=== PATIENT | female | born 1955 | race Caucasian/White ===

== ENCOUNTER 2020-01-14 15:59 | Outpatient (REF) | payer OTHER, SELFPAY ==
--- NOTE | 2020-01-14 16:07 | MM_ITS ---
EXAMINATION: MM SCREENING DIGITAL BREAST TOMOSYNTHESIS, BILATERAL CLINICAL INFORMATION: Screening. Asymptomatic. The lifetime risk of breast cancer based on the Tyrer-Cuzick Model is 8%. COMPARISON: Mammography: 10/05/2018, 10/04/2017, 08/31/2016, 08/14/2015 TECHNIQUE: Digital breast tomosynthesis is performed in both the craniocaudal and mediolateral oblique views along with computer-aided detection (CAD). Synthesized 2D images are generated from the tomosynthesis. Additional left cleavage view is provided. FINDINGS: There are scattered areas of fibroglandular density (ACR BI-RADS breast composition Category b). There is a nodular fibrocystic parenchymal pattern again seen with scattered bilateral smooth nodularity, largest again seen anterior central outer right breast. Nodules are predominantly stable, some are waxing and waning. There are no interval architectural changes or significant mass or developing density. No abnormal calcifications. The axilla and skin contours are unremarkable. MM/MM tomosynthesis screening BI IMPRESSION: No significant changes from prior exams. ASSESSMENT: BI-RADS 2: Benign RECOMMENDATION: Routine annual mammography screening. This patient's information was entered into a reminder system with a target due date for their next mammogram.
== END 2020-01-14 16:00 | disposition home or self-care (01) ==
LOC: HO.MAMMO 15:59
PROVIDERS: PCP Family Medicine; Visit Provider Obstetrics & Gynecology
DX: Z12.31 Encounter for screening mammogram for malignant neoplasm of breast (principal)
CPT/HCPCS: 77063; 77067

== ENCOUNTER → 2020-04-01 07:59 | Outpatient (BNVA) | payer OTHER, SELFPAY | PROVIDERS: PCP Family Medicine; Visit Provider Internal Medicine Endocrinology, Diabetes & Metabolism | DX: E11.9 Type 2 diabetes mellitus without complications (principal); Z79.4 Long term (current) use of insulin; E21.3 Hyperparathyroidism, unspecified; I10 Essential (primary) hypertension; E78.5 Hyperlipidemia, unspecified; E66.9 Obesity, unspecified | CPT/HCPCS: 82947; 99212 ==

== ENCOUNTER 2020-04-01 09:01 | Outpatient (REF) | payer OTHER, SELFPAY ==
[2020-04-01 10:03] LABS: Hemoglobin 11.3 g/dl (12.0-16.0); Mean Corpuscular HGB Conc 31.4 g/dl (31.0-35.0); Mean Corpuscular Hemoglobin 29.7 pg (27.0-33.0); Mean Corpuscular Volume 94.7 fL (80-98); Mean Platelet Volume 10.4 fL (9.4-12.3); Platelet Count 375 X10*3/uL (160-400); Red Cell Distribution Width 12.8 % (11.0-16.0); White Blood Count 10.1 X10*3/uL (4.8-10.8)
[2020-04-01 10:42] LABS: Alanine Aminotransferase 15 U/L (0-31); Albumin Level 4.4 g/dL (3.5-5.0); Alkaline Phosphatase 103 U/L (39-117); Aspartate Amino Transferase 16 U/L (5-31); Bilirubin Total 0.5 mg/dL (0.0-1.0); Blood Urea Nitrogen 60 mg/dL (9-16); Calcium 9.6 mg/dL (8.4-10.2); Cholesterol 129 mg/dL; Estimated Glomerular Filt Rate 26; Glucose Fasting 113 mg/dL (60-99); HDL Cholesterol 30 mg/dL; LDL Cholesterol Calculated 74 mg/dl; Total Protein 7.4 g/dL (6.5-8.0); Triglycerides 128 mg/dL
[2020-04-01 10:47] LABS: Vitamin D 25-OH Total 34.7 ng/mL (>30)
[2020-04-01 10:50] LABS: Creatinine Urine 111.73 mg/dL; Microalbumin Urine < 5.0 mg/L
[2020-04-01 10:52] LABS: Anion Gap 17 (12-20); Carbon Dioxide 15 mmol/L (22-29); Chloride 115 mmol/L (96-108); Potassium 5.9 mmol/l (3.3-5.1); Sodium 141 mmol/L (135-145)
[2020-04-01 11:05] LABS: Vitamin B12 242 pg/mL (200-900)
[2020-04-02 07:57] LABS: LDL Cholesterol Direct 81 mg/dL (<100)
[2020-04-02 15:52] LABS: Calcium (PTHI) 9.9 mg/dL (8.6-10.4); PTHI 56 pg/mL (14-64)
[2020-04-05 00:47] LABS: VITAMIN D (1,25 OH) D3 <8 pg/mL; Vit D (1,25-Dihydroxy) Total <8 pg/mL (18-72); Vitamin D (1,25 OH) D2 <8 pg/mL
== END 2020-04-01 09:02 | disposition home or self-care (01) ==
LOC: HO.10HDL 09:01
PROVIDERS: Visit Provider Internal Medicine Endocrinology, Diabetes & Metabolism
DX: E21.3 Hyperparathyroidism, unspecified (principal); E11.9 Type 2 diabetes mellitus without complications; E78.5 Hyperlipidemia, unspecified; Z79.4 Long term (current) use of insulin
CPT/HCPCS: 36415; 80053; 80061; 82043; 82306; 82607; 82652; 83721; 83970; 85027

== ENCOUNTER → 2020-04-08 07:50 | Outpatient (REF) | payer OTHER, SELFPAY ==
--- NOTE | 2020-04-08 07:53 | CA_ITS ---
Acquisition Time: 2020-04-08 08:05:14 Total Exercise Time: 00:01:16 Test Indications: Dyspnea Medications: SEE CHART Protocol: DAVE Max HR: 136 BPM 86% of Pred: 157 BPM Max BP: 148/076 mmHG Max Work Load: 3.2 METS Exercise stress test with exercise 1 min 16 sec of Dave protocol, with report of knee pain and request to stop, with moderate shortness of breath, no chest discomfort, without arrythmia, with normotensive response to exercise, with nondiagnostic EKG for ischemia due to suboptimal exercise time. Test reviewed with Dr Domínguez. Message sent to Dr Suarez with recommendation for pharm nuclear stress test if warranted. Referred By: Reinaldo Suarez Overread By: SAIRA SHI
== END ==
LOC: HO.CARD 07:50
PROVIDERS: PCP Family Medicine; Visit Provider Family Medicine
DX: R07.89 Other chest pain (principal); R06.02 Shortness of breath
CPT/HCPCS: 93017

== ENCOUNTER → 2020-05-16 09:19 | Outpatient (REF) | payer OTHER, SELFPAY ==
--- NOTE | ~2020-05-16 | NM_ITS ---
Myocardial perfusion study Indication: Shortness of breath evaluate for myocardial ischemia Technique: The patient was brought in for a Lexiscan perfusion study on 05/16/2020. Patient performed low-level exercise and was injected 0.4 mg of Lexiscan intravenously. Within a minute of injection, 30 mCi of sestamibi was given intravenously. Images were obtained using the SPECT gamma camera interlaced with the gating device. Images were obtained in supine position. Resting perfusion study was performed on 05/20/2019. Patient was administered 30 mCi of sestamibi intravenously at rest. Images were then obtained in supine position. Images obtained with and without CT attenuation. Total DLP 103 mGy-cm. Images were processed with the software and compared side to side in short axis, horizontal long axis and vertical long axis views. Findings: The stress perfusion study showed non attenuated images show normal uptake of radiotracer in all segments of LV myocardium. Attenuation corrected images show mildly reduced uptake in the apex of the LV myocardium.. The gated study shows normal LV systolic function with calculated LVEF of greater than 70 %. LV cavity is normal size. The gated study shows normal systolic wall thickening and contraction of segments. Resting study shows non attenuated images show mildly reduced uptake in the basal and mid inferior wall of the LV myocardium. Attenuation corrected images show mildly reduced uptake in the septum, distal anterior and moderately reduced uptake in the apex of the LV myocardium. Gating at rest reveals normal systolic wall motion with ejection fraction at greater than 70 %. The findings are consistent with normal myocardial perfusion. NM/NM cardiolite stress test Impression: 1. Myocardial perfusion imaging study shows normal myocardial perfusion 2. Gated LVEF is greater than 70% 3. Transient ischemic dilatation not present EKG is nondiagnostic for ischemia
--- NOTE | 2020-05-16 09:30 | CA_ITS ---
Acquisition Time: 2020-05-16 10:50:53 Total Exercise Time: 00:02:00 Test Indications: CP, SOB Medications: SEE CHART Protocol: LEXISCAN Max HR: 130 BPM 82% of Pred: 157 BPM Max BP: 144/078 mmHG Max Work Load: 1.0 METS Pharmacological stress test using Lexiscan while sitting and kicking her feet. Pt tolerated well, denies any anginal sx. EKG with no arrhythmia, non-diagnostic for ischemia. Pt c/o H/A in recovery, sx reversed with Aminophyline 75 mg IV. Nuclear images to follow. Normotensive response to jackie. Test reviewed with Dr. Domínguez. Referred By: Reinaldo Suarez Overread By: Eliel Reid
== END ==
LOC: HO.CARD 09:19
PROVIDERS: PCP Family Medicine; Visit Provider Family Medicine
DX: R07.89 Other chest pain (principal); R06.02 Shortness of breath
CPT/HCPCS: 78452; 93017; A9500; J0280; J2785

== ENCOUNTER 2020-06-03 07:58 | Day surgery (SDC) | payer OTHER, SELFPAY ==
[2020-05-28 10:43] VITALS: BMI 32.0
--- NOTE | 2020-06-02 08:31 | P.CONAN_ITS ---
Documented by User: Mary Ramosney 06/02/20 08:34 HPI - Anesthesia Eval Consult details Narrative: 64yo F for Upper Endoscopy and Colonoscopy PCP w/u for CP, all negative, likely r/t dyspepsia per 05/2020 OV note PMFSH Active Problems Active Problems: All Active Problems (Updated 05/21/20 @ 10:09 by Reinaldo Suarez MD) Breast cancer screening by mammogram (Acute) Screening for colon cancer (Acute) Screening for cervical cancer (Acute) Screening for osteoporosis (Acute) Abdominal pain (Acute) Chest discomfort (Acute) Shortness of breath (Acute) Dyspepsia (Acute) Obesity (BMI 30-39.9) (Acute) CKD (chronic kidney disease) stage 3, GFR 30-59 ml/min (Acute) Dyslipidemia (Acute) Hypertension (Acute) 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 Sister No problems noted. Sister No problems noted. Daughter No problems noted. Daughter No problems noted. Daughter No problems noted. Surgical History Surgical History H/O colonoscopy History of endometrial ablation History of esophagogastroduodenoscopy (EGD) History of eye surgery History of femoral hernia repair History of incisional hernia repair History of pubovaginal sling Hx of section Hx of cholecystectomy Hx of left knee surgery S/P right knee arthroscopy Social History Social History Alcohol intake: never Smoking Status: Former smoker Smoking Quit Date: unknown Use of substances other than those prescribed or required for medical reasons: No Advance Directives Information Provided: No Meds Allergies Allergy/AdvReac Type Severity Reaction Status Date / Time tuberculin,PPD,multi-puncture Allergy Intermediate hives/SOB Verified 05/28/20 09:40 oxycodone [Percocet] Allergy Unknown unknown Verified 05/21/20 09:29 Doxycycline Hyclate Allergy Intermediate dizziness, Uncoded 05/28/20 09:40 n/v Home Medications Medication Instructions Recorded Confirmed Last Taken Type blood sugar diagnostic #10 ea 04/01/20 04/01/20 Unknown History citalopram 40 mg tablet 40 mg PO DAILY 04/01/20 05/28/20 Unknown History famotidine 40 mg tablet 40 mg PO BEDTIME 04/01/20 05/28/20 Unknown History latanoprost 0.005 % eye drops 1 drp OPHTHALMIC (EYE) BEDTIME 04/01/20 04/01/20 Unknown History pen needle, diabetic 31 gauge x #1200 ea 04/01/20 04/01/20 Unknown History 07/20 trazodone 150 mg tablet 150 mg PO BEDTIME 04/01/20 05/28/20 Unknown History Exam Exam Date and Time: June 02, 2020 0831 Height,Weight and Vital Signs: Height 5 ft 2 in Weight 79.379 kg Pertinent Lab Results Pertinent Lab Results: Laboratory Tests 04/01/20 09:10 WBC 10.1 Hgb 11.3 L Hct 36.0 L Plt Count 375 Narrative Narrative: NM cardiolite stress test 05/2020 Impression: 1. Myocardial perfusion imaging study shows normal myocardial perfusion 2. Gated LVEF is greater than 70% 3. Transient ischemic dilatation not present EKG is nondiagnostic for ischemia EKG 03/2020 NSR per PCP note Assessment and Plan Assessment Anesthesia Assessment: Chart Reviewed Documented by User: Stephenie Ribeiro 06/03/20 10:16 [facility] Past Medical History Medical History CKD (chronic kidney disease) stage 3, GFR 30-59 ml/min Diabetes type 2, controlled Dyslipidemia Hyperparathyroidism Hypertension [facility] (current) use of insulin Obesity (BMI 30-39.9) Family History Family History Father Cancer Diabetes mellitus Hx of CABG CVD (cardiovascular disease) Mother Diabetes mellitus Brother No problems noted. Sister No problems noted. Sister No problems noted. Daughter No problems noted. Daughter No problems noted. Daughter No problems noted. Surgical History Surgical History H/O colonoscopy History of endometrial ablation History of esophagogastroduodenoscopy (EGD) History of eye surgery History of femoral hernia repair History of incisional hernia repair History of pubovaginal sling Hx of section Hx of cholecystectomy Hx of left knee surgery S/P right knee arthroscopy Social History Social History Alcohol intake: never Smoking Status: Former smoker Smoking Quit Date: unknown Use of substances other than those prescribed or required for medical reasons: No Advance Directives Information Provided: No Meds Allergies Allergy/AdvReac Type Severity Reaction Status Date / Time tuberculin,PPD,multi-puncture Allergy Intermediate hives/SOB Verified 05/28/20 09:40 oxycodone [Percocet] Allergy Unknown unknown Verified 05/21/20 09:29 Doxycycline Hyclate Allergy Intermediate dizziness, Uncoded 05/28/20 09:40 n/v Home Medications Medication Instructions Recorded Confirmed Last Taken Type blood sugar diagnostic #10 ea 04/01/20 04/01/20 Unknown History citalopram 40 mg tablet 40 mg PO DAILY 04/01/20 05/28/20 Unknown History famotidine 40 mg tablet 40 mg PO BEDTIME 04/01/20 05/28/20 Unknown History latanoprost 0.005 % eye drops 1 drp OPHTHALMIC (EYE) BEDTIME 04/01/20 04/01/20 Unknown History pen needle, diabetic 31 gauge x #1200 ea 04/01/20 04/01/20 Unknown History 5/16 trazodone 150 mg tablet 150 mg PO BEDTIME 04/01/20 05/28/20 Unknown History Exam Airway Mallampati Class: II TM Dist: >3cm Denture: Upper Loose/Missing/Broken Teeth: Yes, Upper and Lower Heart: RRR Lungs: CTA Assessment and Plan Assessment Anesthesia Assessment: Anesthesia Plan Discussed and Chart Reviewed Final Anesthetic Review NPO: Yes ASA Class: III Final Preanesthetic Review: Meds/Allgs Chart Reviewed, Consent Obtained/Reviewed and Anes Risks/Benef Reviewed Patient Risk: Intermediate Procedure Risk: Intermediate Anesthetic Plan Anesthetic Plan: MAC: Disposition: Standard PACU
[2020-06-03 09:02] VITALS: BP 161/84; PULSE 90; RESP 18; TEMP 36.1; O2SAT 99
[2020-06-03] MEDS: Lactated Ringers 1,000 ML 100 ML IVCONT (09:24)
[2020-06-03 09:27] LABS: Glucose, Whole Blood 90 mg/dL (60-115)
[2020-06-03 09:55] LABS: Anion Gap 15 (12-20); Blood Urea Nitrogen 33 mg/dL (9-16); Calcium 9.7 mg/dL (8.4-10.2); Carbon Dioxide 17 mmol/L (22-29); Chloride 114 mmol/L (96-108); Creatinine Clr Calc Pharmacy 40.4; Estimated Glomerular Filt Rate 38; Glucose Fasting 103 mg/dL (60-99); Potassium 5.8 mmol/L (3.3-5.1); Sodium 140 mmol/L (135-145)
--- NOTE | 2020-06-03 10:14 | MHC.SHP ---
Pre-Procedural Eval Section A The patient is an INPATIENT: No Changes since office visit: No Cold of Flu in the past 2 weeks, No New Medical Problems, No Changes in Medication and No Patient answered all questions The History & Physical has been completed within 30 days and I have reviewed it.: Yes Section B Chief Complaint: polyps Allergies: Allergies Allergy/AdvReac Type Severity Reaction Status Date / Time tuberculin,PPD,multi-puncture Allergy Intermediate hives/SOB Verified 05/28/20 09:40 oxycodone [Percocet] Allergy Unknown unknown Verified 05/21/20 09:29 Doxycycline Hyclate Allergy Intermediate dizziness, Uncoded 05/28/20 09:40 n/v Plan I have reviewed the history and physical and performed a pertinent physical examination on my patient. No changes have occurred unless specified.
[2020-06-03 10:58] VITALS: BP 96/52; PULSE 97; RESP 18; TEMP 36.6; O2SAT 99
--- NOTE | 2020-06-03 10:58 | PM.OP ---
Brief Operative Note Date of Service: 06/03/20 Pre-op diagnosis: abd pain screening Post-op diagnosis: same Procedure: egd colon Surgeon: Kee Godfrey Anesthesia: MAC Estimated blood loss (mL): 5 Pathology: other (biopsies egj antrum rectal polyp) Condition: stable Disposition: PACU
[2020-06-03 11:13] VITALS: BP 103/66; PULSE 89; RESP 18; TEMP 36.6; O2SAT 98
--- NOTE | 2020-06-03 12:29 | OP_ITS ---
SURGEON: Kee Godfrey MD INDICATIONS: Abdominal pain and personal history of colon polyps. PREOPERATIVE DIAGNOSIS: POSTOPERATIVE DIAGNOSIS: PROCEDURE PERFORMED: 1. Upper endoscopy with biopsy. 2. Colonoscopy to the cecum with biopsy. ESTIMATED BLOOD LOSS: COMPLICATIONS: ANESTHESIA: ASSISTANTS: SPECIMENS: MEDICATIONS: Monitored anesthesia care. DESCRIPTION OF PROCEDURE: History and physical performed. The risks and benefits of the procedure were explained to the patient. Informed consent was obtained. The patient was placed in the left lateral decubitus position. The Olympus video gastroscope was introduced into the esophagus, stomach, and duodenum. Examination was performed and the scope was removed. She was repositioned for colonoscopy. A digital rectal exam was performed and was found to be normal. The Olympus pediatric video colonoscope was introduced into the rectum and advanced to the cecum without difficulty. The cecum was identified by transillumination, palpation, and identification of the ileocecal valve. Examination was performed and the scope was removed. She tolerated both procedures well and was taken to recovery area in stable condition. FINDINGS: UPPER ENDOSCOPY: ESOPHAGUS: The esophagus was normal. Biopsies were obtained from the EG junction. STOMACH: Stomach showed no evidence of masses, ulcers, or polyps. Antral biopsies were obtained. DUODENUM: The bulb and second portion were normal. COLONOSCOPY: The terminal ileum was not examined. The visualized colonic mucosa was normal. The quality of the prep was fair with some undigested food material and the descending and sigmoid colon, which limited the sensitivity examination for detection of small polyps. A single rectal polyp was identified and removed with biopsy forceps. No other polyps were seen. Retroflexed examination was normal. IMPRESSION: 1. Normal upper endoscopy. 2. Colon polyp. RECOMMENDATION: Follow up the biopsy results. MD YESSICA Adorno/ELAINE / [id number]
== END 2020-06-03 11:37 | disposition home or self-care (01) ==
PROVIDERS: Nurse Practitioner; PCP Family Medicine; Visit Provider Internal Medicine Gastroenterology
PROC: (CPT 45380; principal; 2020-06-03 09:20)
DX: R10.33 Periumbilical pain (principal); Z86.010 Personal history of colon polyps; K62.1 Rectal polyp; E11.22 Type 2 diabetes mellitus with diabetic chronic kidney disease; I12.9 Hypertensive chronic kidney disease with stage 1 through stage 4 chronic kidney disease, or unspecified chronic kidney disease; N18.30 Chronic kidney disease, stage 3 unspecified; Z79.4 Long term (current) use of insulin; Z79.82 Long term (current) use of aspirin; Z79.899 Other long term (current) drug therapy; Z88.8 Allergy status to other drugs, medicaments and biological substances; Z87.891 Personal history of nicotine dependence
CPT/HCPCS: 45380; 43239; 36415; 80048; 82947; 88305; 88342

== ENCOUNTER 2020-06-19 16:33 | Emergency (ER) | payer OTHER, SELFPAY ==
--- NOTE | 2020-06-19 | ECG_ITS ---
Test Reason : HIGH HEARTHRATE Blood Pressure : / mmHG Vent. Rate : 123 BPM Atrial Rate : 123 BPM P-R Int : 134 ms QRS Dur : 074 ms QT Int : 280 ms P-R-T Axes : 045 010 077 degrees QTc Int : 400 ms Sinus tachycardia Left ventricular hypertrophy with repolarization abnormality Nonspecific ST abnormality Abnormal ECG When compared with ECG of 06-JUL-2019 13:40, ST no longer elevated in Lateral leads Nonspecific T wave abnormality now evident in Lateral leads Referred By: Generic ED Physician Electronically Signed By:Rodrigo Moralez
--- NOTE | ~2020-06-19 | XR_ITS ---
EXAMINATION: XR CHEST CLINICAL INFORMATION: Covid COMPARISON: Chest x-ray 07/06/2019 TECHNIQUE: Frontal portable view of the chest was obtained. 7:45 PM FINDINGS: No significant abnormality is noted involving the heart, lungs, mediastinum, bony thorax or soft tissues. XR/XR chest 1V IMPRESSION: Unremarkable examination.
[2020-06-19 17:14] VITALS: BP 128/81; PULSE 129; RESP 18; TEMP 37.2; O2SAT 98; BMI 32.6
[2020-06-19 17:39] LABS: COVID-19 Test Positive (Negative); IDNOW Serial# 08D9AD1C
--- NOTE | 2020-06-19 19:32 | ED.GENADULT ---
HPI - General Adult General Chief complaint: General Medical Stated complaint: covid + Time Seen by Provider: 06/19/20 19:28 Source: patient Mode of arrival: ambulatory Limitations: no limitations History of Present Illness HPI narrative: Patient complaining of low-grade fever vomiting nausea headache body ache dizziness tested for COVID few days ago which was negative she state she has close contact with her cousin is positive for COVID patient is saturating 98% at room air Related Data Home Medications Medication Instructions Recorded Confirmed blood sugar diagnostic #10 ea 04/01/20 07/28/20 citalopram 40 mg tablet 40 mg PO DAILY 04/01/20 07/28/20 famotidine 40 mg tablet 40 mg PO BEDTIME 04/01/20 07/28/20 latanoprost 0.005 % eye drops 1 drp OPHTHALMIC (EYE) BEDTIME 04/01/20 07/28/20 dicyclomine 20 mg tablet 20 mg PO 07/02/20 07/28/20 Previous Rx's Medication Instructions Recorded amitriptyline 25 mg tablet 25 mg PO BEDTIME 90 Days #90 tab 04/02/20 lisinopril 20 mg tablet 20 mg PO DAILY #90 tab 04/02/20 oxybutynin chloride 15 mg 15 mg PO DAILY 90 Days #90 tab 04/02/20 tablet,extended release 24 hr aspirin 81 mg tablet,delayed 81 mg PO DAILY 90 Days #90 tab 04/23/20 release diclofenac sodium 50 mg 50 mg PO TID 90 Days #270 tab 04/23/20 tablet,delayed release metoprolol succinate 25 mg 25 mg PO DAILY 90 Days #90 tab 04/23/20 tablet,extended release 24 hr omeprazole 40 mg capsule,delayed 40 mg PO DAILY #30 cap 06/16/20 release ondansetron 4 mg PO Q6-8H PRN #7 tab 06/19/20 tramadol 50 mg PO Q6H PRN #20 tab 06/19/20 nystatin 5 ml PO QID #473 ml 06/28/20 atorvastatin 40 mg tablet 40 mg PO DAILY #90 tab 07/10/20 cholecalciferol (vitamin D3) 125 125 mcg PO DAILY 30 Days #30 cap 07/28/20 mcg (5,000 unit) capsule pen needle, diabetic 31 gauge x #100 ea 07/28/2007/20 trazodone 150 mg tablet 150 mg PO BEDTIME #30 tab 08/07/20 Trulicity 0.75 mg/0.5 mL 0.75 mg SUBCUT QWEEK 30 Days #2 ml 08/13/20 subcutaneous pen injector NS insulin glargine U-300 conc 300 40 unit SUBCUT DAILY 30 Days 08/13/20 unit/mL (3 mL) subcutaneous pen #3.999 ml Allergies Allergy/AdvReac Type Severity Reaction Status Date / Time tuberculin,PPD,multi-puncture Allergy Intermediate hives/SOB Verified 07/02/20 09:35 oxycodone [Percocet] Allergy Unknown unknown Verified 07/02/20 09:35 Doxycycline Hyclate Allergy Intermediate dizziness, Uncoded 05/28/20 09:40 n/v Review of Systems Review of Systems: Constitutional : No Weight loss, + Fever, No Chills ENT/Mouth : No sore throat, No Rhinorrhea Eyes: No Eye Pain, No Swelling Cardiovascular : No Chest Pain, no palpitations Respiratory : No Cough, No Sputum, no shortness of breath Gastrointestinal : + Nausea, +Vomiting, No Diarrhea, No abdominal Pain, no black stools Genitourinary : No Dysuria, No Urinary Frequency Musculoskeletal : No joint pain, + Myalgias, No Joint Swelling Skin : No Skin Lesions, No rash Neuro : ++Weakness, No Numbness, No Dizziness, No Headache Psych : No Anxiety/Panic, No Depression Heme/Lymph: No Bruising, No Lymphadenopathy Endocrine : No Polyuria, No Polydipsia All other systems reviewed and are negative PMFSH Past Medical History Medical History CKD (chronic kidney disease) stage 3, GFR 30-59 ml/min Diabetes type 2, controlled Dyslipidemia Hyperparathyroidism 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 Sister No problems noted. Sister No problems noted. Daughter No problems noted. Daughter No problems noted. Daughter No problems noted. Social History Social History Alcohol intake: never Physical Exam Vital Signs: Vital Signs: Last Vital Signs Temp 99.0 F 06/19/20 17:14 Pulse 118 H 06/19/20 19:59 Resp 20 06/19/20 19:59 BP 127/93 H 06/19/20 19:59 Pulse Ox 98 06/19/20 17:14 Body Mass Index 32.6 Appearance: Alert. Oriented X3. No acute distress. Eyes: PERRLA, No Nystagmus ENT: Pharynx normal. Oral Mucosa moist Neck: Normal inspection. Neck supple. CVS: Normal heart rate and rhythm. Pulses normal. Respiratory: No respiratory distress. Equal air entry bilateral, no wheezing/rales/rhonchi Abdomen: Soft and nontender. Bowel sounds are present, no mass palpable, no CVA tenderness Skin: Skin warm and dry. Normal skin color. Normal skin turgor. Extremities: No lower extremity edema. No calf tenderness Neuro: Oriented X 3. No motor deficit. No sensory deficit.No cerebellar signs , cranial nerves II-XII intact Medical Decision Making MDM Narrative Medical decision making narrative: Patient COVID positive saturating 98% chest x-ray negative Lab Data Lab results reviewed: Yes I reviewed the patient's lab results. Labs: Lab Results 06/19/20 Range/Units 17:04 COVID-19 ([facility]REE) Positive A (Negative) COVID-19 Clin Com See Note Discharge Plan Discharge Clinical Impression: COVID-19 Patient Disposition: Home, Self-Care Instructions: COVID-19 (Coronavirus Disease 2019) (ED) Additional Instructions: Social distancing as advised. Medicine as advised Report to the ER if increased shortness of breath Prescriptions: New tramadol 50 mg tablet 50 mg PO Q6H PRN (Reason: pain) Qty: 20 RF: 0 ondansetron 4 mg tablet,disintegrating 4 mg PO Q6-8H PRN (Reason: nausea and vomiting) Qty: 7 RF: 0 No Action omeprazole 40 mg capsule,delayed release(DR/EC) 40 mg PO DAILY Qty: 30 RF: 3 atorvastatin 40 mg tablet 40 mg PO DAILY Qty: 90 RF: 0 trazodone 150 mg tablet 150 mg PO BEDTIME Qty: 30 RF: 0 insulin glargine U-300 conc 300 unit/mL (3 mL) insulin pen 40 unit subcut DAILY 30 Days Qty: 3.999 RF: 6 Trulicity 0.75 mg/0.5 mL pen injector 0.75 mg subcut QWEEK 30 Days Qty: 2 RF: 6 nystatin 100,000 unit/mL suspension 5 ml PO QID Qty: 473 RF: 0 metoprolol succinate 25 mg tablet extended release 24 hr 25 mg PO DAILY 90 Days Qty: 90 RF: 2 diclofenac sodium 50 mg tablet,delayed release (DR/EC) 50 mg PO TID 90 Days Qty: 270 RF: 2 aspirin 81 mg tablet,delayed release (DR/EC) 81 mg PO DAILY 90 Days Qty: 90 RF: 4 amitriptyline 25 mg tablet 25 mg PO BEDTIME 90 Days Qty: 90 RF: 3 lisinopril 20 mg tablet 20 mg PO DAILY Qty: 90 RF: 2 oxybutynin chloride 15 mg tablet extended release 24hr 15 mg PO DAILY 90 Days Qty: 90 RF: 2 dicyclomine 20 mg tablet 20 mg PO RF: 0 (DME) blood sugar diagnostic Strip See Rx Instructions ea Not Applicable BID Qty: 10 RF: 0 famotidine 40 mg tablet 40 mg PO BEDTIME RF: 0 citalopram 40 mg tablet 40 mg PO DAILY RF: 0 latanoprost 0.005 % drops 1 drp ophthalmic (eye) BEDTIME RF: 0 cholecalciferol (vitamin D3) 125 mcg (5,000 unit) capsule 125 mcg PO DAILY 30 Days Qty: 30 RF: 4 (DME) pen needle, diabetic 31 gauge x 5/16 needle See Rx Instructions ea subcut .MEDSUPPLY Qty: 100 RF: 6 Interventions: ED Discharge Assessment Last Done: 06/19/20 21:27 Discharge Date/Time: 06/19/20 21:27
[2020-06-19 19:59] VITALS: BP 127/93; PULSE 118; RESP 20
[2020-06-19] MEDS: traMADoL HCL 50 MG TABLET PO (20:02)
[2020-06-19] MEDS: dexAMETHasone 6 MG TABLET PO (20:02)
[2020-06-19] MEDS: Magnesium Hydrox/Alum Hydrox 30 ML ORAL.SUSP PO (20:30)
== END 2020-06-19 21:27 | disposition home or self-care (01) ==
PROVIDERS: Emergency Provider Internal Medicine; PCP Family Medicine
DX: U07.1 COVID-19 (principal); R50.9 Fever, unspecified; R51.9 Headache, unspecified; Z79.899 Other long term (current) drug therapy
CPT/HCPCS: 36415; 71045; 87635; 93005; 99284; J8540

== ENCOUNTER 2020-06-28 15:47 | Emergency (ER) | payer OTHER, SELFPAY ==
--- NOTE | ~2020-06-28 | XR_ITS ---
EXAMINATION: XR CHEST CLINICAL INFORMATION: Shortness of breath. COVID positive COMPARISON: 06/19/2020 TECHNIQUE: Frontal view of the chest was obtained. FINDINGS: Lung volumes are borderline low. No consolidation, pneumothorax, or pleural effusion. Cardiac and mediastinal contours are normal. Pulmonary vasculature is unremarkable. No acute osseous findings. XR/XR chest 1V IMPRESSION: Borderline low lung volumes. No acute pulmonary findings.
[2020-06-28 16:28] VITALS: BP 113/76; PULSE 102; RESP 16; TEMP 37.1; O2SAT 98
[2020-06-28 16:52] VITALS: BP 132/79; PULSE 104; RESP 20; TEMP 37.2; O2SAT 97; BMI 32.6
--- NOTE | 2020-06-28 17:25 | ED_ITS ---
HPI - General Adult General Chief complaint: General Medical Stated complaint: covid+ , sob Time Seen by Provider: 06/28/20 17:05 Source: patient, RN notes reviewed and old records reviewed Mode of arrival: ambulatory Limitations: no limitations History of Present Illness HPI narrative: 64-year-old female here today for complaints of cough, shortness of breath fatigue. Patient has a history dyslipidemia, hypertension, hyperparathyroidism, diabetes. Was seen on the 15 and diagnosed with COVID. Sent home with Decadron. At that time her symptoms were headache, dyspepsia, him cough and mild shortness of breath. Patient reports that she felt better after couple days however her symptoms return and today she is coughing, shortness of breath with exertion, headache and dyspepsia. Patient reports to be feeling fatigued. Her mouth is dry. Reports to have white patchy spots on her tongue. Patient reports that her cough is increased and she feels more fatigued. Denies fever or chills. Took 7 day course of Decadron. Related Data Home Medications Medication Instructions Recorded Confirmed blood sugar diagnostic #10 ea 04/01/20 04/01/20 citalopram 40 mg tablet 40 mg PO DAILY 04/01/20 05/28/20 famotidine 40 mg tablet 40 mg PO BEDTIME 04/01/20 05/28/20 latanoprost 0.005 % eye drops 1 drp OPHTHALMIC (EYE) BEDTIME 04/01/20 04/01/20 pen needle, diabetic 31 gauge x #1200 ea 04/01/20 04/01/20 5/16 trazodone 150 mg tablet 150 mg PO BEDTIME 04/01/20 05/28/20 Previous Rx's Medication Instructions Recorded amitriptyline 25 mg tablet 25 mg PO BEDTIME 90 Days #90 tab 04/02/20 cholecalciferol (vitamin D3) 125 125 mcg PO DAILY 30 Days #30 cap 04/02/20 mcg (5,000 unit) capsule lisinopril 20 mg tablet 20 mg PO DAILY #90 tab 04/02/20 oxybutynin chloride 15 mg 15 mg PO DAILY 90 Days #90 tab 04/02/20 tablet,extended release 24 hr sitagliptin 50 mg tablet 50 mg PO DAILY 90 Days #90 tab 04/02/20 insulin glargine U-300 conc 300 46 unit SUBCUT DAILY 30 Days #6 ml 04/09/20 unit/mL (3 mL) subcutaneous pen aspirin 81 mg tablet,delayed 81 mg PO DAILY 90 Days #90 tab 04/23/20 release atorvastatin 40 mg tablet 40 mg PO DAILY #90 tab 04/23/20 diclofenac sodium 50 mg 50 mg PO TID 90 Days #270 tab 04/23/20 tablet,delayed release metoprolol succinate 25 mg 25 mg PO DAILY 90 Days #90 tab 04/23/20 tablet,extended release 24 hr omeprazole 40 mg capsule,delayed 40 mg PO DAILY #30 cap 06/16/20 release dexamethasone [Decadron] 6 mg PO DAILY #7 tab 06/19/20 ondansetron 4 mg PO Q6-8H PRN #7 tab 06/19/20 tramadol 50 mg PO Q6H PRN #20 tab 06/19/20 azithromycin 250 mg PO DAILY 4 Days #4 tab 06/28/20 nystatin 5 ml PO QID #473 ml 06/28/20 Allergies Allergy/AdvReac Type Severity Reaction Status Date / Time tuberculin,PPD,multi-puncture Allergy Intermediate hives/SOB Verified 06/19/20 17:14 oxycodone [Percocet] Allergy Unknown unknown Verified 06/19/20 17:14 Doxycycline Hyclate Allergy Intermediate dizziness, Uncoded 05/28/20 09:40 n/v Review of Systems Review of Systems: Constitutional : No Weight loss, No Fever, No Chills, No Night Sweats, No Fatigue, No Malaise ENT/Mouth : No Hearing loss, No Ear Pain, No Nasal Congestion, No Sinus Pain, No Hoarseness, No sore throat, No Rhinorrhea, No Swallowing Difficulty Eyes: No Eye Pain, No Swelling, No Redness, No Foreign Body, No Discharge, No Vision Changes Cardiovascular : No Chest Pain, SOB with exertion, No Orthopnea, No Edema, No Palpitations Respiratory: Cough, Sputum, No Wheezing, No Smoke Exposure, Dyspnea with exertion Gastrointestinal : No Nausea, No Vomiting, No Diarrhea, No Constipation, No abdominal Pain, No Hematochezia, No Melena Genitourinary : no irregular bleeding, No Dysuria, No Urinary Frequency, No Hematuria, No Urinary Incontinence, No Urgency, No Flank Pain, No Urinary Flow Changes, No Hesitancy Musculoskeletal : No joint pain, No Myalgias, No Joint Swelling Skin : No Skin Lesions, No rash Neuro : No Weakness, No Numbness, No Paresthesias, No Loss of Consciousness, No Dizziness, No Headache Psych : No Anxiety/Panic, No Depression, No SI/HI/AH/VH, No Social Issues, Heme/Lymph: No Bruising, No Bleeding,No Lymphadenopathy Endocrine : No Polyuria, No Polydipsia, No Temperature Intolerance Yes all other systems are reviewed and are negative [facility] Past Medical History Medical History CKD (chronic kidney disease) stage 3, GFR 30-59 ml/min Diabetes type 2, controlled Dyslipidemia Hyperparathyroidism 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 Sister No problems noted. Sister No problems noted. Daughter No problems noted. Daughter No problems noted. Daughter No problems noted. Social History Social History Alcohol intake: never Smoking Status: Former smoker Smoked in Last 30 Days: No Use of substances other than those prescribed or required for medical reasons: No Advance Directives: No Advance Directives Information Provided: No Physical Exam Vital Signs: Vital Signs: Last Vital Signs Temp 98.8 F 06/28/20 22:00 Pulse 86 06/28/20 22:00 Resp 18 06/28/20 22:00 BP 111/73 06/28/20 22:00 Pulse Ox 98 06/28/20 22:00 Body Mass Index 32.6 Const: General: cooperative, healthy appearing and comfortable Nutritional Appearance: average body habitus Orientation/consciousness: patient oriented x3 Limitations: no limitations HENMT: Head: Yes normal to inspection Ears: hearing grossly normal bilaterally General nose exam: Normal external nose present Face and sinus: Yes normal facial exam Mouth: Abnormal oral and palatal mucosa present (Dry, white patchy spots) Eyes: General: appearance normal, both eyes and all related structures Ey elids: Yes eyelids normal Conjunctivae: conjunctivae normal Sclerae: sclerae normal Pupils: Equal, round and reactive pupils present Neck: Neck: Yes normal visual inspection, Yes full ROM, Yes no lymphadenopathy, Yes trachea midline and Yes supple Thyroid: Thyroid normal Lymphatic: no lymphadenopathy noted Chest: Chest palpation & inspection: normal inspection of the chest Resp: Effort & Inspection: normal respiratory effort and able to speak in complete sentences Auscultation: clear to auscultation bilaterally Cardio: Jugular venous distension: no JVD Rate: regular rate Rhythm: regular rhythm Heart sounds: S1 normal heart sound present, S2 normal heart sound present, no gallops, no murmurs and no rubs Peripheral pulses: Peripheral pulses 2+ throughout GI: Inspection: Yes normal to inspection and No distended Palpation (GI): No hepatosplenomegaly present and No Rebound tenderness present Percussion: Yes normal to percussion Auscultation: normal bowel sounds Back/Spine/Pelvis: Cervical Spine: cervical ROM normal and No cervical muscul ar tenderness Thoracic/Lumbar Spine: thoracic and lumbar spine normal to inspection Skin: General skin exam: no rashes or lesions noted, elasticity normal and turgor normal Neuro: General: patient oriented x3 Cranial nerves: Yes Equal, round and reactive pupils present Extrem: General: Yes normal to inspection, Yes full ROM and Yes capillary refill normal Psych: Appearance: grossly normal Mental Status: mental status grossly normal Speech and movement: Normal speech and movement present Affect: normal affect Attitude: cooperative Thought process: Normal thought process present Insight: Good insight present (Psych) Course Course Course Narrative: 64-year-old female here today with COVID positive diagnosed over 1 week ago. Patient was treated 7 days Decadron. Symptoms improved for 2 days however they have returned. SOB with exertion, headache, cough, dyspepsia, white patches on her tongue. Patient's heart rate is elevated. HR 110 at rest and 125 when she is moving around. I will order CRP, LDH, ferritin, CBC, CMP, D-dimer. Symptoms are most likely viral will order lactic acid, and blood cultures. Reevaluation(s) Reevaluation #1: Patient's kidney function came back abnormal. BUN 55, c reatinine 1.86. Ferritin 330, LDH 240, C-reactive protein 1.64. Patient has no change in her respiratory status. Continue to have a headache and occasional cough. Lung sounds coarse however her chest x-ray is without active disease. Patient O2 sat is 95-98% on room air. Patient has thrush in her mouth. Reevaluation #2: Patient reports she is feeling much better 1st dose of is a trauma eyes and given to her. Nystatin swish and swallow for oral thrush. L of fluid of fluid in. Patient reports that she is feeling better. She will be discharged home on nystatin and Zithromax. Patient is agreeable to plan of care. 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 She was given the opportunity to ask questions and all questions answered. Medical Decision Making Lab Data Result diagrams: 06/28/20 18:18 06/28/20 19:15 Labs: Lab Results 06/28/20 06/28/20 06/28/20 Range/Units 18:17 18:18 18:18 WBC 16.9 H (4.8-10.8) X10*3/uL RBC 3.79 L (4.20-5.50) X10*6/uL Hgb 11.2 L (12.0-16.0) g/dl Hct 34.0 L (37-47) % MCV 89.7 (80-98) fL MCH 29.6 (27.0-33.0) pg MCHC 32.9 (31.0-35.0) g/dl RDW 13.3 (11.0-16.0) % Plt Count 470 H D (160-400) X10*3/uL MPV 9.7 (9.4-12.3) fL Immature Gran % (Auto) 4.0 H (0.0-0.4) % Neut % (Auto) 63.1 (45-73) % Lymph % (Auto) 21.7 (20-40) % [place] % (Auto) 7.7 (2-11) % Eos % (Auto) 3.3 (0-4) % Baso % (Auto) 0.2 (0-2) % Lymph # (Auto) 3.7 (1.2-4.9) X10*3/uL [place] # (Auto) 1.3 H (0.1-1.2) X10*3/uL Eos # (Auto) 0.6 H (0.0-0.4) X10*3/uL Baso # (Auto) 0.0 (0.0-0.2) X10*3/uL Abs Immat Gran (auto) 0.67 H (0.00-0.03) X10*3/uL Absolute Neuts (auto) 10.7 H (2.0-8.3) X10*3/uL Absolute Nucleated RBC 0.000 (0.0-0.012) X10*3/uL Nucleated RBC % (auto) 0.0 (0.0-0.2) /100WBC D-Dimer 239 NG/ML Sodium Potassium Chloride Carbon Dioxide Anion Gap BUN Creatinine Estim Creat Clear Calc Estimated GFR Random Glucose Lactic Acid 1.2 (0.5-2.0) mmol/L Calcium Ferritin Total Bilirubin AST ALT Alkaline Phosphatase Lactate Dehydrogenase C-Reactive Protein (< or = 0.50) mg/dL B-Natriuretic Peptide (<100) pg/mL Total Protein Albumin 06/28/20 06/28/20 06/28/20 Range/Units 18:18 18:18 19:15 WBC (4.8-10.8) X10*3/uL RBC (4.20-5.50) X10*6/uL Hgb (12.0-16.0) g/dl Hct (37-47) % MCV (80-98) fL MCH (27.0-33.0) pg MCHC (31.0-35.0) g/dl RDW (11.0-16.0) % Plt Count (160-400) X10*3/uL MPV (9.4-12.3) fL Immature Gran % (Auto) (0.0-0.4) % Neut % (Auto) (45-73) % Lymph % (Auto) (20-40) % [place] % (Auto) (2-11) % Eos % (Auto) (0-4) % Baso % (Auto) (0-2) % Lymph # (Auto) (1.2-4.9) X10*3/uL [place] # (Auto) (0.1-1.2) X10*3/uL Eos # (Auto) (0.0-0.4) X10*3/uL Baso # (Auto) (0.0-0.2) X10*3/uL Abs Immat Gran (auto) (0.00-0.03) X10*3/uL Absolute Neuts (auto) (2.0-8.3) X10*3/uL Absolute Nucleated RBC (0.0-0.012) X10*3/uL Nucleated RBC % (auto) (0.0-0.2) /100WBC D-Dimer NG/ML Sodium Cancelled 142 Potassium Cancelled 5.0 Chloride Cancelled 113 H Carbon Dioxide Cancelled 13 L Anion Gap Cancelled 21 H BUN Cancelled 55 H D Creatinine Cancelled 1.86 H Estim Creat Clear Calc Cancelled 29.3 Estimated GFR Cancelled 27 Random Glucose Cancelled 199 H Lactic Acid (0.5-2.0) mmol/L Calcium Cancelled 9.6 Ferritin Cancelled 313 H Total Bilirubin Cancelled 0.3 AST Cancelled 17 ALT Cancelled 30 Alkaline Phosphatase Cancelled 114 Lactate Dehydrogenase Cancelled 240 H C-Reactive Protein 1.64 H (< or = 0.50) mg/dL B-Natriuretic Peptide < 10 (<100) pg/mL Total Protein Cancelled 7.0 Albumin Cancelled 3.8 Discharge Plan Discharge Clinical Impression: COVID-19 Patient Disposition: Home, Self-Care Instructions: COVID-19 (Coronavirus Disease 2019) (ED) Additional Instructions: You came today for exacerbation of your symptoms from COVID viral infection. Your kidney functions worsen elevated. Follow up with you marine structural designer. Monitor your symptoms for increased shortness of breath and fatigue. You had signs of thrush any amount, please take nystatin as ordered. You were given azithromycin, please take it for the next 4 days. Please follow-up with your primary care doctor in 2-3 days. If your symptoms get worse or if you will develop any concerning symptoms you may return to emergency department. Prescriptions: New nystatin 100,000 unit/mL suspension 5 ml PO QID Qty: 473 RF: 0 azithromycin 250 mg tablet 250 mg PO DAILY 4 Days Qty: 4 RF: 0 No Action insulin glargine U-300 conc 300 unit/mL (3 mL) insulin pen 46 unit subcut DAILY 30 Days Qty: 6 RF: 6 omeprazole 40 mg capsule,delayed release(DR/EC) 40 mg PO DAILY Qty: 30 RF: 3 dexamethasone [Decadron] 6 mg tablet 6 mg PO DAILY Qty: 7 RF: 0 tramadol 50 mg tablet 50 mg PO Q6H PRN (Reason: pain) Qty: 20 RF: 0 ondansetron 4 mg tablet,disintegrating 4 mg PO Q6-8H PRN (Reason: nausea and vomiting) Qty: 7 RF: 0 atorvastatin 40 mg tablet 40 mg PO DAILY Qty: 90 RF: 0 metoprolol succinate 25 mg tablet extended release 24 hr 25 mg PO DAILY 90 Days Qty: 90 RF: 2 diclofenac sodium 50 mg tablet,delayed release (DR/EC) 50 mg PO TID 90 Days Qty: 270 RF: 2 aspirin 81 mg tablet,delayed release (DR/EC) 81 mg PO DAILY 90 Days Qty: 90 RF: 4 (DME) blood sugar diagnostic Strip See Rx Instructions ea Not Applicable BID Qty: 10 RF: 0 (DME) pen needle, diabetic 31 gauge x 5/16 needle See Rx Instructions ea subcut .MEDSUPPLY Qty: 1200 RF: 0 famotidine 40 mg tablet 40 mg PO BEDTIME RF: 0 citalopram 40 mg tablet 40 mg PO DAILY RF: 0 trazodone 150 mg tablet 150 mg PO BEDTIME RF: 0 latanoprost 0.005 % drops 1 drp ophthalmic (eye) BEDTIME RF: 0
[2020-06-28 18:26] LABS: MANUAL DIFF FLAG NO
[2020-06-28 18:27] LABS: Basophils Percent Auto 0.2 % (0-2); Eosinophils Absolute Auto 0.6 X10*3/uL (0.0-0.4); Eosinophils Percent Auto 3.3 % (0-4); Hemoglobin 11.2 g/dl (12.0-16.0); Imm Gran Abs Auto 0.67 X10*3/uL (0.00-0.03); Lymphocytes Absolute Auto 3.7 X10*3/uL (1.2-4.9); Lymphocytes Percent Auto 21.7 % (20-40); Mean Corpuscular HGB Conc 32.9 g/dl (31.0-35.0); Mean Corpuscular Hemoglobin 29.6 pg (27.0-33.0); Mean Corpuscular Volume 89.7 fL (80-98); Mean Platelet Volume 9.7 fL (9.4-12.3); Monocytes Absolute Auto 1.3 X10*3/uL (0.1-1.2); Monocytes Percent Auto 7.7 % (2-11); Neutrophils Absolute Auto 10.7 X10*3/uL (2.0-8.3); Neutrophils Percent Auto 63.1 % (45-73); Platelet Count 470 X10*3/uL (160-400); Red Blood Count 3.79 X10*6/uL (4.20-5.50); Red Cell Distribution Width 13.3 % (11.0-16.0); White Blood Count 16.9 X10*3/uL (4.8-10.8)
[2020-06-28 18:35] LABS: D Dimer 239 NG/ML
[2020-06-28 18:55] LABS: Lactic Acid 1.2 mmol/L (0.5-2.0)
[2020-06-28 19:01] LABS: B Type Natriuretic Peptide < 10 pg/mL (<100)
[2020-06-28 19:02] VITALS: BP 113/72; PULSE 107; RESP 16; TEMP 37; O2SAT 97
[2020-06-28 20:00] VITALS: BP 124/64; PULSE 82; RESP 16; TEMP 36.6; O2SAT 97
[2020-06-28 20:12] LABS: Alanine Aminotransferase 30 U/L (0-31); Albumin Level 3.8 g/dL (3.5-5.0); Alkaline Phosphatase 114 U/L (39-117); Anion Gap 21 (12-20); Aspartate Amino Transferase 17 U/L (5-31); Bilirubin Total 0.3 mg/dL (0.0-1.0); Blood Urea Nitrogen 55 mg/dL (9-16); C Reactive Protein 1.64 mg/dL (< or = 0.50); Calcium 9.6 mg/dL (8.4-10.2); Carbon Dioxide 13 mmol/L (22-29); Chloride 113 mmol/L (96-108); Creatinine Clr Calc Pharmacy 29.3; Estimated Glomerular Filt Rate 27; Glucose Random 199 mg/dL (60-115); Lactate Dehydrogenase 240 U/L (122-220); Sodium 142 mmol/L (135-145)
[2020-06-28 20:24] LABS: Ferritin 313 ng/mL (10-250)
[2020-06-28] MEDS: Nystatin Oral Susp 500,000 UNIT/5 ML ORAL.SUSP 400000 UNIT PO (21:24)
[2020-06-28] MEDS: Azithromycin 500 MG TABLET PO (21:25)
[2020-06-28] MEDS: 0.9 % Sodium Chloride 1,000 ML 999 ML IV (21:28)
[2020-06-28 22:00] VITALS: BP 111/73; PULSE 86; RESP 18; TEMP 37.1; O2SAT 98
== END 2020-06-28 22:50 | disposition home or self-care (01) ==
PROVIDERS: Nurse Practitioner Family; Emergency Provider Emergency Medicine Emergency Medical Services; PCP Family Medicine
DX: U07.1 COVID-19 (principal); B37.0 Candidal stomatitis; E11.22 Type 2 diabetes mellitus with diabetic chronic kidney disease; I12.9 Hypertensive chronic kidney disease with stage 1 through stage 4 chronic kidney disease, or unspecified chronic kidney disease; N18.30 Chronic kidney disease, stage 3 unspecified; E78.5 Hyperlipidemia, unspecified; Z79.4 Long term (current) use of insulin; Z79.02 Long term (current) use of antithrombotics/antiplatelets; Z79.82 Long term (current) use of aspirin
CPT/HCPCS: 36415; 71045; 80053; 82728; 83605; 83615; 83880; 85025; 85379; 86140; 87040; 87147; 87205; 96360; 99284

== ENCOUNTER → 2020-07-28 07:23 | Outpatient (BNVA) | payer OTHER, SELFPAY | PROVIDERS: PCP Family Medicine; Visit Provider Internal Medicine Endocrinology, Diabetes & Metabolism | DX: E11.9 Type 2 diabetes mellitus without complications (principal); E21.3 Hyperparathyroidism, unspecified; I10 Essential (primary) hypertension; E78.5 Hyperlipidemia, unspecified; E66.9 Obesity, unspecified; Z79.4 Long term (current) use of insulin | CPT/HCPCS: 82947; 99212 ==

== ENCOUNTER → 2020-11-17 08:23 | Outpatient (BNVA) | payer OTHER, SELFPAY | PROVIDERS: PCP Family Medicine | DX: N39.46 Mixed incontinence (principal) | CPT/HCPCS: 51798; 99212 ==

== ENCOUNTER 2021-04-03 10:29 | Outpatient (REF) | payer OTHER, SELFPAY ==
[2021-04-03 10:56] LABS: MANUAL DIFF FLAG NO
[2021-04-03 10:58] LABS: Basophils Absolute Auto 0.1 X10*3/uL (0.0-0.2); Basophils Percent Auto 0.5 % (0-2); Eosinophils Absolute Auto 0.2 X10*3/uL (0.0-0.4); Eosinophils Percent Auto 1.7 % (0-4); Hematocrit 37.1 % (37.0-47.0); Imm Gran Abs Auto 0.08 X10*3/uL (0.00-0.03); Imm Gran Pct Auto 0.6 % (0.0-0.4); Lymphocytes Absolute Auto 2.7 X10*3/uL (1.2-4.9); Lymphocytes Percent Auto 19.1 % (20-40); Mean Corpuscular HGB Conc 32.3 g/dl (31.0-35.0); Mean Corpuscular Hemoglobin 29.1 pg (27.0-33.0); Mean Corpuscular Volume 89.8 fL (80.0-98.0); Mean Platelet Volume 9.9 fL (9.4-12.3); Monocytes Absolute Auto 0.7 X10*3/uL (0.1-1.2); Monocytes Percent Auto 4.8 % (2-11); Neutrophils Absolute Auto 10.5 x10*3/uL (2.0-8.3); Neutrophils Percent Auto 73.3 % (45-73); Platelet Count 441 X10*3/uL (160-400); Red Blood Count 4.13 X10*6/uL (4.20-5.50); Red Cell Distribution Width 14.3 % (11.0-16.0); White Blood Count 14.2 X10*3/uL (4.8-10.8)
[2021-04-03 11:20] LABS: Estimated Average Glucose 154 mg/dL
[2021-04-03 11:30] LABS: Appearance Urine CLEAR; Color Urine YELLOW; Glucose Urine UA NEG (NEG); Leukocyte Esterase Urine 2+ (NEG); Nitrite Urine NEG (NEG); PH 5.5 (5.0-8.0); Specific Gravity - Urine 1.025 (1.005-1.025); Urine Blood NEG (NEG); Urine Ketones NEG (NEG); Urine Protein NEG (NEG-TRACE)
[2021-04-03 11:33] LABS: Alanine Aminotransferase 12 U/L (0-31); Albumin Level 4.3 g/dL (3.5-5.0); Alkaline Phosphatase 102 U/L (39-117); Anion Gap 13 (12-20); Aspartate Amino Transferase 14 U/L (5-31); Bilirubin Total 0.5 mg/dL (0.0-1.0); Blood Urea Nitrogen 36 mg/dL (9-16); Calcium 10.1 mg/dL (8.4-10.2); Carbon Dioxide 22 mmol/L (22-29); Chloride 111 mmol/L (96-108); Cholesterol 158 mg/dL; Estimated Glomerular Filt Rate 28; Glucose Fasting 135 mg/dL (60-99); HDL Cholesterol 35 mg/dL; LDL Cholesterol Calculated 107 mg/dl; Potassium 4.8 mmol/L (3.3-5.1); Sodium 141 mmol/L (135-145); Total Protein 7.6 g/dL (6.5-8.0); Triglycerides 82 mg/dL
[2021-04-03 11:55] LABS: Bacteria Urine 1+ /LPF; Creatinine Urine 128.19 mg/dL; Microalbum/Creatinine Ratio Ur 8.5 ug/mg cr; Mucus Urine 1+ /LPF; RBC Urine 0 /HPF (0); Squamous Epithelial Cell Urine 1+ /LPF
[2021-04-03 11:55] LABS: TSH reflex Free T4 1.14 uIU/mL (0.32-4.0)
== END 2021-04-03 10:30 | disposition home or self-care (01) ==
LOC: HO.LAB 10:29
PROVIDERS: PCP Family Medicine; Visit Provider Family Medicine
DX: Z00.00 Encounter for general adult medical examination without abnormal findings (principal); R73.01 Impaired fasting glucose; I10 Essential (primary) hypertension
CPT/HCPCS: 36415; 80053; 80061; 81001; 82043; 83036; 84443; 85025

== ENCOUNTER → 2021-04-15 10:55 | Outpatient (BNVA) | payer OTHER, SELFPAY | PROVIDERS: PCP Family Medicine; Visit Provider Internal Medicine Endocrinology, Diabetes & Metabolism | DX: E11.9 Type 2 diabetes mellitus without complications (principal); E21.3 Hyperparathyroidism, unspecified; Z79.4 Long term (current) use of insulin | CPT/HCPCS: 82947; 99212 ==

== ENCOUNTER → 2021-05-06 10:42 | Outpatient (BNVA) | payer OTHER, SELFPAY | PROVIDERS: PCP Family Medicine; Visit Provider Registered Nurse Diabetes Educator | DX: E11.9 Type 2 diabetes mellitus without complications (principal); Z79.4 Long term (current) use of insulin | CPT/HCPCS: 99211 ==

== ENCOUNTER 2021-05-11 09:23 | Outpatient (REF) | payer OTHER, SELFPAY ==
--- NOTE | ~2021-05-11 | MM_ITS ---
EXAMINATION: MM SCREENING DIGITAL BREAST TOMOSYNTHESIS, BILATERAL CLINICAL INFORMATION: Screening. Asymptomatic. The lifetime risk of breast cancer based on the Tyrer-Cuzick Model is 10%. COMPARISON: Mammography: 01/14/2020, 10/05/2018, 10/04/2017 TECHNIQUE: Digital breast tomosynthesis is performed in both the craniocaudal and mediolateral oblique views along with computer-aided detection (CAD). Synthesized 2D images are generated from the tomosynthesis. Additional left CC view is provided. FINDINGS: There are scattered areas of fibroglandular density (ACR BI-RADS breast composition Category b). There is numerous fine nodular parenchymal pattern similar to prior studies. Dominant nodule anterior outer right breast is decreased from prior exams. There is no interval new dominant nodule lower architectural abnormality or abnormal calcifications. There are no significant changes. The axilla and skin contours are unremarkable. MM/MM tomosynthesis screening BI IMPRESSION: No significant changes from prior studies. ASSESSMENT: BI-RADS 2: Benign RECOMMENDATION: Routine annual mammography screening. This patient's information was entered into a reminder system with a target due date for their next mammogram.
== END 2021-05-11 09:24 | disposition home or self-care (01) ==
LOC: HO.MAMMO 09:23
PROVIDERS: PCP Family Medicine; Visit Provider Family Medicine
DX: Z12.31 Encounter for screening mammogram for malignant neoplasm of breast (principal)
CPT/HCPCS: 77063; 77067

== ENCOUNTER → 2021-05-18 08:26 | Outpatient (BNVA) | payer OTHER, SELFPAY | PROVIDERS: PCP Family Medicine | DX: R35.0 Frequency of micturition (principal); N39.46 Mixed incontinence | CPT/HCPCS: Q3014 ==

== ENCOUNTER → 2021-05-25 10:06 | Outpatient (BNVA) | payer OTHER, SELFPAY | PROVIDERS: PCP Family Medicine; Visit Provider Dietitian, Registered | DX: E11.9 Type 2 diabetes mellitus without complications (principal); Z79.4 Long term (current) use of insulin | CPT/HCPCS: 97802 ==

== ENCOUNTER → 2021-06-01 14:19 | Outpatient (BNVA) | payer OTHER, SELFPAY | PROVIDERS: PCP Family Medicine; Visit Provider Registered Nurse Diabetes Educator | DX: E11.9 Type 2 diabetes mellitus without complications (principal); Z79.4 Long term (current) use of insulin | CPT/HCPCS: 99211 ==

== ENCOUNTER 2021-06-04 10:56 | Emergency (ER) | payer OTHER, SELFPAY ==
--- NOTE | ~2021-06-04 | XR_ITS ---
EXAMINATION: XR SHOULDER, RIGHT CLINICAL INFORMATION: Pain after fall COMPARISON: August 12, 2014 TECHNIQUE: Three views of the right shoulder. FINDINGS: There is no evidence of acute fracture or dislocation of the right shoulder. There appears be calcific tendinitis. No widening of the coracoclavicular space is seen. There is degenerative change of the acromioclavicular joint with loss of joint space and marginal spurring. XR/XR shoulder RT min 2V IMPRESSION: Calcific tendinitis of the right shoulder. No acute fracture or dislocation.
[2021-06-04 11:21] VITALS: BP 157/97; PULSE 113; RESP 18; TEMP 37; O2SAT 97; BMI 31.4
--- NOTE | 2021-06-04 12:10 | ED_ITS ---
HPI - Extremity Problem General Chief complaint: Extremity Injury, Upper Stated complaint: Shoulder pain Time Seen by Provider: 06/04/21 12:10 Source: patient Limitations: no limitations History of Present Illness HPI Narrative: Patient presents to the ER complaining of right shoulder arm pain. Patient recently fell at a concert [place] was seen by [facility] at that time had this multiple CTs and x-rays that showed no acute findings. Patient states right shoulder was not visualized at that time and pain has increased since the accident. Pain is 6/10 no other complaints and no other recent falls. Patient has a history of diabetes and hypertension which she takes prescribed medications for. No other complaints at this time Related Data Home Medications Medication Instructions Recorded Confirmed blood sugar diagnostic #10 ea 04/01/20 07/28/20 latanoprost 0.005 % eye drops 1 drp OPHTHALMIC (EYE) BEDTIME 04/01/20 04/15/21 dicyclomine 20 mg tablet 20 mg PO 07/02/20 04/15/21 ketorolac 0.5 % eye drops 1 drp OPHTHALMIC (EYE) ml 11/17/20 04/15/21 insulin glargine U-300 conc 300 48 unit SUBCUT QAM ml 04/15/21 04/15/21 unit/mL (3 mL) subcutaneous pen Previous Rx's Medication Instructions Recorded ondansetron 4 mg disintegrating 4 mg PO Q6-8H PRN #7 tab 06/19/20 tablet tramadol 50 mg tablet 50 mg PO Q6H PRN #20 tab 06/19/20 nystatin 100,000 unit/mL oral 5 ml PO QID #473 ml 06/28/20 suspension pen needle, diabetic 31 gauge x #100 ea 07/28/20/ Trulicity 0.75 mg/0.5 mL 0.75 mg (0.5 mL) SUBCUT QWEEK 30 03/12/21 subcutaneous pen injector Days #2 ml NS (dulaglutide) diclofenac sodium 50 mg 50 mg PO TID 90 Days #270 tab 03/12/21 tablet,delayed release amitriptyline 25 mg tablet 25 mg PO BEDTIME #90 tab 04/07/21 atorvastatin 40 mg tablet 40 mg PO DAILY #90 tab 04/07/21 lisinopril 20 mg tablet 20 mg PO DAILY #90 tab 04/07/21 aspirin 81 mg tablet,delayed 81 mg PO DAILY 90 Days #90 tab 04/08/21 release cholecalciferol (vitamin D3) 125 125 mcg PO DAILY 30 Days #90 cap 04/08/21 mcg (5,000 unit) capsule citalopram 40 mg tablet 40 mg PO DAILY #90 tab 04/08/21 famotidine 40 mg tablet 40 mg PO BEDTIME #90 tab 04/08/21 metoprolol succinate 25 mg 25 mg PO DAILY #90 tab 04/08/21 tablet,extended release 24 hr omeprazole 40 mg capsule,delayed 40 mg PO DAILY #90 cap 04/08/21 release solifenacin 10 mg tablet (Vesicare) 10 mg PO DAILY 30 Days #90 tab 04/08/21 meclizine 25 mg tablet 25 mg PO TID 10 Days #30 tab 04/10/21 trazodone 150 mg tablet 150 mg PO BEDTIME #30 tab 04/10/21 tramadol 50 mg tablet 50 mg PO BID PRN #14 tab 06/04/21 Allergies Allergy/AdvReac Type Severity Reaction Status Date / Time tuberculin,PPD,multi-puncture Allergy Intermediate hives/SOB Verified 06/04/21 11:20 oxycodone [Percocet] Allergy Unknown unknown Verified 06/04/21 11:20 Doxycycline Hyclate Allergy Intermediate dizziness, Uncoded 05/18/21 08:29 n/v Review of Systems Constitutional: Constitutional: Denies chills and Denies fever(s) Eyes: Eyes: Denies loss of vision Cardiovascular: Cardiovascular: Denies chest pain and Denies dyspnea Respiratory: Respiratory: Denies dyspnea Gastrointestinal: Gastrointestinal: Denies nausea and Denies vomiting Musculoskeletal: Comments: Right shoulder pain Neurologic: Denies loss of vision [facility] Past Medical History Medical History CKD (chronic kidney disease) stage 3, GFR 30-59 ml/min Diabetes type 2, controlled Dyslipidemia Hyperparathyroidism Hypertension MCC (current) use of insulin Obesity (BMI 30-39.9) Urge and stress incontinence Urgency incontinence UTI (urinary tract infection) Surgical History H/O colonoscopy History of endometrial ablation History of esophagogastroduodenoscopy (EGD) History of eye surgery History of femoral hernia repair History of incisional hernia repair History of pubovaginal sling History of right knee surgery (~10/31/20) Hx of section Hx of cholecystectomy Hx of left knee surgery S/P right knee arthroscopy Family History Family History Father Cancer Diabetes mellitus Hx of CABG CVD (cardiovascular disease) Mother Diabetes mellitus Brother No problems noted. Sister No problems noted. Sister No problems noted. Daughter No problems noted. Daughter No problems noted. Daughter No problems noted. Social History Social History Housing: House Alcohol intake: current Alcohol intake frequency: does not drink Patient Tobacco Use Status: Former Tobacco user Quit Date: Over 2 years Advance Directives: Yes Advance Directives Information Provided: No Advance Directives on File: No Patient : No Current occupational status: retired and disabled Physical Exam Vital Signs: Vital Signs: Last Vital Signs Temp 98.6 F 06/04/21 11:21 Pulse 113 H 06/04/21 11:21 Resp 18 06/04/21 11:21 BP 157/97 H 06/04/21 11:21 Pulse Ox 97 06/04/21 11:21 BMI result Body Mass Index 31.4 Const: Other: Patient is well-appearing no acute distress Orientation/consciousness: patient oriented x3 HEENT: Other: Oropharynx is clear uvula is midline oral mucosa moist patient's head is atraumatic normocephalic. Eyes: Other: Pupils equal round reactive to light and accommodation extraocular movements are intact. Neck: Other: Neck soft supple full range of motion no midline tenderness Chest: Chest palpation & inspection: normal inspection of the chest Resp: Other: Lung sounds clear to auscultation Effort & Inspection: normal respiratory effort Cardio: Rate: regular rate Rhythm: regular rhythm Heart sounds: no murmurs and no rubs GI: Other: Abdomen soft no rebound or guarding. Positive bowel sounds Back/Spine/Pelvis: Other: Back full range of motion. Neuro: General: patient oriented x3, gait normal and no focal motor deficits Extrem: Other: Right proximal humerus positive tenderness positive tenderness in the right clavicle range of motion increases with pain. Distal pulses sensation are intact. Course Course Course Narrative: Right humerus fracture Right-sided clavicular fracture Right shoulder contusion AC separation. 50 mg tramadol p.o. Right shoulder x-rays pending. 13:14 X-ray shows right shoulder calcified tendinitis sling rest follow-up with orthopedics will be given unlikely this is secondary to her recent fall and trauma. MDM - Extremity (Nontraumatic) Imaging Data shoulder: Radiologist's impression: [address] [place] [address] XRay Report Signed Patient: Zulay Styles MR#: [id number] : 1955 Acct:[id number] Age/Sex: 65 / F ADM Date: 06/04/21 Loc: HO.ED Attending Dr: Ordering Physician: Evan Domínguez Date of Service: 06/04/21 Procedure(s): XR shoulder RT min 2V Accession Number(s): [id number] cc: Evan Domínguez ~ EXAMINATION: XR SHOULDER, RIGHT CLINICAL INFORMATION: Pain after fall? COMPARISON: August 12, 2014? TECHNIQUE: Three views of the right shoulder. FINDINGS: There is no evidence of acute fracture or dislocation of the right shoulder. There appears be calcific tendinitis. No widening of the coracoclavicular space is seen. There is degenerative change of the acromioclavicular joint with loss of joint space and marginal spurring. ? XR/XR shoulder RT min 2V IMPRESSION: Calcific tendinitis of the right shoulder. No acute fracture or dislocation. Dictated By: lAban Wellington MD Signed By: <Electronically signed by Alban Wellington MD in OV> 06/04/21 1302 DD/ 1233 TD/TT:? Ethylene Oxide Panelboard Operator: SK Discharge Plan Discharge Clinical Impression: Calcifying tendinitis of shoulder Patient Disposition: Home, Self-Care Instructions: Calcific Tendinitis (ED) Prescriptions: New tramadol 50 mg tablet 50 mg PO BID PRN (Reason: severe pain (scale score 7-10)) Qty: 14 0RF No Action diclofenac sodium 50 mg tablet,delayed release (DR/EC) 50 mg PO TID 90 Days Qty: 270 0RF Trulicity 0.75 mg/0.5 mL pen injector 0.75 mg subcut QWEEK 30 Days Qty: 2 6RF Rx Instructions: Please discontinue Januvia atorvastatin 40 mg tablet 40 mg PO DAILY Qty: 90 0RF amitriptyline 25 mg tablet 25 mg PO BEDTIME Qty: 90 0RF lisinopril 20 mg tablet 20 mg PO DAILY Qty: 90 0RF famotidine 40 mg tablet 40 mg PO BEDTIME Qty: 90 3RF citalopram 40 mg tablet 40 mg PO DAILY Qty: 90 3RF omeprazole 40 mg capsule,delayed release(DR/EC) 40 mg PO DAILY Qty: 90 3RF solifenacin [Vesicare] 10 mg tablet 10 mg PO DAILY 30 Days Qty: 90 3RF metoprolol succinate 25 mg tablet extended release 24 hr 25 mg PO DAILY Qty: 90 3RF aspirin 81 mg tablet,delayed release (DR/EC) 81 mg PO DAILY 90 Days Qty: 90 3RF cholecalciferol (vitamin D3) 125 mcg (5,000 unit) capsule 125 mcg PO DAILY 30 Days Qty: 90 3RF meclizine 25 mg tablet 25 mg PO TID 10 Days Qty: 30 1RF trazodone 150 mg tablet 150 mg PO BEDTIME Qty: 30 0RF tramadol 50 mg tablet 50 mg PO Q6H PRN (Reason: pain) Qty: 20 0RF ondansetron 4 mg tablet,disintegrating 4 mg PO Q6-8H PRN (Reason: nausea and vomiting) Qty: 7 0RF nystatin 100,000 unit/mL suspension 5 ml PO QID Qty: 473 0RF Rx Instructions: swish and swallow dicyclomine 20 mg tablet 20 mg PO 0RF (DME) blood sugar diagnostic Strip See Rx Instructions ea Not Applicable BID Qty: 10 0RF Rx Instructions: As directed latanoprost 0.005 % drops 1 drp ophthalmic (eye) BEDTIME 0RF ketorolac 0.5 % drops 1 drp ophthalmic (eye) 0RF (DME) pen needle, diabetic 31 gauge x 5/16 needle See Rx Instructions ea subcut .MEDSUPPLY Qty: 100 6RF Rx Instructions: once a day insulin glargine U-300 conc 300 unit/mL (3 mL) insulin pen 48 unit subcut QAM 0RF Rx Instructions: dose decreased Referrals: Corey German MD [Physician] - 2 days (Right shoulder calcified tendinitis)
[2021-06-04] MEDS: traMADoL HCL 50 MG TABLET PO (12:51)
== END 2021-06-04 13:33 | disposition home or self-care (01) ==
PROVIDERS: Emergency Provider Emergency Medicine; PCP Family Medicine
DX: M75.31 Calcific tendinitis of right shoulder (principal); M25.511 Pain in right shoulder
CPT/HCPCS: 73030; 99283; 99284

== ENCOUNTER → 2021-06-15 12:15 | Outpatient (BNVA) | payer OTHER, SELFPAY | PROVIDERS: PCP Family Medicine; Visit Provider Registered Nurse Diabetes Educator | DX: E11.9 Type 2 diabetes mellitus without complications (principal); Z79.4 Long term (current) use of insulin | CPT/HCPCS: 99211 ==

== ENCOUNTER → 2021-07-01 10:26 | Outpatient (BNVA) | payer OTHER, SELFPAY | PROVIDERS: PCP Family Medicine; Visit Provider Dietitian, Registered | DX: E11.22 Type 2 diabetes mellitus with diabetic chronic kidney disease (principal); N18.30 Chronic kidney disease, stage 3 unspecified; Z79.4 Long term (current) use of insulin; Z71.3 Dietary counseling and surveillance | CPT/HCPCS: 97803 ==

== ENCOUNTER → 2021-08-17 11:01 | Outpatient (BNVA) | payer OTHER, SELFPAY | PROVIDERS: PCP Family Medicine; Visit Provider Registered Nurse Diabetes Educator | DX: E11.22 Type 2 diabetes mellitus with diabetic chronic kidney disease (principal); N18.30 Chronic kidney disease, stage 3 unspecified; Z79.4 Long term (current) use of insulin | CPT/HCPCS: 99211 ==

== ENCOUNTER → 2021-08-26 11:52 | Outpatient (BNVA) | payer OTHER, SELFPAY | PROVIDERS: PCP Family Medicine; Visit Provider Dietitian, Registered | DX: E11.9 Type 2 diabetes mellitus without complications (principal); Z79.4 Long term (current) use of insulin | CPT/HCPCS: 97803 ==

== ENCOUNTER 2021-09-24 11:00 | Outpatient (RCR) | payer OTHER, SELFPAY ==
--- NOTE | 2021-07-03 15:30 | MHC.PT.EP ---
[facility] [place] Office [place] Office [place] Office [address] Hans Serna [address] [phone] F: [phone] F: [phone] F: [phone] F: [phone] Physical Therapy Plan of Care Date of Evaluation: Date of Surgery: Diagnosis: Assessment: DENISE IS A PLEASANT 65 YO FEMALE WHO PRESENTS WITH DIAGNOSIS OF HIP, KNEE AND SHOULDER PAIN. SHE REPORTS THAT SHE HAS HAD SEVERAL FALLS DUE TO POOR BALANCE AND VERTIGO WHICH HAS CAUSED SOME OF THOSE PAINS TO INCREASE. SHE ALSO HAS A RECENT HISTORY OF TKA. IMPAIRMENTS INCLUDE DECREASED STRENGTH OF LE, ALTERED GAIT PATTERN, DECREASED BALANCE, SYMPTOMS OF VERTIGO AND INCREASED PAIN. SHE DEMONSTRATES MUSCULAR LENGTH AND STRENGTH IMBALANCES LEADING TO PATTERNED MOVEMENTS AND HABITUAL POSTURES. FUNCTIONAL LIMITATIONS INCLUDE DECREASED ABILITY TO PERFORM LONG PERIODS OF WALKING, STANDING, PUSHING AND PULLING. SHE REPORTS DECREASED ABILITY TO PERFORM HOMEMAKING TASKS, DECREASED PARTICIPATION IN FITNESS AND RECREATION, DISRUPTED SLEEP. Frequency and Duration: The patient will be seen 2 X WEEK FOR 6 WEEKS Short Term Goals: INITIATE HEP AND PROMOTE SELF MANAGEMENT OF SYMPTOMS SCREEN FOR BPPV PRN Retirement Goals: TO DEMONSTRATE FULL KNEE ROM, EQUAL XENA TO DEMONSTRATE FULL LE STRENGTH, EQUAL XENA TO ASCEND AND DESCEND STAIRS WITH RECIPROCAL GAIT WITHOUT PAIN GREATER THAN 2/10 TO AMBULATE AD DILMA ON LEVEL AND UNEVEN SURFACES FOR FITNESS WITHOUT PAIN GREATER THAN 2/10 TO TOLERATE MOD TO MAX PRETURBATIONS IN STANDING Treatment Plan: Modalities to reduce pain, spasms and effusion. Manual therapy to restore motion and function. Therapeutic exercise to improve strength and flexibility. Neuromuscular re-education for posture and balance. Therapeutic activities to return to functional activities of daily living. Electronically signed by: JUAN F OCAMPO PT, DPT Please sign and return to therapist. Thank you for your referral.
== END 2021-10-07 15:13 | disposition home or self-care (01) ==
LOC: HO.PT 11:00
PROVIDERS: PCP Family Medicine; Visit Provider Family Medicine
DX: M25.511 Pain in right shoulder (principal)
CPT/HCPCS: 95992; 97110; 97162; 97530

== ENCOUNTER → 2021-10-13 09:58 | Outpatient (BNVA) | payer OTHER, SELFPAY | PROVIDERS: PCP Family Medicine; Visit Provider Internal Medicine Endocrinology, Diabetes & Metabolism | DX: E11.9 Type 2 diabetes mellitus without complications (principal); E21.3 Hyperparathyroidism, unspecified; Z79.4 Long term (current) use of insulin | CPT/HCPCS: 82947; 99212 ==

== ENCOUNTER → 2021-11-04 12:51 | Outpatient (BNVA) | payer OTHER, SELFPAY | PROVIDERS: PCP Family Medicine; Visit Provider Psychiatry & Neurology Neurology | DX: R42 Dizziness and giddiness (principal); G24.3 Spasmodic torticollis; R51.9 Headache, unspecified; M54.2 Cervicalgia; G89.29 Other chronic pain | CPT/HCPCS: 99202 ==

== ENCOUNTER → 2021-11-18 10:27 | Outpatient (BNVA) | payer OTHER, SELFPAY | PROVIDERS: PCP Family Medicine; Visit Provider Registered Nurse Diabetes Educator | DX: E11.22 Type 2 diabetes mellitus with diabetic chronic kidney disease (principal); N18.30 Chronic kidney disease, stage 3 unspecified; Z79.4 Long term (current) use of insulin | CPT/HCPCS: 99211 ==

== ENCOUNTER → 2021-12-23 10:25 | Outpatient (BNVA) | payer OTHER, SELFPAY | PROVIDERS: PCP Family Medicine; Visit Provider Psychiatry & Neurology Neurology | DX: R42 Dizziness and giddiness (principal); M54.2 Cervicalgia; G24.3 Spasmodic torticollis; R51.9 Headache, unspecified; G89.29 Other chronic pain | CPT/HCPCS: 99212 ==

== ENCOUNTER → 2022-01-06 10:51 | Outpatient (REF) | payer OTHER, SELFPAY | LOC: HO.SL 10:51 | PROVIDERS: PCP Family Medicine; Visit Provider Psychiatry & Neurology Neurology | DX: G47.10 Hypersomnia, unspecified (principal); R06.83 Snoring; G89.29 Other chronic pain; R51.9 Headache, unspecified | CPT/HCPCS: 95806 ==

== ENCOUNTER 2022-02-22 11:52 | Outpatient (REF) | payer OTHER, SELFPAY ==
[2022-02-22 15:47] LABS: Influenza A PCR NEGATIVE (Negative); Influenza B PCR NEGATIVE (Negative); Resp Syncy Virus RNA Qual PCR NEGATIVE (Negative); SARS COV2 PCR INHOUSE NEGATIVE (Negative)
== END 2022-02-22 11:53 | disposition home or self-care (01) ==
LOC: HO.LAB 11:52
PROVIDERS: Visit Provider Family Medicine
DX: Z20.822 Contact with and (suspected) exposure to COVID-19 (principal); B34.9 Viral infection, unspecified
CPT/HCPCS: 0241U

== ENCOUNTER → 2022-03-05 09:58 | Outpatient (BNVA) | payer OTHER, SELFPAY | PROVIDERS: PCP Family Medicine; Visit Provider Registered Nurse Diabetes Educator | DX: E11.9 Type 2 diabetes mellitus without complications (principal); Z79.4 Long term (current) use of insulin | CPT/HCPCS: 99211 ==

== ENCOUNTER 2022-03-12 09:29 | Outpatient (REF) | payer OTHER, SELFPAY ==
[2022-03-12 16:45] LABS: Urine Cytology See Pathology rpt
== END 2022-03-12 09:30 | disposition home or self-care (01) ==
LOC: HO.LAB 09:29
PROVIDERS: PCP Family Medicine; Visit Provider Urology
DX: N32.81 Overactive bladder (principal); N39.0 Urinary tract infection, site not specified
CPT/HCPCS: 51798; 87086; 88112; 99212

== ENCOUNTER 2022-05-13 11:06 | Outpatient (REF) | payer OTHER, SELFPAY ==
--- NOTE | ~2022-05-13 | MM_ITS ---
EXAMINATION: MM SCREENING DIGITAL BREAST TOMOSYNTHESIS, BILATERAL CLINICAL INFORMATION: Screening. Asymptomatic. The lifetime risk of breast cancer based on the Tyrer-Cuzick Model is 8%. COMPARISON: Mammography: May 11, 2021 and studies dating back to August 14, 2015. Ultrasound of September 17, 2005 report TECHNIQUE: Digital breast tomosynthesis is performed in both the craniocaudal and mediolateral oblique views along with computer-aided detection (CAD). Synthesized 2D images are generated from the tomosynthesis. FINDINGS: There are scattered areas of fibroglandular density (ACR BI-RADS breast composition Category b). There are no new significant masses, abnormal calcifications, or other abnormalities. Multiple bilateral circumscribed densities which appear to be waxing and waning consistent with cysts again seen. MM/MM tomosynthesis screening BI IMPRESSION: No significant changes from prior exam. ASSESSMENT: BI-RADS 2: Benign RECOMMENDATION: Routine annual mammography screening. This patient's information was entered into a reminder system with a target due date for their next mammogram.
== END 2022-05-13 11:07 | disposition home or self-care (01) ==
LOC: HO.MAMMO 11:06
PROVIDERS: PCP Family Medicine; Visit Provider Family Medicine
DX: Z12.31 Encounter for screening mammogram for malignant neoplasm of breast (principal)
CPT/HCPCS: 77063; 77067

== ENCOUNTER 2022-05-14 08:47 | Outpatient (REF) | payer OTHER, SELFPAY ==
[2022-05-14 12:32] LABS: Anion Gap 11 (12-20); Blood Urea Nitrogen 17 mg/dL (9-16); Calcium 9.5 mg/dL (8.4-10.2); Carbon Dioxide 29 mmol/L (22-29); Chloride 109 mmol/L (96-108); Cholesterol 141 mg/dL; Estimated Glomerular Filt Rate 40; Glucose Random 91 mg/dL (60-115); HDL Cholesterol 38 mg/dL; LDL Cholesterol Calculated 84 mg/dl; Potassium 4.9 mmol/L (3.3-5.1); Sodium 144 mmol/L (135-145); Triglycerides 98 mg/dL
[2022-05-14 12:53] LABS: Creatinine Urine 154.58 mg/dL; Microalbum/Creatinine Ratio Ur 6.4 ug/mg cr
== END 2022-05-14 08:48 | disposition home or self-care (01) ==
LOC: HO.LAB 08:47
PROVIDERS: PCP Family Medicine; Visit Provider Internal Medicine Endocrinology, Diabetes & Metabolism
DX: E11.9 Type 2 diabetes mellitus without complications (principal); Z79.4 Long term (current) use of insulin
CPT/HCPCS: 36415; 80048; 80061; 82043

== ENCOUNTER → 2022-05-20 10:25 | Outpatient (BNVA) | payer OTHER, SELFPAY | PROVIDERS: PCP Family Medicine; Visit Provider Internal Medicine Endocrinology, Diabetes & Metabolism | DX: E11.9 Type 2 diabetes mellitus without complications (principal); E21.3 Hyperparathyroidism, unspecified; Z79.4 Long term (current) use of insulin | CPT/HCPCS: 82947; 83036; 99212 ==

== ENCOUNTER 2022-06-18 09:55 | Outpatient (REF) | payer OTHER, SELFPAY ==
--- NOTE | ~2022-06-18 | US_ITS ---
EXAMINATION: US RETROPERITONEAL LIMITED (RENAL ONLY) CLINICAL INFORMATION: Urinary tract infection, site not specified. COMPARISON: CT abdomen and pelvis 03/28/2019. TECHNIQUE: Real-time imaging of the kidneys. FINDINGS: RIGHT KIDNEY: 9.1 x 4.5 x 4.6 cm (SAG x AP x TRV). The kidney is normal in size, contour, and echogenicity. Renal cortical thickness is normal. No renal calculi or hydronephrosis. At the upper pole, an 8 mm benign, simple cyst is seen. LEFT KIDNEY: 9.4 x 4.5 x 4.4 cm (SAG x AP x TRV). The kidney is normal in size, contour, and echogenicity. Renal cortical thickness is normal. No renal calculi or hydronephrosis. At the interpolar aspect, 1.0 cm and 1.7 cm in maximal diameter benign, simple cysts are seen. US/US renal BI IMPRESSION: Benign, simple bilateral renal cysts are noted, for which no imaging follow-up is recommended. No solid mass, calculus or hydronephrosis is noted bilaterally.
== END 2022-06-18 09:56 | disposition home or self-care (01) ==
LOC: HO.US 09:55
PROVIDERS: PCP Family Medicine; Visit Provider Urology
DX: N39.0 Urinary tract infection, site not specified (principal)
CPT/HCPCS: 76775

== ENCOUNTER → 2022-06-25 11:44 | Outpatient (BNVA) | payer OTHER, SELFPAY | PROVIDERS: PCP Family Medicine; Visit Provider Urology | DX: N32.81 Overactive bladder (principal) | CPT/HCPCS: 51798; 99212 ==

== ENCOUNTER → 2022-07-06 09:30 | Outpatient (BNVA) | payer OTHER, SELFPAY | PROVIDERS: PCP Family Medicine; Visit Provider Registered Nurse Diabetes Educator | DX: E11.22 Type 2 diabetes mellitus with diabetic chronic kidney disease (principal); I12.9 Hypertensive chronic kidney disease with stage 1 through stage 4 chronic kidney disease, or unspecified chronic kidney disease; N18.30 Chronic kidney disease, stage 3 unspecified; Z87.891 Personal history of nicotine dependence; Z79.4 Long term (current) use of insulin | CPT/HCPCS: 99211 ==

== ENCOUNTER → 2022-08-13 14:22 | Outpatient (BNVA) | payer OTHER, SELFPAY | PROVIDERS: PCP Family Medicine; Visit Provider Nurse Practitioner Family | DX: G24.3 Spasmodic torticollis (principal); M54.2 Cervicalgia; R42 Dizziness and giddiness; G89.29 Other chronic pain; R51.9 Headache, unspecified; Z79.899 Other long term (current) drug therapy | CPT/HCPCS: 99212 ==

== ENCOUNTER 2022-12-06 09:17 | Outpatient (AMB) | payer OTHER, SELFPAY ==
--- NOTE | 2022-12-06 09:21 | A.OFFPC_ITS ---
Vital Signs 12/06/22 09:23 Height 5 ft 1 in Weight 159 lb 2 oz BMI 30.1 BP 124/72 Blood Pressure Location Lt brachial Position Sitting Pulse 87 Pulse Source Pulse Oximeter Pulse Oximetry (%) 98 Oxygen Delivery Method Room Air Intake Visit Reasons: f/u diabetes Intake Note: Patient is here for follow up on diabetes, and she is complaining of pain in back by shoulder, that goes into neck, and down her left arm. Patient needs refill of her Trulicity Allergies tuberculin,PPD,multi-puncture Allergy (Intermediate, Verified 12/06/22 09:26) hives/SOB oxycodone [Percocet] Allergy (Unknown, Verified 12/06/22 09:26) unknown Doxycycline Hyclate Allergy (Intermediate, Uncoded 12/06/22 09:26) dizziness, n/v Tobacco use date assessed: 12/06/22 Fall risk assessment: 1 Fall in past year Last assessed Fall Risk: 12/06/22 Dental Screening Dental Screen Date: 12/06/22 Did you have a dental visit in the last 12 months?: No Did you have a dental problem in the last 6 months where you did not have access to dental care?: No Was dental information given to patient?: Patient declined HPI f/u diabetes HPI Details 67 y/o female presents to f/u diabetes a nd hypertension. Pt had ongoing difficulties with swallowing but had not been contacted by Radiology for her modified barium swallow. Last A1c 09/03/22 5.7%. She is on dulaglutide 3mg and insulin glargine. BP today is 124/72. She is on lisinopril 20mg, metoprolol 25mg daily. Pt does note difficulty swallowing has improved. She is taking famotidine 40mg and states she has an appt. with GI next month. Pt reports L shoulder pain. She woke up with the pain about 4 days ago. HPI Comments History of Present Illness Details Documentation assistance for Reinaldo Suarez MD, was provided by Manohar Timmons,?Credit Representative on 12/06/2022 10:05 AM EST. [place], Dr. Suarez, have read, observed, and verified documentation.? [facility] Medical History UTI (urinary tract infection) Urge and stress incontinence Urgency incontinence Obesity (BMI 30-39.9) CKD (chronic kidney disease) stage 3, GFR 30-59 ml/min Dyslipidemia Hypertension Hyperparathyroidism correction (current) use of insulin Diabetes type 2, controlled Surgical History History of right knee surgery (~10/31/20) History of endometrial ablation History of pubovaginal sling History of femoral hernia repair History of esophagogastroduodenoscopy (EGD) H/O colonoscopy Hx of cholecystectomy History of eye surgery S/P right knee arthroscopy History of incisional hernia repair Hx of left knee surgery Hx of section Family History Father Cancer Diabetes mellitus Hx of CABG CVD (cardiovascular disease) Mother Diabetes mellitus Brother No problems noted. Sister No problems noted. Sister No problems noted. Daughter No problems noted. Daughter No problems noted. Daughter No problems noted. Social History Housing: House Alcohol intake: current Alcohol intake frequency: does not drink Patient Tobacco Use Status: Former Tobacco user Quit Date: Over 2 years e-Cigarette/Vaping Use: Never Used Second Hand Smoke Exposure: No service: No Current occupational status: retired and disabled Current occupational exposures/hazards: No Cognitive needs: No Hearing needs: No Vision needs: No Questionnaire Thrive Questionnaire Date Thrive assessed: 04/01/22 RAKAN-7 AMB Questionnaire RAKAN-7 Date RAKAN - 7 assessed: 04/01/22 Source: Developed by Drs. Barrie Browning, Claudia Nichols, Jason Khan and colleagues, with an educational jalyn from [employer]. Review of Systems Const Denies chills, Denies fatigue, Denies fever(s), Denies headache(s) and Denies weakness ENT Denies dizziness and Denies headache(s) Card Denies chest pain, Denies lightheadedness, Denies dyspnea and Denies other (Palpitations) Resp Denies cough, Denies dyspnea, Denies wheezing and Denies other ( shortness of breath) Musc Details: L shoulder pain Denies numbness and Denies tingling Neuro Denies dizziness, Denies headache(s), Denies numbness, Denies tingling, Denies paresthesias and Denies weakness Psych Denies anxiety and Denies depression Endo Denies fatigue Aller/Immun Denies wheezing Physical exam (Primary Care) Vital Signs: Last Vital Signs Pulse 87 12/06/22 09:23 BP 124/72 12/06/22 09:23 Pulse Ox 98 12/06/22 09:23 Oxygen Delivery Method Room Air 12/06/22 09:23 BMI result Body Mass Index 30.1 Tobacco/Smoking Status: Tobacco use Status Tobacco use date assessed 12/06/22 12/06/22 09:38 Patient Tobacco Use Status Former Tobacco user 12/06/22 09:22 e-Cigarette/Vaping Use Never Used 12/06/22 09:22 Thrive Assessment: Date of Thrive Assessment Date Thrive assessed 04/01/22 12/06/22 09:22 Const General: no acute distress and well developed Nutritional Appearance: well nourished Orientation/consciousness: patient oriented x3 HENMT Head: Yes normocephalic and Yes atraumatic Eyes General: appearance normal, both eyes and all related structures Pupils: Equal, round and reactive pupils present EOM: EOMs intact bilaterally Resp Effort & Inspection: normal respiratory effort Auscultation: clear to auscultation bilaterally Cardio Rate: regular rate Rhythm: regular rhythm Heart sounds: S1 normal heart sound present, S2 normal heart sound present, no gallops, no murmurs and no rubs Neuro General: patient oriented x3 and gait normal Cranial nerves: Yes Equal, round and reactive pupils present Psych Affect: normal affect Results AMB Hemoglobin A1c AMB Hemoglobin A1c 5.6 % Last Edit by Kathie Corea CMA on 12/06/22 09:45 Results Reviewed Results Reviewed: Laboratory Last Values Hgb A1c (Clinic) 5.6 % (4.0-6.0) 12/06/22 09:43 Assessment and Plan Assessment & Plan (1) Hypertension: Code(s): I10 - Essential (primary) hypertension Qualifiers: Hypertension type: essential hypertension Qualified Code(s): I10 - Essential (primary) hypertension Plan: Blood?pressure?is?controlled.??Goal?is?less?than?140/90 No?medication?changes?needed (2) Diabetes type 2, controlled: Comment: Pt also has CKD, stage 3 Code(s): E11.9 - Type 2 diabetes mellitus without complications Qualifiers: Diabetes mellitus complication status: without complication Diabetes mellitus senior care insulin use: with senior care use Qualified Code(s): E11.9 - Type 2 diabetes mellitus without complications; Z79.4 - joint terminal attack controller (current) use of insulin Plan: A1c?5.4%?is?good?control.??Goal?is?less?than?7.0% Continue?current?medication?regimen?and?diabetic?diet (3) Difficulty swallowing: Code(s): R13.10 - Dysphagia, unspecified Plan: Ongoing?difficulty?swallowing?which?patient?notes?has?improved ?but?has?not?resolved. She?has?not?called?to?get?her?modified?barium?swallow?study?ordered.??I?have?ask ed?her?to?do?so?and?the?office?will?give?her?the?number?to?call?and?schedule?thi s?appointment. Will?call?her?of?action?is?required?and?we?can?review?at?her?next?visit. (4) Left shoulder pain: Code(s): M25.512 - Pain in left shoulder Plan: Tenderness?at?subscapularis?muscle?x4?days.??Reproducible?tenderness?with?palpat ion. Advised?heat?and?rest. If?not?improving,?will?get?physical?therapy?and?consider?imaging. Orders: Orders AMB Hemoglobin A1c Today Z13.9 - Encounter for screening, unspecified Coding Level of Care Code Est Pt Level 4 (75852) Diagnoses Essential hypertension I10 Hypertension type: essential hypertension Controlled type 2 diabetes mellitus without complication, with long-term current use of insulin E11.9; Z79.4 Diabetes mellitus complication status: without complication Diabetes mellitus terminal block assembler insulin use: with terminal block assembler use Difficulty swallowing R13.10 Left shoulder pain M25.512
[2022-12-06 09:23] VITALS: BP 124/72; PULSE 87; O2SAT 98; BMI 30.1
== END 2022-12-06 10:12 | disposition home or self-care (01) ==
PROVIDERS: PCP Family Medicine; Visit Provider Family Medicine
DX: I10 Essential (primary) hypertension (principal); E11.9 Type 2 diabetes mellitus without complications; Z79.4 Long term (current) use of insulin; R13.10 Dysphagia, unspecified; M25.512 Pain in left shoulder
CPT/HCPCS: 83036; 99214

== ENCOUNTER 2023-01-31 14:19 | Outpatient (REF) | payer OTHER, SELFPAY ==
--- NOTE | ~2023-01-31 | FL_ITS ---
EXAMINATION: Modified Barium Swallows CLINICAL INFORMATION: Dysphagia COMPARISON: None TECHNIQUE: Modified barium swallow was performed under lateral fluoroscopy with patient in standing position. Different consistency of barium was administered by the speech therapist. FINDINGS: A single episode of laryngeal penetration was seen within liquids. No aspiration was seen. FLUOROSCOPY TIME: 1 minute 11 seconds Number of Spot Images: 1 DOSE AREA PRODUCT: 530 uGy-m2 (microgray-meter squared) FL/FL barium swallow modified IMPRESSION: Laryngeal penetration with thin liquids Refer to the speech therapy report for further clarification This procedure was performed by Madhu Chacko PA-C, and supervised by Dr. Salinas
--- NOTE | 2023-02-01 16:29 | MHC.SL.IMP ---
Date of Plan of Treatment: 01/31/23 Onset of Symptoms/Illness: 01/31/22 Date Treatment Started: 01/31/23 Admitting Diagnosis: Dysphagia Primary Speech & Language Diagnosis: R13.12 Oropharyngeal Phase Dysphagia Reason for Today's Visit: 85129 Modified Barium Swallow Study Pre-evaluation Dietary Consistencies: Regular Pre-evaluation Liquid Consistency: Thin Pre-evaluation Medication Administration: Whole with Liquid Medical History: Modified Barium Swallow Study Fluoroscopic Evaluation of Swallowing Function CPT Code 58551 Evaluation Year: 2022 Reason for Study: Pt reporting difficulty swallowing. 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 Diabetes type 2, controlled Surgical History History of right knee surgery (~10/31/20) History of endometrial ablation History of pubovaginal sling History of femoral hernia repair History of esophagogastroduodenoscopy (EGD) H/O colonoscopy Hx of cholecystectomy History of eye surgery S/P right knee arthroscopy History of incisional hernia repair Hx of left knee surgery Hx of section Current (pre-evaluation) Intake/Diet: Route: PO Diet Grade: Regular Liquid Consistencies: Thin Pre-Study Functional Oral Intake Scale (FOIS): 7- Total oral intake with no restrictions Pain: None reported at time of study Subjective: Pt is a 67 year old female referred for a modified barium swallow study by Reinaldo Suarez MD due to pt?s reports of ongoing difficulties with swallowing. Pt reports she initially noticed having trouble swallowing meats, but now is experiencing difficulties with other foods as well. Pt reports onset to have occurred approximately one year ago, and that around this time, her voice had also changed. Pt?s voice was noted by this clinician to be perceptually weak and strained. Pt denies odynophagia. She reports food feels stuck in her throat and that this seems to happen intermittently at random. Pt says she self-induces vomiting when she cannot get food down and regurgitates food. Pt says she only eats once a day because of these difficulties. She denies having any trouble swallowing liquid. She does not currently modify her food textures. Pt?s history includes UTI, urge and stress incontinence, dyslipidemia, CKD, hypertension, hyperparathyroidism, and diabetes. Oral Motor Exam Mouth Occlusion: Normal Oral-Facial Teeth Characteristics: Dentures Oral-Facial Smile (Lips) Description: Normal Oral-Facial Puff Cheeks Description: Normal Tongue Size: Normal Tongue Excursion Description: Normal Tongue Range of Movement Description: Normal Tongue Speed of Movement Description: Normal Tongue Strength of Movement (against opposing pressure): Normal Food and Liquid Trials: Oral Impairment: Lip Closure: Did not test Oral Impairment: Tongue Control During Bolus Hold: 1=Escape to lateral buccal cavity/floor of mouth (FOM) Oral Impairment: Bolus Preparation/Mastication: 2=Disorganized chewing/mashing with solid pieces of bolus Oral Impairment: Bolus Transport/Lingual Motion: 1= Delayed initiation of tongue motion Oral Impairment: Oral Residue: 2=Residue collection on oral structures Oral Impairment:Initiation of Pharyngeal Swallow: 1=Bolus head in valleculae Pharyngeal Impairment: Soft Palate Elevation: 0=No bolus between soft palate (SP)/pharyngeal wall (PW) Pharyngeal Impairment: Laryngeal Elevation: 1=Partial thyroid cartilage/arytenoids to epiglottic petiole movement Pharyngeal Impairment: Anterior Hyoid Excursion: 1=Partial anterior movement Pharyngeal Impairment: Epiglottic Movement: 1=Partial inversion Pharyngeal Impairment: Laryngeal Vestibular Closure:: 1=Incomplete: narrow column air/contrast in laryngeal vestibule Pharyngeal Impairment: Pharyngeal Stripping Wave: 0=Present: complete Pharyngeal Impairment: Pharyngeal Contraction: Did not test Pharyngeal Impairment: Pharyngoesophageal Segment Openin=Minimal distension/minimal duration: marked obstruction of flow Pharyngeal Impairment: Tongue Base (TB) Retraction: 1=Trace column of contrast/air between TB and posterior PW Pharyngeal Impairment: Pharyngeal Residue: 2=Collection of residue within or on pharyngeal structures Pharyngeal Impairment: Esophageal Clearance Upright Position: Did not test Impressions and Recommendations OBJECTIVE: Time-out: performed at 14:45 Evaluation Start: 14:30; Stop: 14:35 Patient Positioning: Standing Viewing Planes: LATERAL ONLY Contrast: MBSImP? Standardized Protocol using commercially prepared, standardized Barium viscosities, including: Varibar? THIN LIQUID (40% w/v, <15 cps) , 1/2 Shortbread Cookie (1 x1 x.25 ) MBSImP ID: [id number] MBSImP Results: Lip closure for intraoral bolus containment could not be assessed due to logistical reasons not related to physiologic impairment. Tongue control during bolus hold allowed bolus escape to the lateral buccal cavity/floor of mouth. Bolus preparation and mastication demonstrated disorganized chewing/mashing with solid pieces of the bolus unchewed. Bolus transport/lingual motion demonstrated delayed initiation of tongue motion. Oral residue was a collection on oral structures. Initiation of the pharyngeal swallow occurred when the bolus head was in the valleculae. Soft palate elevation resulted in no bolus between the soft palate and the pharyngeal wall. Laryngeal elevation was decreased, with partial superior movement of the thyroid cartilage/partial approximation of the arytenoids to the epiglottic petiole. Anterior hyoid excursion demonstrated partial anterior movement. Epiglottic movement resulted in partial inversion. Laryngeal vestibular closure was incomplete, with a narrow column of air/contrast noted within the laryngeal vestibule at the height of the swallow. Pharyngeal stripping wave was present and complete. Pharyngeal contraction could not be determined due to logistical reasons not related to physiologic impairment. Pharyngoesophageal segment opening demonstrated minimal distension/minimal duration, with marked obstruction of bolus flow. Tongue base retraction allowed a trace column of contrast or air between the retracted tongue base and the posterior pharyngeal wall. Pharyngeal residue was a collection of residue within or on pharyngeal structures. Esophageal clearance in the upright position could not be assessed due to logistical reasons not related to physiologic impairment. Oral Impairment Score: 7 (absence of score, component 1) Pharyngeal Impairment Score: 8 (absence of score, component 13) Esophageal Impairment Score: --- (absence of score, component 17) Laryngeal Penetration and Aspiration: Penetration was observed in today's study. Thin Contrast entered the airway, remained above the vocal folds, and was ejected from the airway. ASSESSMENT: This exam was performed by the speech pathologist and radiologist. Pt was standing for lateral view only. Pt trialed the following liquid and solid consistencies: thin liquid barium (5 mL, individual cup sip with bolus hold, sequential cup sips), pureed solid (applesauce mixed with barium paste), regular solid (Earline Doone cookie coated with barium paste), whole barium pill tablet with sips of water. Unable to visualize labial seal with imaging. Clinically, pt did not appear to have any spillage beyond the daniel border. Posterior lingual motion was mildly delayed, but with brisk movement. Mastication was slowed and disorganized, characterized by piece meal deglutition pattern. There was mild residue coating on the tongue and the palate, which cleared with sips of water. Pharyngeal swallow trigger initiated as the bolus head reached the valleculae. There was no nasopharyngeal reflux. Incomplete laryngeal elevation. Incomplete epiglottic inversion and incomplete laryngeal vestibular closure. There was singular episode of flash penetration of a very trace amount of thin liquid. Trace thin liquid entered the airway above the vocal folds and subsequently ejected from the airway. Pt did elicit a spontaneous cough in response to penetration event. No further evidence of penetration with repeated trials. No evidence of aspiration during this exam. There was mild to moderate pharyngeal retention, with collection on the tongue base, in the valleculae, and in the pyriforms. Also contrast collecting at the PES. Pt was able to clear contrast from pharyngeal structures and through the PES with sips of water. Barium pill tablet passed through the oral and pharyngeal cavities without hang up. The following compensatory strategies have not been used until today's study, but when employed, improved swallowing function: Rate of Ingestion Change decreased Oral Residue, Pharyngeal Residue Liquid Wash eliminated Oral Residue, Pharyngeal Residue Liquid Intake Recommendation: Thin Liquid Intake Strategies: Small Sips, Double Swallow Dietary Recommendations: Regular Medication Administration: Whole with Liquid Please contact the pharmacy regarding appropriate crushable or liquid drug formulations that are available whenever modified delivery is recommended. Compensatory Strategies Recommended: Sitting Upright (90 deg), Double Swallow, Small Bites and Sips, Alternate Liquids/Solids, Rate of Ingestion Change, Avoid Specific Foods Supervision during eating and or drinking: None Needed Recommended Treatments: Compens. Strategy Educat. Recommendation for Speech Therapy: Outpatient Speech Therapy Text Comment: Intake Recommendations: Route: PO Diet Grade: Regular Liquid Consistencies: Thin Post-Study Functional Oral Intake Scale (FOIS): 6- Total oral intake with no special preparation, but must avoid specific foods or liquid items This exam revealed single episode of penetration on thin with an immediate cough response. A very trace amount of contrast entered the airway above the vocal folds and spontaneously ejected. There was no evidence of aspiration during this exam. Mild to moderate pharyngeal retention in the valleculae and pyriform sinuses, to which pt also demonstrated a sensitive cough response. Minimal distention/minimal duration, marked obstruction of flow through the PES. Pt was able to clear residuals from the valleculae, the pyriforms, and through the PES with sips of water. At the conclusion of the exam, pt requested water, stating, ?I feel like it?s coming back up.? Pt did not regurgitate or expectorate any material. Pt is recommended the following strategies to minimize the risk of aspiration and to promote oral and pharyngeal clearance: -Avoid foods which are hard to chew or sticky, opting for foods which are moist, tender, and easy to chew -Take small bites of food, chew food well -Clear oral cavity before taking more bites -Effortful swallow -Alternate bites of food with sips of liquid to promote oral and pharyngeal clearance -Maintain upright 90 degree position while eating and drinking and for at least 60 minutes afterwards -Take small, individual sips of liquid These strategies were discussed with the pt after the exam, and based on our conversation, pt would benefit from an additional follow-up visits for further education in regards to the MBSS results and recommended strategies. Recommend pt to continue monitoring her dysphagia. If there are any changes or worsening of symptoms, consult with MD, at which point a re-evaluation may be indicated. Additionally, pt is recommended consultation with a field attendant given her complaints of regurgitating and expectorating food. Pt is also recommended a voice evaluation with a speech pathologist pending an ENT consult for chronic changes to her voice, which was perceptually weak and strained at the time of this exam. Therapy Recommendations: Therapy will be continued Frequency per Week: 1 Number of Weeks: 4 The following compensatory strategies and/or therapeutic exercises will be part of the upcoming therapy/management plan: Bolus Volume Change Rate of Ingestion Change Liquid Wash Effortful Swallow Antonieta Maneuver Prognosis for Improvement: The prognosis for the patient to meet nutritional needs by mouth is fair based on degree of impairment, stimulability for treatment. Group Home Goals: ? The patient will tolerate the least restrictive diet with a safe/efficient swallow to maintain adequate nutrition and hydration. ? The patient and/or family will participate in further education for swallowing goals. Short Term Goals: ? Diet - The patient will tolerate a regular diet with thin liquids without signs or symptoms of penetration/aspiration ? Guidelines - The patient will comply with/recall the following guidelines/strategies 100% of the time with minimal cuing: Bolus Volume Change, Rate of Ingestion Change, Liquid Wash, Additional Swallow(s) per Bolus, Effortful Swallow (used during PO intake). ? Education - The patient will verbalize/demonstrate understanding of the results of this evaluation, the above recommendations, and the swallowing guidelines. Frequency/Duration: 1x weekly x 4 weeks Date Range for Service Requested: Timeline to reassess: 12 months Clinician - Supplemental, Miscellaneous Communication: It is important to note MBSS objective studies are snapshots in time and Patient function might vary with factors such as time of day or concomitant medical conditions. For this reason, the final treatment plan for this patient should rest with their medical care team. Additional recommendations should be considered with the totality of the Patient in mind. Thank for the opportunity to participate in the care of this patient. If you have any questions about the content of this report, please contact the [facility]. Education: Education regarding findings from today's study and plans for therapy were provided to Patient only through Verbal Instruction. Understanding was expressed by the Patient only. Primary Special Education Teacher Clinician/Clinical Fellow: No Supervisory Statement: N/A Speech Language Pathologist: Cris Langford M.A., CCC-WANT AD SUPERVISOR
== END 2023-01-31 14:20 | disposition home or self-care (01) ==
LOC: HO.XRAY 14:19
PROVIDERS: PCP Family Medicine; Visit Provider Family Medicine
DX: R13.10 Dysphagia, unspecified (principal)
CPT/HCPCS: 74230; 92611

== ENCOUNTER → 2023-01-31 14:21 | Outpatient (BNV) | payer OTHER, SELFPAY | PROVIDERS: PCP Family Medicine; Visit Provider Radiology Diagnostic Radiology | DX: R13.10 Dysphagia, unspecified (principal) | CPT/HCPCS: 74230 ==

== ENCOUNTER 2023-02-07 09:22 | Outpatient (AMB) | payer OTHER, SELFPAY ==
[2023-02-07 09:25] VITALS: BP 136/88; PULSE 104; O2SAT 98; BMI 28.9
--- NOTE | 2023-02-07 09:25 | MHC.OFFVIS ---
Intake Vital Signs 02/07/23 09:25 Height 5 ft 1 in Weight 153 lb 2 oz BMI 28.9 BP 136/88 Blood Pressure Location Rt brachial Position Sitting Pulse 104 H Pulse Source Pulse Oximeter Pulse Oximetry (%) 98 Oxygen Delivery Method Room Air Intake Visit Reasons: 6 mo f/u/ Confirmed Intake Note: Pt presents to the office today for a 6 month follow up for Cervicalgia. Pt states she is feeling well and states that her neck hasnt been bothering her as much as before. Allergies tuberculin,PPD,multi-puncture Allergy (Intermediate, Verified 02/07/23 09:25) hives/SOB oxycodone [Percocet] Allergy (Unknown, Verified 02/07/23:) unknown Doxycycline Hyclate Allergy (Intermediate, Uncoded 02/07/23:) dizziness, n/v HPI HPI Comments History of Present Illness Details 67 y/o female comes for follow up of cervicalgia, dizziness, vertigo She had cortisone shot on her left shoulder, neck pain has improved a lot. She had PT appointment but was canceled, and her PT order was . Pt reports that flexeril 10mg, PRN helped significantly for neck pain and the vertigo improved as well. She does not get dizziness often, and also it is manageable now. Pt was able to sleep well with flexeril, too. The home sleep study result was normal sleep study. The total AHI was 1/hr and oxygen harpal was 82%. 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 Sister No problems noted. Sister No problems noted. Daughter No problems noted. Daughter No problems noted. Daughter No problems noted. Social History Housing: House Alcohol intake: current Alcohol intake frequency: does not drink Patient Tobacco Use Status: Former Tobacco user Quit Date: Over 2 years e-Cigarette/Vaping Use: Never Used Second Hand Smoke Exposure: No service: No Current occupational status: retired and disabled Current occupational exposures/hazards: No Cognitive needs: No Hearing needs: No Vision needs: No Review of Systems Const All systems reviewed & are unremarkable except as noted in HPI and below Physical Exam Vital Signs: Last Vital Signs Pulse 104 H 02/07/23 09:25 BP 136/88 02/07/23 09:25 Pulse Ox 98 02/07/23 09:25 Oxygen Delivery Method Room Air 02/07/23 09:25 BMI result Body Mass Index 28.9 Const General: cooperative, comfortable and in distress Nutritional Appearance: average body habitus Orientation/consciousness: patient oriented x3 HEENT Head: Yes normal to inspection Eyes Pupils: Equal, round and reactive pupils present Neck Other: Torticollis Restricted neck movement especially lateral rotation and tilt Tenderness in erin splenius, left levator , left trapezius Neuro General: patient oriented x3, tone normal, moves all extremities and no focal motor deficits Cranial nerves: Yes CN's II-XII intact bilaterally, Yes Facial sensation intact/muscles of mastication intact, Yes Equal, round and reactive pupils present, Yes Bilaterally intact EOM present, Yes Nystagmus not present, Yes Normal facial strength present, Yes Midline tongue present and Yes Symmetric palate elevation present Cognition (Neuro): normal cognition Gait exam (Neuro): Normal gait present Motor exam (neuro): 5/5 motor strength present throughout Deep tendon reflexes (DTR's): Right triceps reflex intensity grade: 2+ Coordination: [id number] test normal Assessment & Plan Assessment & Plan (1) Cervicalgia: Code(s): M54.2 - Cervicalgia (2) Spasmodic torticollis: Code(s): G24.3 - Spasmodic torticollis (3) Vertigo: Comment: likley related to chronic neck tightness Code(s): R42 - Dizziness and giddiness (4) Chronic headaches: Comment: cervicogenic Code(s): R51.9 - Headache, unspecified; G89.29 - Other chronic pain Plan Continue cyclobenzaprine 10mg as needed for neck pain. Advised patient to do physical therapy for neck pain and muscle tightness. Orders: Orders PT Evaluation and Treatment 12 Weeks G24.3 - Spasmodic torticollis, G89.29 - Other chronic pain, M54.2 - Cervicalgia, R51.9 - Headache, unspecified Coding Level of Care Code Est Pt Level 3 (34708) Diagnoses Cervicalgia M54.2 Spasmodic torticollis G24.3 Vertigo R42 Chronic headaches R51.9; G89.29
== END 2023-02-07 09:49 | disposition home or self-care (01) ==
PROVIDERS: PCP Family Medicine; Visit Provider Nurse Practitioner Family
DX: M54.2 Cervicalgia (principal); G24.3 Spasmodic torticollis; R42 Dizziness and giddiness; R51.9 Headache, unspecified; G89.29 Other chronic pain
CPT/HCPCS: 99213

== ENCOUNTER → 2023-02-07 09:22 | Outpatient (BNVA) | payer OTHER, SELFPAY | PROVIDERS: PCP Family Medicine; Visit Provider Nurse Practitioner Family | DX: M54.2 Cervicalgia (principal); G24.3 Spasmodic torticollis; R42 Dizziness and giddiness; R51.9 Headache, unspecified; G89.29 Other chronic pain | CPT/HCPCS: 99212 ==

== ENCOUNTER 2023-03-01 10:56 | Outpatient (RCR) | payer OTHER, SELFPAY | END 2023-03-09 11:11 | disposition home or self-care (01) | LOC: HO.SH 10:56 | PROVIDERS: Visit Provider Family Medicine | DX: R13.12 Dysphagia, oropharyngeal phase (principal) | CPT/HCPCS: 92526 ==

== ENCOUNTER 2023-03-09 08:47 | Outpatient (AMB) | payer OTHER, SELFPAY ==
--- NOTE | 2023-03-09 09:07 | MHC.PC.OV ---
Vital Signs 03/09/23 09:08 Height 5 ft 1 in Weight 150 lb 2 oz BMI 28.4 BP 124/72 Blood Pressure Location Rt brachial Position Sitting Pulse 104 H Pulse Source Pulse Oximeter Pulse Oximetry (%) 98 Oxygen Delivery Method Room Air Intake Visit Reasons: f/u diabetes and hypertension Intake Note: Patient is here for follow up on diabetes and hypertension. Patient has gone without her Trulicity because her pharmacy does not have it. Allergies tuberculin,PPD,multi-puncture Allergy (Intermediate, Verified 03/09/23 09:11) hives/SOB oxycodone [Percocet] Allergy (Unknown, Verified 03/09/23 09:11) unknown Doxycycline Hyclate Allergy (Intermediate, Uncoded 03/09/23 09:11) dizziness, n/v Medication List - Last Reconciled 03/09/23 by Reinaldo Suarez MD amitriptyline 50 mg PO BEDTIME 30 days aspirin 81 mg PO DAILY 90 days atorvastatin 40 mg PO DAILY 90 days blood sugar diagnostic As directed blood sugar diagnostic (Netvibesuch Ultra Test strips) USE DIRECTED FOUR TIMES DAILY cholecalciferol (vitamin D3) 125 mcg PO DAILY 30 days citalopram 40 mg PO DAILY cyclobenzaprine 10 mg PO BEDTIME diclofenac sodium 50 mg PO TID 90 days dicyclomine 20 mg PO dulaglutide 3 mg (0.5 mL) subcut QWEEK 30 days famotidine 40 mg PO BEDTIME insulin glargine U-300 conc (Toujeo Max U-300 SoloStar) 30 units subcut BEDTIME insulin glargine U-300 conc 40 units (0.1333 mL) subcut QAM 30 days ketorolac 0.5% 1 drp ophthalmic (eye) lancets (FreeStyle Lancets) As directed lancets (OneTouch Delica Plus Lancet) As directed tests 4 X/day lisinopril 20 mg PO DAILY 90 days meclizine 25 mg PO TID 10 days metoprolol succinate ER 25 mg PO DAILY nystatin 5 mL PO QID omeprazole 40 mg PO DAILY pen needle, diabetic once a day simethicone (Gas Relief (simethicone)) 80 mg PO BID-QID PRN 30 days solifenacin (Vesicare) 10 mg PO DAILY 90 days timolol maleate 0.5% 0 drps ophthalmic (eye) trazodone 150 mg PO BEDTIME Tobacco use date assessed: 03/09/23 Fall risk assessment: No Falls in past year Last assessed Fall Risk: 03/09/23 Dental Screening Dental Screen Date: 03/09/23 Did you have a dental visit in the last 12 months?: No Did you have a dental problem in the last 6 months where you did not have access to dental care?: No Was dental information given to patient?: Patient declined HPI f/u diabetes and hypertension HPI Details 67 y/o female presents to f/u diabetes and hypertension. Also f/u difficulty swallowing. Had a MBS done in January. Strategies were discussed with pt after exam, recommended additional f/u visits. Also recommended consultation with a ceo & co founder due to complaints of regurgitation and expectorating food. Last A1c 12/06/22 5.6%. A1c today 03/09/22 is 6.7%. Pt notes she has been having difficulty getting Trulicity. Also on Insulin Glargine 40 U QAM. Blood pressure today 124/72. She is on metoprolol 25mg, lisinopril 20mg. HPI Comments History of Present Illness Details Documentation assistance for Reinaldo Suarez MD, was provided by Manohar Timmons, Assistant To The Director on 03/09/2023 9:43 AM BRANDON. I, Dr. Suarez, have read, observed, and verified documentation. 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 Sister No problems noted. Sister No problems noted. Daughter No problems noted. Daughter No problems noted. Daughter No problems noted. Social History Housing: House Alcohol intake: current Alcohol intake frequency: does not drink Patient Tobacco Use Status: Former Tobacco user Quit Date: Over 2 years e-Cigarette/Vaping Use: Never Used Second Hand Smoke Exposure: No service: No Current occupational status: retired and disabled Current occupational exposures/hazards: No Cognitive needs: No Hearing needs: No Vision needs: No Questionnaire Thrive Questionnaire Date Thrive assessed: 04/01/22 RAKAN-7 AMB Questionnaire RAKAN-7 Date RAKAN - 7 assessed: 04/01/22 Source: Developed by Drs. Barrie Browning, Claudia Nichols, Jason Khan and colleagues, with an educational jalyn from [employer]. Review of Systems Const Denies chills, Denies fatigue, Denies fever(s), Denies headache(s) and Denies weakness ENT Denies dizziness and Denies headache(s) Card Denies chest pain, Denies lightheadedness, Denies dyspnea and Denies other (Palpitations) Resp Denies cough, Denies dyspnea, Denies wheezing and Denies other ( shortness of breath) Musc Denies numbness and Denies tingling Neuro Denies dizziness, Denies headache(s), Denies numbness, Denies tingling, Denies paresthesias and Denies weakness Psych Denies anxiety and Denies depression Endo Denies fatigue Aller/Immun Denies wheezing Physical exam (Primary Care) Vital Signs: Last Vital Signs Pulse 104 H 03/09/23 09:08 BP 124/72 03/09/23 09:08 Pulse Ox 98 03/09/23 09:08 Oxygen Delivery Method Room Air 03/09/23 09:08 BMI result Body Mass Index 28.4 Tobacco/Smoking Status: Tobacco use Status Tobacco use date assessed 03/09/23 03/09/23 09:15 Patient Tobacco Use Status Former Tobacco user 03/09/23 09:15 e-Cigarette/Vaping Use Never Used 03/09/23 09:15 Thrive Assessment: Date of Thrive Assessment Date Thrive assessed 04/01/22 03/09/23 09:15 Const General: no acute distress and well developed Nutritional Appearance: well nourished Orientation/consciousness: patient oriented x3 [facility] Head: Yes normocephalic and Yes atraumatic Eyes General: appearance normal, both eyes and all related structures Pupils: Equal, round and reactive pupils present EOM: EOMs intact bilaterally Resp Effort & Inspection: normal respiratory effort Auscultation: clear to auscultation bilaterally Cardio Rate: regular rate Rhythm: regular rhythm Heart sounds: S1 normal heart sound present, S2 normal heart sound present, no gallops, no murmurs and no rubs Neuro General: patient oriented x3 and gait normal Cranial nerves: Yes Equal, round and reactive pupils present Psych Affect: normal affect Results AMB Hemoglobin A1c AMB Hemoglobin A1c 6.7 % Last Edit by Kathie Corea CMA on 03/09/23 09:44 Assessment and Plan Assessment & Plan (1) Diabetes type 2, controlled: Comment: Pt also has CKD, stage 3 Code(s): E11.9 - Type 2 diabetes mellitus without complications Qualifiers: Diabetes mellitus complication status: without complication Diabetes mellitus correction insulin use: with correction use Qualified Code(s): E11.9 - Type 2 diabetes mellitus without complications; Z79.4 - long term care administrator (current) use of insulin Plan: A1c?6.7%.??Goal?is?less?than?7.0% Her?blood?sugars?have?been?rising?however?as?she?has?not?had?her?Trulicity?for?the?past?2?weeks.??Her?pharmacy?says?it?is?on?back?order. She?is?willing?to?go?to?a?different?pharmacy?so?I?will?have?the?office?staff?find?a?local?pharmacy?that?still?carries?it. No?changes?to?her?medication?regimen?today (2) Hypertension: Code(s): I10 - Essential (primary) hypertension Qualifiers: Hypertension type: essential hypertension Qualified Code(s): I10 - Essential (primary) hypertension Plan: Blood?pressure?is?controlled.??Goal?is?less?than?140/90 Continue?current?medication?regimen (3) Difficulty swallowing: Code(s): R13.10 - Dysphagia, unspecified Plan: Has?been?seen?by?the?speech?language?pathologist?to?evaluate?MBS?and?had?given?her?some?modifications?such?as?double?swallowing?and?frequent?sips. Recommended?ENT?so?I?have?made?that?referral Recommended?follow-up?with?GI?and?patient?sees??Epifanio. (4) Regurgitation of food: Code(s): R11.10 - Vomiting, unspecified Plan: Follow-up?with??Epifanio?as?recommended Orders: Orders AMB Hemoglobin A1c Today Z13.9 - Encounter for screening, unspecified Referrals Ear/Nose/Throat Referral R13.10 - Dysphagia, unspecified, R49.9 - Unspecified voice and resonance disorder Medications: New dulaglutide 1.5 mg subcut QWEEK 4 mL 0RF 28 days Coding Level of Care Code Est Pt Level 4 (80597) Diagnoses Controlled type 2 diabetes mellitus without complication, with long-term current use of insulin E11.9; Z79.4 Diabetes mellitus complication status: without complication 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
[2023-03-09 09:08] VITALS: BP 124/72; PULSE 104; O2SAT 98; BMI 28.4
== END 2023-03-09 09:56 | disposition home or self-care (01) ==
PROVIDERS: PCP Family Medicine; Visit Provider Family Medicine
DX: E11.9 Type 2 diabetes mellitus without complications (principal); Z79.4 Long term (current) use of insulin; I10 Essential (primary) hypertension; R13.10 Dysphagia, unspecified; R11.10 Vomiting, unspecified
CPT/HCPCS: 83036; 99214

== ENCOUNTER 2023-03-21 09:28 | Outpatient (AMB) | payer OTHER, SELFPAY ==
--- NOTE | 2023-03-21 09:34 | MHC.OFFVIS ---
Intake Intake Visit Reasons: OAB- follow up Intake Note: Patient presents today for a follow up OAB: medications: solifenacin? Blood thinners: none Post Void Residual: 21 mL Sexton Helper Required: No Accompanied by: Self / Same As Patient Allergies tuberculin,PPD,multi-puncture Allergy (Intermediate, Verified 03/09/23 09:11) hives/SOB oxycodone [Percocet] Allergy (Unknown, Verified 03/09/23 09:11) unknown Doxycycline Hyclate Allergy (Intermediate, Uncoded 03/09/23 09:11) dizziness, n/v HPI HPI Comments History of Present Illness Details Zulay is a 66-year-old female who presents to the office for Follow up. 03/21/23---FU for OAB on vesicare, UA today is WNL, no signs of infection recurrent OAB follow-up urinary symptoms are stable. Review of Chart: OV--03/12/22--66-year-old female PM history of chronic kidney disease stage 3, Comorbidity diabetes. last visit in the urology office 05/2021, BALDEMAR Cabrera. She is followed for OAB and recurrent urinary tract infection. She currently has mild discomfort with voiding. She reports having a good appetite and no issues with constipation. She reports that she is drinking adequate amounts of water on a daily basis she has cut down on her intake of juices and sodas. Evaluation today UA leuk+, blood+; PVR 108 mL. Plan: Macrobid 100 mg bid for 7 days, pending urine c/s, Cont. Vesicare 10 mg daily.FU in 3 months, renal U/S prior 06/25/2022-- The patient states that Vesicare 10 mg daily is controlling her urinary symptoms and did not have any breakthrough urinary leakage. She also mentions that she is trying to improve her diet. She has cut down her soda intake significantly, although she drinks at least one soda daily. She states that her her recent blood work showed improvement in AiG6x--4/16/23--6.2. Of note: Review of urine c/s 03/12/22 - <10,000 col Evaluation today: Blood: negative, leukocytes: trace. Renal US results reviewed?06/18/22-- Kidneys: WNL, no renal calculi visualized. 03/21/23--Plan: Advised to consume adequate amount of water. Vesicare 10 mg daily for OAB Follow-up in 12 months. 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 Diabetes type 2, controlled Surgical History (Reviewed 03/09/23 @ 09:15 by Kathie Corea [facility] [address]) History of right knee surgery (~10/31/20) History of endometrial ablation History of pubovaginal sling History of femoral hernia repair History of esophagogastroduodenoscopy (EGD) H/O colonoscopy Hx of cholecystectomy History of eye surgery S/P right knee arthroscopy History of incisional hernia repair Hx of left knee surgery Hx of section Family History (Reviewed 03/09/23 @ 09:15 by Kathie Corea [facility] [address]) Father Cancer Diabetes mellitus Hx of CABG CVD (cardiovascular disease) Mother Diabetes mellitus Brother No problems noted. Sister No problems noted. Sister No problems noted. Daughter No problems noted. Daughter No problems noted. Daughter No problems noted. Social History (Reviewed 03/09/23 @ 09:15 by Kathie Corea [facility] [address]) Housing: House Alcohol intake: current Alcohol intake frequency: does not drink Patient Tobacco Use Status: Former Tobacco user Quit Date: Over 2 years e-Cigarette/Vaping Use: Never Used Second Hand Smoke Exposure: No service: No Current occupational status: retired and disabled Current occupational exposures/hazards: No Cognitive needs: No Hearing needs: No Vision needs: No Review of Systems Const All systems reviewed & are unremarkable except as noted in HPI and below Reports no additional complaints Eyes Reports no additional complaints ENT Reports no additional complaints Card Denies dyspnea Resp Denies cough and Denies dyspnea GI Reports no additional complaints Reports no additional complaints Musc Reports no additional complaints Skin/Breast Denies rash and Denies unusual bruising Neuro Reports no additional complaints Psych Reports no additional complaints Endo Reports no additional complaints Sven/Lymph Reports no additional complaints Aller/Immun Reports no additional complaints Office Procedures Post Void Residual Post Residual Void Post Void Residual (PVR): 21 [id number] Void Residual by ultrasound Results AMB Urinalysis, Automated UA Leukoctes 0 Giovanni/uL Last Edit by MENDEZ Fernandes on 03/21/23 09:56 UA Nitrite Negative Last Edit by Radha Root Tacho on 03/21/23 09:56 UA Urobilinogen 0.2 mg/dL Last Edit by Radha Root Tacho on 03/21/23 09:56 UA Protein 0 mg/dL Last Edit by Radha Root Tacho on 03/21/23 09:56 UA pH 6.0 Last Edit by Radha Root Tacho on 03/21/23 09:56 UA Blood 0 Travis/uL Last Edit by Radha Root Tacho on 03/21/23 09:56 UA Specific [place] 1.030 Last Edit by Radha Root Tacho on 03/21/23 09:56 UA Ketone Negative Last Edit by Radha Root Tacho on 03/21/23 09:56 UA Bilirubin 0 mg/dL Last Edit by Radha Root Tacho on 03/21/23 09:56 UA Glucose 0 mg/dL Last Edit by Radha Root Tacho on 03/21/23 09:56 Results Reviewed Results Reviewed: Laboratory Last Values Urine pH (Auto) 6.0 03/21/23 09:37 Specific [place] (Auto) 1.030 03/21/23 09:37 Urine Protein (Auto) 0 mg/dL 03/21/23 09:37 Glucose (UA)(Auto) 0 mg/dL 03/21/23 09:37 Urine Ketones (Auto) Negative 03/21/23 09:37 Urine Blood (Auto) 0 Travis/uL 03/21/23 09:37 Urine Nitrite (Auto) Negative 03/21/23 09:37 Urine Bilirubin (Auto) 0 mg/dL 03/21/23 09:37 Urine Urobilinogen (Auto) 0.2 mg/dL 03/21/23 09:37 Leukocyte Esterase (Auto) 0 Giovanni/uL 03/21/23 09:37 Date of Service: 06/18/22 EXAMINATION: US RETROPERITONEAL LIMITED (RENAL ONLY) CLINICAL INFORMATION: Urinary tract infection, site not specified. COMPARISON: CT abdomen and pelvis 03/28/2019. TECHNIQUE: Real-time imaging of the kidneys. FINDINGS: RIGHT KIDNEY: 9.1 x 4.5 x 4.6 cm (SAG x AP x TRV). The kidney is normal in size, contour, and echogenicity. Renal cortical thickness is normal. No renal calculi or hydronephrosis. At the upper pole, an 8 mm benign, simple cyst is seen. LEFT KIDNEY: 9.4 x 4.5 x 4.4 cm (SAG x AP x TRV). The kidney is normal in size, contour, and echogenicity. Renal cortical thickness is normal. No renal calculi or hydronephrosis. At the interpolar aspect, 1.0 cm and 1.7 cm in maximal diameter benign, simple cysts are seen. IMPRESSION: Benign, simple bilateral renal cysts are noted, for which no imaging follow-up is recommended. No solid mass, calculus or hydronephrosis is noted bilaterally. Assessment & Plan Assessment & Plan (1) OAB (overactive bladder): Code(s): N32.81 - Overactive bladder Plan Advised to consume adequate amount of water. Vesicare 10 mg daily for OAB Follow-up in one year Orders: Orders AMB Urinalysis Automated 03/21/23 Z13.9 - Encounter for screening, unspecified AMB Post Void Residual by ultrasound 03/21/23 N39.8 - Other specified disorders of urinary system Medications: Refilled solifenacin (Vesicare) 10 mg PO DAILY 90 tabs 3RF 90 days Coding Level of Care Code Est Pt Level 3 (85854) Diagnoses OAB (overactive bladder) N32.81 CPT Codes Post Residual Void - PVR CPT Code: 97877-[id number] Void Residual by ultrasound ([id number])
== END 2023-03-21 10:14 | disposition home or self-care (01) ==
PROVIDERS: Visit Provider Urology
DX: N32.81 Overactive bladder (principal)
CPT/HCPCS: 99213

== ENCOUNTER → 2023-03-21 09:28 | Outpatient (BNVA) | payer OTHER, SELFPAY | PROVIDERS: Visit Provider Urology | DX: N32.81 Overactive bladder (principal) | CPT/HCPCS: 51798; 81003; 99212 ==

== ENCOUNTER 2023-05-17 09:25 | Outpatient (REF) | payer OTHER, SELFPAY | END 2023-05-17 09:26 | disposition home or self-care (01) | LOC: HO.MAMMO 09:25 | PROVIDERS: PCP Family Medicine; Visit Provider Family Medicine | DX: Z12.31 Encounter for screening mammogram for malignant neoplasm of breast (principal) | CPT/HCPCS: 77063; 77067 ==

== ENCOUNTER → 2023-05-17 09:30 | Outpatient (BNV) | payer OTHER, SELFPAY | PROVIDERS: PCP Family Medicine; Visit Provider Radiology Diagnostic Radiology | DX: Z12.31 Encounter for screening mammogram for malignant neoplasm of breast (principal) | CPT/HCPCS: 77063; 77067 ==

== ENCOUNTER 2023-07-05 09:21 | Outpatient (AMB) | payer OTHER, SELFPAY ==
[2023-07-05 09:36] VITALS: BP 130/78; PULSE 87; O2SAT 95; BMI 28.2
--- NOTE | 2023-07-05 09:36 | MHC.PC.OV ---
Vital Signs 07/05/23 09:36 Height 5 ft 1 in Weight 149 lb 2 oz BMI 28.2 BP 130/78 Blood Pressure Location Lt brachial Position Sitting Pulse 87 Pulse Source Pulse Oximeter Pulse Oximetry (%) 95 Oxygen Delivery Method Room Air Intake Visit Reasons: f/u diabetes, HTN Allergies tuberculin,PPD,multi-puncture Allergy (Intermediate, Verified 03/09/23 09:11) hives/SOB oxycodone [Percocet] Allergy (Unknown, Verified 03/09/23 09:11) unknown Doxycycline Hyclate Allergy (Intermediate, Uncoded 03/09/23 09:11) dizziness, n/v Medication List - Last Reconciled 07/05/23 by Reinaldo Suarez MD amitriptyline 50 mg PO BEDTIME 30 days aspirin 81 mg PO DAILY 90 days atorvastatin 40 mg PO DAILY 90 days blood sugar diagnostic As directed blood sugar diagnostic (logolineupuch Ultra Test strips) USE DIRECTED FOUR TIMES DAILY cholecalciferol (vitamin D3) 125 mcg PO DAILY 30 days citalopram 40 mg PO DAILY cyclobenzaprine 10 mg PO BEDTIME diclofenac sodium 50 mg PO TID 90 days dicyclomine 20 mg PO dulaglutide 3 mg (0.5 mL) subcut QWEEK 30 days famotidine 40 mg PO BEDTIME insulin glargine U-300 conc (Toujeo Max U-300 SoloStar) 30 units subcut BEDTIME insulin glargine U-300 conc 40 units (0.1333 mL) subcut QAM 30 days ketorolac 0.5% 1 drp ophthalmic (eye) lancets (FreeStyle Lancets) As directed lancets (CiappleTouch Delica Plus Lancet) As directed tests 4 X/day lisinopril 20 mg PO DAILY 90 days meclizine 25 mg PO TID 10 days metoprolol succinate ER 25 mg PO DAILY nystatin 5 mL PO QID omeprazole 40 mg PO DAILY pen needle, diabetic once a day simethicone (Gas Relief (simethicone)) 80 mg PO BID-QID PRN 30 days solifenacin (Vesicare) 10 mg PO DAILY 90 days timolol maleate 0.5% 0 drps ophthalmic (eye) trazodone 150 mg PO BEDTIME Tobacco use date assessed: 03/09/23 Dental Screening Dental Screen Date: 03/09/23 HPI f/u diabetes, HTN HPI Details 68 y/o female presents to f/u hypertension, diabetes. Last A1c 03/09/23 6.7% A1c today 07/05/23 6.9%. She is on Trulicity, Toujeo 30 units. She reports morning blood sugars of 125s. She denies any low blood sugars. She has an appt. with an eye doctor next month. Blood pressure today 130/78. She is on metoprolol 25mg, lisinopril 20mg daily. 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 Sister No problems noted. Sister No problems noted. Daughter No problems noted. Daughter No problems noted. Daughter No problems noted. Social History Housing: House Alcohol intake: current Alcohol intake frequency: does not drink Patient Tobacco Use Status: Former Tobacco user Quit Date: Over 2 years e-Cigarette/Vaping Use: Never Used Second Hand Smoke Exposure: No service: No Current occupational status: retired and disabled Current occupational exposures/hazards: No Cognitive needs: No Hearing needs: No Vision needs: No Questionnaire Thrive Questionnaire Date Thrive assessed: 04/01/22 RAKAN-7 AMB Questionnaire RAKAN-7 Date RAKAN - 7 assessed: 04/01/22 Source: Developed by Drs. Barrie Browning, Claudia Nichols, Jason Khan and colleagues, with an educational jalyn from [employer]. Review of Systems Const Denies chills, Denies fatigue, Denies fever(s), Denies headache(s) and Denies weakness ENT Denies dizziness and Denies headache(s) Card Denies chest pain, Denies lightheadedness, Denies dyspnea and Denies other (Palpitations) Resp Denies cough, Denies dyspnea, Denies wheezing and Denies other ( shortness of breath) Musc Denies numbness and Denies tingling Neuro Denies dizziness, Denies headache(s), Denies numbness, Denies tingling, Denies paresthesias and Denies weakness Psych Denies anxiety and Denies depression Endo Denies fatigue Aller/Immun Denies wheezing Physical exam (Primary Care) Vital Signs: Last Vital Signs Pulse 87 07/05/23 09:36 BP 130/78 07/05/23 09:36 Pulse Ox 95 07/05/23 09:36 Oxygen Delivery Method Room Air 07/05/23 09:36 BMI result Body Mass Index 28.2 Tobacco/Smoking Status: Tobacco use Status Tobacco use date assessed 03/09/23 07/05/23 09:39 Patient Tobacco Use Status Former Tobacco user 07/05/23 09:39 e-Cigarette/Vaping Use Never Used 07/05/23 09:39 Thrive Assessment: Date of Thrive Assessment Date Thrive assessed 04/01/22 07/05/23 09:39 Const General: no acute distress and well developed Nutritional Appearance: well nourished Orientation/consciousness: patient oriented x3 [facility] Head: Yes normocephalic and Yes atraumatic Eyes General: appearance normal, both eyes and all related structures Pupils: Equal, round and reactive pupils present EOM: EOMs intact bilaterally Resp Effort & Inspection: normal respiratory effort Auscultation: clear to auscultation bilaterally Cardio Rate: regular rate Rhythm: regular rhythm Heart sounds: S1 normal heart sound present, S2 normal heart sound present, no gallops, no murmurs and no rubs Neuro General: patient oriented x3 and gait normal Cranial nerves: Yes Equal, round and reactive pupils present Psych Affect: normal affect Results AMB Hemoglobin A1c AMB Hemoglobin A1c 6.9 % Last Edit by Kathie Corea CMA on 07/05/23 10:17 Results Reviewed Results Reviewed: Laboratory Last Values Hgb A1c (Clinic) 6.9 % (4.0-6.0) H 07/05/23 10:16 Assessment and Plan Assessment & Plan (1) Diabetes type 2, controlled: Comment: Pt also has CKD, stage 3 Code(s): E11.9 - Type 2 diabetes mellitus without complications Qualifiers: Diabetes mellitus complication status: without complication 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 prison use Qualified Code(s): E11.9 - Type 2 diabetes mellitus without complications; Z79.4 - residential (current) use of insulin Plan: A1c?has?climbed?again?from?5.7%?to?5.9% Patient?says?she?is?working?on?diabetic?diet Will?increase?her?basal?insulin?from?40?units?daily?to?44?units?daily?and?continue?Trulicity?at?3?mg?weekly (2) Hypertension: Code(s): I10 - Essential (primary) hypertension Qualifiers: Hypertension type: essential hypertension Qualified Code(s): I10 - Essential (primary) hypertension Plan: Blood?pressure?is?controlled.??Goal?is?less?than?140/90 Continue?current?medication Orders: Orders AMB Hemoglobin A1c Today Z13.9 - Encounter for screening, unspecified Medications: Changed From insulin glargine U-300 conc dose decreased 40 units (0.1333 mL) subcut QAM 30 days 6 mL 3RF E11.9 - Type 2 diabetes mellitus without complications, Z79.4 - director long term care (current) use of insulin To insulin glargine U-300 conc dose decreased 44 units (0.1467 mL) subcut QAM 30 days 6 mL 3RF E11.9 - Type 2 diabetes mellitus without complications, Z79.4 - director long term care (current) use of insulin Coding Level of Care Code Est Pt Level 3 (17073) Diagnoses Controlled type 2 diabetes mellitus without complication, with long-term current use of insulin E11.9; Z79.4 Diabetes mellitus complication status: without complication 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 prison use Essential hypertension I10 Hypertension type: essential hypertension
== END 2023-07-05 10:28 | disposition home or self-care (01) ==
PROVIDERS: PCP Family Medicine; Visit Provider Family Medicine
DX: I12.9 Hypertensive chronic kidney disease with stage 1 through stage 4 chronic kidney disease, or unspecified chronic kidney disease (principal); E11.22 Type 2 diabetes mellitus with diabetic chronic kidney disease; Z79.4 Long term (current) use of insulin; N18.30 Chronic kidney disease, stage 3 unspecified
CPT/HCPCS: 83036; 99214

== ENCOUNTER 2023-09-23 10:53 | Outpatient (AMB) | payer OTHER, SELFPAY ==
[2023-09-23 11:20] VITALS: BP 112/74; PULSE 89; RESP 15; TEMP 36.6; O2SAT 99; BMI 28.4
--- NOTE | 2023-09-23 11:20 | A.OFFPC_ITS ---
Vital Signs 09/23/23 11:20 Height 5 ft 1 in Weight 150 lb 6 oz BMI 28.4 BP 112/74 Blood Pressure Location Rt brachial Position Sitting Respiration 15 Pulse 89 Pulse Source Pulse Oximeter Temp 97.8 F Temp Source Temporal Artery Scan Pulse Oximetry (%) 99 Oxygen Delivery Method Room Air Intake Visit Reasons: f/u hypertension, diabetes Intake Note: Patient needs refill on aspirin, dicyclomine,metoprolol. Urology Nurse Required: No Accompanied by: Self / Same As Patient Allergies tuberculin,PPD,multi-puncture Allergy (Intermediate, Verified 09/23/23 11:27) hives/SOB oxycodone [Percocet] Allergy (Unknown, Verified 09/23/23 11:27) unknown Doxycycline Hyclate Allergy (Intermediate, Uncoded 07/26/23 11:26) dizziness, n/v Medication List - Last Reconciled 09/23/23 by Reinaldo Suarez MD amitriptyline 50 mg PO BEDTIME 30 days aspirin 81 mg PO DAILY 90 days atorvastatin 40 mg PO DAILY 90 days blood sugar diagnostic As directed blood sugar diagnostic (ByteLightTouch Ultra Test strips) USE DIRECTED FOUR TIMES DAILY cholecalciferol (vitamin D3) 125 mcg PO DAILY 30 days citalopram 40 mg PO DAILY cyclobenzaprine 10 mg PO BEDTIME diclofenac sodium 50 mg PO TID 90 days dicyclomine 20 mg PO dulaglutide 3 mg (0.5 mL) subcut QWEEK 30 days famotidine 40 mg PO BEDTIME insulin glargine U-300 conc 44 units (0.1467 mL) subcut QAM 30 days ketorolac 0.5% 1 drp ophthalmic (eye) lancets (FreeStyle Lancets) As directed lancets (ByteLightTouch Delica Plus Lancet) As directed tests 4 X/day lisinopril 20 mg PO DAILY 90 days meclizine 25 mg PO TID 10 days metoprolol succinate ER 25 mg PO DAILY nystatin 5 mL PO QID omeprazole 40 mg PO DAILY pen needle, diabetic once a day simethicone (Gas Relief (simethicone)) 80 mg PO BID-QID PRN 30 days solifenacin (Vesicare) 10 mg PO DAILY 90 days timolol maleate 0.5% 0 drps ophthalmic (eye) trazodone 150 mg PO BEDTIME Tobacco use date assessed: 07/26/23 Fall risk assessment: No Falls in past year Last assessed Fall Risk: 09/23/23 Dental Screening Dental Screen Date: 03/09/23 HPI f/u hypertension, diabetes HPI Details 68 y/o female presents to f/u hypertensi on, diabetes. Had increased her basal insulin from 40 units daily to 44 units daily. Continued Trulicity as prescribed. Last A1c 07/05/23 6.9%. She is on Trulicity, Toujeo 30 units. She notes she had just recently restarted her Trulicity. Blood pressure today 112/74. She is on metoprolol 25mg, lisinopril 20mg daily. Patient?says?that?she?was?seen?by [employer] house worker at?her?home (a?service?provided?by?[employer]?insurance)?last?Tuesday. She?had?been?sick?for?several?days?and?called?them?as?an?alternative?to?going?to ?the?emergency?department She?says?that?she?was?told?her her? kidney?is?at 50 - unclear?if?they?meant?that?her?kidney?function?was?at?about?50%.??She?does?have? a?history?of?chronic?kidney?disease?and?is?followed?by?Nephrology. Concerned?that?sh e?had?acute?renal?failure?due?to?dehydration?and?likely?secondary?to?high?blood? sugars?as?she?was?off?Trulicity. She?has?now?received?Trulicity?and?is?taking?it. She?says?she?is?feeling?better?each?day. I?do?not?have?a?note?regarding?this [facility] Medical History UTI (urinary tract infection) Urge and stress incontinence Urgency incontinence Obesity (BMI 30-39.9) CKD (chronic kidney disease) stage 3, GFR 30-59 ml/min Dyslipidemia Hypertension Hyperparathyroidism correction (current) use of insulin Diabetes type 2, controlled Surgical History History of right knee surgery (~10/31/20) History of endometrial ablation History of pubovaginal sling History of femoral hernia repair History of esophagogastroduodenoscopy (EGD) H/O colonoscopy Hx of cholecystectomy History of eye surgery S/P right knee arthroscopy History of incisional hernia repair Hx of left knee surgery Hx of section Family History Father Cancer Diabetes mellitus Hx of CABG CVD (cardiovascular disease) Mother Diabetes mellitus Brother No problems noted. Sister No problems noted. Sister No problems noted. Daughter No problems noted. Daughter No problems noted. Daughter No problems noted. Social History Housing: House Alcohol intake: current Alcohol intake frequency: does not drink Patient Tobacco Use Status: Former Tobacco user e-Cigarette/Vaping Use: Never Used Second Hand Smoke Exposure: No service: No Current occupational status: retired and disabled Current occupational exposures/hazards: No Cognitive needs: No Hearing needs: No Vision needs: No Questionnaire Thrive Questionnaire Date Thrive assessed: 04/01/22 RAKAN-7 AMB Questionnaire RAKAN-7 Date RAKAN - 7 assessed: 04/01/22 Source: Developed by Drs. Barrie Browning, Claudia Nichols, Jason Khan and colleagues, with an educational jalyn from [employer]. Review of Systems Const Denies chills, Denies fatigue, Denies fever(s), Denies headache(s) and Denies weakness ENT Denies dizziness and Denies headache(s) Card Denies chest pain, Denies lightheadedness, Denies dyspnea and Denies other (Palpitations) Resp Denies cough, Denies dyspnea, Denies wheezing and Denies other ( shortness of breath) Musc Denies numbness and Denies tingling Neuro Denies dizziness, Denies headache(s), Denies numbness, Denies tingling, Denies paresthesias and Denies weakness Psych Denies anxiety and Denies depression Endo Denies fatigue Aller/Immun Denies wheezing Physical exam (Primary Care) Vital Signs: Last Vital Signs Temp 97.8 F 09/23/23 11:20 Pulse 89 09/23/23 11:20 Resp 15 09/23/23 11:20 BP 112/74 09/23/23 11:20 Pulse Ox 99 09/23/23 11:20 Oxygen Delivery Method Room Air 09/23/23 11:20 BMI result Body Mass Index 28.4 Tobacco/Smoking Status: Tobacco use Status Tobacco use date assessed 07/26/23 09/23/23 11:29 Patient Tobacco Use Status Former Tobacco user 09/23/23 11:29 e-Cigarette/Vaping Use Never Used 09/23/23 11:29 Thrive Assessment: Date of Thrive Assessment Date Thrive assessed 04/01/22 09/23/23 11:29 Const General: no acute distress and well developed Nutritional Appearance: well nourished Orientation/consciousness: patient oriented x3 [facility] Head: Yes normocephalic and Yes atraumatic Eyes General: appearance normal, both eyes and all related structures Pupils: Equal, round and reactive pupils present EOM: EOMs intact bilaterally Resp Effort & Inspection: normal respiratory effort Auscultation: clear to auscultation bilaterally Cardio Rate: regular rate Rhythm: regular rhythm Heart sounds: S1 normal heart sound present, S2 normal heart sound present, no gallops, no murmurs and no rubs Neuro General: patient oriented x3 and gait normal Cranial nerves: Yes Equal, round and reactive pupils present Psych Affect: normal affect Assessment and Plan Assessment & Plan (1) Hypertension: Code(s): I10 - Essential (primary) hypertension Qualifiers: Hypertension type: essential hypertension Qualified Code(s): I10 - Essential (primary) hypertension Plan: Blood?pressure?is?well?controlled.??Goal?is?less?than?140/90 Continue?current?medication (2) Diabetes type 2, controlled: Comment: Pt also has CKD, stage 3 Code(s): E11.9 - Type 2 diabetes mellitus without complications Qualifiers: Diabetes mellitus complication status: without complication 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 (3) CKD (chronic kidney disease) stage 3, GFR 30-59 ml/min: Code(s): N18.30 - Chronic kidney disease, stage 3 unspecified Plan: Patient?was?recently?seen?at?her?home?by?a?house worker?provider?as?part?of [employer] services She?says?she?was?told?that?her?kidney is at 50 . Unclear?if?this?repres ents?an?acute?injury?as?she?was?sick?and?had?not?had?all?of?her?medications?for? diabetes?for?quite?some?time.??Possible?significant?dehydration?with?acute?renal ?failure. Check?labs?today Close?follow-up?next?week Orders: Orders Comprehensive Met. 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
== END 2023-09-23 12:14 | disposition home or self-care (01) ==
PROVIDERS: PCP Family Medicine; Visit Provider Family Medicine
DX: I12.9 Hypertensive chronic kidney disease with stage 1 through stage 4 chronic kidney disease, or unspecified chronic kidney disease (principal); E11.22 Type 2 diabetes mellitus with diabetic chronic kidney disease; Z79.4 Long term (current) use of insulin; N18.30 Chronic kidney disease, stage 3 unspecified
CPT/HCPCS: 99214

== ENCOUNTER 2023-09-23 12:37 | Outpatient (REF) | payer OTHER, SELFPAY ==
[2023-09-23 21:21] LABS: Alanine Aminotransferase 15 U/L (0-31); Alkaline Phosphatase 72 U/L (39-117); Anion Gap 14 (12-20); Aspartate Amino Transferase 13 U/L (5-31); Bilirubin Total 0.4 mg/dL (0.0-1.0); Blood Urea Nitrogen 37 mg/dL (9-16); Calcium 10.1 mg/dL (8.4-10.2); Carbon Dioxide 20 mmol/L (22-29); Chloride 113 mmol/L (96-108); Estimated Glomerular Filt Rate 32; Glucose Random 101 mg/dL (60-115); Potassium 4.9 mmol/L (3.3-5.1); Sodium 142 mmol/L (135-145); Total Protein 6.7 g/dL (6.5-8.0)
== END 2023-09-23 12:38 | disposition home or self-care (01) ==
LOC: HO.WFDLDS 12:37
PROVIDERS: Visit Provider Family Medicine
DX: I12.9 Hypertensive chronic kidney disease with stage 1 through stage 4 chronic kidney disease, or unspecified chronic kidney disease (principal); N18.30 Chronic kidney disease, stage 3 unspecified
CPT/HCPCS: 36415; 80053; 82043; 82570

== ENCOUNTER 2023-09-23 22:31 | Emergency (ER) | payer OTHER, SELFPAY ==
--- NOTE | ~2023-09-23 | XR_ITS ---
EXAMINATION: XR SHOULDER, LEFT CLINICAL INFORMATION: Fall. Pain. COMPARISON: None available. TECHNIQUE: AP external rotation, Grashey, scapular Y, and axillary views of the left shoulder. FINDINGS: The bone mineralization is normal. No fracture is seen. There is moderate acromioclavicular degenerative change with loss of joint space and mild osteophyte formation. There is a 4 mm calcification along the superior lateral humeral head. XR/XR shoulder LT min 2V IMPRESSION: 1. Moderate acromioclavicular degenerative change. 2. 4 mm calcification along the superior lateral humeral head suggesting calcific tendinitis or bursitis. 3. No fracture seen.
--- NOTE | ~2023-09-23 | XR_ITS ---
EXAMINATION: XR KNEE, RIGHT CLINICAL INFORMATION: Fall. Pain. COMPARISON: None available. TECHNIQUE: Four views of the right knee. FINDINGS: There is a knee prosthesis in place. The bony structures are osteopenic. No fracture is seen. There is no joint effusion. There is arteriovascular calcification. The soft tissues are otherwise unremarkable. XR/XR knee RT 4V IMPRESSION: Knee prosthesis in place. No fracture or joint effusion.
[2023-09-23 22:36] VITALS: BP 118/70; PULSE 98; O2SAT 98
[2023-09-23 22:41] VITALS: BP 132/75; PULSE 102; RESP 16; TEMP 37.2; O2SAT 100; BMI 28.9
[2023-09-23 23:20] VITALS: BP 105/58; PULSE 87; RESP 18; TEMP 37.1; O2SAT 100
--- NOTE | 2023-09-23 23:23 | ED.FALL ---
HPI - Fall General Chief Complaint: Fall Stated Complaint: mechanical fall, L shoulder pain, refused collar Time Seen by Provider: 09/23/23 22:57 Source: patient and old records reviewed Mode of arrival: EMS Limitations: no limitations History of Present Illness ED Provider: SHARATH MARCANO Narrative: 68 yo female with PMH of overactive bladder, recurrent UTI, vertigo, imbalance issues, CKD, HTN, HLD, DM not on thinners here with c/o tripping outside in dark has R knee pain and L knee has abrasion, L shoulder pain. She does think she hit head but no vomiting, no confusion no LOC. Neck has no ttp. She has no numbness or weakness. MD complaint: fall Onset (ago): minute(s) ([employer]) Fall from: standing Fall witnessed: yes, by family Place fall occurred: street Loss of consciousness: none Prolonged down time: no Symptoms prior to fall: none Context: tripped/slipped Location of injury: head Location of injury - extremities: left: shoulder and bilateral: knee Severity: moderate Quality: aching Associated symptoms (after fall): denies Related Data Home Medications ?Medication ?Instructions ?Recorded ?Confirmed blood sugar diagnostic #10 ea 04/01/20 09/23/23 dicyclomine 20 mg tablet 20 mg PO 07/02/20 09/23/23 ketorolac 0.5 % eye drops 1 drp ophthalmic (eye) 11/17/20 09/23/23 lancets 28 gauge (FreeStyle 10/13/21 09/23/23 Lancets) timolol maleate 0.5 % eye drops 0 drp ophthalmic (eye) 04/01/22 09/23/23 Previous Rx's ?Medication ?Instructions ?Recorded nystatin 100,000 unit/mL oral 5 ml PO QID #473 mL 06/28/20 suspension diclofenac sodium 50 mg 50 mg PO TID 90 days #270 tabs 03/12/21 tablet,delayed release citalopram 40 mg tablet 40 mg PO DAILY #90 tabs 04/08/21 lancets 30 gauge (OneTouch Delica #100 ea 05/27/22 Plus Lancet) blood sugar diagnostic (Smileuch #100 strips 09/13/22 Ultra Test strips) trazodone 150 mg tablet 150 mg PO BEDTIME #30 tabs 11/14/22 cyclobenzaprine 10 mg tablet 10 mg PO BEDTIME #30 tabs 01/02/23 omeprazole 40 mg capsule,delayed 40 mg PO DAILY #90 caps 03/03/23 release solifenacin 10 mg tablet (Vesicare) 10 mg PO DAILY 90 days #90 tabs 03/21/23 atorvastatin 40 mg tablet 40 mg PO DAILY 90 days #90 tabs 04/01/23 lisinopril 20 mg tablet 20 mg PO DAILY 90 days #90 tabs 04/07/23 cholecalciferol (vitamin D3) 125 125 mcg PO DAILY 30 days #90 caps 04/16/23 mcg (5,000 unit) capsule metoprolol succinate 25 mg 25 mg PO DAILY #90 tabs 04/16/23 tablet,extended release 24 hr insulin glargine U-300 conc 300 44 unit (0.1467 mL) subcut QAM 30 07/05/23 unit/mL (3 mL) subcutaneous pen days #6 mL aspirin 81 mg tablet,delayed 81 mg PO DAILY 90 days #90 tabs 07/25/23 release pen needle, diabetic 31 gauge x #100 ea 08/13/23 5/16 dulaglutide 3 mg/0.5 mL 3 mg (0.5 mL) subcut QWEEK 30 days 08/15/23 subcutaneous pen injector #2.5 mL meclizine 25 mg tablet 25 mg PO TID 10 days #30 tabs 08/15/23 simethicone 80 mg chewable tablet 80 mg PO BID-QID PRN abdominal 09/16/23 (Gas Relief (simethicone)) distention, burping 30 days #120 tabs amitriptyline 50 mg tablet 50 mg PO BEDTIME 30 days #30 tabs 09/17/23 famotidine 40 mg tablet 40 mg PO BEDTIME #90 tabs 09/22/23 Allergies Allergy/AdvReac Type Severity Reaction Status Date / Time tuberculin,PPD,multi-puncture Allergy Intermediate hives/SOB Verified 09/23/23 22:42 oxycodone [Percocet] Allergy Unknown unknown Verified 09/23/23 22:42 Doxycycline Hyclate Allergy Intermediate dizziness, Uncoded 09/23/23 22:42 n/v Review of Systems Review of Systems: Constitutional : No Fever, No Chills ENT/Mouth : No Ear Pain, No Hoarseness, No sore throat Eyes: No Eye Pain, No Swelling, No Redness, No Foreign Body Cardiovascular : No Chest Pain, No SOB Respiratory : No Cough, No Dyspnea Gastrointestinal : No Nausea, No Vomiting, No Diarrhea, No abdominal Pain Genitourinary : No Dysuria, No Hematuria Musculoskeletal : positive joint pain, No Myalgias, No Joint Swelling Skin : No Skin lacerations, No rash, pos abrasions Neuro : No Weakness, No Numbness, No Loss of Consciousness, No Dizziness, No Headache All other systems reviewed and are negative [facility] Past Medical History Attestation statement: The following information was validated with the patient. Source: old records reviewed Medical History UTI (urinary tract infection) Urge and stress incontinence Urgency incontinence Obesity (BMI 30-39.9) CKD (chronic kidney disease) stage 3, GFR 30-59 ml/min Dyslipidemia Hypertension Hyperparathyroidism longterm (current) use of insulin Diabetes type 2, controlled Surgical History History of right knee surgery (~10/31/20) History of endometrial ablation History of pubovaginal sling History of femoral hernia repair History of esophagogastroduodenoscopy (EGD) H/O colonoscopy Hx of cholecystectomy History of eye surgery S/P right knee arthroscopy History of incisional hernia repair Hx of left knee surgery Hx of section Family History Family History Father Cancer Diabetes mellitus Hx of CABG CVD (cardiovascular disease) Mother Diabetes mellitus Brother No problems noted. Sister No problems noted. Sister No problems noted. Daughter No problems noted. Daughter No problems noted. Daughter No problems noted. Social History Social History Housing: House Alcohol intake: former Patient Tobacco Use Status: Former Tobacco user Smoked in Last 30 Days: No e-Cigarette/Vaping Use: Never Used Second Hand Smoke Exposure: No Use of substances other than those prescribed or required for medical reasons: No Advance Directives: No Advance Directives Information Provided: No Do you have a plan to hurt others: No Plan service: No Current occupational status: retired and disabled Current occupational exposures/hazards: No Cognitive needs: No Hearing needs: No Vision needs: No Physical Exam Vital Signs: Vital Signs: Last Vital Signs Temp 98.7 F 09/23/23 23:20 Pulse 87 09/23/23 23:20 Resp 18 09/23/23 23:20 BP 105/58 L 09/23/23 23:20 Pulse Ox 100 09/23/23 23:20 O2 Del Method Room Air 09/23/23 23:20 BMI result Body Mass Index 28.9 Appearance: Alert. Oriented X3. No acute distress. Eyes: Pupils equal, round and reactive to light. ENT: Pharynx normal. atraumatic Neck: Normal inspection. Neck supple. no midline ttp CVS: Normal heart rate and rhythm. Pulses normal. Respiratory: No respiratory distress. Breath sounds normal. Abdomen: Soft and nontender. Skin: Skin warm and dry. Normal skin color. Normal skin turgor. Extremities: No lower extremity edema. both knees small abrasion and contusion L knee normal ROM, R knee pain with ROM, L shoulder distal NV intact pain at AC joint Neuro: Oriented X 3. No motor deficit. No sensory deficit. Medications Administered Discontinued Medications Generic Name Dose Route Start Last Admin Trade Name Freq PRN Reason Stop Dose Admin Acetaminophen 650 mg 09/23/23 23:31 09/24/23 00:08 Acetaminophen 325 Mg Tablet PO 09/23/23 23:32 650 mg ONCE ONE Administration Medical Decision Making Medical Decision Making [facility] Narrative: 68 yo female with PMH of overactive bladder, recurrent UTI, vertigo, imbalance issues, CKD, HTN, HLD, DM not on thinners here with c/o mechanical fall at this time will obtain xrays of R knee, L shoulder she is NV intact has mild pain to head but GCS 15 no vomiting not on thinners. Has no midline ttp and UE intact doubt cervical spine fracture. Differential Diagnosis Differential Diagnoses: The differential diagnosis associated with the presentation includes strain, fracture Admission/Observation Consideration of admission/observation: Escalation of care including admission/observation considered GCS 15 repeat exam looks good can range shoulder will hold off sling as she just had cortisone and I do not want to risk any frozen shoulder Independent Interpretation I performed an independent interpretation of an: Plain X-Ray (no fx) Radiology Impression Discussion of test interpretation with radiology: I have reviewed the radiologist's reading. Independent Historian Clinical information obtained from an independent historian. History obtained from or confirmed by: EMS and Other (family) External Record Review External record reviewed: Inpatient record Tests considered The following testing was considered but not selected: CT head and cspine but no obvious trauma no midline ttp not on thinners GCS 15 deferred under the age of 80 Prescription Management I considered prescription management with: Pain Medication Discharge Plan Discharge Clinical Impression: Abrasion Contusion of right knee Qualifiers: Encounter type: initial encounter Qualified Code(s): S80.01XA - Contusion of right knee, initial encounter Sprain of left shoulder Qualifiers: Encounter type: initial encounter Shoulder sprain type: unspecified sprain Qualified Code(s): S43.402A - Unspecified sprain of left shoulder joint, initial encounter Patient Disposition: Home, Self-Care Instructions: Contusion in Adults (ED), Shoulder Sprain (ED) Additional Instructions: return for vomiting, confusion, severe headaches would avoid sling at this time given recent cortisone no fractures noted tendonitis in L shoulder seen return for any worsening symptoms or concerns Prescriptions: No Action diclofenac sodium 50 mg tablet,delayed release (DR/EC) 50 mg PO TID 90 Days Qty: 270 0RF citalopram 40 mg tablet 40 mg PO DAILY Qty: 90 3RF (DME) lancets [OneTouch Delica Plus Lancet] 30 gauge misc See Rx Instructions .Route Qty: 100 4RF Rx Instructions: As directed tests 4 X/day (DME) OneTouch Ultra Test Strip See Rx Instructions .ROUTE .COMPLEX Qty: 100 0RF Dose Instruction: USE DIRECTED FOUR TIMES DAILY Rx Instructions: USE DIRECTED FOUR TIMES DAILY trazodone 150 mg tablet 150 mg PO BEDTIME Qty: 30 0RF cyclobenzaprine 10 mg tablet 10 mg PO BEDTIME Qty: 30 3RF omeprazole 40 mg capsule,delayed release(DR/EC) 40 mg PO DAILY Qty: 90 3RF atorvastatin 40 mg tablet 40 mg PO DAILY 90 Days Qty: 90 3RF lisinopril 20 mg tablet 20 mg PO DAILY 90 Days Qty: 90 3RF metoprolol succinate 25 mg tablet extended release 24 hr 25 mg PO DAILY Qty: 90 3RF cholecalciferol (vitamin D3) 125 mcg (5,000 unit) capsule 125 mcg PO DAILY 30 Days Qty: 90 3RF aspirin 81 mg tablet,delayed release (DR/EC) 81 mg PO DAILY 90 Days Qty: 90 3RF (DME) pen needle, diabetic 31 gauge x 5/16 needle See Rx Instructions subcut .MEDSUPPLY Qty: 100 6RF Rx Instructions: once a day meclizine 25 mg tablet 25 mg PO TID 10 Days Qty: 30 1RF dulaglutide 3 mg/0.5 mL pen injector 3 mg subcut QWEEK 30 Days Qty: 2.5 6RF Rx Instructions: Please discontinue Januvia simethicone [Gas Relief (simethicone)] 80 mg tablet,chewable 80 mg PO BID-QID PRN (Reason: abdominal distention, burping) 30 Days Qty: 120 0RF amitriptyline 50 mg tablet 50 mg PO BEDTIME 30 Days Qty: 30 1RF famotidine 40 mg tablet 40 mg PO BEDTIME Qty: 90 1RF nystatin 100,000 unit/mL suspension 5 ml PO QID Qty: 473 0RF Rx Instructions: swish and swallow dicyclomine 20 mg tablet 20 mg PO timolol maleate 0.5 % drops 0 drp ophthalmic (eye) insulin glargine U-300 conc 300 unit/mL (3 mL) insulin pen 44 unit subcut QAM 30 Days Qty: 6 3RF Rx Instructions: dose decreased (DME) blood sugar diagnostic Strip See Rx Instructions Not Applicable BID Qty: 10 Rx Instructions: As directed ketorolac 0.5 % drops 1 drp ophthalmic (eye) (DME) lancets [FreeStyle Lancets] 28 gauge misc See Rx Instructions .Route Rx Instructions: As directed solifenacin [Vesicare] 10 mg tablet 10 mg PO DAILY 90 Days Qty: 90 3RF Print Language: Tunisian
[2023-09-24] MEDS: Acetaminophen 325 MG TABLET 650 MG PO (00:08)
[2023-09-24 01:15] VITALS: BP 110/60; PULSE 80; RESP 16; TEMP 36.8; O2SAT 99
== END 2023-09-24 01:16 | disposition home or self-care (01) ==
PROVIDERS: Emergency Provider Emergency Medicine; PCP Family Medicine
DX: S80.01XA Contusion of right knee, initial encounter (principal); S43.402A Unspecified sprain of left shoulder joint, initial encounter; S40.212A Abrasion of left shoulder, initial encounter; S80.212A Abrasion, left knee, initial encounter; S80.211A Abrasion, right knee, initial encounter; W01.0XXA Fall on same level from slipping, tripping and stumbling without subsequent striking against object, initial encounter; Y93.01 Activity, walking, marching and hiking; Y92.410 Unspecified street and highway as the place of occurrence of the external cause; Y99.9 Unspecified external cause status
CPT/HCPCS: 73030; 73564; 99283; 99284

== ENCOUNTER 2023-11-25 10:17 | Outpatient (AMB) | payer OTHER, SELFPAY ==
--- NOTE | 2023-11-25 10:28 | MHC.PC.OV ---
Vital Signs 11/25/23 10:32 Height 5 ft 1 in Weight 152 lb BMI 28.7 BP 100/60 Blood Pressure Location Lt brachial Position Sitting Respiration 12 Pulse 85 Pulse Source Pulse Oximeter Temp 97.9 F Temp Source Tympanic Pulse Oximetry (%) 99 Oxygen Delivery Method Room Air Intake Visit Reasons: ED follow up Intake Note: ed f/u Allergies tuberculin,PPD,multi-puncture Allergy (Intermediate, Verified 11/25/23 10:29) hives/SOB oxycodone [Percocet] Allergy (Unknown, Verified 11/25/23 10:29) unknown Doxycycline Hyclate Allergy (Intermediate, Uncoded 09/23/23 22:42) dizziness, n/v Medication List - Last Reconciled 11/25/23 by Reinaldo Suarez MD amitriptyline 50 mg PO BEDTIME 30 days aspirin 81 mg PO DAILY 90 days atorvastatin 40 mg PO DAILY 90 days blood sugar diagnostic As directed blood sugar diagnostic (UPGRADE INDUSTRI[employer]ouch Ultra Test strips) USE DIRECTED FOUR TIMES DAILY cholecalciferol (vitamin D3) 125 mcg PO DAILY 30 days citalopram 40 mg PO DAILY cyclobenzaprine 10 mg PO BEDTIME diclofenac sodium 50 mg PO TID 90 days dicyclomine 20 mg PO dulaglutide 3 mg (0.5 mL) subcut QWEEK 30 days famotidine 40 mg PO BEDTIME insulin glargine U-300 conc 44 units (0.1467 mL) subcut QAM 30 days ketorolac 0.5% 1 drp ophthalmic (eye) lancets (FreeStyle Lancets) As directed lancets (OneTouch Delica Plus Lancet) As directed tests 4 X/day lisinopril 20 mg PO DAILY 90 days meclizine 25 mg PO TID 10 days metoprolol succinate ER 25 mg PO DAILY nystatin 5 mL PO QID omeprazole 40 mg PO DAILY pen needle, diabetic once a day simethicone (Gas Relief (simethicone)) 80 mg PO BID-QID PRN 30 days solifenacin (Vesicare) 10 mg PO DAILY 90 days timolol maleate 0.5% 0 drps ophthalmic (eye) trazodone 150 mg PO BEDTIME Tobacco use date assessed: 07/26/23 Dental Screening Dental Screen Date: 03/09/23 HPI ED follow up HPI Details 68 y/o female presents for f/u ER visit 09/23/23. Had tripped outside in dark, R knee pain and L knee had abrasion. Also had complaints of L shoulder pain. She said she thought she had hit her head - denied any vomiting, confusion, LOC. Tendonitis in L shoulder was seen. [facility] Medical History UTI (urinary tract infection) Urge and stress incontinence Urgency incontinence Obesity (BMI 30-39.9) CKD (chronic kidney disease) stage 3, GFR 30-59 ml/min Dyslipidemia Hypertension Hyperparathyroidism snf (current) use of insulin Diabetes type 2, controlled Surgical History History of right knee surgery (~10/31/20) History of endometrial ablation History of pubovaginal sling History of femoral hernia repair History of esophagogastroduodenoscopy (EGD) H/O colonoscopy Hx of cholecystectomy History of eye surgery S/P right knee arthroscopy History of incisional hernia repair Hx of left knee surgery Hx of section Family History Father Cancer Diabetes mellitus Hx of CABG CVD (cardiovascular disease) Mother Diabetes mellitus Brother No problems noted. Sister No problems noted. Sister No problems noted. Daughter No problems noted. Daughter No problems noted. Daughter No problems noted. Social History Housing: House Alcohol intake: former Patient Tobacco Use Status: Former Tobacco user e-Cigarette/Vaping Use: Never Used Second Hand Smoke Exposure: No service: No Current occupational status: retired and disabled Current occupational exposures/hazards: No Cognitive needs: No Hearing needs: No Vision needs: No Questionnaire Thrive Questionnaire Date Thrive assessed: 04/01/22 RAKAN-7 AMB Questionnaire RAKAN-7 Date RAKAN - 7 assessed: 04/01/22 Source: Developed by Drs. Barrie Browning, Claudia Nichols, Jason Khan and colleagues, with an educational jalyn from [employer]. Review of Systems Const Denies chills, Denies fatigue, Denies fever(s), Denies headache(s) and Denies weakness ENT Denies dizziness and Denies headache(s) Card Denies dyspnea Resp Denies cough, Denies dyspnea, Denies wheezing and Denies other (shortness of breath) Musc Denies numbness and Denies tingling Neuro Denies dizziness, Denies headache(s), Denies numbness, Denies tingling and Denies weakness Psych Denies anxiety and Denies depression Endo Denies fatigue Aller/Immun Denies wheezing Physical exam (Primary Care) Vital Signs: Last Vital Signs Temp 97.9 F 11/25/23 10:32 Pulse 85 11/25/23 10:32 Resp 12 11/25/23 10:32 BP 100/60 11/25/23 10:32 Pulse Ox 99 11/25/23 10:32 Oxygen Delivery Method Room Air 11/25/23 10:32 BMI result Body Mass Index 28.7 Tobacco/Smoking Status: Tobacco use Status Tobacco use date assessed 07/26/23 11/25/23 10:31 Patient Tobacco Use Status Former Tobacco user 11/25/23 10:31 e-Cigarette/Vaping Use Never Used 11/25/23 10:31 Thrive Assessment: Date of Thrive Assessment Date Thrive assessed 04/01/22 11/25/23 10:31 Const General: well developed; No acute distress Nutritional Appearance: well nourished Orientation/consciousness: [facility]: Yes normocephalic and Yes atraumatic Eyes General: appearance normal, both eyes and all related structures Pupils: Equal, round and reactive pupils present EOM: EOMs intact bilaterally Resp Effort & Inspection: normal respiratory effort Auscultation: clear to auscultation bilaterally Cardio Rate: regular rate Rhythm: regular rhythm Heart sounds: S1 normal heart sound present, S2 normal heart sound present, no gallops, no murmurs and no rubs Neuro General: patient oriented x3 and gait normal Cranial nerves: Yes Equal, round and reactive pupils present Psych Affect: normal affect Assessment and Plan Assessment & Plan (1) Status post fall: Code(s): Z91.81 - History of falling Plan: Patient?stepped?off?a?curb?in?the?dark?while?not?looking?where?she?was?going?and?tripped/fell, back?in?September. She?hit?her?knees,?shoulder?and?bumped?her?head. She?was?evaluated?at?the?emergency?department?with?x-rays?of?knees?and?shoulder.??No?fractures. Head?CT?was?considered?but was?not?felt?necessary?and?patient?was?discharged?home. She?has?been?feeling?well?since?then. Stable (2) CRF (chronic renal failure): Code(s): N18.9 - Chronic kidney disease, unspecified Plan: Patient?is?followed?by?Dr. Martinez. At?her?last?visit we?discussed?her?renal?function.??I?will?recheck?her?labs?today. She?says?she?was?seen?about?6?months?ago?by?her?chalk cutter?and?is?followed?annually. We?can?follow-up?on?her?renal?function?and?I?will?refer?her?back?sooner?if?there?are?any?problems. Orders: Orders Basic Metabolic Panel Today N18.30 - Chronic kidney disease, stage 3 unspecified, Z00.00 - Encounter for general adult medical examination without abnormal findings Coding Level of Care Code TCM Mod MDM <= 7 Days Diagnoses Status post fall Z91.81 CRF (chronic renal failure) N18.9
[2023-11-25 10:32] VITALS: BP 100/60; PULSE 85; RESP 12; TEMP 36.6; O2SAT 99; BMI 28.7
== END 2023-11-25 11:03 | disposition home or self-care (01) ==
PROVIDERS: PCP Family Medicine; Visit Provider Family Medicine
DX: N18.9 Chronic kidney disease, unspecified (principal); Z91.81 History of falling

== ENCOUNTER → 2023-11-25 10:17 | Outpatient (BNVA) | payer OTHER, SELFPAY | PROVIDERS: PCP Family Medicine; Visit Provider Family Medicine | DX: N18.9 Chronic kidney disease, unspecified (principal); Z91.81 History of falling | CPT/HCPCS: 99212 ==

== ENCOUNTER 2023-11-25 11:12 | Outpatient (REF) | payer OTHER, SELFPAY ==
[2023-11-25 15:05] LABS: Anion Gap 10 (12-20); Blood Urea Nitrogen 20 mg/dL (9-16); Calcium 9.8 mg/dL (8.4-10.2); Carbon Dioxide 25 mmol/L (22-29); Chloride 111 mmol/L (96-108); Estimated Glomerular Filt Rate 34; Glucose Random 86 mg/dL (60-115); Potassium 3.9 mmol/L (3.3-5.1); Sodium 142 mmol/L (135-145)
== END 2023-11-25 11:13 | disposition home or self-care (01) ==
LOC: HO.WFDLDS 11:12
PROVIDERS: Visit Provider Family Medicine
DX: Z00.00 Encounter for general adult medical examination without abnormal findings (principal); N18.30 Chronic kidney disease, stage 3 unspecified
CPT/HCPCS: 36415; 80048

== ENCOUNTER 2024-01-19 15:25 | Outpatient (AMB) | payer OTHER, SELFPAY ==
--- NOTE | 2024-01-19 15:26 | A.OFFVIS_ITS ---
Vital Signs 01/19/24 15:27 Height 5 ft 1 in Weight 152 lb BMI 28.7 Intake Visit Reasons: 6 mo f/u Intake Note: Patient presents for follow up Allergies tuberculin,PPD,multi-puncture Allergy (Intermediate, Verified 01/20/24 10:41) hives/SOB oxycodone [Percocet] Allergy (Unknown, Verified 01/20/24 10:41) unknown Doxycycline Hyclate Allergy (Intermediate, Uncoded 01/19/24 15:28) dizziness, n/v HPI Comments Details: 68 year old female f/u for Cervicalgia, Vertigo. She did not go to PT. She gets a cortisone shot in the L. shoulder, and it helps with the neck pain. Headaches are lasting 2-3 hours she is taking amitriptyline 50mg. When she is stressed the headaches are worse She goes to sleep at 9pm and wakes up at 6am, gets up for bathroom 2-3 times. Ears always clogged, and tinnitus in L. ear. She has vertigo, nausea and dizziness 1-2x in the day, but mainly in the AM, and she takes her time counts to ten then gets up. In September 2023, she had a fall and now the dizziness is worse. Denies Vision changes. Her mood is more depressed, and feels hopeless about 2 times a week, has had lots of life changes. Her diet, is good but prefers small meals, on Dulaglutide, for weight loss. Knee surgery on R. side, so it's hard for her to walk but tries to walk with her grand daughter daily and uses a cane at times. [facility] Medical History UTI (urinary tract infection) Urge and stress incontinence Urgency incontinence Obesity (BMI 30-39.9) CKD (chronic kidney disease) stage 3, GFR 30-59 ml/min Dyslipidemia Hypertension Hyperparathyroidism snf (current) use of insulin Diabetes type 2, controlled Surgical History History of right knee surgery (~10/31/20) History of endometrial ablation History of pubovaginal sling History of femoral hernia repair History of esophagogastroduodenoscopy (EGD) H/O colonoscopy Hx of cholecystectomy History of eye surgery S/P right knee arthroscopy History of incisional hernia repair Hx of left knee surgery Hx of section Family History Father Cancer Diabetes mellitus Hx of CABG CVD (cardiovascular disease) Mother Diabetes mellitus Brother No problems noted. Sister No problems noted. Sister No problems noted. Daughter No problems noted. Daughter No problems noted. Daughter No problems noted. Social History Housing: House Alcohol intake: former Patient Tobacco Use Status: Former Tobacco user e-Cigarette/Vaping Use: Never Used Second Hand Smoke Exposure: No service: No Current occupational status: retired and disabled Current occupational exposures/hazards: No Cognitive needs: No Hearing needs: No Vision needs: No Review of Systems Const All systems reviewed & are unremarkable except as noted in HPI and below Physical Exam Vital Signs: BMI result Body Mass Index 28.7 Const General: cooperative, comfortable and no acute distress Nutritional Appearance: average body habitus and overweight Orientation/consciousness: patient oriented x3 Limitations: ambulation with cane HEENT Face and sinus: Yes normal facial exam Eyes Pupils: Equal, round and reactive pupils present, Pupils normal by confrontation and Pupil accommodation reflex normal Neck Neck: Yes supple and Yes other (Limited ROM to the L/R tight trapezius, levator-scapulae.) Resp Effort & Inspection: normal respiratory effort and able to speak in complete sentences Neuro General: patient oriented x3 Cranial nerves: Yes CN's II-XII intact bilaterally, Yes Facial sensation intact/muscles of mastication intact, Yes Equal, round and reactive pupils present, Yes Nystagmus not present, Yes Normal facial strength present, Yes Midline tongue present, Yes Ability to bilaterally rotate head present and Yes Ability to bilaterally elevate shoulders present Gait exam (Neuro): Normal gait present Motor exam (neuro): 5/5 motor strength present throughout Deep tendon reflexes (DTR's): Right triceps reflex intensity grade: 2+, Left triceps reflex intensity grade: 2+, Rt Biceps (C5, C6): 2+, Left biceps reflex intensity grade: 2+, Right brachioradialis reflex intensity grade: 2+, Left brachioradialis reflex intensity grade: 2+, Right patellar reflex intensity grade: 2+ and Left patellar reflex intensity grade: 2+ Coordination: [id number] test normal Assessment & Plan Assessment & Plan (1) Cervicalgia: Code(s): M54.2 - Cervicalgia Category: Medical (2) Spasmodic torticollis: Code(s): G24.3 - Spasmodic torticollis Category: Medical (3) Vertigo: Comment: likley related to chronic neck tightness Code(s): R42 - Dizziness and giddiness Category: Medical (4) Chronic headaches: Comment: cervicogenic Code(s): R51.9 - Headache, unspecified; G89.29 - Other chronic pain Category: Medical Qualifiers: Headache type: tension-type Intractability: not intractable Qualified Code(s): G44.229 - Chronic tension-type headache, not intractable Plan -PT at [facility] for Cervicalgia. -Can use Cyclobenzaprine 10mg PO Bedtime for muscle tightness. will consider BOTOX for neck Orders: Orders PT Evaluation and Treatment 01/19/24 Dennis Ordoñez PA-C M25.512 - Pain in left shoulder Medications: Refilled cyclobenzaprine 10 mg PO BEDTIME 30 tabs 3RF Luma Richter MD Coding Level of Care Code Est Pt Level 4 (38269) Complex EM visit Add On G2211 Diagnoses Cervicalgia M54.2 Spasmodic torticollis G24.3 Vertigo R42 Chronic tension-type headache, not intractable G44.229 Headache type: tension-type Intractability: not intractable
[2024-01-19 15:27] VITALS: BMI 28.7
== END 2024-01-19 16:14 | disposition home or self-care (01) ==
PROVIDERS: Absent Provider Psychiatry & Neurology Neurology; PCP Family Medicine; Visit Provider Psychiatry & Neurology Neurology
DX: M54.2 Cervicalgia (principal); G24.3 Spasmodic torticollis; R42 Dizziness and giddiness; G44.229 Chronic tension-type headache, not intractable
CPT/HCPCS: 99214; G2211

== ENCOUNTER → 2024-01-19 15:25 | Outpatient (BNVA) | payer OTHER, SELFPAY | PROVIDERS: Absent Provider Psychiatry & Neurology Neurology; PCP Family Medicine; Visit Provider Psychiatry & Neurology Neurology | DX: G24.3 Spasmodic torticollis (principal); G44.229 Chronic tension-type headache, not intractable; M54.2 Cervicalgia; R42 Dizziness and giddiness; M25.512 Pain in left shoulder | CPT/HCPCS: 99212 ==

== ENCOUNTER 2024-01-20 10:30 | Outpatient (AMB) | payer OTHER, SELFPAY ==
--- NOTE | 2024-01-20 10:40 | A.OFFPC_ITS ---
Vital Signs 01/20/24 10:42 Height 5 ft 1 in Weight 150 lb 6 oz BMI 28.4 BP 148/78 H Blood Pressure Location Rt brachial Position Sitting Respiration 14 Pulse 117 H Pulse Source Pulse Oximeter Temp 98.6 F Temp Source Temporal Artery Scan Pulse Oximetry (%) 99 Oxygen Delivery Method Room Air Intake Visit Reasons: f/u hypertension, diabetes Intake Note: f/u for DM and HTN Allergies tuberculin,PPD,multi-puncture Allergy (Intermediate, Verified 01/20/24 10:41) hives/SOB oxycodone [Percocet] Allergy (Unknown, Verified 01/20/24 10:41) unknown Doxycycline Hyclate Allergy (Intermediate, Uncoded 01/19/24 15:28) dizziness, n/v Medication List - Last Reconciled 01/20/24 by Reinaldo Suarez MD amitriptyline 50 mg PO BEDTIME 30 days aspirin 81 mg PO DAILY 90 days atorvastatin 40 mg PO DAILY 90 days blood sugar diagnostic As directed blood sugar diagnostic (Kreixuch Ultra Test strips) USE DIRECTED FOUR TIMES DAILY cholecalciferol (vitamin D3) 125 mcg PO DAILY 30 days citalopram 40 mg PO DAILY cyclobenzaprine 10 mg PO BEDTIME diclofenac sodium 50 mg PO TID 90 days dicyclomine 20 mg PO dulaglutide 3 mg (0.5 mL) subcut QWEEK 30 days famotidine 40 mg PO BEDTIME insulin glargine U-300 conc 44 units (0.1467 mL) subcut QAM 30 days ketorolac 0.5% 1 drp ophthalmic (eye) lancets (FreeStyle Lancets) As directed lancets (Kreixuch Delica Plus Lancet) As directed tests 4 X/day lisinopril 20 mg PO DAILY 90 days meclizine 25 mg PO TID 10 days metoprolol succinate ER 25 mg PO DAILY nystatin 5 mL PO QID omeprazole 40 mg PO DAILY pen needle, diabetic once a day simethicone (Gas Relief (simethicone)) 80 mg PO BID-QID PRN 30 days solifenacin (Vesicare) 10 mg PO DAILY 90 days timolol maleate 0.5% 0 drps ophthalmic (eye) trazodone 150 mg PO BEDTIME Tobacco use date assessed: 07/26/23 Dental Screening Dental Screen Date: 03/09/23 HPI f/u hypertension, diabetes HPI Details 68 y/o female presents to f/u diabetes, HTN. Blood pressure today 148/78, 117p. She is on lisinopril 20mg, metoprolol 25mg daily. Notes she had missed her medications today. A1c today 01/20/24 is 6.1%. She is on dulaglutide 3mg. PFSH Medical History UTI (urinary tract infection) Urge and stress incontinence Urgency incontinence Obesity (BMI 30-39.9) CKD (chronic kidney disease) stage 3, GFR 30-59 ml/min Dyslipidemia Hypertension Hyperparathyroidism group home (current) use of insulin Diabetes type 2, controlled Surgical History History of right knee surgery (~10/31/20) History of endometrial ablation History of pubovaginal sling History of femoral hernia repair History of esophagogastroduodenoscopy (EGD) H/O colonoscopy Hx of cholecystectomy History of eye surgery S/P right knee arthroscopy History of incisional hernia repair Hx of left knee surgery Hx of section Family History Father Cancer Diabetes mellitus Hx of CABG CVD (cardiovascular disease) Mother Diabetes mellitus Brother No problems noted. Sister No problems noted. Sister No problems noted. Daughter No problems noted. Daughter No problems noted. Daughter No problems noted. Social History Housing: House Alcohol intake: former Patient Tobacco Use Status: Former Tobacco user e-Cigarette/Vaping Use: Never Used Second Hand Smoke Exposure: No service: No Current occupational status: retired and disabled Current occupational exposures/hazards: No Cognitive needs: No Hearing needs: No Vision needs: No Questionnaire PHQ-9 Over the last 2 weeks, how often have you been bothered by any of the following problems? 1. Little interest or pleasure in doing things: not at all 3. Trouble falling or staying asleep, or sleeping too much: several days 4. Feeling tired or having little energy: several days 5. Poor appetite or overeating: not at all 6. Feeling bad about yourself - or that you are a failure or have let yourself or your family down: not at all 7. Trouble concentrating on things, such as reading the newspaper or watching television: not at all 8. Moving or speaking so slowly that other people could have noticed. Or the opposite - being so fidgety or restless that you have been moving around a lot more than usual: not at all 9. Thoughts that you would be better off or of hurting yourself in some way: not at all Source: Developed by Drs. Barrie Browning, Jason Castaneda and colleagues, with an educational jalyn from [employer]. Thrive Questionnaire Date Thrive assessed: 01/03/24 I am a: Patient What is your living situation today?: I have a steady place to live Within the past 12 months, did the food you bought not last and you didn't have the money to get more?: I choose not to answer this question Within the past 12 months, did you worry whether your food would run out before you got money to buy more?: I choose not to answer this question Do you have trouble paying for medicines?: No Do you have trouble getting transportation to medical appointments?: No Do you have trouble paying your heating and electricity bill?: I choose not to answer this question Do you have trouble taking care of your child, family member or friend?: No Do you have trouble with day-to-day activities such as bathing, preparing meals, shopping, managing finances, etc.?: No Are you currently unemployed and looking for a job?: No Are you interested in more education?: No Please select the resources that you would like help with: None Currently or been in a relationship where the following occur: I choose not to answer THRIVE Score: 0 AUDIT C Alcohol Use Questionnaire (AUDIT-C) 2. How many drinks containing alcohol do you have on a typical day when you are drinking?: 1 or 2 3. How often do you have six or more drinks on one occasion?: Never Total Score: 0 RAKAN-7 AMB Questionnaire RAKAN-7 Date RAKAN - 7 assessed: 04/01/22 Trouble relaxin = Not at all Source: Developed by Drs. Barrie Browning, Jason Castaneda and colleagues, with an educational jalyn from [employer]. Review of Systems Const Denies chills, Denies fatigue, Denies fever(s), Denies headache(s) and Denies weakness ENT Denies dizziness and Denies headache(s) Card Denies dyspnea Resp Denies cough, Denies dyspnea, Denies wheezing and Denies other (shortness of breath) Musc Denies numbness and Denies tingling Neuro Denies dizziness, Denies headache(s), Denies numbness, Denies tingling and Denies weakness Psych Denies anxiety and Denies depression Endo Denies fatigue Aller/Immun Denies wheezing Physical exam (Primary Care) Vital Signs: Last Vital Signs Temp 98.6 F 01/20/24 10:42 Pulse 117 H 01/20/24 10:42 Resp 14 01/20/24 10:42 BP 148/78 H 01/20/24 10:42 Pulse Ox 99 01/20/24 10:42 Oxygen Delivery Method Room Air 01/20/24 10:42 BMI result Body Mass Index 28.4 Tobacco/Smoking Status: Tobacco use Status Tobacco use date assessed 07/26/23 01/20/24 10:44 Patient Tobacco Use Status Former Tobacco user 01/20/24 10:44 e-Cigarette/Vaping Use Never Used 01/20/24 10:44 Thrive Assessment: Date of Thrive Assessment Date Thrive assessed 01/03/24 01/20/24 10:44 Currently or been in a relationship where the following occur: I choose not to answer Const General: well developed; No acute distress Nutritional Appearance: well nourished Orientation/consciousness: patient oriented x3 [facility] Head: Yes normocephalic and Yes atraumatic Eyes General: appearance normal, both eyes and all related structures Pupils: Equal, round and reactive pupils present EOM: EOMs intact bilaterally Resp Effort & Inspection: normal respiratory effort Auscultation: clear to auscultation bilaterally Cardio Rate: tachycardic Rhythm: regular rhythm Heart sounds: S1 normal heart sound present, S2 normal heart sound present, no gallops, no murmurs and no rubs Neuro General: patient oriented x3 and gait normal Cranial nerves: Yes Equal, round and reactive pupils present Psych Affect: normal affect Coding Level of Care Code Est Pt Level 4 (58936) Diagnoses Essential hypertension I10 Hypertension type: essential hypertension Controlled type 2 diabetes mellitus without complication, with long-term current use of insulin E11.9; Z79.4 Diabetes mellitus complication status: without complication Diabetes mellitus [employer] insulin use: with jail use CRF (chronic renal failure) N18.9 Vertigo R42 Immunization counseling Z71.85 Assessment & Plan Assessment & Plan (1) Hypertension: Code(s): I10 - Essential (primary) hypertension Category: Medical Qualifiers: Hypertension type: essential hypertension Qualified Code(s): I10 - Essential (primary) hypertension Plan: Blood?pressure?is?high?and?heart?rate?is?elevated. Patient?has?not?taken?her?antihypertensive?medications?including?metoprolol?toda y. Previously?blood?pressures?have?all?been?consistently?controlled. Encouraged?her?to?take?her?medication?when?she?gets?home. No?changes?to?her?regimen?today (2) Diabetes type 2, controlled: Comment: Pt also has CKD, stage 3 Code(s): E11.9 - Type 2 diabetes mellitus without complications Category: Medical Qualifiers: Diabetes mellitus complication status: without complication Diabetes mellitus jail insulin use: with [employer] use Qualified Code(s): E11.9 - Type 2 diabetes mellitus without complications; Z79.4 - group home (current) use of insulin Plan: A1c?6.1%.??Good?control.??Goal?is?less?than?7.0% Continue?current?medications Will?also?send?a?script?for?testing?supplies (3) CRF (chronic renal failure): Code(s): N18.9 - Chronic kidney disease, unspecified Category: Medical Plan: Followed?by?Dr. Martinez Continue?good?blood?pressure?and?blood?sugar?control Will?recheck?renal?function?labs?prior?to?next?visit Follow-up?with?nephrology?as?recommended (4) Vertigo: Comment: helena related to chronic neck tightness Code(s): R42 - Dizziness and giddiness Category: Medical Plan: Ongoing?vertigo Neurologist?had?recommended?physical?therapy?and?she?has?an?appointment Will?refill?her?meclizine?at?her?request (5) Immunization counseling: Code(s): Z71.85 - Encounter for immunization safety counseling Category: Medical Plan: Patient?is?up-to-date?with?flu?shot,?RSV,?shingles?and?COVID. She?had?last?pneumonia?shot?prior?to?age?66. Recommend?she?get?pneumonia-20?at?her?pharmacy. ?? Medications: New blood-glucose meter (OneTouch Ultra2 Meter) To test Blood sugar As directed, 999 days 1 ea 0RF E11.9 - Type 2 diabetes mellitus without complications Changed From blood sugar diagnostic (OneTouch Ultra Test strips) USE DIRECTED FOUR TIMES DAILY 100 strips 0RF E11.9 - Type 2 diabetes mellitus without complications, Z79.4 - [facility] (current) use of insulin To blood sugar diagnostic (OneTouch Ultra Test strips) Test Blood sugar once daily. 90 days 100 strips 3RF E11.9 - Type 2 diabetes mellitus without complications, Z79.4 - group home (current) use of insulin From lancets (OneTouch Delica Plus Lancet) As directed tests 4 X/day 100 ea 4RF To lancets (OneTouch Delica Plus Lancet) As directed test once a day. 100 ea 4RF Refilled meclizine 25 mg PO TID 10 days 30 tabs 3RF
[2024-01-20 10:42] VITALS: BP 148/78; PULSE 117; RESP 14; TEMP 37; O2SAT 99; BMI 28.4
== END 2024-01-20 11:13 | disposition home or self-care (01) ==
PROVIDERS: PCP Family Medicine; Visit Provider Family Medicine
DX: I12.9 Hypertensive chronic kidney disease with stage 1 through stage 4 chronic kidney disease, or unspecified chronic kidney disease (principal); E11.9 Type 2 diabetes mellitus without complications; Z79.4 Long term (current) use of insulin; N18.9 Chronic kidney disease, unspecified; R42 Dizziness and giddiness; Z71.85 Encounter for immunization safety counseling

== ENCOUNTER → 2024-01-20 10:30 | Outpatient (BNVA) | payer OTHER, SELFPAY | PROVIDERS: PCP Family Medicine; Visit Provider Family Medicine | DX: I12.9 Hypertensive chronic kidney disease with stage 1 through stage 4 chronic kidney disease, or unspecified chronic kidney disease (principal); E11.22 Type 2 diabetes mellitus with diabetic chronic kidney disease; N18.9 Chronic kidney disease, unspecified; R42 Dizziness and giddiness; Z79.4 Long term (current) use of insulin; Z71.85 Encounter for immunization safety counseling | CPT/HCPCS: 83036; 99212 ==

== ENCOUNTER 2024-03-22 09:23 | Outpatient (AMB) | payer OTHER, SELFPAY ==
--- NOTE | 2024-03-22 00:11 | A.OFFVIS_ITS ---
Intake Visit Reasons: 1y follow up- Med review Intake Note: Patient is present for follow med review Urology Med: Vesicare Antibiotic Allergy: None Blood Thinner: Aspirin Last PVR: 21ml's Today PVR: Patient Symptoms: Lozenge Maker Helper Required: No Allergies tuberculin,PPD,multi-puncture Allergy (Intermediate, Verified 03/22/24 09:53) hives/SOB oxycodone [Percocet] Allergy (Unknown, Verified 03/22/24 09:53) unknown Doxycycline Hyclate Allergy (Intermediate, Uncoded 03/22/24 09:53) dizziness, n/v Medication List - Last Reconciled 03/22/24 by Stefani Olguin MD amitriptyline 50 mg PO BEDTIME 30 days aspirin 81 mg PO DAILY 90 days atorvastatin 40 mg PO DAILY 90 days blood sugar diagnostic As directed blood sugar diagnostic ([employer] Ultra Test strips) Test Blood sugar once daily. 90 days blood-glucose meter ([employer] Ultra2 Meter) To test Blood sugar once a day As directed, 999 days cholecalciferol (vitamin D3) 125 mcg PO DAILY 30 days citalopram 40 mg PO DAILY cyclobenzaprine 10 mg PO BEDTIME dicyclomine 20 mg PO dulaglutide 3 mg (0.5 mL) subcut QWEEK 30 days famotidine 40 mg PO BEDTIME insulin glargine U-300 conc 44 units (0.1467 mL) subcut QAM 30 days ketorolac 0.5% 1 drp ophthalmic (eye) lancets (FreeStyle Lancets) As directed lancets (OneTouch Delica Plus Lancet) As directed test once a day. lisinopril 20 mg PO DAILY 90 days meclizine 25 mg PO TID 10 days metoprolol succinate ER 25 mg PO DAILY nitrofurantoin monohyd/m-cryst 100 mg (Macrobid) 100 mg PO BID nystatin 5 mL PO QID omeprazole 40 mg PO DAILY pen needle, diabetic once a day simethicone (Gas Relief (simethicone)) 80 mg PO BID-QID PRN 30 days solifenacin (Vesicare) 10 mg PO DAILY 90 days timolol maleate 0.5% 0 drps ophthalmic (eye) trazodone 150 mg PO BEDTIME HPI Comments Details: 03/22/24--Zulay is a 66-year-old female who presents to the office for Follow up. history of chronic kidney disease stage 3, Comorbidity diabetes. Vesicare 10 mg daily. She states last week she has noticed a change in urination. pain across her bladder area, hesitency, however no burning with urination. I will send urine for culture and empirically start Macrobid 100 mg bid for 5 days. Review of Chart: 03/21/23---FU for OAB on vesicare, UA today is WNL, no signs of infection recurrent OAB follow-up urinary symptoms are stable. 03/12/22--66-year-old female PM history of chronic kidney disease stage 3, Comorbidity diabetes. last visit in the urology office 05/2021, BALDEMAR Cabrera. She is followed for OAB and recurrent urinary tract infection. She currently has mild discomfort with voiding. She reports having a good appetite and no issues with constipation. She reports that she is drinking adequate amounts of water on a daily basis she has cut down on her intake of juices and sodas. Evaluation today UA leuk+, blood+; PVR 108 mL. Plan: Macrobid 100 mg bid for 7 days, pending urine c/s, Cont. Vesicare 10 mg daily.FU in 3 months, renal U/S prior 06/25/2022-- The patient states that Vesicare 10 mg daily is controlling her urinary symptoms and did not have any breakthrough urinary leakage. She also mentions that she is trying to improve her diet. She has cut down her soda intake significantly, although she drinks at least one soda daily. She states that her her recent blood work showed improvement in TiC8c--2/16/23--6.2. Of note: Review of urine c/s 03/12/22 - <10,000 col Evaluation today: Blood: negative, leukocytes: trace. Renal US results reviewed?06/18/22-- Kidneys: WNL, no renal calculi visualized. 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 Sister No problems noted. Sister No problems noted. Daughter No problems noted. Daughter No problems noted. Daughter No problems noted. Social History Housing: House Alcohol intake: former Patient Tobacco Use Status: Former Tobacco user e-Cigarette/Vaping Use: Never Used Second Hand Smoke Exposure: No service: No Current occupational status: retired and disabled Current occupational exposures/hazards: No Cognitive needs: No Hearing needs: No Vision needs: No Review of Systems Const All systems reviewed & are unremarkable except as noted in HPI and below Reports no additional complaints Eyes Reports no additional complaints ENT Reports no additional complaints Card Reports no additional complaints Resp Reports no additional complaints GI Reports no additional complaints Reports as per HPI Musc Reports no additional complaints Skin/Breast Reports system reviewed and no additional complaints, except as documented Neuro Reports no additional complaints Psych Reports no additional complaints Endo Reports no additional complaints Sven/Lymph Reports no additional complaints Aller/Immun Reports no additional complaints Office Procedures Post Void Residual Post Residual Void Post Void Residual (PVR): 0 84714-Tint Void Residual by ultrasound Results AMB Urinalysis, Automated UA Leukoctes 15 Giovanni/uL Last Edit by Esthela Stewart CMA on 03/22/24 09:53 UA Nitrite Negative Last Edit by Esthela Stewart CMA on 03/22/24 09:53 UA Urobilinogen 0.2 mg/dL Last Edit by Esthela Stewart CMA on 03/22/24 09:5 3 UA Protein 0 mg/dL Last Edit by Esthela Stewart CMA on 03/22/24 09:53 UA pH 5.0 Last Edit by Esthela Stewart CMA on 03/22/24 09:53 UA Blood 0 Travis/uL Last Edit by Esthela Stewart CMA on 03/22/24 09:53 UA Specific [place] 1.020 Last Edit by Esthela Stewart CMA on 03/22/24 09: 53 UA Ketone Negative Last Edit by Esthela Stewart CMA on 03/22/24 09:53 UA Bilirubin 0 mg/dL Last Edit by Esthela Stewart CMA on 03/22/24 09:53 UA Glucose 0 mg/dL Last Edit by Esthela Stewart CMA on 03/22/24 09:53 Results Reviewed Results Reviewed: Laboratory Last Values Urine pH (Auto) 5.0 03/22/24 09:51 Specific [place] (Auto) 1.020 03/22/24 09:51 Urine Protein (Auto) 0 mg/dL 03/22/24 09:51 Glucose (UA)(Auto) 0 mg/dL 03/22/24 09:51 Urine Ketones (Auto) Negative 03/22/24 09:51 Urine Blood (Auto) 0 Travis/uL 03/22/24 09:51 Urine Nitrite (Auto) Negative 03/22/24 09:51 Urine Bilirubin (Auto) 0 mg/dL 03/22/24 09:51 Urine Urobilinogen (Auto) 0.2 mg/dL 03/22/24 09:51 Leukocyte Esterase (Auto) 15 Giovanni/uL 03/22/24 09:51 Date of Service: 06/18/22 EXAMINATION: US RETROPERITONEAL LIMITED (RENAL ONLY) CLINICAL INFORMATION: Urinary tract infection, site not specified. COMPARISON: CT abdomen and pelvis 03/28/2019. TECHNIQUE: Real-time imaging of the kidneys. FINDINGS: RIGHT KIDNEY: 9.1 x 4.5 x 4.6 cm (SAG x AP x TRV). The kidney is normal in size, contour, and echogenicity. Renal cortical thickness is normal. No renal calculi or hydronephrosis. At the upper pole, an 8 mm benign, simple cyst is seen. LEFT KIDNEY: 9.4 x 4.5 x 4.4 cm (SAG x AP x TRV). The kidney is normal in size, contour, and echogenicity. Renal cortical thickness is normal. No renal calculi or hydronephrosis. At the interpolar aspect, 1.0 cm and 1.7 cm in maximal diameter benign, simple cysts are seen. IMPRESSION: Benign, simple bilateral renal cysts are noted, for which no imaging follow-up is recommended. No solid mass, calculus or hydronephrosis is noted bilaterally. Assessment & Plan Assessment & Plan (1) OAB (overactive bladder): Code(s): N32.81 - Overactive bladder Category: Medical (2) UTI symptoms: Code(s): R39.9 - Unspecified symptoms and signs involving the genitourinary system Category: Medical Plan Advised to consume adequate amount of water. Vesicare 10 mg daily for OAB, (Macrobid) bid 5 days, urine c/s Follow-up in one year Orders: Orders AMB Urinalysis Automated Today Z13.9 - Encounter for screening, unspecified AMB Post Void Residual by ultrasound Today R35.0 - Frequency of micturition Medications: New nitrofurantoin monohyd/m-cryst 100 mg (Macrobid) must administer with a meal/food 100 mg PO BID 10 caps 0RF Refilled solifenacin (Vesicare) 10 mg PO DAILY 90 days 90 tabs 3RF Patient Instructions: The patient had an opportunity to ask questions regarding treatment plan. The patient expressed understanding and agreement with the above treatment plan. The patient is aware they should contact our office by phone for worsening of their current condition or the appearance of new symptoms. Compliance is encouraged with any medications and followup testing that is ordered. It is a privilege to be allowed the opportunity to participate in the urologic care of your patient. If you have any questions or concerns regarding treatment for the above conditions please do not hesitate to contact me. The office telephone contact is [phone]. This note is constructed in part using voice recognition software. While every effort has been made to ensure accuracy quality control assessor errors may have been included. Yours sincerely, Stefani Olguin MD Coding Level of Care Code Est Pt Level 4 (02820) Diagnoses OAB (overactive bladder) N32.81 UTI symptoms R39.9 CPT Codes Post Residual Void - PVR CPT Code: 89723-Jzzy Void Residual by ultrasound ([id number])
== END 2024-03-22 10:18 | disposition home or self-care (01) ==
PROVIDERS: PCP Family Medicine; Visit Provider Urology
DX: N32.81 Overactive bladder (principal); R39.9 Unspecified symptoms and signs involving the genitourinary system; Z13.9 Encounter for screening, unspecified
CPT/HCPCS: 99214

== ENCOUNTER 2024-04-24 13:15 | Outpatient (REF) | payer OTHER, SELFPAY ==
--- OUTSIDE RECORDS SUMMARY | 2024-04-24 14:12 | XMS_ITS | Data Portability ---
Author Organization [employer] [place] Address [address] [place] [phone] Care Team Providers Care Consulting Group Analyst Name Role Phone HIM CCA OTHER Assessment Encounter Date Assessment Date Assessment LastModified by Organization Details LastModified Time 09/17/2023 09/17/2023 I have reviewed and agree with the assessment and plan as documented by the jewelry sales representative. I provided real time medical direction for this encounter and was immediately available to provide additional phone based assistance as needed. History as noted by jewelry sales representative. Pt with history of HTN, CKD (last BUN/Cr 06/02/2023: 34/1.5), and DM2 on insulin glargine and Trulicity, although her Trulicity has been out of stock so she has not had this in about 1 month. Pt reports that for about 1.5 weeks she has felt very thirsty and is drinking more than usual. She has also noted she is urinating more frequently but denies any dysuria or urgency. She has noted feeling shaky and generally weak, and has had mild epigastric pain after eating or drinking, but denies any vomiting, fevers or chills. Blood sugars at home have been in the 175-200 range. Of note, pt did receive kenalog injection 40mg in knee on September 11. On exam, pt alert, no distress. Vitals normal. Abdomen soft, mild epigastric tenderness. LE's: no pitting edema. POC BMP with elevated K+ 5.4, BUN/Cr 50/1.9, glucose 173, and anion gap 8. Urine dip negative for leukocytes, nitrite, blood, glucose, trace positive for ketones, protein Impression: Pt with ANTONIO iso CKD with mild hyperkalemia. Pt reporting increased thirst and urinary frequency over the last 1.5 weeks with no other UTI symptoms. Pt also notes feeling shaky and weak with mild epigastric discomfort after eating. No other UTI symptoms, fevers or vomiting. Vitals and exam normal other than mild epigastric tenderness. POC BMP with worsening renal function BUN/Cr 50/1.9, increased from 34/1.5 on 06/01. Also mild hyperkalemia at 5.4 (was 5.2 on 06/01). Anion gap normal. Glucose 173. Urinalysis negative for UTI or glucose, trace ketones noted. Pt's ANTONIO likely related to volume depletion and pre renal etiology with elevated BUN so pt medicated with 1L of IV NS. Suspect pt's polyuria and increased thirst is related to intermittent hyperglycemia. Pt will need close follow up with her primary care team after the weekend to have her renal function and electrolytes rechecked to ensure her ANTONIO and mild hyperkalemia have improved. Pt should also have outpatient abdominal u/s arranged to assess her recent post prandial epigastric pain. Pt told to continue to stay well hydrated, and to limit sugary foods and liquids. Pt told to call her primary care team after the weekend to discuss her symptoms and to have them arrange for repeat labs and outpatient abdominal u/s. To primary care team: Please call and follow up with this patient on Tuesday, 09/18. She will need repeat BMP checked next week to ensure her ANTONIO and mild hyperkalemia have improved. Also, please arrange for abdominal u/s as she has noted recent post prandial epigastric pain. If pt's renal function does not improve, she will need to be referred back to her head kiln operator for evaluation, who last saw the pt for routine follow up in May,. Pt will also need to be restarted on her Trulicity, when available. Pt instructed to seek medical attention right away with any worsening or new symptoms, which are reviewed with her. [email or web address] Not available 09/17/2023 12:57:37 Plan of Treatment Reminders Order Date Submit Date Provider Last Modified By Organization Details Last Modified Time Details Appointments None recorded. Lab BMP, serum or plasma 2023 024 [facility], [address] [place] [address], [id number], 11:35:24 hemoglobin + hematocrit, blood [address], [phone], 4 11:35:22 urinalysis, dipstick 2023 024 [facility], [address] [place] [address], [phone], 11:48:50 Referral None recorded. Procedures None recorded. Surgeries None recorded. Imaging None recorded. Medication Orders sodium chloride 0.9 % intravenous solution 2023 024 [id number], [address] [place], [address], 11:48:49 Patient TargetsNo targets recorded. Patient InstructionsNo instructions recorded. Reason for Referral None Reported. Results Created Date Observation Date Name Description Value Unit Range Abnormal Flag Note LastModifiedBy Organization Detail LastModifiedTime 09/17/1909/17/2023 urina lysis , dipst ick Leukocytes negati ve Not Available [facility] ed [address] [place] [address], [phone], 09/17/2023 11:47:07 09/17/19 24 09/17/2023 urina lysis , dipst ick Nitrite negati ve Not Available [facility] - [facility] ed [address] [place] [address], [phone], 09/17/2023 11:47:07 09/17/19 24 09/17/2023 urina lysis , dipst ick Protein trace Not Available [facility] - [facility] [address], [address], 09/17/2023 11:47:07 09/17/19 24 09/17/2023 urina lysis , dipst ick Blood negati ve Not Available [facility] - [facility] ed [address] [place] [address], [address], 09/17/2023 11:47:07 09/17/19 24 09/17/2023 urina lysis , dipst ick Ketone trace Not Available [facility] - [facility] [address], [address], 09/17/2023 11:47:07 09/17/19 24 09/17/2023 urina lysis , dipst ick Glucose negati ve Not Available [facility] - [facility] [address], [address], 09/17/2023 11:47:07 09/17/19 24 09/17/2023 hemog lobin + hemat ocrit , blood Hemoglobin 11.9 Not Available [facility] [address] [place] [address], [phone], 09/17/2023 11:33:02 09/17/19 24 09/17/2023 hemog lobin + hemat ocrit , blood Hematocrit 35 Not Available [facility] - [facility] [address] [place] [address], [phone], 09/17/2023 11:33:02 09/17/19 24 09/17/2023 BMP, serum or plasm a BUN 50 Not Available [facility] - [facility] [address], [address], 09/17/2023 11:32:55 09/17/19 24 09/17/2023 BMP, serum or plasm a Ca 1.32 Not Available [facility] - [facility] [address], [address], 09/17/2023 11:32:55 09/17/19 24 09/17/2023 BMP, serum or plasm a CI- 108 Not Available [facility] - [facility] [address], [address], 09/17/2023 11:32:55 09/17/19 24 09/17/2023 BMP, serum or plasm a CRE 1.9 Not Available [facility] - [facility] [address], [address], 09/17/2023 11:32:55 09/17/19 24 09/17/2023 BMP, serum or plasm a GLU 173 Not Available [facility] - [facility] [address], [address], 09/17/2023 11:32:55 09/17/19 24 09/17/2023 BMP, serum or plasm a K+ 5.4 Not Available [facility] - [facility] [address], [address], 09/17/2023 11:32:55 09/17/19 24 09/17/2023 BMP, serum or plasm a Na+ 137 Not Available [facility] - [facility] [address], [address], 09/17/2023 11:32:55 09/17/19 24 09/17/2023 BMP, serum or plasm a tCO2 21 Not Available [facility] - [facility] [address], [address], 09/17/2023 11:32:55 Result Notes None recorded. Medical Equipment None Reported. Medications Name Sig Start Date Stop Date Status Note LastModified by Organization Details LastModified Time cyclobenzapr ine 10 mg tablet TAKE 1 TABLET BY MOUTH AT BEDTIME active Not Available Not Available No t Available latanoprost 0.005 % eye drops INSTILL 1 DROP IN EACH EYE EVERY NIGHT AT BEDTIME active Not Available Not Available N ot Available atorvastatin 40 mg tablet TAKE 1 TABLET BY MOUTH EVERY DAY active Not Available Not Available No t Available meloxicam 15 mg tablet TAKE 1 TABLET BY MOUTH EVERY DAY WITH A MEAL active Not Available Not Available No t Available lisinopril 20 mg tablet TAKE 1 TABLET BY MOUTH EVERY DAY active Not Available Not Available No t Available famotidine 40 mg tablet TAKE 1 TABLET BY MOUTH AT BEDTIME active Not Available Not Available No t Available omeprazole 40 mg capsule,kathryn yed release TAKE 1 CAPSULE BY MOUTH EVERY DAY active Not Available Not Available No t Available aspirin 81 mg tablet,delay ed release TAKE 1 TABLET BY MOUTH DAILY active Not Available Not Available Not Available amitriptylin e 50 mg tablet TAKE 1 TABLET BY MOUTH EVERY DAY AT BEDTIME FOR 30 DAYS active Not Available Not Available No t Available dicyclomine 20 mg tablet TAKE 1 TABLET BY MOUTH TWO TO 4 TIMES A DAY active Not Available Not Available No t Available meclizine 25 mg tablet TAKE 1 TABLET BY MOUTH THREE TIMES A DAY FOR 10 DAYS active Not Available Not Available Not Available trazodone 150 mg tablet TAKE 1 TABLET BY MOUTH AT BEDTIME active Not Available Not Available No t Available sodium chloride 0.9 % intravenous solution Inject 1000 mL by intravenous route. 2023 active Not Available Not Available Not Avai lable metoprolol succinate ER 25 mg tablet,exten ded release 24 hr TAKE 1 TABLET BY MOUTH EVERY DAY active Not Available Not Available No t Available timolol maleate 0.5 % eye drops INSTILL 1 DROP INTO BOTH EYES EVERY MORNING active Not Available Not Available No t Available cholecalcife rol (vitamin D3) 125 mcg (5,000 unit) capsule TAKE 1 CAPSULE BY MOUTH EVERY DAY active Not Available Not Available No t Available simethicone 80 mg chewable tablet TAKE 1 TABLET BY MOUTH 2 TO 4 TIMES A DAY NEEDED FOR ABDOMINAL DISTENTION, BURPING FOR 30 DAYS active Not Available Not Available No t Available solifenacin 10 mg tablet TAKE 1 TABLET BY MOUTH EVERY DAY active Not Available Not Available No t Available BD Ultra-Fine Short Pen Needle 31 gauge x 5/16 USE 1 PEN NEEDLE EVERY DAY active Not Available Not Available No t Available Toujeo Max U-300 SoloStar 300 unit/mL (3 mL) subcutaneous insulin pen INJECT 40 UNITS EVERY MORNING active Not Available Not Available No t Available Trulicity 3 mg/0.5 mL subcutaneous pen injector ADMINISTER 3 MG UNDER THE SKIN EVERY WEEK. DISCONTINUE JANUVIA active Not Available Not Available No t Available Vitals Date Recorded Heart rate Respiratory rate Oxygen saturation Oxygen saturation in Arterial blood by Pulse oximetry Body temperature Systolic blood pressure Diastolic blood pressure Provider Name and Address Organization Details Last Updated DateTime 4 90 /min 16 /min 99 % 99 % 98 [degF] 140 mm[Hg] 80 mm[Hg] James Bonilla MD [address] [facility],[address], [place], [address], [place] - [email or web address] 4 10:58:17 Date Recorded Oxygen saturation Oxygen saturation in Arterial blood by Pulse oximetry Body temperature Heart rate Respiratory rate Systolic blood pressure Diastolic blood pressure Provider Name and Address Organization Details Last Updated DateTime 4 98 % 98 % 98 [degF] 90 /min 16 /min 140 mm[Hg] 80 mm[Hg] Not Available [facility] - production 12:38:32 Social History None recorded. Functional Status None recorded. Mental Status None recorded. Family History Nothing Reported. Medical History No medical history recorded. Gynecological HistoryNo gynecological history recorded. Obstetrics History GPAL:G 0 P 0 0 0 0 Past Encounters Encounter ID Performer Location Encounter Start Date Encounter Closed Date Diagnosis/Indication Diagnosis SNOMED-CT Code Diagnosis ICD10 Code Diagnosis Note [id number] James Bonilla MD [facility] - [facility] [address] [place] [phone] 09/17/2023 10:55:08 09/18/2023 22:12:46 Excessive thirst 27604345 R63.1 Acute-on-c hronic renal failure 777654783 N17.9 Health Concerns Section Related Observation LastModified by Organization Detai ls LastModified Time None Recorded Concern Status LastModified by Organization Details LastModified Time None Recorded Advance Directives Directive None Recorded Payers Encounter Date Sequence Insurance Name Policy Number Policy Jerome Covered Member ID Jerome Member ID Guarantor Name 09/17/2023 1 [facility] - DOS ON OR AFTER 2022 - DUAL ELIGIBLE - ASSISTED OPTIONS AND ONE CARE (MEDICARE REPLACEMENT/ADV ANTAGE - HMO) Zulay Styles [id number] Zulay Styles Notes Date Note Type Note Provider Name and Address Organization Details Recorded Time 09/17/2023 text/html This was a supervised home visit with jewelry sales representative Aleyda Benitez. [facility] Nurse Triage Notes (Philip Roberson): Reason For Request: Patient feels weak, urinating a lot, drinking lots of fluids, and feels shaky. Chief Complaints: Weakness/Lethargy, Syncope/Dizziness/ Lightheadedness Allergies: Unknown Comments: Station Attendant verified the member's name//address and phone number. Mbr calling reporting she feels weak and shaky. Mbr reports tongue appears white. Mbr reports she has been feeling thirsty all the time for approx 1.5 weeks. States she has been drinking a lot of fluids but today she woke up feeling shaky and weak. Mbr denies hx of hyponatremia. Mbr denies SOB or chest discomfort. Education provided on the response time and the member was advised to monitor reported s/s and seek emergency treatment if needed -Allen Roberson RN Topographical Field Assistant POC Test Results from Aleyda Benitez - ALS iSTAT Chem8+ (12:38:42) Na: 137 mEq/L K: 5.4 mEq/L Cl: 108 mEq/L iCa: 1.32 mmol/L TCO2: 21 mmol/L Glu: 173 mg/dL BUN: 50 mg/dL Crea: 1.9 mg/dL Hct: 35 % Hb: 11.9 g/dL A Urine Dipstick (12:38:44) Urine leukocytes: - DARLENE Urine nitrites: - NIT Urine urobilinogen: - URO Urine protein: 15+ PRO Urine pH: 5.0 pH Urine blood: - BLO Urine specific gravity: 1.010 SG Urine ketones: 15+ KET Urine bilirubin: - XENA Urine glucose: - GLU .................. .................. .................. .................. .................. .................. .................. ............... Topographical Field Assistant Note From Aleyda Benitez: Community Topographical Field Assistant Silas Benitez SC6 dispatched to a [facility] for a 68 yof C/O thirst, shaking, and weakness. Upon arrival, the pt was ambulatory, RAMSEY X4, in no apparent distress. She reported that she took 44 units of toujeo daily, but had not taken her once weekly trulicity for a month as it was on backorder. She stated that she felt increasingly thirsty, weak, and shaky over the last week and a half. She stated she was drinking more water, juice, and soda than usual, but still felt thirsty, and was urinating more than usual. She stated she had upper umbilical abd pain when she drank fluids-tender on palpation, no masses felt. She denied fever, dizziness, ADLER, cough, sore throat, CP, SOB, abd pain when not drinking fluids, N/V/D, or urinary S/S. She reported a blood sugar of 175 that AM. No pedal edema. [facility] consulted; #22 IV placed in her left AC, BMP acquired, she was given 100 mL NS. Urine dip in insted. She was instructed to drink plenty of water, keep sugar to a minimum, and speak w/ her Physician IVONNE. 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 Red flags discussed at length. .................. .................. .................. .................. .................. .................. .................. ............... Disposition: Fulfilled James Bonilla MD [address] [facility],[address], [place], [address], [employer] - [email or web address] 09/17/2023 12:57:52 OBGyn Episode No OBEpisode recorded.
--- OUTSIDE RECORDS SUMMARY | 2024-04-24 14:12 | XMS_ITS ---
Author Organization [facility] Address [address] [place] [address] Care Team Providers Care Tea Room Manager Name Role Phone Reinaldo Suarez Primary Care Provider Unavailab Kee Brooke Jr Unavailable REASON FOR VISIT please lock 02-08-2024 office note Encounters Encounter Location Date Provider Diagnosis [facility] [address] [place] [address] 03/28/2024 Kee Godfrey Jr PLAN OF TREATMENT Next Appt Details Provider Name:Kee pedraza Jr, 02/06/2025 09:00:00 AM, [address], [address], [place], [phone],
--- OUTSIDE RECORDS SUMMARY | 2024-04-24 14:13 | XMS_ITS ---
Author Organization [facility] Address [address] [place] [phone] Care Team Providers Care Chief Airline Radio Operator Name Role Phone Reinaldo Suarez Primary Care Provider Unavailab Kee Brooke Jr Unavailable [phone] ALLERGIES Allergen (clinical drug ingredient) Drug/Non Drug Allergy documented on EMR Reaction Allergy Type Onset Date Status TB Syringe 1 ML Unknown Drug Allergy A ctive REASON FOR VISIT Patient presents today for abdominal pain MEDICATIONS Medication SIG (Take, Route, Frequency, Duration) Notes Start Date End Date Status traZODone HCl 150 MG TAKE 1 TABLET BY MO UTH EVERY NIGHT AT BEDTIME Oral for 90 Active oxyBUTYnin Chloride ER 15 MG TAKE 1 TABLET BY MOUTH DAILY Oral for 90 Active Solifenacin Succinate 10 MG Oral for 90 Active MiraLax (colon prep) 8.3 ounce ((238) grams mixed with Gatorade or Crystal Light orally begin at 5:00 p.m. the day before the procedure for 1 day 05/23/2020 Active Dicyclomine HCl 20 MG TAKE 1 TABLET BY M OUTH TWO TO 4 TIMES A DAY for 90 Active Vitamin D3 125 MCG (5000 UT) TAKE 1 CAPSULE BY MOUTH DAILY FOR 30 DAYS Oral for 30 Active Diclofenac Sodium 50 MG TAKE 1 TABLET BY MOUTH THREE TIMES DAILY Oral for 90 Active Dicyclomine HCl 10 MG Take 1 capsule by mouth 2 times daily to 4 times daily. for 60 Active Omeprazole 40 MG TAKE 1 CAPSULE BY MO UTH DAILY Oral for 30 Active Toujeo Max SoloStar 300 UNIT/ML INJECT 46 UNITS SUBCUTANEOUS DAILY Subcutaneous for 30 Active Metoprolol Succinate ER 50 MG TK ONE AND ONE-HALF TS PO D Oral for 30 Active Latanoprost Active Citalopram Hydrobromide 40 MG TK 1 T PO QD Oral for 30 Act jaylon VESIcare 10 MG TK 2 TS PO D Oral for 30 Active Famotidine 40 MG TK 1 T PO HS Oral Active Atorvastatin Calcium 40 MG TK 1 T PO HS Oral for 30 Active Lisinopril 40 MG TK 1 T PO QD Oral for 30 Active Aspirin EC Low Dose 81 MG TK 1 T PO QD Oral for 30 Active Amitriptyline HCl 25 MG TK 1 T PO HS Oral for 30 Active Meclizine HCl 25 MG TK 1 T PO TID Oral for 10 Active Trulicity 3 MG/0.5ML Subcutaneous for 28 Active Timolol Maleate 0.5 % INSTILL 1 DROP INT O BOTH EYES EVERY MORNING Ophthalmic for 50 Active Insulin Glargine Max SoloStar 300 UNIT/ML Subcutaneous for 40 Active SOCIAL HISTORY Tobacco Use: Social History Observation Description Date Details (start date - stop date) Former Smoker NA - NA Sex Assigned At : Social History Observation Description Sex Assigned At Unknown Tobacco Use/Smoking Question Answer Notes Patient is a former smoker When did you stop smoking? 1 year and 3 months How long has it been since you last smoked? 1-5 years Alcohol Screen Question Answer Notes Did you have a drink containing alcohol in the p ast year? No Points 0 Interpretation Negative VITAL SIGNS BMI 27.90 kg/m2 02/08/2024 Blood pressure systolic 000 mm Hg 02/08/20 24 Blood pressure diastolic 00 mm Hg 024 Height 61.5 in 02/08/2024 Temperature 97.3 degrees Fahrenheit 02/08/20 24 Weight 150 lb 2 oz lbs 02/08/2024 Encounters Encounter Location Date Provider Diagnosis [facility] [address] [place] [phone] 02/08/2024 Kee Godfrey Jr Gastroesophageal reflux disease, unspecified whether esophagitis present K21.9 and Irritable bowel syndrome, unspecified type K58.9 ASSESSMENTS Encounter Date Diagnosis Assessment Notes Treatment Notes Treatment Clinical Notes 02/08/2024 Gastroesophageal reflux disease, unspecified whether esophagitis present (ICD-10 - K21.9) Gastroesophageal reflux disease material was printed 02/08/2024 Irritable bowel syndrome, unspecified type (ICD-10 - K58.9) PLAN OF TREATMENT Treatment Notes Assessment Notes Gastroesophageal reflux dise ase, unspecified whether esophagitis present Gastroesophageal reflux disease material was printed Next Appt Details Follow Up: 1 Year, Reason: Provider Name:Kee pedraza Jr, 02/06/2025 09:00:00 AM, [address] [place] [address] Drive, [address], [place], [phone],
--- OUTSIDE RECORDS SUMMARY | 2024-04-24 14:13 | XMS_ITS | Patient Health Record ---
Author Organization [facility] Address [address] [place] [phone] Care Team Providers Care Field Service Manager Name Role Phone Reinaldo Suarez Primary Care Provider Unavailab Kee Brooke Jr Unavailable ALLERGIES Allergen (clinical drug ingredient) Drug/Non Drug Allergy documented on EMR Reaction Allergy Type Onset Date Status TB Syringe 1 ML Unknown Drug Allergy A ctive REASON FOR REFERRAL No Information MEDICATIONS Medication SIG (Take, Route, Frequency, Duration) Notes Start Date End Date Status Citalopram Hydrobromide 40 MG TK 1 T PO QD Oral for 30 Act jaylon MiraLax (colon prep) 8.3 ounce ((238) grams mixed with Gatorade or Crystal Light orally begin at 5:00 p.m. the day before the procedure for 1 day 05/23/2020 Active VESIcare 10 MG TK 2 TS PO D Oral for 30 Active Dicyclomine HCl 20 MG TAKE 1 TABLET BY M OUTH TWO TO 4 TIMES A DAY for 90 Active Famotidine 40 MG TK 1 T PO HS Oral Active Atorvastatin Calcium 40 MG TK 1 T PO HS Oral for 30 Active Vitamin D3 125 MCG (5000 UT) TAKE 1 CAPSULE BY MOUTH DAILY FOR 30 DAYS Oral for 30 Active Lisinopril 40 MG TK 1 T PO QD Oral for 30 Active Diclofenac Sodium 50 MG TAKE 1 TABLET BY MOUTH THREE TIMES DAILY Oral for 90 Active Aspirin EC Low Dose 81 MG TK 1 T PO QD Oral for 30 Active traZODone HCl 150 MG TAKE 1 TABLET BY MO UTH EVERY NIGHT AT BEDTIME Oral for 90 Active Metoprolol Succinate ER 50 MG TK ONE AND ONE-HALF TS PO D Oral for 30 Active oxyBUTYnin Chloride ER 15 MG TAKE 1 TABLET BY MOUTH DAILY Oral for 90 Active Latanoprost Active Trulicity 3 MG/0.5ML Subcutaneous for 28 Active Dicyclomine HCl 10 MG Take 1 capsule by mouth 2 times daily to 4 times daily. for 60 Active Amitriptyline HCl 25 MG TK 1 T PO HS Oral for 30 Active Omeprazole 40 MG TAKE 1 CAPSULE BY MO UTH DAILY Oral for 30 Active Timolol Maleate 0.5 % INSTILL 1 DROP INT O BOTH EYES EVERY MORNING Ophthalmic for 50 Active Meclizine HCl 25 MG TK 1 T PO TID Oral for 10 Active Toujeo Max SoloStar 300 UNIT/ML INJECT 46 UNITS SUBCUTANEOUS DAILY Subcutaneous for 30 Active Insulin Glargine Max SoloStar 300 UNIT/ML Subcutaneous for 40 Active Solifenacin Succinate 10 MG Oral for 90 Active IMMUNIZATIONS Vaccine Route Administration Date Status Comme nts Influenza Unknown 12/20/2019 Administered Influenza Unknown 01/24/2023 Administered Influenza Unknown 01/24/2024 Administered SOCIAL HISTORY Tobacco Use: Social History Observation [...] ast year? No Points 0 Interpretation Negative PROBLEMS Problem Type ICD Code Onset Dates Problem Status W/U Status Risk SNOMED Code Notes Problem Abdominal pain, epigastric (R10.13) Active confirmed 00741292 Problem Colon cancer screening (Z12.11) Active confirmed 849876072 Problem Personal history of colonic polyps (Z86.010) Active confirmed 926010197 Problem Periumbilical abdominal pain (R10.33) Active confirmed 407134061 Problem Gastroesophageal reflux disease, unspecified whether esophagitis present (K21.9) Active confirmed 603985468 Problem Irritable bowel syndrome, unspecified type (K58.9) Active confirmed 98467486 VITAL SIGNS Temperature 97.3 degrees Fahrenheit 02/08/2024 Blood pressure diastolic 00 mm Hg 02/08/2024 Height 61.5 in 02/08/2024 Blood pressure systolic 000 mm Hg 02/08/2024 Weight 150 lb 2 oz lbs 02/08/2024 BMI 27.90 kg/m2 02/08/2024 Encounters Encounter Location Date Provider Diagnosis [facility] [address] [place] [phone] 02/08/2024 Kee Godfrey Jr Gastroesophageal reflux disease, unspecified whether esophagitis present K21.9 and Irritable bowel syndrome, unspecified type K58.9 [facility] [address] [place] [phone] 02/08/2024 Kee Godfrey Jr [facility] [address] [place] [address] [place] [phone] 03/28/2024 Kee Godfrey Jr ASSESSMENTS Encounter Date Diagnosis Assessment Notes Treatment Notes Treatment Clinical Notes 02/08/2024 Irritable bowel syndrome, unspecified type (ICD-10 - K58.9) 02/08/2024 Gastroesophageal reflux disease, unspecified whether esophagitis present (ICD-10 - K21.9) Gastroesophageal reflux disease material was printed PLAN OF TREATMENT Pending Test Test Name Order Date STOOL WBC 03/09/2019 OVA & PARASITES (O&P) 03/09/2019 CULTURE, STOOL 03/09/2019 XR GI SERIES 08/31/2013 C DIFFICILE RFLX PCR 03/09/2019 Future Test Test Name Order Date COLONOSCOPY 04/30/2015 UPPER GI ENDOSCOPY 05/23/2020 COLONOSCOPY 05/23/2020 Next Appt Details Provider Name:Kee pedraza Jr, 02/06/2025 09:00:00 AM, [address] [place] [address], Suite [facility], [place], [address], Insurance Providers Payer Name Payer Address Payer Phone Subscriber Number Group Number Insured Name Patient Relationship to Insured Coverage Start Date Coverage End Date [facility] [address] [place] [address] [id number] BRIANNAMICHELLE Self - patient is the insured MEDICAL (GENERAL) HISTORY Medical History History ICD Code migraine headaches vertigo hypertension colonoscopy 05/25, hyperplastic polyp, fi ve-year followup chronic kidney disease stage III hyperlipidemia type I diabetes urinary incontinence insomnia gastroesophageal reflux dise ase, EGD 05/25, no H. pylori or Ambrocio's esophagus. Surgical History Surgery Date(Month/Year) section x2 inguinal hernia repair x2 knee surgery for removal of a benign lisa or as a child bladder surgery bladder suspension cholecystectomy
--- OUTSIDE RECORDS SUMMARY | 2024-04-24 14:13 | XMS_ITS | Clinical Summary ---
Author Organization [facility] Address [address] [facility] [address] [place] [address] Phone Care Team Providers Care Fireboat Operator Name Role Phone Reinaldo Suarez MD Primary Care Provider Allergies Active Allergy Reactions Criticality Noted Date Comments Tuberculin Purified Protein Derivative 06/24/2021 Medications aspirin (ST ANGELITA) 81 MG EC tablet Take 1 tablet by mouth 1 (one) time each day Active atorvastatin (LIPITOR) 40 MG tablet Take 1 tablet by mouth 1 (one) time each day Active citalopram (CeleXA) 40 MG tablet Take 1 tablet by mouth 1 (one) time each day Active famotidine (PEPCID) 40 MG tablet Take 1 tablet by mouth at bed time Active lisinopril (PRINIVIL,ZESTR IL) 20 MG tablet Take 1 tablet by mouth 1 (one) time each day Active meclizine (ANTIVERT) 25 MG tablet Take 1 tablet by mouth 1 (one) time each day Active simvastatin (ZOCOR) 40 MG tablet Take 1 tablet by mouth 1 (one) time each day Active tolterodine (DETROL) 2 MG tablet Take 1 tablet by mouth 1 (one) time each day Active Toujeo Max SoloStar 300 UNIT/ML solution pen-injector INJECT 46 UNITS SUBCUTANEOUS DAILY 1 Active metoprolol succinate XL (TOPROL-XL) 25 MG 24 hr tablet Take 25 mg by mouth 1 (one) time each day 1 Active Cholecalciferol (Vitamin D3) 125 MCG (5000 UT) capsule TAKE 1 CAPSULE BY MOUTH DAILY FOR 30 DAYS 1 Active diclofenac (VOLTAREN) 50 MG EC tablet Take 50 mg by mouth 3 times a day 1 Active dicyclomine (BENTYL) 20 MG tablet TAKE 1 TABLET BY MOUTH 2 TO 4 TIMES A DAY 1 Active solifenacin (VESICARE) 10 MG tablet Take 10 mg by mouth 1 (one) time each day 1 Active acetaminophen (TYLENOL) 325 MG tablet Take 650 mg by mouth 1 Active oxybutynin XL (DITROPAN-XL) 15 MG 24 hr tablet Take 15 mg by mouth 1 Active amitriptyline (ELAVIL) 50 MG tablet Take 50 mg by mouth at bed time 3 Active cyclobenzaprine (FLEXERIL) 10 MG tablet Take 10 mg by mouth at bed time 3 Active LORazepam (ATIVAN) 0.5 MG tablet 3 Active omeprazole (PriLOSEC) [address] capsule Take 40 mg by mouth 1 (one) time each day 3 Active simethicone (MYLICON) 80 MG chewable tablet TAKE 1 TABLET ORALLY 2 TO 4 TIMES A DAY NEEDED FOR ABDOMINAL BURPING FOR 30 DAYS 3 Active timolol (TIMOPTIC) 0.5 % ophthalmic solution PLACE ONE DROP INTO BOTH EYES EVERY MORNING 3 Active Trulicity 3 MG/0.5ML solution pen-injector ADMINISTER 3 MG UNDER THE SKIN EVERY WEEK. DISCONTINUE JANUVIA 3 Active traZODone (DESYREL) 150 MG tablet Take 150 mg by mouth at bed time 3 Active meloxicam (MOBIC) 15 MG tablet Take 15 mg by mouth 1 (one) time each day with food 4 Active Active Problems Problem Noted Date Diagnosed Date Irritable bowel syndrome 06/02/2023 Diabetes mellitus 06/24/2021 Periumbilical pain 06/24/2021 Gastroesophageal reflux disease 06/24/2021 History of polyp of colon 06/24/2021 Hyperlipidemia 06/24/2021 Screening for malignant neoplasm of colon 2021 Urinary incontinence 06/24/2021 Chronic kidney disease 04/30/2020 Hypertension 04/30/2020 Hypertensive renal disease 04/30/2020 Renal disorder due to type 2 diabetes mellitus 0 04/30/2020 Urge incontinence of urine 04/30/2020 Immunizations Name Administration Dates Next Due Influenza, Unspecified 12/20/2019 Family History Medical History Relation Comments Cancer Father Diabetes Father Cancer Mother Diabetes Mother Cancer Sibling Relation Status Comments Father Mother Sibling Social History Tobacco Use Types Packs/Day Years Used Date Smoking Tobacco: Former Smokeless Tobacco: Never Tobacco Cessation:Counseling Given: No Comments:Smoking History Info:Every day Comments Unknown Sex and Gender Information Value Date Recorded Sex Assigned at Not on file Legal Sex Female 4:57 PM EST Gender Identity Not on file Sexual Orientation Not on file Last Filed Vital Signs Vital Sign Reading Time Taken Comments Blood Pressure 124/80 06/02/2023 3:57 PM EDT Pulse 102 06/02/2023 3:57 PM EDT Temperature - - Respiratory Rate - - Oxygen Saturation 98% 06/02/2023 3:57 PM EDT Inhaled Oxygen Concentration - - Weight 68.5 kg (151 lb) 06/02/2023 3:57 PM EDT Height 157.5 cm (5' 2 ) 06/16/2020 3:25 PM EDT Body Mass Index 27.62 06/16/2020 3:25 PM EDT Plan of Treatment Upcoming Encounters Date Type Department Care Team (Late st Contact Info) Description 05/17/2024 10:15 AM EDT Office Visit [facility] [address] [phone] Bk Martinez MD [address] [phone] Health Maintenance Due Date Last Done Comments Breast Cancer Screening 1955 Pneumococcal Vaccine: 65+ Ye ars (1 of 2 - PCV) 1962 Colorectal Cancer Screening: Annual FOBT 2005 Colorectal Cancer Screening: Colonoscopy 2005 Colorectal Cancer Screening: Sigmoidoscopy 2005 Diabetes: Hemoglobin A1C 04/06/2020 Diabetes: Ophthalmology Exam 04/06/2020 Diabetes: Pedal Pulse Checked 04/06/2020 Diabetes: Sensory Foot Exam 04/06/2020 Diabetes: Visual Foot Exam 04/06/2020 Influenza Vaccine (#1) 2023 12/20/2019 Hepatitis B Vaccine Aged Out No longe r eligible based on patient's age to complete this topic Insurance [facility] ([id number]) [facility] ([id number]) Care Teams Fireboat Operator Relationship Specialty Start Date End Date Reinaldo Suarez MD [address] [place] [id number] PCP - General Family Medicine 12/22/20
--- OUTSIDE RECORDS SUMMARY | 2024-04-24 14:13 | XMS_ITS ---
Author Organization [facility] Address [address] [place] [address] Care Team Providers Care Car Carder Name Role Phone Reinaldo Suarez Primary Care Provider Unavailab baljit Godfrey Jr, Kee Unavailable Encounters Encounter Location Date Provider Diagnosis [facility] [address] [place] [address] 02/08/2024 Kee Godfrey Jr PLAN OF TREATMENT Next Appt Details Provider Name:Kee pedraza Jr, 02/06/2025 09:00:00 AM, [address], [address], [place], [address],
[2024-04-24 15:03] LABS: Creatinine Urine 199.82 mg/dL
[2024-04-24 15:44] LABS: Alanine Aminotransferase 8 U/L (0-31); Albumin Level 3.9 g/dL (3.5-5.0); Alkaline Phosphatase 64 U/L (39-117); Anion Gap 11 (12-20); Aspartate Amino Transferase 20 U/L (5-31); Bilirubin Total 0.5 mg/dL (0.0-1.0); Blood Urea Nitrogen 23 mg/dL (9-16); Calcium 9.6 mg/dL (8.4-10.2); Carbon Dioxide 24 mmol/L (22-29); Chloride 113 mmol/L (96-108); Estimated Glomerular Filt Rate 38; Glucose Random 87 mg/dL (60-115); Potassium 3.9 mmol/L (3.3-5.1); Sodium 144 mmol/L (135-145)
== END 2024-04-24 13:16 | disposition home or self-care (01) ==
LOC: HO.WFDLDS 13:15
PROVIDERS: Visit Provider Family Medicine
DX: I10 Essential (primary) hypertension (principal)
CPT/HCPCS: 36415; 80053; 82043; 82570

== ENCOUNTER 2024-04-25 09:25 | Outpatient (AMB) | payer OTHER, SELFPAY ==
--- NOTE | 2024-04-25 09:25 | MHC.PC.OV ---
Vital Signs 04/25/24 09:26 Height 5 ft 1 in Weight 147 lb 8 oz BMI 27.9 BP 138/70 Blood Pressure Location Lt brachial Position Sitting Pulse 100 Pulse Source Pulse Oximeter Pulse Oximetry (%) 99 Oxygen Delivery Method Room Air Intake Visit Reasons: f/u diabetes, hypertension Allergies tuberculin,PPD,multi-puncture Allergy (Intermediate, Verified 04/25/24 09:30) hives/SOB oxycodone [Percocet] Allergy (Unknown, Verified 04/25/24 09:30) unknown Doxycycline Hyclate Allergy (Intermediate, Uncoded 04/25/24 09:30) dizziness, n/v Tobacco use date assessed: 04/25/24 Fall risk assessment: 1 Fall in past year Last assessed Fall Risk: 04/25/24 Dental Screening Dental Screen Date: 04/25/24 Did you have a dental visit in the last 12 months?: No Did you have a dental problem in the last 6 months where you did not have access to dental care?: No Was dental information given to patient?: Patient declined HPI f/u diabetes, hypertension HPI Details 68 y/o female presents to f/u diabetes, hypertension. Blood pressure today 138/70, 100p. She is on lisinopril 20mg, metoprolol 25mg daily A1c today 04/25/24 5.9%. 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 Sister No problems noted. Sister No problems noted. Daughter No problems noted. Daughter No problems noted. Daughter No problems noted. Social History Housing: House Alcohol intake: former Patient Tobacco Use Status: Former Tobacco user e-Cigarette/Vaping Use: Never Used Second Hand Smoke Exposure: No service: No Current occupational status: retired and disabled Current occupational exposures/hazards: No Cognitive needs: No Hearing needs: No Vision needs: No Questionnaire PHQ-9 Over the last 2 weeks, how often have you been bothered by any of the following problems? 1. Little interest or pleasure in doing things: several days 2. Feeling down, depressed, or hopeless: several days 3. Trouble falling or staying asleep, or sleeping too much: not at all 4. Feeling tired or having little energy: several days 5. Poor appetite or overeating: several days 6. Feeling bad about yourself - or that you are a failure or have let yourself or your family down: not at all 7. Trouble concentrating on things, such as reading the newspaper or watching television: not at all 8. Moving or speaking so slowly that other people could have noticed. Or the opposite - being so fidgety or restless that you have been moving around a lot more than usual: not at all 9. Thoughts that you would be better off or of hurting yourself in some way: not at all Total score: 4 36714 - PHQ-9 Billing: Yes Source: Developed by Drs. Barrie Browning, Claudia Nichols, Jason Khan and colleagues, with an educational jalyn from [employer]. Thrive Questionnaire Date Thrive assessed: 04/25/24 I am a: Patient What is your living situation today?: I have a steady place to live Within the past 12 months, did the food you bought not last and you didn't have the money to get more?: I choose not to answer this question Within the past 12 months, did you worry whether your food would run out before you got money to buy more?: I choose not to answer this question Do you have trouble paying for medicines?: No Do you have trouble getting transportation to medical appointments?: No Do you have trouble paying your heating and electricity bill?: I choose not to answer this question Do you have trouble taking care of your child, family member or friend?: No Do you have trouble with day-to-day activities such as bathing, preparing meals, shopping, managing finances, etc.?: No Are you currently unemployed and looking for a job?: No Are you interested in more education?: No Please select the resources that you would like help with: None Currently or been in a relationship where the following occur: I choose not to answer THRIVE Score: 0 AUDIT C Alcohol Use Questionnaire (AUDIT-C) 1. How often do you have a drink containing alcohol?: Never 3. How often do you have six or more drinks on one occasion?: Never Total Score: 0 RAKAN-7 AMB Questionnaire RAKAN-7 Date RAKAN - 7 assessed: 04/25/24 Feeling nervous, anxious, or on edge: 1 = Several days Not being able to stop or control worryin = Several days Worrying too much about different things: 0 = Not at all Trouble relaxin = Not at all Being so restless that it is hard to sit still: 1 = Several days Becoming easily annoyed or irritable: 0 = Not at all Feeling afraid as if something awful might happen: 1 = Several days Total RAKAN-7 score (0-4 normal; 5-9 mild; 10-14 moderate; 15-21 severe): 4 Source: Developed by Drs. Barrie Browning, Claudia Nichols, Jason Khan and colleagues, with an educational jalyn from [employer]. RAKAN-7 Assessment Billing RAKAN-7 Assessment Tool: RAKAN-7 Assessment 94322 Review of Systems Const Denies chills, Denies fatigue, Denies fever(s), Denies headache(s) and Denies weakness ENT Denies dizziness and Denies headache(s) Card Denies dyspnea Resp Denies cough, Denies dyspnea, Denies wheezing and Denies other (shortness of breath) Musc Denies numbness and Denies tingling Neuro Denies dizziness, Denies headache(s), Denies numbness, Denies tingling and Denies weakness Psych Denies anxiety and Denies depression Endo Denies fatigue Aller/Immun Denies wheezing Physical exam (Primary Care) Vital Signs: Last Vital Signs Pulse 100 04/25/24 09:26 BP 138/70 04/25/24 09:26 Pulse Ox 99 04/25/24 09:26 Oxygen Delivery Method Room Air 04/25/24 09:26 BMI result Body Mass Index 27.9 Tobacco/Smoking Status: Tobacco use Status Tobacco use date assessed 04/25/24 04/25/24 09:34 Patient Tobacco Use Status Former Tobacco user 04/25/24 09:34 e-Cigarette/Vaping Use Never Used 04/25/24 09:34 PHQ-9: PHQ-9 Score PHQ-9: Total score 4 04/25/24 09:48 Thrive Assessment: Date of Thrive Assessment Date Thrive assessed 04/25/24 04/25/24 09:34 Currently or been in a relationship where the following occur: I choose not to answer Const General: well developed; No acute distress Nutritional Appearance: well nourished Orientation/consciousness: patient oriented x3 HENMT Head: Yes normocephalic and Yes atraumatic Eyes General: appearance normal, both eyes and all related structures Pupils: Equal, round and reactive pupils present EOM: EOMs intact bilaterally Resp Effort & Inspection: normal respiratory effort Auscultation: clear to auscultation bilaterally Cardio Rate: regular rate Rhythm: regular rhythm Heart sounds: S1 normal heart sound present, S2 normal heart sound present, no gallops, no murmurs and no rubs Neuro General: patient oriented x3 and gait normal Cranial nerves: Yes Equal, round and reactive pupils present Psych Affect: normal affect Results AMB Hemoglobin A1c AMB Hemoglobin A1c 5.9 % Last Edit by Lin Aguayo CMA on 04/25/24 09:42 Results Reviewed Results Reviewed: Laboratory Last Values Hgb A1c (Clinic) 5.9 % (4.0-6.0) 04/25/24 09:36 Coding Level of Care Code Est Pt Level 4 (82458) Diagnoses Controlled type 2 diabetes mellitus without complication, with long-term current use of insulin E11.9; Z79.4 Diabetes mellitus complication status: without complication Diabetes mellitus intermodal customer service insulin use: with intermodal customer service use Essential hypertension I10 Hypertension type: essential hypertension CRF (chronic renal failure) N18.9 Additional Codes RAKAN-7 Assessment Billing - RAKAN-7 Assessment Tool: RAKAN-7 Assessment 42340 ([id number]) PHQ-9 - 89619 - PHQ-9 Billing: Yes ([id number]) Assessment & Plan Assessment & Plan (1) Diabetes type 2, controlled: Comment: Pt also has CKD, stage 3 Code(s): E11.9 - Type 2 diabetes mellitus without complications Category: Medical Qualifiers: Diabetes mellitus complication status: without complication Diabetes mellitus intermodal customer service insulin use: with intermodal customer service use Qualified Code(s): E11.9 - Type 2 diabetes mellitus without complications; Z79.4 - 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 Will?continue?to?monitor?this She?has?an?upcoming?appointment?with?Dr. Martinez Continue?good?blood?pressure?and?blood?sugar?control Will?follow Orders: Orders AMB Hemoglobin A1c Today Z13.9 - Encounter for screening, unspecified Medications: New cyclobenzaprine Take in evening 5 mg PO DAILY 3 days PRN 3 tabs 0RF muscle spasm Refilled amitriptyline 50 mg PO BEDTIME 30 days 30 tabs 2RF lisinopril 20 mg PO DAILY 90 days 90 tabs 2RF
[2024-04-25 09:26] VITALS: BP 138/70; PULSE 100; O2SAT 99; BMI 27.9
--- OUTSIDE RECORDS SUMMARY | 2024-04-25 09:40 | XMS_ITS | Patient Health Record ---
Author Organization [facility] Address [address] [place] [phone] Care Team Providers Care Sap Portal Architect Name Role Phone Reinaldo Suarez Primary Care [...] Problem Abdominal pain, epigastric (R10.13) Active confirmed 12751774 Problem Colon cancer screening (Z12.11) Active confirmed 465581099 Problem Personal history of colonic polyps (Z86.010) Active confirmed 140328173 Problem Periumbilical abdominal pain (R10.33) Active confirmed 488796262 Problem Gastroesophageal reflux disease, unspecified whether esophagitis present (K21.9) Active confirmed 896568001 Problem Irritable bowel syndrome, unspecified type (K58.9) Active confirmed 00461075 VITAL SIGNS Temperature 97.3 degrees Fahrenheit 02/08/2024 Blood pressure diastolic 00 mm Hg 02/08/2024 Height 61.5 in 02/08/2024 Blood pressure systolic 000 mm Hg 02/08/2024 Weight 150 lb 2 oz lbs 02/08/2024 BMI 27.90 kg/m2 02/08/2024 Encounters Encounter Location Date Provider Diagnosis [facility] [address] [facility] [address] [place] [phone] 02/08/2024 Kee Godfrey Jr Gastroesophageal reflux disease, unspecified whether esophagitis present K21.9 and Irritable bowel syndrome, unspecified type K58.9 [facility] [address] [place] [phone] 02/08/2024 Kee Godfrey Jr [facility] [address] [place] [address] [place] [phone] 03/28/2024 Kee Godfrey Jr ASSESSMENTS Encounter Date [...] Provider Name:Kee pedraza Jr, 02/06/2025 09:00:00 AM, [address] [place] [address], Suite [facility], [place], [phone], Insurance Providers Payer Name Payer Address Payer Phone Subscriber Number Group Number Insured Name Patient Relationship to Insured Coverage Start Date Coverage End Date [facility] [address] [place] [address] [id number] BRIANNAMICHELLE Self - patient is the insured [...]
--- OUTSIDE RECORDS SUMMARY | 2024-04-25 09:40 | XMS_ITS | Clinical Summary ---
Author Organization [facility] Address [address] [facility] [address] [place] [address] Phone Care Team Providers Care Parts Product Analyst Name Role Phone Reinaldo Suarez MD Primary [...] Visit [facility] [address] [phone] Bk Martinez MD [address] [phone] Health Maintenance Due Date Last Done Comments [...] patient's age to complete this topic Insurance [facility] ([id number]) [facility] ([id number]) Care Teams Parts Product Analyst Relationship Specialty Start Date End Date Reinaldo Suarez MD [address] [place] [id number] PCP - General Family Medicine 12/22/20
--- OUTSIDE RECORDS SUMMARY | 2024-04-25 09:40 | XMS_ITS ---
Author Organization [facility] Address [address] [place] [address] Care Team Providers Care Picker Tender Name Role Phone Reinaldo Suarez Primary Care Provider Unavailab Kee Brooke Jr Unavailable [phone] REASON FOR VISIT please lock 02-08-2024 office note Encounters Encounter Location Date Provider Diagnosis [facility] [address] [place] [address] 03/28/2024 Kee Godfrey Jr PLAN OF TREATMENT Next Appt Details Provider Name:Kee pedraza Jr, 02/06/2025 09:00:00 AM, [address], [address], [place], [address],
--- OUTSIDE RECORDS SUMMARY | 2024-04-25 09:40 | XMS_ITS ---
Author Organization [facility] Address [address] [place] [address] Care Team Providers Care Oncology Rn Name Role Phone Reinaldo Suarez Primary Care Provider Unavailab baljit Godfrey Jr, Kee Unavailable [phone] Encounters Encounter Location Date Provider Diagnosis [facility] [address] [place] [address] 02/08/2024 Kee Godfrey Jr PLAN OF TREATMENT Next Appt Details Provider Name:Kee pedraza Jr, 02/06/2025 09:00:00 AM, [address], [address], [place], [address],
--- OUTSIDE RECORDS SUMMARY | 2024-04-25 09:40 | XMS_ITS ---
Author Organization [facility] Address [address] [place] [address] Care Team Providers Care Machinist Bench Name Role Phone Reinaldo Suarez Primary Care [...] 02/08/2024 Encounters Encounter Location Date Provider Diagnosis [facility] [address] [facility] [address] [place] [address] 02/08/2024 Kee Godfrey Jr Gastroesophageal reflux disease, [...] Provider Name:Kee pedraza Jr, 02/06/2025 09:00:00 AM, [address] [place] [address] Drive, [address], [place], [address],
--- OUTSIDE RECORDS SUMMARY | 2024-04-25 09:40 | XMS_ITS | Data Portability ---
Author Organization [employer] [facility] Address [address] [place] [address] Care Team Providers Care Level Vial Inspector And Tester Name Role Phone HIM CCA OTHER Assessment Encounter Date Assessment Date Assessment LastModified by Organization Details LastModified Time 09/17/2023 09/17/2023 I have reviewed and agree with the assessment and plan as documented by the manager of global. I provided real time medical direction for this encounter and was immediately available to provide additional phone based assistance as needed. History as noted by manager of global. Pt with history of HTN, CKD (last [...] need to be referred back to her emt driver for evaluation, who last saw the pt [...] BMP, serum or plasma 2023 024 btils [facility], [address] [place] [address], [address], 11:35:24 hemoglobin + hematocrit, blood [address], [address], 4 11:35:22 urinalysis, dipstick [address] [facility], [address] [place] [address], [address], 11:48:50 Referral None recorded. Procedures None recorded. Surgeries None recorded. Imaging None recorded. Medication Orders sodium chloride 0.9 % intravenous solution 2023 024 [id number], [address] [place], [address], 11:48:49 Patient TargetsNo targets recorded. Patient InstructionsNo instructions recorded. Reason for Referral None Reported. Results Created Date Observation Date Name Description Value Unit Range Abnormal Flag Note LastModifiedBy Organization Detail LastModifiedTime 09/17/1909/17/2023 urina lysis , dipst ick Leukocytes negati ve Not Available [facility] ed [address] [place] [address], [address], 09/17/2023 11:47:07 09/17/19 24 09/17/2023 urina lysis , dipst ick Nitrite negati ve Not Available [facility] ed [address] [place] [address], [address], 09/17/2023 11:47:07 09/17/19 24 09/17/2023 urina lysis , dipst ick Protein trace Not Available Main - Ins [address], [address], 09/17/2023 11:47:07 09/17/19 24 09/17/2023 urina lysis , dipst ick Blood negati ve Not Available [facility] ed [address] [place] [address], [address], 09/17/2023 11:47:07 09/17/19 24 09/17/2023 urina lysis , dipst ick Ketone trace Not Available Main - Ins [address], [address], 09/17/2023 11:47:07 09/17/19 24 09/17/2023 urina lysis , dipst ick Glucose negati ve Not Available Main - Inst [address], [address], 09/17/2023 11:47:07 09/17/19 24 09/17/2023 hemog lobin + hemat ocrit , blood Hemoglobin 11.9 Not Available Main - Insted [address] [place] [address], [address], 09/17/2023 11:33:02 09/17/19 24 09/17/2023 hemog lobin + hemat ocrit , blood Hematocrit 35 Not Available Main - Insted [address] [place] [address], [address], 09/17/2023 11:33:02 09/17/19 24 09/17/2023 BMP, serum or plasm a BUN 50 Not Available Main - Ins [address], [address], 09/17/2023 11:32:55 09/17/19 24 09/17/2023 BMP, serum or plasm a Ca 1.32 Not Available Main - Ins [address], [address], 09/17/2023 11:32:55 09/17/19 24 09/17/2023 BMP, serum or plasm a CI- 108 Not Available Main - Ins [address], [address], 09/17/2023 11:32:55 09/17/19 24 09/17/2023 BMP, serum or plasm a CRE 1.9 Not Available Main - Ins [address], [address], 09/17/2023 11:32:55 09/17/19 24 09/17/2023 BMP, serum or plasm a GLU 173 Not Available Main - Ins [address], [address], 09/17/2023 11:32:55 09/17/19 24 09/17/2023 BMP, serum or plasm a K+ 5.4 Not Available Main - Ins [address], [address], 09/17/2023 11:32:55 09/17/19 24 09/17/2023 BMP, serum or plasm a Na+ 137 Not Available Main - Ins [address], [address], 09/17/2023 11:32:55 09/17/19 24 09/17/2023 BMP, serum or plasm a tCO2 21 Not Available Main - Ins [address], [address], 09/17/2023 11:32:55 Result Notes None recorded. Medical [...] mm[Hg] 80 mm[Hg] James Bonilla MD [address] [facility],[address], [place], [address], [place] - [employer] 4 10:58:17 Date Recorded Oxygen saturation Oxygen [...] SNOMED-CT Code Diagnosis ICD10 Code Diagnosis Note [id number] James Bonilla MD Main - instED [address] [place] [phone] 09/17/2023 10:55:08 09/18/2023 22:12:46 Excessive thirst 83014645 R63.1 Acute-on-c hronic renal failure 998248705 N17.9 Health Concerns Section Related Observation LastModified by Organization Detai ls LastModified Time None Recorded Concern Status LastModified by Organization Details LastModified Time None Recorded Advance Directives Directive None Recorded Payers Encounter Date Sequence Insurance Name Policy Number Policy Jerome Covered Member ID Jerome Member ID Guarantor Name 09/17/2023 1 [facility] - DOS ON OR AFTER 2022 - DUAL ELIGIBLE - CARE HOME OPTIONS AND ONE CARE (MEDICARE REPLACEMENT/ADV ANTAGE - HMO) Zulay Styles [id number] Zulay Styles Notes Date Note Type Note Provider Name and Address Organization Details Recorded Time 09/17/2023 text/html This was a supervised home visit with manager of global Aleyda Benitez. [facility] Nurse Triage Notes (Philip Roberson): Reason For Request: Patient feels weak, urinating a lot, drinking lots of fluids, and feels shaky. Chief Complaints: Weakness/Lethargy, Syncope/Dizziness/ Lightheadedness Allergies: Unknown Comments: Agent Producer verified the member's name//address and phone number. [...] emergency treatment if needed -Allen Roberson RN Agent Producer POC Test Results from Aleyda Benitez - [...] .................. .................. .................. .................. .................. .................. ............... Agent Producer Note From Aleyda Benitez: Community Agent Producer Silas Benitez [email or web address] dispatched to a [facility] for a 68 yof C/O thirst, shaking, [...] of 175 that AM. No pedal edema. [facility] consulted; #22 IV placed in her left AC, BMP acquired, she was given 100 mL NS. Urine dip in insted. She was instructed to drink plenty of water, keep sugar to a minimum, and speak w/ her Physician IVONNE. She was informed that she needed follow up bloodwork and possibly a referral back to her past Cistern Room Working Supervisor. Red flags discussed at length. .................. .................. .................. .................. .................. .................. .................. ............... Disposition: Fulfilled James Bonilla MD [address] [facility],[address], [place], [address], [phone] - [facility] [facility] 09/17/2023 12:57:52 OBGyn Episode No OBEpisode recorded.
== END 2024-04-25 09:57 | disposition home or self-care (01) ==
PROVIDERS: PCP Family Medicine; Visit Provider Family Medicine
DX: E11.9 Type 2 diabetes mellitus without complications (principal); Z79.4 Long term (current) use of insulin; I12.9 Hypertensive chronic kidney disease with stage 1 through stage 4 chronic kidney disease, or unspecified chronic kidney disease; N18.9 Chronic kidney disease, unspecified; Z13.9 Encounter for screening, unspecified

== ENCOUNTER → 2024-04-25 09:25 | Outpatient (BNVA) | payer OTHER, SELFPAY | PROVIDERS: PCP Family Medicine; Visit Provider Family Medicine | DX: I12.9 Hypertensive chronic kidney disease with stage 1 through stage 4 chronic kidney disease, or unspecified chronic kidney disease (principal); E11.22 Type 2 diabetes mellitus with diabetic chronic kidney disease; N18.9 Chronic kidney disease, unspecified | CPT/HCPCS: 83036; 96127; 99212 ==

== ENCOUNTER 2024-05-22 09:44 | Outpatient (REF) | payer OTHER, SELFPAY ==
--- OUTSIDE RECORDS SUMMARY | 2024-05-22 10:45 | XMS_ITS | Data Portability ---
Author Organization [employer] Address [address] [place] [phone] Care Team Providers Care Manager Filter Name Role Phone HIM CCA OTHER Assessment Encounter Date Assessment Date Assessment LastModified by Organization Details LastModified Time 09/17/2023 09/17/2023 I have reviewed and agree with the assessment and plan as documented by the reading professor. I provided real time medical direction for this encounter and was immediately available to provide additional phone based assistance as needed. History as noted by reading professor. Pt with history of HTN, CKD (last [...] need to be referred back to her transportation engineering technician for evaluation, who last saw the pt [...] 2023 024 btils [facility], [address] [place] [address], [address], 11:35:24 hemoglobin + hematocrit, blood [address], [address], 4 11:35:22 urinalysis, dipstick 2023 024 [facility], [address] [place] [address], [address], 11:48:50 Referral None recorded. Procedures None recorded. Surgeries None recorded. Imaging None recorded. Medication Orders sodium chloride 0.9 % intravenous solution 2023 024 [id number], [address] [place], [address], 11:48:49 Patient TargetsNo targets recorded. Patient InstructionsNo instructions recorded. Reason for Referral None Reported. Results Created Date Observation Date Name Description Value Unit Range Abnormal Flag Note LastModifiedBy Organization Detail LastModifiedTime 09/17/1909/17/2023 urina lysis , dipst ick Leukocytes negati ve Not Available [facility] ed [address] [place] [address], [address], 09/17/2023 11:47:07 09/17/19 24 09/17/2023 urina lysis , dipst ick Nitrite negati ve Not Available [facility] ed [address] [place] [address], [address], 09/17/2023 11:47:07 09/17/19 24 09/17/2023 urina lysis , dipst ick Protein trace Not Available Main - Ins [address], [address], 09/17/2023 11:47:07 09/17/19 24 09/17/2023 urina lysis , dipst ick Blood negati ve Not Available [facility] ed [address] [place] [address], [address], 09/17/2023 11:47:07 09/17/19 24 09/17/2023 urina lysis , dipst ick Ketone trace Not Available Main - Ins [address], [address], 09/17/2023 11:47:07 09/17/19 24 09/17/2023 urina lysis , dipst ick Glucose negati ve Not Available Main - Inst [address], [address], 09/17/2023 11:47:07 09/17/19 24 09/17/2023 hemog lobin + hemat ocrit , blood Hemoglobin 11.9 Not Available Main - Insted [address] [place] [address], [address], 09/17/2023 11:33:02 09/17/19 24 09/17/2023 hemog lobin + hemat ocrit , blood Hematocrit 35 Not Available Main - Insted [address] [place] [address], [address], 09/17/2023 11:33:02 09/17/19 24 09/17/2023 BMP, serum or plasm a BUN 50 Not Available Main - Ins [address], [address], 09/17/2023 11:32:55 09/17/19 24 09/17/2023 BMP, serum or plasm a Ca 1.32 Not Available Main - Ins [address], [address], 09/17/2023 11:32:55 09/17/19 24 09/17/2023 BMP, serum or plasm a CI- 108 Not Available Main - Ins [address], [address], 09/17/2023 11:32:55 09/17/19 24 09/17/2023 BMP, serum or plasm a CRE 1.9 Not Available Main - Ins [address], [address], 09/17/2023 11:32:55 09/17/19 24 09/17/2023 BMP, serum or plasm a GLU 173 Not Available Main - Ins [address], [address], 09/17/2023 11:32:55 09/17/19 24 09/17/2023 BMP, serum or plasm a K+ 5.4 Not Available Main - Ins [address], [address], 09/17/2023 11:32:55 09/17/19 24 09/17/2023 BMP, serum or plasm a Na+ 137 Not Available Main - Ins [address], [address], 09/17/2023 11:32:55 09/17/19 24 09/17/2023 BMP, serum or plasm a tCO2 21 Not Available Main - Ins [address], [address], 09/17/2023 11:32:55 Result Notes None recorded. Medical [...] mm[Hg] 80 mm[Hg] James Bonilla MD [address] [facility],[address], [place], [address], [place] - [facility] 4 10:58:17 Date Recorded Oxygen saturation Oxygen [...] SNOMED-CT Code Diagnosis ICD10 Code Diagnosis Note 79245 James Bonilla MD Main - instED [address] [place] [phone] 09/17/2023 10:55:08 09/18/2023 22:12:46 Excessive thirst 87832033 R63.1 Acute-on-c hronic renal failure [id number] N17.9 Health Concerns Section Related Observation LastModified by Organization Detai ls LastModified Time None Recorded Concern Status LastModified by Organization Details LastModified Time None Recorded Advance Directives Directive None Recorded Payers Encounter Date Sequence Insurance Name Policy Number Policy Jerome Covered Member ID Jerome Member ID Guarantor Name 09/17/2023 1 [facility] - DOS ON OR AFTER 2022 - DUAL ELIGIBLE - GROUP HOME OPTIONS AND ONE CARE (MEDICARE REPLACEMENT/ADV ANTAGE - HMO) Zulay Styles [id number] Zulay Styles Notes Date Note Type Note Provider Name and Address Organization Details Recorded Time 09/17/2023 text/html This was a supervised home visit with reading professor Aleyda Benitez. [facility] Nurse Triage Notes (Philip Roberson): Reason For Request: Patient feels weak, urinating a lot, drinking lots of fluids, and feels shaky. Chief Complaints: Weakness/Lethargy, Syncope/Dizziness/ Lightheadedness Allergies: Unknown Comments: Hydrometeorology Teacher verified the member's name//address and phone number. [...] emergency treatment if needed -Allen Roberson RN Scrap Baller POC Test Results from Aleyda Benitez - [...] .................. .................. .................. .................. .................. .................. ............... Scrap Baller Note From Aleyda Benitez: Community Scrap Baller Silas Benitez SC6 dispatched [facility] for a 68 yof C/O thirst, shaking, [...] of 175 that AM. No pedal edema. [facility] [place]; #22 IV placed in her left AC, BMP acquired, she was given 100 mL NS. Urine dip in insted. She was instructed to drink plenty of water, keep sugar to a minimum, and speak w/ her Physician IVONNE. She was informed that she needed follow up bloodwork and possibly a referral back to her past Home Health Nurse Licensed Practical. Red flags discussed at length. .................. .................. .................. .................. .................. .................. .................. ............... Disposition: Fulfilled James Bonilla MD [address] [facility],[address], [place], [address], [facility] - [facility] 09/17/2023 12:57:52 OBGyn Episode No OBEpisode recorded.
--- OUTSIDE RECORDS SUMMARY | 2024-05-22 10:45 | XMS_ITS ---
Author Organization [facility] Address [address] [place] [address] Care Team Providers Care Dining Room Coordinator Name Role Phone Reinaldo Suarez Primary Care Provider Joe Brooke Jr, Kee Unavailable Encounters Encounter Location Date Provider Diagnosis [facility] [address] [place] [address] 02/08/2024 Kee Godfrey Jr Plan Of Treatment Next Appt Details Provider Name:Kee pedraza Jr, 02/06/2025 09:00:00 AM, [address], [address], [place], [address], Progress Notes * RAY REEDOB: (68 yo F)Acc No.[id number]:02/08/2024 Patient:?MICHELLE REED :1955???Age:68 Y???Sex:Female Address:[address] [place] [address] , [place] [address] Subjective: * Chief Complaints: * ??? * Medical History:? * Surgical History:? * Hospitalization/Major Diagno stic Procedure:? * Medications:? Objective: Assessment: Plan: * Treatment: * Procedure Codes:? * Preventive Medicine:? ??Screenings:?Fall Risk Screening?Fall Risk Assessment:?One fall with injury in the past year,?Screening:?One fall with injury in the past year,?Assessment:?Not performed, no reason specified,?Plan of Care:?Documented,?Type of fall plan of care:?Balance, strength and gait training or instruction provided.? * Addendum: * ? true * Date:? Generated for Nemo feng/Lillie/Johnitting on:?05/22/2024 10:45 AM EDT
--- OUTSIDE RECORDS SUMMARY | 2024-05-22 10:45 | XMS_ITS ---
Author Organization [facility] Address [address] [place] [address] Care Team Providers Care Mechanical Inspector Name Role Phone Reinaldo Suarez Primary Care Provider Unavailab Kee Brooke Jr Unavailable REASON FOR VISIT please lock 02-08-2024 office note Encounters Encounter Location Date Provider Diagnosis [facility] [address] [place] [address] 03/28/2024 Kee Godfrey Jr Plan Of Treatment Next Appt Details Provider Name:Kee pedraza Jr, 02/06/2025 09:00:00 AM, [address], [address], [place], [address], Progress Notes * RAY REEDOB: (68 yo F)Acc No.[id number]:03/28/2024 Patient:?MICHELLE REED :1955???Age:68 Y???Sex:Female Address:[address] [place] [address] [address] [facility] , [place] [address] * true * Date:? Generated for Printi ng/Fasaskiag/eTransmitting on:?05/22/2024 10:45 AM EDT
--- OUTSIDE RECORDS SUMMARY | 2024-05-22 10:46 | XMS_ITS | Encounter Summary ---
Author Organization [facility] Address [address] [place] [phone] Phone Care Team Providers Care Gsa Coordinator Name Role Phone Reinaldo Suarez MD Primary Care Provider Reason for Visit * Reason Comments Chronic Kidney Disease Encounter Details Date Type Department Care Team ([facility] Contact Info) Description 05/17/2024 10:15 AM EDT Office Visit [facility] [address] [address] Bk Martinez MD [address] [address] Stage 3b chronic kidney disease (HCC) (Primary Dx); Hypertensive renal disease; Renal disorder due to type 2 diabetes mellitus <Diabetic nephropathy> (HCC) Social History Tobacco Use Types Packs/Day Years Used Date Smoking Tobacco: Former Smokeless Tobacco: Never Comments:Smoking History Inf o:Every day Comments Unknown Sex and Gender Information Value Date Recorded Sex Assigned at Not on file Legal Sex Female 4:57 PM EST Gender Identity Not on file Sexual Orientation Not on file documented as of this encounter Last Filed Vital Signs Vital Sign Reading Time Taken Comments Blood Pressure 124/64 05/17/2024 11:07 AM EDT Pulse 60 05/17/2024 11:07 AM EDT Temperature - - Respiratory Rate - - Oxygen Saturation - - Inhaled Oxygen Concentration - - Weight 66.2 kg (146 lb) 05/17/2024 11:07 AM EDT Height - - Body Mass Index 26.7 06/16/2020 3:25 PM EDT documented in this encounter Progress Notes * Bk Martinez MD - 05/17/2024 10:15 AM EDT [facility] Patient Name: Zulay Styles, Female Date of : 1955, 68 y.o. Date: 05/17/2024 Referring MD: Mani Curtis MD PCP: Reinaldo Suarez MD Reason For Visit: I had the pleasure of seeing your patient for follow up of CKD. The following portions of the patient's chart were reviewed in this encounter and updated as appropriate: Allergies Meds Problems Med Hx Surg Hx Fam Hx Constitutional: Negative for chills, fever, malaise/fatigue and weight loss. HENT: Negative for ear pain, hearing loss and tinnitus. Eyes: Negative for blurred vision, double vision, photophobia and pain. Respiratory: Negative for cough, hemoptysis, sputum production, shortness of breath and wheezing. Cardiovascular: Negative for chest pain, palpitations, orthopnea, claudication and leg swelling. Gastrointestinal: Negative for abdominal pain, diarrhea, nausea and vomiting. Genitourinary: Negative for dysuria, flank pain, frequency, hematuria and urgency. Musculoskeletal: Negative for myalgias. Skin: Negative for itching and rash. Neurological: Negative for dizziness, tingling and headaches. Psychiatric/Behavioral: Negative for depression. Full 13 point review of systems unremarkable except as noted above. Past Medical History: Diagnosis Date Anxiety disorder Diabetes mellitus (HCC) Gastroesophageal reflux disease Glaucoma Hypertension Past Surgical History: Procedure Laterality Date HERNIA REPAIR OTHER SURGICAL HISTORY Social History Tobacco Use Smoking status: Former Smokeless tobacco: Never Tobacco comments: Smoking History Info:Every day Substance Use Topics Alcohol use: Not on file Family History Problem Relation Age of Onset Diabetes Mother Diabetes Father Cancer Father Cancer Mother Cancer Sibling Current Outpatient Medications Medication Sig Dispense Refill acetaminophen (TYLENOL) 325 MG tablet Take 650 mg by mouth amitriptyline (ELAVIL) 50 MG tablet Take 50 mg by mouth at bed time aspirin (ST ANGELITA) 81 MG EC tablet Take 1 tablet by mouth 1 (one) time each day atorvastatin (LIPITOR) 40 MG tablet Take 1 tablet by mouth 1 (one) time each day Cholecalciferol (Vitamin D3) 125 MCG (5000 UT) capsule TAKE 1 CAPSULE BY MOUTH DAILY FOR 30 DAYS citalopram (CeleXA) 40 MG tablet Take 1 tablet by mouth 1 (one) time each day cyclobenzaprine (FLEXERIL) 10 MG tablet Take 10 mg by mouth at bed time diclofenac (VOLTAREN) 50 MG EC tablet Take 50 mg by mouth 3 times a day dicyclomine (BENTYL) 20 MG tablet TAKE 1 TABLET BY MOUTH 2 TO 4 TIMES A DAY famotidine (PEPCID) 40 MG tablet Take 1 tablet by mouth at bed time lisinopril (PRINIVIL,ZESTRIL) 20 MG tablet Take 1 tablet by mouth 1 (one) time each day LORazepam (ATIVAN) 0.5 MG tablet meclizine (ANTIVERT) 25 MG tablet Take 1 tablet by mouth 1 (one) time each day metoprolol succinate XL (TOPROL-XL) 25 MG 24 hr tablet Take 25 mg by mouth 1 (one) time each day omeprazole (PriLOSEC) [address] capsule Take 40 mg by mouth 1 (one) time each day oxybutynin XL (DITROPAN-XL) 15 MG 24 hr tablet Take 15 mg by mouth simethicone (MYLICON) 80 MG chewable tablet TAKE 1 TABLET ORALLY 2 TO 4 TIMES A DAY NEEDED FOR ABDOMINAL BURPING FOR 30 DAYS simvastatin (ZOCOR) 40 MG tablet Take 1 tablet by mouth 1 (one) time each day solifenacin (VESICARE) 10 MG tablet Take 10 mg by mouth 1 (one) time each day timolol (TIMOPTIC) 0.5 % ophthalmic solution PLACE ONE DROP INTO BOTH EYES EVERY MORNING tolterodine (DETROL) 2 MG tablet Take 1 tablet by mouth 1 (one) time each day Toujeo Max SoloStar 300 UNIT/ML solution pen-injector INJECT 46 UNITS SUBCUTANEOUS DAILY traZODone (DESYREL) 150 MG tablet Take 150 mg by mouth at bed time Trulicity 3 MG/0.5ML solution pen-injector ADMINISTER 3 MG UNDER THE SKIN EVERY WEEK. DISCONTINUE JANUVIA No current facility-administered medications for this visit. Allergies Allergen Reactions Tuberculin Purified Protein Derivative Objective: Vitals: 05/17/24 1107 BP: 124/64 Pulse: 60 Weight: 146 lb (66.2 kg) Vitals reviewed. Constitutional: She is oriented to person, place, and time. She does not appear ill. HEENT: Mouth/Throat: Oropharynx is clear and moist. Eyes: Pupils are equal, round, and reactive to light. Neck: No JVD present. Cardiovascular: Regular rhythm. She exhibits no edema. Pulmonary/Chest: Breath sounds normal. Abdominal: Soft. There is no abdominal tenderness. Musculoskeletal: Normal range of motion. Neurological: She is alert and oriented to person, place, and time. Skin: Skin is warm. Psychiatric: She has a normal mood and affect. eGFR Date Value Ref Range Status 10/01/2020 52 Final Est GFR Non Date Value Ref Range Status 05/05/2022 47 ML/MIN/1.73 M2 Final Comment: Creatinine based estimated glomerular filtration (eGFR) in adults is calculated using the National Kidney Foundation recommended 2020 CKD-EPI equation. Estimates GFR from serum creatinine, age and sex. Testing performed or reported by [facility], a Service of [facility], [address] [place] [id number] Shannan Alvares MD, [employer] [facility]# [id number] Chemistry Lab Units 06/02/23 1623 CREATININE mg/dL 1.52* BUN mg/dL 34* BUN / CREAT RATIO 22 GLUCOSE mg/dL 114* POTASSIUM mmol/L 5.2 SODIUM mmol/L 142 CO2 mmol/L 20 CHLORIDE mmol/L 107* ALBUMIN g/dL 4.3 Bone Mineral Lab Units 06/02/23 1623 CALCIUM mg/dL 10.2 PHOSPHORUS mg/dL 2.9* PTH pg/mL 47 VIT D 25 HYDROXY ng/mL 70.1 Urine Lab Units 06/02/23 1623 ALB MG/G CREAT UR mg/g creat 19 No lab exists for component: SPECGRAV , GLUCOSEUR , BILIRUBINUR , RBCUR , UPROTEIN , LEUKOCYTESUR , NITRITE PLAN: Assessment & Plan 1. Stage 3b chronic kidney disease (HCC) 2. Hypertensive renal disease 3. Renal disorder due to type 2 diabetes mellitus <Diabetic nephropathy> (HCC) Kidney function has not been checked recently. She does not have proteinuria. 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 She is on PPI which can cause chronic interstitial nephritis. Blood pressure is on target. She is on ACEi. There was no M spike on previous SPEP. PLAN Continue RAAS blockade Follow kidney function and electrolytes iPTH and vitamin d Urine protein to creatinine ratio Low sodium diet avoid NSAID (meloxicam) Yearly follow up Orders Placed This Encounter Renal funtion panel urine albumin / creatinine ratio PTH, intact Vit D 25 hydroxy Renal function panel Urine albumin / creatinine ratio Vit D 25 hydroxy (CKD 2,3,4,5) PTH, intact Return in 1 year (on 05/17/2025). Bk Martinez MD documented in this encounter Plan of Treatment Upcoming Encounters Date Type Department Care Team (Late st Contact Info) Description 06/01/2024 Orders Only [facility] [address] [facility] [address] [place] [phone] Bk Martinez MD [address] [facility] [address] [place] [phone] Stage 3b chronic kidney disease (HCC) 05/20/2025 2:00 PM EDT Office Visit [facility] [address] [facility] [address] [place] [address] Bk Martinez MD [address] [facility] [address] [place] [address] Scheduled Orders Name Type Priority Associated Diagnoses Orde r Schedule Renal function panel Lab Routine Stage 3b chronic kidney disease (HCC) Expected: 05/17/2025, Expires: 06/17/2025 Urine albumin / creatinine ratio Lab Routine Stage 3b chronic kidney disease (HCC) Expected: 05/17/2025, Expires: 06/17/2025 Vit D 25 hydroxy (CKD 2,3,4,5) Lab Routine Stage 3b chronic kidney disease (HCC) Expected: 05/17/2025, Expires: 06/17/2025 PTH, intact Lab Routine Stage 3b chronic kidney disease (HCC) Expected: 05/17/2025, Expires: 06/17/2025 documented as of this encounter Procedures Procedure Name Priority Date/Time Associated Diagnosis Comments URINE ALBUMIN / CREATININE RATIO Routine 05/17/2024 11:36 AM EDT Stage 3b chronic kidney disease (HCC) VITAMIN D 25 HYDROXY Routine 05/17/2024 11:36 AM EDT Stage 3b chronic kidney disease (HCC) PTH, INTACT Routine 05/17/2024 11:36 AM EDT Stage 3b chronic kidney disease (HCC) RENAL FUNCTION PANEL Routine 05/17/2024 11:36 AM EDT Stage 3b chronic kidney disease (HCC) documented in this encounter Results * Vit D 25 hydroxy (05/17/2024 11:36 AM EDT) Vitamin D, 25-OH, Total 82.3 30.0 - 100.0 ng/mL Resource Data Comment: Vitamin D deficiency has been defined by the [place] [employer] and an Endocrine Society practice guideline as a level of serum 25-OH vitamin D less than 20 ng/mL (1,2). The Endocrine Society went on to further define vitamin D insufficiency as a level between 21 and 29 ng/mL (2). 1. IOM ([place] [employer]). 2010. Dietary reference ?? intakes for calcium and D. Álvarez [place]: The ?? National Academies Press. 2. Alfredo MF, Tahmina NC, Barbara ADLER, et al. ?? Evaluation, treatment, and prevention of vitamin D ?? deficiency: an Endocrine Society clinical practice ?? guideline. JCEM. 2010; 96(7):1911-30. Blood (Blood, Venous) 05/17/2024 11:36 AM EDT 05/17/2024 us Bk Martinez MD LAB BLOOD ORDERABLES Final Resul t [employer] [address] [place] [address] * PTH, intact (05/17/2024 11:36 AM EDT) PTH 39 15 - 65 pg/mL Resource Data Blood (Blood, Venous) 05/17/2024 11:36 AM EDT 05/17/2024 Bk Martinez MD LAB BLOOD ORDERABLES Final Resul t Performing Organization Address [facility] de Phone Number [employer] [facility] [address] [place] [address] * urine albumin / creatinine ratio (05/17/2024 11:36 AM EDT) Creatinine, Ur 120.3 Not Estab. mg/dL [facility] Albumin, Urine <3.0 Not Estab. ug/mL [facility] Albumin/Creatin ine Ratio <2 0 - 29 mg/g creat [facility] Comment: ? Normal: ?0 - ??29 ? Moderately increased: 30 - 300 ? Severely increased: ? >300 Urine (Urine, Clean Catch) 05/17/2024 11:36 AM EDT 05/17/2024 Bk Martinez MD LAB URINE ORDERABLES Final Resul t Performing Organization Address [facility] Co de Phone Number [employer] [facility] [address] [place] [address] * (ABNORMAL) Renal funtion panel (05/17/2024 11:36 AM EDT) Glucose 88 70 - 99 mg/dL [facility] BUN 25 8 - 27 mg/dL [facility] Creatinine 1.54(H) 0.57 - 1.00 mg/dL [facility] eGFR CKD-EPI CR 2020 37(L) >59 mL/min/1.7 3 [facility] BUN/Creatinine Ratio 16 12 - 28 [facility] Sodium 141 134 - 144 mmol/L [facility] Potassium 4.9 3.5 - 5.2 mmol/L [facility] Chloride 106 96 - 106 mmol/L [facility] Bicarbonate (CO2) 20 20 - 29 mmol/L [facility] Calcium 10.3 8.7 - 10.3 mg/dL [facility] Albumin 4.1 3.9 - 4.9 g/dL [facility] Phosphorus 3.7 3.0 - 4.3 mg/dL [facility] Blood (Blood, Venous) 05/17/2024 11:36 AM EDT 05/17/2024 Bk Martinez MD LAB BLOOD ORDERABLES Final Resul t [facility] [address] [place] [address] documented in this encounter Visit Diagnoses Diagnosis Stage 3b chronic kidney disease (HCC)- Primary Hypertensive renal disease Renal disorder due to type 2 diabetes mellitus <Diabetic nephropathy> (HCC) Stage 3b chronic kidney disease (HCC) documented in this encounter Care Teams Gsa Coordinator Relationship Specialty Start Date End Date Reinaldo Suarez MD [address] [place], [place] [phone] PCP - General Family Medicine 12/22/20 documented as of this encounter
--- OUTSIDE RECORDS SUMMARY | 2024-05-22 10:46 | XMS_ITS | Clinical Summary ---
Author Organization [facility] Address [address] [facility] [address] [place] [address] Phone Care Team Providers Care Production Designer Name Role Phone Reinaldo Suarez MD Primary [...] by mouth at bed time Active lisinopril (PRINIVIL,ZEST RIL) 20 MG tablet Take 1 tablet by [...] solution pen-injector INJECT 46 UNITS SUBCUTANEOUS DAILY 06/03/19 21 Active metoprolol succinate XL (TOPROL-XL) 25 MG 24 hr tablet Take 25 mg by mouth 1 (one) time each day 04/23/19 21 Active Cholecalcifero l (Vitamin D3) 125 MCG (5000 UT) capsule TAKE 1 CAPSULE BY MOUTH DAILY FOR 30 DAYS 05/26/19 21 Active diclofenac (VOLTAREN) 50 MG EC tablet Take 50 mg by mouth 3 times a day 11/19/19 21 Active dicyclomine (BENTYL) 20 MG tablet TAKE 1 TABLET BY MOUTH 2 TO 4 TIMES A DAY 11/20/19 21 Active solifenacin (VESICARE) 10 MG tablet Take 10 mg by mouth 1 (one) time each day 12/16/19 21 Active acetaminophen (TYLENOL) 325 MG tablet Take 650 mg by mouth 10/02/19 21 Active oxybutynin XL (DITROPAN-XL) 15 MG 24 hr tablet Take 15 mg by mouth 09/16/19 21 Active amitriptyline (ELAVIL) 50 MG tablet Take 50 mg by mouth at bed time 04/26/19 23 Active cyclobenzaprin e (FLEXERIL) 10 MG tablet Take 10 mg by mouth at bed time 03/13/19 23 Active LORazepam (ATIVAN) 0.5 MG tablet 04/24/19 23 Active omeprazole (PriLOSEC) [address] capsule Take 40 mg by mouth 1 (one) time each day 03/23/19 23 Active simethicone (MYLICON) 80 MG chewable tablet TAKE 1 TABLET ORALLY 2 TO 4 TIMES A DAY NEEDED FOR ABDOMINAL BURPING FOR 30 DAYS 04/01/19 23 Active timolol (TIMOPTIC) 0.5 % ophthalmic solution PLACE ONE DROP INTO BOTH EYES EVERY MORNING 03/31/19 23 Active Trulicity 3 MG/0.5ML solution pen-injector ADMINISTER 3 MG UNDER THE SKIN EVERY WEEK. DISCONTINUE JANUVIA 04/27/19 23 Active traZODone (DESYREL) 150 MG tablet Take 150 mg by mouth at bed time 03/16/19 23 Active meloxicam (MOBIC) 15 MG tablet Take 15 mg by mouth 1 (one) time each day with food 04/21/19 025 Discontinued Active Problems Problem Noted Date Diagnosed Date [...] 0 04/30/2020 Urge incontinence of urine 04/30/2020 Encounters Date Type Department Care Team Description 05/17/2024 10:15 AM EDT Office Visit [facility] [address] [facility] [address] [place] [phone] Bk Martinez MD Stage 3b chronic kidney disease (HCC) (Primary Dx); Hypertensive renal disease; Renal disorder due to type 2 diabetes mellitus <Diabetic nephropathy> (HCC) from Last 3 Months Immunizations Name Administration Dates Next Due Influenza, [...] EDT Inhaled Oxygen Concentration - - Weight 66.2 kg (146 lb) 05/17/2024 11:07 AM EDT Height 157.5 cm (5' 2 ) 06/16/2020 3:25 PM EDT Body Mass Index 26.7 06/16/2020 3:25 PM EDT Plan of Treatment Upcoming Encounters Date Type Department Care Team (Late st Contact Info) Description 06/01/2024 Orders Only [facility] [address] [facility] [address] [place] [phone] Bk Martinez MD [address] [facility] [address] [place] [phone] Stage 3b chronic kidney disease (HCC) 05/20/2025 2:00 PM EDT Office Visit [facility] [address] [facility] [address] [place] [phone] Bk Martinez MD [address] [facility] [address] [place] [address] Health Maintenance Due Date Last Done Comments [...] on patient's age to complete this topic Procedures Procedure Name Priority Date/Time Associated Diagnosis Comments VITAMIN D 25 HYDROXY Routine 05/17/2024 11:36 AM EDT Stage 3b chronic kidney disease (HCC) PTH, INTACT Routine 05/17/2024 11:36 AM EDT Stage 3b chronic kidney disease (HCC) URINE ALBUMIN / CREATININE RATIO Routine 05/17/2024 11:36 AM EDT Stage 3b chronic kidney disease (HCC) RENAL FUNCTION PANEL Routine 05/17/2024 11:36 AM EDT Stage 3b chronic kidney disease (HCC) from Last 3 Months Results * urine albumin / creatinine ratio (05/17/2024 11:36 AM EDT) Creatinine, Ur 120.3 Not Estab. mg/dL [facility] Albumin, Urine <3.0 Not Estab. ug/mL [facility] Albumin/Creatin ine Ratio <2 0 - 29 mg/g creat [facility] Comment: ? Normal: ?0 - ??29 ? Moderately increased: 30 - 300 ? Severely increased: ? >300 Urine (Urine, Clean Catch) 05/17/2024 11:36 AM EDT 05/17/2024 Bk Martinez MD LAB URINE ORDERABLES Final Resul t Performing Organization Address [facility] de Phone Number [employer] [address] [place] [address] * Vit D 25 hydroxy (05/17/2024 11:36 AM EDT) Vitamin D, 25-OH, Total 82.3 30.0 - 100.0 ng/mL [facility] Comment: Vitamin D deficiency has been defined by the [place] of [employer] and an Endocrine Society practice guideline as a level of serum 25-OH vitamin D less than 20 ng/mL (1,2). The Endocrine Society went on to further define vitamin D insufficiency as a level between 21 and 29 ng/mL (2). 1. IOM ([place] [employer]). 2010. Dietary reference ?? intakes [...] ORDERABLES Final Resul t Performing Organization Address [facility] Co de Phone Number [facility] [address] [place] [address] * PTH, intact (05/17/2024 11:36 AM EDT) PTH 39 15 - 65 pg/mL [facility] Blood (Blood, Venous) 05/17/2024 11:36 AM EDT 05/17/2024 Bk Martinez MD LAB BLOOD ORDERABLES Final Resul t [facility] [address] [place] [address] * (ABNORMAL) Renal funtion panel (05/17/2024 11:36 AM EDT) Glucose 88 70 - 99 mg/dL [facility] BUN 25 8 - 27 mg/dL [facility] Creatinine 1.54(H) 0.57 - 1.00 mg/dL [facility] eGFR CKD-EPI CR 2020 37(L) >59 mL/min/1.7 3 [facility] BUN/Creatinine Ratio 16 12 - 28 [facility] Sodium 141 134 - 144 mmol/L [facility] Potassium 4.9 3.5 - 5.2 mmol/L [facility] Chloride 106 96 - 106 mmol/L [facility] Bicarbonate (CO2) 20 20 - 29 mmol/L [facility] Calcium 10.3 8.7 - 10.3 mg/dL [facility] Albumin 4.1 3.9 - 4.9 g/dL [facility] Phosphorus 3.7 3.0 - 4.3 mg/dL [facility] Blood (Blood, Venous) 05/17/2024 11:36 AM EDT 05/17/2024 Bk Martinez MD LAB BLOOD ORDERABLES Final Resul t [facility] [address] [place] [address] from Last 3 Months Insurance [facility] ([id number]) [facility] ([id number]) Care Teams Production Designer Relationship Specialty Start Date End Date Rienaldo Suarez MD [address] [place] [phone] PCP - General Family Medicine 12/22/20
--- OUTSIDE RECORDS SUMMARY | 2024-05-22 10:46 | XMS_ITS ---
Author Organization [facility] Address [address] [place] [address] Care Team Providers Care Social Insurance Specialist Name Role Phone Reinaldo Suarez Primary Care Provider Unavailab Kee Brooke Jr Unavailable [phone] Allergies Allergen (clinical drug ingredient) Drug/Non Drug [...] SoloStar 300 UNIT/ML Subcutaneous for 40 Active Social History Tobacco Use: Social History Observation Description Date Details (start date - stop date) Former Smoker NA - NA Tobacco Use/Smoking Question Answer Notes Patient is a former smoker When did you stop smoking? 1 year and 3 months How long has it been since you last smoked? 1-5 years Alcohol Screen Question Answer Notes Did you have a drink containing alcohol in the p ast year? No Points 0 Interpretation Negative Vital Signs Temperature 97.3 degrees Fahrenheit 02/08/20 24 Blood pressure systolic 000 mm Hg 02/08/20 24 Blood pressure diastolic 00 mm Hg 024 Height 61.5 in 02/08/2024 Weight 150 lb 2 oz lbs 02/08/2024 BMI 27.90 kg/m2 02/08/2024 Encounters Encounter Location Date Provider Diagnosis [address] [place] [phone] 02/08/2024 Kee Godfrey Jr Gastroesophageal reflux disease, [...] Up: 1 Year, Reason: Provider Name:Kee pedraza , 02/06/2025 09:00:00 AM, [address] [place] [address], [address], [place], [address], Progress Notes * RAY REEDOB: (68 yo F)Acc No.[id number]:02/08/2024 Progress Notes Patient:?MICHELLE REED Provider:?Kee Godfrey MD :[id number]???Age:68 Y???Sex:Female D ate:02/08/2024 Address:[address] [place], [place] [id number] Pcp:Reinaldo Suarez Subjective: * Chief Complaints: * ???1. Patient presents today for abdominal pain. * HPI: ???New symptom(s):? The patient is a pleasant 68-year-old woman [...] screening. We reviewed this today. * Medical History:?Migraine he adaches, Vertigo, Hypertension, Colonoscopy 05/25, hyperplastic polyp, five-year followup, chronic kidney disease stage III, Hyperlipidemia, type I diabetes, Urinary incontinence, Insomnia, gastroesophageal reflux disease, EGD 05/25, no H. pylori or Ambrocio's esophagus.. * Surgical History:? s ection x2 , inguinal hernia repair x2 , knee surgery for removal of a benign tumor as a child , bladder surgery , bladder suspension , cholecystectomy . * Family History:?Father: dece ased, diagnosed with Heart disease, Diabetes.?Mother: , diagnosed with Diabetes, Heart disease.? Denies family hx of colon cancer, colon polyps or liver ds. * Social History:?Tobacco Use:?Tobacco Use/Smoking?Patient is a?former smoker,?When did you stop smoking??1 year and 3 months ,?How long has it been since you last smoked??1-5 years.?Drugs/Alcohol:?Alcohol Screen?Did you have a drink containing alcohol in the past year??No,?Points?0,?Interpretation?Negative.?Miscellaneous:?Marital status: . Occupation: retired. * Medications:?Taking Amitript yline HCl 25 MG Tablet TK 1 T PO HS Oral , Taking Meclizine HCl 25 MG Tablet TK 1 T PO TID Oral , Taking Atorvastatin Calcium 40 MG Tablet TK 1 T PO HS Oral , Taking Lisinopril 40 MG Tablet TK 1 T PO QD Oral , Taking Aspirin EC Low Dose 81 MG Tablet Delayed Release TK 1 T PO QD Oral , Taking Metoprolol Succinate ER 50 MG Tablet Extended Release 24 Hour TK ONE AND ONE- HALF TS PO D Oral , Taking Citalopram Hydrobromide 40 MG Tablet TK 1 T PO QD Oral , Taking VESIcare 10 MG Tablet TK 2 TS PO D Oral , Taking Famotidine 40 MG Tablet TK 1 T PO HS Oral , Taking Latanoprost , Taking Dicyclomine HCl 10 MG Capsule Take 1 capsule by mouth 2 times daily to 4 times daily. , Taking Omeprazole 40 MG Capsule Delayed Release TAKE 1 CAPSULE BY MOUTH DAILY Oral , Taking Toujeo Max SoloStar 300 UNIT/ML Solution Pen-injector INJECT 46 UNITS SUBCUTANEOUS DAILY Subcutaneous , Taking Vitamin D3 125 MCG (5000 UT) Capsule TAKE 1 CAPSULE BY MOUTH DAILY FOR 30 DAYS Oral , Taking Diclofenac Sodium 50 MG Tablet Delayed Release TAKE 1 TABLET BY MOUTH THREE TIMES DAILY Oral , Taking traZODone HCl 150 MG Tablet TAKE 1 TABLET BY MOUTH EVERY NIGHT AT BEDTIME Oral , Taking oxyBUTYnin Chloride ER 15 MG Tablet Extended Release 24 Hour TAKE 1 TABLET BY MOUTH DAILY Oral , Taking MiraLax (colon prep) 8.3 ounce ((238) grams mixed with Gatorade or Crystal Light orally begin at 5:00 p.m. the day before the procedure , Taking Dicyclomine HCl 20 MG Tablet TAKE 1 TABLET BY MOUTH TWO TO 4 TIMES A DAY , Taking Solifenacin Succinate 10 MG Tablet Oral , Taking Trulicity 3 MG/0.5ML Solution Auto-injector Subcutaneous , Taking Timolol Maleate 0.5 % Solution INSTILL 1 DROP INTO BOTH EYES EVERY MORNING Ophthalmic , Taking Insulin Glargine Max SoloStar 300 UNIT/ML Solution Pen-injector Subcutaneous , Discontinued Januvia , Medication List reviewed and reconciled with the patient * Allergies:?TB Syringe 1 ML. Objective: * Vitals:?Wt: 150 lb 2 oz, Ht: 61.5 in, BMI:27.90Index, BP: 000/00 mm Hg, Temp: 97.3. * Examination: ???General Examination: ???On examination today, she appears well. Skin is anicteric. Lungs are clear. Heart shows a regular rate and rhythm. Abdomen is soft without focal mass or tenderness. Extremities are without edema. Assessment: * Assessment: 1.?Gastroesophageal reflux d isease, unspecified whether esophagitis present - K21.9 (Primary)???2.?Irritable bowel syndrome, unspecified type - K58.9??? Gastroesophageal reflux dise ase is stable. She will continue omeprazole. IBS symptoms are doing well. We discussed the high-fiber diet. We recommended she continue to use dicyclomine for her symptoms of discomfort. Followup will be in one year. Plan: * Treatment: * Procedure Codes:?3017F COLOR ECTAL CA SCREEN DOC REV, G9903 Pt scrn tbco id as non user, G9744 PATIENT NOT ELIG D/T ACTIVE DX HTN * Preventive Medicine:? ??Counseling:?Care goal follow-up plan:?Above Normal BMI Follow-up?Giving encouragement to exercise,?BMI management provided?Yes.? ??Urinary Incontinence:?Urinary Incontinence?Assessment:?Present,?Plan of care documented:?Yes,?Type of plan of care:?Modification of medications contributing to UI.? ??Screenings:?Fall Risk Screening?Fall Risk Assessment:?Fall with injury in the past year,?Screening:?One fall without injury in the past year,?Assessment:?Not performed, no reason specified,?Plan of Care:?Documented,?Type of fall plan of care:?Balance, strength and gait training or instruction provided.? * Follow Up:?1 Year * * The named appointment provid er may or may not be the originator of this progress note, and it is not deemed complete until electronically signed by the appointment provider. Sign off status: Pending * Provider:?Kee Godfrey MD Date:?1 04/10/2023 Generated for Nemo feng/Lillie/eTransmitting on:?05/22/2024 10:45 AM EDT History and Physical Notes * HPI (History [...]
--- OUTSIDE RECORDS SUMMARY | 2024-05-22 10:46 | XMS_ITS | Patient Health Record ---
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 Name Role Phone Reinaldo Suarez Primary Care Provider Unavailab Kee Brooke Jr Unavailable Allergies Allergen (clinical drug ingredient) Drug/Non Drug Allergy documented on EMR Reaction Allergy Type Onset Date Status TB Syringe 1 ML Unknown Drug Allergy A ctive Reason For Referral No Information Medications Medication SIG (Take, Route, Frequency, Duration) [...] Succinate 10 MG Oral for 90 Active Immunizations Vaccine Route Administration Date Status Comme nts Influenza Unknown 12/20/2019 Administered Influenza Unknown 01/24/2023 Administered Influenza Unknown 01/24/2024 Administered Social History Tobacco Use: Social History Observation [...] ast year? No Points 0 Interpretation Negative Problems Problem Type SNOMED Code ICD Code Onset Dates Problem Status W/U Status Risk Notes Problem 039155413 Colon cancer screening (Z12.11) Active confirmed Problem 431448101 Personal history of colonic polyps (Z86.010) Active confirmed Problem 250613128 Periumbilical abdominal pain (R10.33) Active confirmed Problem 66146002 Abdominal pain, epigastric (R10.13) Active confirmed Problem 88964168 Irritable bowel syndrome, unspecified type (K58.9) Active confirmed Problem 634224118 Gastroesophageal reflux disease, unspecified whether esophagitis present (K21.9) Active confirmed Vital Signs Temperature 97.3 degrees Fahrenheit 02/08/2024 Blood pressure diastolic 00 mm Hg 02/08/2024 Height 61.5 in 02/08/2024 Blood pressure systolic 000 mm Hg 02/08/2024 Weight 150 lb 2 oz lbs 02/08/2024 BMI 27.90 kg/m2 02/08/2024 Encounters Encounter Location Date Provider Diagnosis [facility] [address] [facility] [address] [place] [phone] 02/08/2024 Kee Godfrey Jr Gastroesophageal reflux disease, unspecified whether esophagitis present K21.9 and Irritable bowel syndrome, unspecified type K58.9 [facility] [address] [facility] [address] [place] [address] 02/08/2024 Kee Godfrey Jr [facility] [address] [place], [place] [address] [place] [phone] 03/28/2024 Kee Godfrey Jr Assessments Encounter Date Diagnosis (ICD Code) Assessment Notes Treatment Notes Treatment Clinical Notes Section Notes 02/08/2024 Irritable bowel syndrome, unspecified type (ICD-10 - K58.9) Gastroesophagea l reflux disease is stable. She will continue omeprazole. IBS symptoms are doing well. We discussed the high-fiber diet. We recommended she continue to use dicyclomine for her symptoms of discomfort. Followup will be in one year. 02/08/2024 Gastroesophageal reflux disease, unspecified whether esophagitis present (ICD-10 - K21.9) Gastroesophageal reflux disease material was printed Gastroesophageal reflux disease is stable. She will continue omeprazole. IBS symptoms are doing well. We discussed the high-fiber diet. We recommended she continue to use dicyclomine for her symptoms of discomfort. Followup will be in one year. Plan Of Treatment Pending Test Test Name Order Date STOOL WBC 03/09/2019 OVA & PARASITES (O&P) 03/09/2019 CULTURE, STOOL 03/09/2019 XR GI SERIES 08/31/2013 C DIFFICILE RFLX PCR 03/09/2019 Future Test Test Name Order Date COLONOSCOPY 04/30/2015 UPPER GI ENDOSCOPY 05/23/2020 COLONOSCOPY 05/23/2020 Next Appt Details Provider Name:Kee pedraza Jr, 02/06/2025 09:00:00 AM, [address] [place] [address], [address], [place], [address], Insurance Providers Payer Name Payer Address Payer Phone Subscriber Number Group Number Insured Name Patient Relationship to Insured Coverage Start Date Coverage End Date [facility] [address] Attn Claims DION Soler [id number] MICHELLE REED Self - patient is the insured Medical (General) History Medical History History ICD Code migraine headaches [...]
== END 2024-05-22 09:45 | disposition home or self-care (01) ==
LOC: HO.MAMMO 09:44
PROVIDERS: PCP Family Medicine; Visit Provider Family Medicine
DX: Z12.31 Encounter for screening mammogram for malignant neoplasm of breast (principal)
CPT/HCPCS: 77063; 77067

== ENCOUNTER → 2024-05-22 10:00 | Outpatient (BNV) | payer OTHER, SELFPAY | PROVIDERS: PCP Family Medicine; Visit Provider Internal Medicine | DX: Z12.31 Encounter for screening mammogram for malignant neoplasm of breast (principal) | CPT/HCPCS: 77063; 77067 ==

== ENCOUNTER 2024-06-19 12:43 | Outpatient (AMB) | payer OTHER, SELFPAY ==
[2024-06-19 12:58] VITALS: BP 134/94; PULSE 92; O2SAT 97; BMI 29.5
--- NOTE | 2024-06-19 12:58 | MHC.OFFVIS ---
Vital Signs 06/19/24 12:58 Height 5 ft 1 in Weight 156 lb 4 oz BMI 29.5 BP 134/94 H Blood Pressure Location Lt brachial Position Sitting Pulse 92 Pulse Source Pulse Oximeter Pulse Oximetry (%) 97 Oxygen Delivery Method Room Air Intake Visit Reasons: Follow Up 6mo Intake Note: Patient presents 6 month follow up for headaches. PT in chart Allergies tuberculin,PPD,multi-puncture Allergy (Intermediate, Verified 06/19/24 13:01) hives/SOB oxycodone [Percocet] Allergy (Unknown, Verified 06/19/24 13:01) unknown Doxycycline Hyclate Allergy (Intermediate, Uncoded 04/25/24 09:30) dizziness, n/v HPI Comments Details: 68 year old female f/u for Cervicalgia, Vertigo. She did not go to PT, because she says it doesn't help her with the Vertigo and Headaches, she started to take Dramamine otc. She gets a cortisone shot in the L. shoulder, Trapezius and it helps her with neck movements. Headaches are still persistent but less in frequency and intensity 1-2 x a week and last 2-3 hours with photophobia, phonophobia, Scotomas and auras. Sometimes she gets N/V, she takes amitriptyline 50mg daily and this helps with the headaches and sleep. When she is stressed out the headaches are worse in intensity and frequency. She goes to sleep at 9pm and wakes up at 6am, she still gets up for bathroom 2-3 times. She has tinnitus in L. ear, with ongoing vertigo, nausea and dizziness 1-2x and mainly in the AM. She takes her time when getting out of a chair or standing, she counts to ten then gets up, she has not had a fall since September 2023. Her l. knee is bothering her and she gets cortisone shots every 3 months which helps with the pain however stairs can be very challenging for her. She had a TKR in 2021 and she walks with a cane. Her vision has improved since her surgical procedure, [address] Gordillo, on [facility]. Her mood has improved, she is more hopeful with her family changes, she is taking care of her grand-daughters. Her diet is good now still having difficulty with swallowing solid foods, she chews slowly, and eats smaller meals. Her A1c has improved on Dulaglutide, and Glargine. She has RLS worse at night but she takes her medication and goes to sleep. She denies numbness and tingling, but has cramps and muscle spasms that still wake her up at night. 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 Sister No problems noted. Sister No problems noted. Daughter No problems noted. Daughter No problems noted. Daughter No problems noted. Social History Housing: House Alcohol intake: former Patient Tobacco Use Status: Former Tobacco user e-Cigarette/Vaping Use: Never Used Second Hand Smoke Exposure: No service: No Current occupational status: retired and disabled Current occupational exposures/hazards: No Cognitive needs: No Hearing needs: No Vision needs: No Physical Exam Vital Signs: Last Vital Signs Pulse 92 06/19/24 12:58 BP 134/94 H 06/19/24 12:58 Pulse Ox 97 06/19/24 12:58 Oxygen Delivery Method Room Air 06/19/24 12:58 BMI result Body Mass Index 29.5 Const General: cooperative, comfortable and no acute distress Nutritional Appearance: average body habitus and overweight Orientation/consciousness: patient oriented x3 Limitations: ambulation with cane HEENT Face and sinus: Yes normal facial exam Eyes Pupils: Equal, round and reactive pupils present, Pupils normal by confrontation and Pupil accommodation reflex normal Neck Neck: Yes supple and Yes other (Limited ROM to the L/R tight trapezius, levator-scapulae.) Resp Effort & Inspection: normal respiratory effort and able to speak in complete sentences Neuro Other: Pain on Extension of the head, limited rotation of head to the R/L. Vertigo and onset of dizziness with Extension of the head. General: patient oriented x3 Cranial nerves: Yes CN's II-XII intact bilaterally, Yes Facial sensation intact/muscles of mastication intact, Yes Equal, round and reactive pupils present, Yes Nystagmus not present, Yes Normal facial strength present, Yes Midline tongue present, Yes Ability to bilaterally elevate shoulders present and Yes Other cranial nerve findings present (Unable to rotate head bilaterally with pain on extension of the head. ) Gait exam (Neuro): Assisted gait required and Assistive device used Motor exam (neuro): 5/5 motor strength present throughout Deep tendon reflexes (DTR's): Right triceps reflex intensity grade: 2+, Left triceps reflex intensity grade: 2+, Rt Biceps (C5, C6): 2+, Left biceps reflex intensity grade: 2+, Right brachioradialis reflex intensity grade: 2+, Left brachioradialis reflex intensity grade: 2+, Right patellar reflex intensity grade: 2+ and Left patellar reflex intensity grade: 2+ Coordination: vizsoa-hp-hnzi test normal Assessment & Plan Assessment & Plan (1) Chronic headaches: Comment: cervicogenic Code(s): R51.9 - Headache, unspecified; G89.29 - Other chronic pain Category: Medical Qualifiers: Headache type: tension-type Intractability: not intractable Qualified Code(s): G44.229 - Chronic tension-type headache, not intractable (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 -Stopped using Flexiril due to CKD. -Spasmodic Torticollis with Cervicalgia and Dystonia, will consider BOTOX for neck. -F/u in 6months or sooner if needed. -Headaches Continue Amitriptyline 50mg PO at bedtime and CT Neck and Head Medications: Refilled meclizine 25 mg PO TID 10 days 30 tabs 3RF cholecalciferol (vitamin D3) 125 mcg PO DAILY 30 days 90 caps 2RF E11.9 - Type 2 diabetes mellitus without complications, Z79.4 - senior care (current) use of insulin Patient Instructions: Sleep Hygiene provided: set a scheduled bedtime and wake time to help regulate the circadian rhythm and balance the release of pituitary hormones. Sleep in a dark room, temperatures below 68 degrees, and no devices n bed. Limit caffeinated products 6 hours prior to bed, and limit fluids 2-4 hours prior to bed. Gentle night yoga, diffusing essential oils, and playing soft music can be relaxing. CT of head and neck w/wo contrast F/u in 6 months or sooner if headache and Vertigo do not improve. Coding Level of Care Code Est Pt Level 4 (05522) Complex EM visit Add On G2211 Diagnoses Chronic tension-type headache, not intractable G44.229 Headache type: tension-type Intractability: not intractable Spasmodic torticollis G24.3 Cervicalgia M54.2 Imbalance R26.89 Vertigo R42 Memory changes R41.3 Dystonia G24.9 Time Spent (min) 30 Comment Improving
--- OUTSIDE RECORDS SUMMARY | 2024-06-19 15:25 | XMS_ITS ---
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 Name Role Phone Reinaldo Suarez Primary Care Provider Unavailab Kee Brooke Jr Unavailable REASON FOR VISIT please lock 02-08-2024 office note Encounters Encounter Location Date Provider Diagnosis [facility] [address] [place] [address] 03/28/2024 Kee Godfrey Jr Plan Of Treatment Next Appt Details Provider Name:Kee pedraza Jr, 02/06/2025 09:00:00 AM, [address], [address], [place], [address], Progress Notes * RAY REEDOB: (68 yo F)Acc No.[id number]:03/28/2024 Patient:?MICHELLE REED :1955???Age:68 Y???Sex:Female Address:[address] [place] [address] [address] [facility] , [place] [id number] * true * Date:? Generated for Printi ng/Fasaskiag/eTransmitting on:?06/19/2024 03:25 PM EDT
--- OUTSIDE RECORDS SUMMARY | 2024-06-19 15:25 | XMS_ITS | Data Portability ---
Author Organization [employer] Address [address] [place] [phone] Care Team Providers Care Service Captain Name Role Phone HIM CCA OTHER Assessment Encounter Date Assessment Date Assessment LastModified by Organization Details LastModified Time 09/17/2023 09/17/2023 I have reviewed and agree with the assessment and plan as documented by the internet programmer. I provided real time medical direction for this encounter and was immediately available to provide additional phone based assistance as needed. History as noted by internet programmer. Pt with history of HTN, CKD (last [...] need to be referred back to her rn gynecology for evaluation, who last saw the pt [...] BMP, serum or plasma 2023 024 [facility] - [address], [phone] 11:35:24 hemoglobin + hematocrit, blood 2023 024 [facility] [address], [phone] 4 11:35:22 [facility]inalysis, dipstick [facility] [address] [place] [address], [phone] 4 11:48:50 Referral None recorded. Procedures None recorded. Surgeries None recorded. Imaging None recorded. Medication Orders sodium chloride 0.9 % intravenous solution 2023 024 [id number], [address] [place], [address], 11:48:49 Patient TargetsNo targets recorded. Patient InstructionsNo instructions recorded. Reason for Referral None Reported. Results Created Date Observation Date Name Description Value Unit Range Abnormal Flag Note LastModifiedBy Organization Detail LastModifiedTime 09/17/1909/17/2023 urina lysis , dipst ick Leukocytes negati ve Not Available [facility] ed [address] [place] [address], [phone] 09/17/2023 11:47:07 09/17/19 24 09/17/2023 urina lysis , dipst ick Nitrite negati ve Not Available [facility] ed [address] [place] [address], [phone] 09/17/2023 11:47:07 09/17/19 24 09/17/2023 urina lysis , dipst ick Protein trace Not Available Main - Ins [address], [address] 09/17/2023 11:47:07 09/17/19 24 09/17/2023 urina lysis , dipst ick Blood negati ve Not Available [facility] ed [address] [place] [address], [phone] 09/17/2023 11:47:07 09/17/19 24 09/17/2023 urina lysis , dipst ick Ketone trace Not Available Main - Ins [address], [address] 09/17/2023 11:47:07 09/17/19 24 09/17/2023 urina lysis , dipst ick Glucose negati ve Not Available [facility] ed [address] [place] [address], [phone] 09/17/2023 11:47:07 09/17/19 24 09/17/2023 hemog lobin + hemat ocrit , blood Hemoglobin 11.9 Not Available Main - [facility] [address] [place] [address], [address] [place] [address] 09/17/2023 11:33:02 09/17/19 24 09/17/2023 hemog lobin + hemat ocrit , blood Hematocrit 35 Not Available Main - [address], [address] [place] [address] 09/17/2023 11:33:02 09/17/19 24 09/17/2023 BMP, serum or plasm a BUN 50 Not Available Main - Ins [address], [address] [place] [address] 09/17/2023 11:32:55 09/17/19 24 09/17/2023 BMP, serum or plasm a Ca 1.32 Not Available Main - Ins [address], [address] [place] [address] 09/17/2023 11:32:55 09/17/19 24 09/17/2023 BMP, serum or plasm a CI- 108 Not Available Main - Ins [address], [address] [place] [address] 09/17/2023 11:32:55 09/17/19 24 09/17/2023 BMP, serum or plasm a CRE 1.9 Not Available Main - Ins [address], [address] [place] [address] 09/17/2023 11:32:55 09/17/19 24 09/17/2023 BMP, serum or plasm a GLU 173 Not Available Main - Ins [address], [address] [place] [address] 09/17/2023 11:32:55 09/17/19 24 09/17/2023 BMP, serum or plasm a K+ 5.4 Not Available Main - Ins [address], [address] [place] [address] 09/17/2023 11:32:55 09/17/19 24 09/17/2023 BMP, serum or plasm a Na+ 137 Not Available Main - Ins [address], [address] [place] [address] 09/17/2023 11:32:55 09/17/19 24 09/17/2023 BMP, serum or plasm a tCO2 21 Not Available Main - Ins [address], [address] 09/17/2023 11:32:55 Result Notes None recorded. Medical [...] Not Available Not Available No t Available Juancarlos Petit U-300 SoloStar 300 unit/mL (3 mL) subcutaneous [...] 140 mm[Hg] 80 mm[Hg] James Bonilla MD [address] [place] [address],[address], [place], [address] [place] [address] [facility] 4 10:58:17 Date Recorded Oxygen saturation Oxygen saturation in Arterial blood by Pulse oximetry Body temperature Heart rate Respiratory rate Systolic blood pressure Diastolic blood pressure Provider Name and Address Organization Details Last Updated DateTime 4 98 % 98 % 98 [degF] 90 /min 16 /min 140 mm[Hg] 80 mm[Hg] Not Available [facility] - production 4 12:38:32 Social History None recorded. Functional Status None recorded. Mental Status None recorded. Family History Nothing Reported. Medical History No medical history recorded. Gynecological HistoryNo gynecological history recorded. Obstetrics History GPAL:G 0 P 0 0 0 0 Past Encounters Encounter ID Performer Location Encounter Start Date Encounter Closed Date Diagnosis/Indication Diagnosis SNOMED-CT Code Diagnosis ICD10 Code Diagnosis Note [id number] James Bonilla MD [facility] [address] [place] [phone] 09/17/2023 10:55:08 09/18/2023 22:12:46 Excessive thirst 08873417 R63.1 Acute-on-c hronic renal failure 900832943 N17.9 Health Concerns Section Related Observation LastModified by Organization Detai ls LastModified Time None Recorded Concern Status LastModified by Organization Details LastModified Time None Recorded Advance Directives Directive None Recorded Payers Encounter Date Sequence Insurance Name Policy Number Policy Jerome Covered Member ID Jerome Member ID Guarantor Name 09/17/2023 1 [facility] - DOS ON OR AFTER 2022 - DUAL ELIGIBLE - CORRECTION OPTIONS AND ONE CARE (MEDICARE REPLACEMENT/ADV ANTAGE - HMO) Zulay Styles [id number] Zulay Styles Notes Date Note Type Note Provider Name and Address Organization Details Recorded Time 09/17/2023 text/html This was a supervised home visit with internet programmer Aleyda Benitez. CRC Nurse Triage Notes (Philip Roberson): Reason For Request: Patient feels weak, urinating a lot, drinking lots of fluids, and feels shaky. Chief Complaints: Weakness/Lethargy, Syncope/Dizziness/ Lightheadedness Allergies: Unknown Comments: Window Tinter verified the member's name//address and phone number. [...] s/s and seek emergency treatment if needed -HMeredith Roberson RN Press Offbearer POC Test Results from Aleyda Benitez - VERONA iSTAT Chem8+ (12:38:42) Na: 137 mEq/L K: [...] .................. .................. .................. .................. .................. .................. ............... Press Offbearer Note From Aleyda Benitez: Community Press Offbearer RafyMeredith Benitez SC6 dispatched to a red for a 68 yof C/O thirst, shaking, [...] of 175 that AM. No pedal edema. [facility] [place]; #22 IV placed in her left AC, BMP acquired, she was given 100 mL NS. Urine dip in insted. She was instructed to drink plenty of water, keep sugar to a minimum, and speak w/ her Physician IVONNE. She was informed that she needed follow up bloodwork and possibly a referral back to her past [facility]. Red flags discussed at length. .................. .................. .................. .................. .................. .................. .................. ............... Disposition: Fulfilled James Bonilla MD [address] [place] [address],[address], [place], [address], JULI MATTSON 09/17/2023 12:57:52 OBGyn Episode No OBEpisode recorded.
--- OUTSIDE RECORDS SUMMARY | 2024-06-19 15:25 | XMS_ITS ---
Author Organization [facility] Address [address] [place] [address] Care Team Providers Care Senior Benefits Specialist Name Role Phone Reinaldo Suarez Primary Care Provider Joe Brooke Jr, Kee Unavailable Encounters Encounter Location Date Provider Diagnosis [facility] [address] [place] [address] 02/08/2024 Kee Godfrey Jr Plan Of Treatment Next Appt Details Provider Name:Kee pedraza Jr, 02/06/2025 09:00:00 AM, [address], [address], [place], [address], Progress Notes * RAY REEDOB: (68 yo F)Acc No.[id number]:02/08/2024 Patient:?MICHELLE REED :1955???Age:68 Y???Sex:Female Address:[address] [place] [address] 1 [facility] , [place] [address] Subjective: * Chief Complaints: * ??? * [...] true * Date:? Generated for Nemo feng/Lillie/Johnitting on:?06/19/2024 03:25 PM EDT
--- OUTSIDE RECORDS SUMMARY | 2024-06-19 15:25 | XMS_ITS | Patient Health Record ---
Author Organization [facility] Address [address] [place] [phone] Care Team Providers Care Linoleum Mechanic Name Role Phone Reinaldo Suarez Primary Care [...] Problem Status W/U Status Risk Notes Problem 022928909 Colon cancer screening (Z12.11) Active confirmed Problem 003562088 Personal history of colonic polyps (Z86.010) Active confirmed Problem 024782787 Periumbilical abdominal pain (R10.33) Active confirmed Problem 92036286 Abdominal pain, epigastric (R10.13) Active confirmed Problem 17031961 Irritable bowel syndrome, unspecified type (K58.9) Active confirmed Problem 080399410 Gastroesophageal reflux disease, unspecified whether esophagitis present (K21.9) Active confirmed Vital Signs Temperature 97.3 degrees Fahrenheit 02/08/2024 Blood pressure diastolic 00 mm Hg 02/08/2024 Height 61.5 in 02/08/2024 Blood pressure systolic 000 mm Hg 02/08/2024 Weight 150 lb 2 oz lbs 02/08/2024 BMI 27.90 kg/m2 02/08/2024 Encounters Encounter Location Date Provider Diagnosis [facility] [address] [facility] [address] [place] [phone] 02/08/2024 Kee Godfrey Jr Gastroesophageal reflux disease, unspecified whether esophagitis present K21.9 and Irritable bowel syndrome, unspecified type K58.9 [facility] [address] [facility] [address] [place] [address] 02/08/2024 Kee Godfrey Jr [facility] [address] [place] [address] [place] [address] 03/28/2024 Kee Godfrey Jr Assessments Encounter Date [...] Provider Name:Kee pedraza Jr, 02/06/2025 09:00:00 AM, [address] [place] [address], [address], [place], [address], Insurance Providers Payer Name Payer Address Payer Phone Subscriber Number Group Number Insured Name Patient Relationship to Insured Coverage Start Date Coverage End Date [facility] [address] Attn Claims DION Soler [id number] MICHELLE REED Self - patient is the [...]
--- OUTSIDE RECORDS SUMMARY | 2024-06-19 15:26 | XMS_ITS ---
Author Organization [facility] Address [address] [place] [address] Care Team Providers Care Grocery Manager Name Role Phone Reinaldo Suarez Primary Care Provider Unavailab Kee Brooke Jr Unavailable [phone] Allergies Allergen (clinical drug ingredient) Drug/Non Drug [...] 02/08/2024 Encounters Encounter Location Date Provider Diagnosis [address] [place] [phone] 02/08/2024 Kee Godfrey Jr Gastroesophageal reflux disease, [...] Provider Name:Kee pedraza , 02/06/2025 09:00:00 AM, [address] [place] [address], [address], [place], [address], Progress Notes * RAY REEDOB: (68 yo F)Acc No.[id number]:02/08/2024 Progress Notes Patient:?MICHELLE REED Provider:?Kee Godfrey MD :1955???Age:68 Y???Sex:Female D ate:02/08/2024 Address:[address] [place], [place] [phone] Pcp:Reinaldo Suarez Subjective: * Chief Complaints: * [...] * Family History:?Father: dece ased, diagnosed with Diabetes, Heart disease.?Mother: , diagnosed with Heart disease, Diabetes.? Denies family hx of colon cancer, colon [...] MD Date:?1 04/10/2023 Generated for Nemo feng/Lillie/eTransmitting on:?06/19/2024 03:25 PM EDT History and Physical Notes * HPI [...]
--- OUTSIDE RECORDS SUMMARY | 2024-06-19 15:26 | XMS_ITS | Clinical Summary ---
Author Organization [facility] Address [address] [facility] [address] [place] [address] Phone Care Team Providers Care Books Binder Name Role Phone Reinaldo Suarez MD Primary [...] by mouth at bed time 3 Active Active Problems Problem Noted Date Diagnosed [...] Encounters Date Type Department Care Team Description 06/01/2024 Orders Only [facility] [address] [address] [place] [address] Bk Martinez MD Stage 3b chronic kidney disease (HCC) 05/17/2024 10:15 AM EDT Office Visit [facility] [address] [place] [phone] Bk Martinez MD Stage 3b chronic kidney disease (HCC) (Primary Dx); Hypertensive renal disease; Renal disorder due to type 2 diabetes mellitus <Diabetic nephropathy> (HCC) from Last 3 Months Immunizations Immunization Administration Dates Next Due Influenza, Unspecified 12/20/2019 [...] Care Team (Late st Contact Info) Description 05/20/2025 2:00 PM EDT Office Visit [facility] [address] [place] [phone] Bk Martinez MD [address] [phone] Health Maintenance Due Date Last Done Comments Breast Cancer Screening 1955 Pneumococcal Vaccine: 50+ Ye ars (1 of 2 - PCV) 07/05/1975 Colorectal Cancer Screening: Annual FOBT 2005 Colorectal Cancer Screening: Colonoscopy 2005 Colorectal Cancer Screening: Sigmoidoscopy 2005 Diabetes: Hemoglobin A1C 04/06/2020 Diabetes: Ophthalmology Exam 04/06/2020 Diabetes: Pedal Pulse Checked 04/06/2020 Diabetes: Sensory Foot Exam 04/06/2020 Diabetes: Visual Foot Exam 04/06/2020 Influenza Vaccine (Season Ended) 2024 12/20/19 Hepatitis B Vaccine Aged Out No longe [...] Creatinine, Ur 120.3 Not Estab. mg/dL [facility] Albumin, Urine <3.0 Not Estab. ug/mL [facility] Albumin/Creatin ine Ratio <2 0 - 29 mg/g creat [facility] Comment: ? Normal: ?0 - ??29 ? Moderately increased: 30 - 300 ? Severely increased: ? >300 Urine (Urine, Clean Catch) 05/17/2024 11:36 AM EDT 05/17/2024 Bk Martinez MD LAB URINE ORDERABLES Final Resul t Performing Organization Address City/[facility]/ZIP Co de Phone Number [facility] [address] [place] [address] * Vit D 25 hydroxy (05/17/2024 11:36 AM EDT) Vitamin D, 25-OH, Total 82.3 30.0 - 100.0 ng/mL [facility] Comment: Vitamin D deficiency has been defined by the [place] of Medicine and an Endocrine Society practice guideline as a level of serum 25-OH vitamin D less than 20 ng/mL (1,2). The Endocrine Society went on to further define vitamin D insufficiency as a level between 21 and 29 ng/mL (2). 1. IOM ([place] of Medicine). 2010. Dietary reference ?? intakes [...] MD LAB BLOOD ORDERABLES Final Resul t [facility] [address] [place] [address] * PTH, intact (05/17/2024 11:36 AM EDT) PTH 39 15 - 65 pg/mL [facility] Blood (Blood, Venous) 05/17/2024 11:36 AM EDT 05/17/2024 Bk Martinez MD LAB BLOOD ORDERABLES Final Resul t [facility] [address] [place] [address] * (ABNORMAL) Renal funtion panel (05/17/2024 11:36 AM EDT) Glucose 88 70 - 99 mg/dL [facility] BUN 25 8 - 27 mg/dL [facility] Creatinine 1.54(H) 0.57 - 1.00 mg/dL [facility] eGFR CKD-EPI CR 2020 37(L) >59 mL/min/1.7 3 [facility] BUN/Creatinine Ratio 16 12 - 28 [facility] Sodium 141 134 - 144 mmol/L [facility] Potassium 4.9 3.5 - 5.2 mmol/L [facility] Chloride 106 96 - 106 mmol/L [facility] Bicarbonate (CO2) 20 20 - 29 mmol/L [facility] Calcium 10.3 8.7 - 10.3 mg/dL [facility] Albumin 4.1 3.9 - 4.9 g/dL [facility] Phosphorus 3.7 3.0 - 4.3 mg/dL [facility] Blood (Blood, Venous) 05/17/2024 11:36 AM EDT 05/17/2024 us Bk Martinez MD LAB BLOOD ORDERABLES Final Resul t [facility] [address] [place] [address] from Last 3 Months Insurance [facility] ([id number]) [facility] ([id number]) Care Teams Books Binder Relationship Specialty Start Date End Date Reinaldo Suarez MD [address] [place] [phone] PCP - General Family Medicine 12/22/20
== END 2024-06-19 13:50 | disposition home or self-care (01) ==
LOC: HO.HSMS 12:43
PROVIDERS: PCP Family Medicine; Visit Provider Physician Assistant Medical
DX: G44.229 Chronic tension-type headache, not intractable (principal); G24.3 Spasmodic torticollis; M54.2 Cervicalgia; R26.89 Other abnormalities of gait and mobility; R42 Dizziness and giddiness; R41.3 Other amnesia; G24.9 Dystonia, unspecified
CPT/HCPCS: 99214; G2211

== ENCOUNTER → 2024-06-19 12:43 | Outpatient (BNVA) | payer OTHER, SELFPAY | PROVIDERS: PCP Family Medicine; Visit Provider Physician Assistant Medical | DX: G44.229 Chronic tension-type headache, not intractable (principal); G24.3 Spasmodic torticollis; G24.9 Dystonia, unspecified; M54.2 Cervicalgia; R26.89 Other abnormalities of gait and mobility; R42 Dizziness and giddiness; R41.3 Other amnesia | CPT/HCPCS: 99212 ==

== ENCOUNTER 2024-07-17 09:36 | Outpatient (AMB) | payer OTHER, SELFPAY ==
--- NOTE | 2024-07-17 09:59 | A.OFFPC_ITS ---
Vital Signs 07/17/24 10:08 Height 5 ft 1 in Weight 147 lb 4 oz BMI 27.8 BP 138/80 Blood Pressure Location Rt brachial Position Sitting Pulse 84 Pulse Source Pulse Oximeter Temp 98.6 F Temp Source Temporal Artery Scan Pulse Oximetry (%) 98 Oxygen Delivery Method Room Air Intake Visit Reasons: f/u HTN, diabetes Intake Note: Zulay presents in the office today for a follow up to her HTN and diabtes. Allergies tuberculin,PPD,multi-puncture Allergy (Intermediate, Verified 07/17/24 10:05) hives/SOB oxycodone [Percocet] Allergy (Unknown, Verified 07/17/24 10:05) unknown Doxycycline Hyclate Allergy (Intermediate, Uncoded 07/17/24 10:05) dizziness, n/v Medication List - Last Reconciled 07/17/24 by Reinaldo Suarez MD amitriptyline 50 mg PO BEDTIME 30 days aspirin 81 mg PO DAILY 90 days atorvastatin 40 mg PO DAILY 90 days blood sugar diagnostic As directed blood sugar diagnostic (everyArt Ultra Test strips) Test Blood sugar once daily. 90 days blood-glucose meter (everyArt Ultra2 Meter) To test Blood sugar once a day As directed, 999 days cholecalciferol (vitamin D3) 125 mcg PO DAILY 30 days citalopram 40 mg PO DAILY cyclobenzaprine 10 mg PO BEDTIME cyclobenzaprine 5 mg PO DAILY PRN 3 days dicyclomine 20 mg PO dulaglutide 3 mg (0.5 mL) subcut QWEEK 30 days famotidine 40 mg PO BEDTIME insulin glargine U-300 conc 44 units (0.1467 mL) subcut QAM 30 days ketorolac 0.5% 1 drp ophthalmic (eye) lancets (FreeStyle Lancets) As directed lancets (FliptopTouch Delica Plus Lancet) As directed test once a day. lisinopril 20 mg PO DAILY 90 days meclizine 25 mg PO TID 10 days metoprolol succinate ER 25 mg PO DAILY nystatin 5 mL PO QID omeprazole 40 mg PO DAILY pen needle, diabetic once a day simethicone (Gas Relief (simethicone)) 80 mg PO BID-QID PRN 30 days solifenacin (Vesicare) 10 mg PO DAILY 90 days timolol maleate 0.5% 0 drps ophthalmic (eye) Tobacco use date assessed: 07/17/24 Dental Screening Dental Screen Date: 07/17/24 HPI f/u HTN, diabetes HPI Details 69 y/o female presents to f/u rowan LAWSON. Also following up on CRF as she has an upcoming appt. with her contact lens manufacturer Dr. Martinez. Blood pressure today 138/80, 84p. She is on metoprolol 25mg, lisinopril 20mg daily. Last A1c 04/25/24 5.9%. A1c today 07/17/24 is Has complaints of rash/growth on her face. HPI Comments History of Present Illness Details Documentation assistance for Reinaldo Suarez MD, was provided by Manohar Timmons,? Choirmaster on 07/17/2024 at 10:45 AM EST. I, Dr. Suarez, have read, observed, and verified documentation. ?? PFSH Medical History UTI (urinary tract infection) Urge and stress incontinence Urgency incontinence Obesity (BMI 30-39.9) CKD (chronic kidney disease) stage 3, GFR 30-59 ml/min Dyslipidemia Hypertension Hyperparathyroidism half-way (current) use of insulin Diabetes type 2, controlled Surgical History History of right knee surgery (~10/31/20) History of endometrial ablation History of pubovaginal sling History of femoral hernia repair History of esophagogastroduodenoscopy (EGD) H/O colonoscopy Hx of cholecystectomy History of eye surgery S/P right knee arthroscopy History of incisional hernia repair Hx of left knee surgery Hx of section Family History Father Cancer Diabetes mellitus Hx of CABG CVD (cardiovascular disease) Mother Diabetes mellitus Brother No problems noted. Sister No problems noted. Sister No problems noted. Daughter No problems noted. Daughter No problems noted. Daughter No problems noted. Social History (Updated 07/17/24 @ 10:08 by Angle Gu MA) Housing: House Alcohol intake: former Patient Tobacco Use Status: Former Tobacco user e-Cigarette/Vaping Use: Never Used Second Hand Smoke Exposure: No Use of substances other than those prescribed or required for medical reasons: No service: No Current occupational status: retired and disabled Current occupational exposures/hazards: No Cognitive needs: No Hearing needs: No Vision needs: No Questionnaire Thrive Questionnaire Date Thrive assessed: 04/18/24 I am a: Patient What is your living situation today?: I have a steady place to live Within the past 12 months, did the food you bought not last and you didn't have the money to get more?: I choose not to answer this question Within the past 12 months, did you worry whether your food would run out before you got money to buy more?: I choose not to answer this question Do you have trouble paying for medicines?: No Do you have trouble getting transportation to medical appointments?: No Do you have trouble paying your heating and electricity bill?: I choose not to answer this question Do you have trouble taking care of your child, family member or friend?: No Do you have trouble with day-to-day activities such as bathing, preparing meals, shopping, managing finances, etc.?: No Are you currently unemployed and looking for a job?: No Are you interested in more education?: No Please select the resources that you would like help with: None Currently or been in a relationship where the following occur: I choose not to answer THRIVE Score: 0 RAKAN-7 AMB Questionnaire RAKAN-7 Date RAKAN - 7 assessed: 04/25/24 Source: Developed by Drs. Barrie Browning, Claudia Nichols, Jason Khan and colleagues, with an educational jalyn from [employer]. Review of Systems Const Denies chills, Denies fatigue, Denies fever(s), Denies headache(s) and Denies weakness ENT Denies dizziness and Denies headache(s) Card Denies chest pain, Denies lightheadedness, Denies dyspnea and Denies other (Palpitations) Resp Denies cough, Denies dyspnea, Denies wheezing and Denies other ( shortness of breath) Musc Denies numbness and Denies tingling Skin/Breast Reports rash Neuro Denies dizziness, Denies headache(s), Denies numbness, Denies tingling, Denies paresthesias and Denies weakness Psych Denies anxiety and Denies depression Endo Denies fatigue Aller/Immun Denies wheezing Physical exam (Primary Care) Vital Signs: Last Vital Signs Temp 98.6 F 07/17/24 10:08 Pulse 84 07/17/24 10:08 BP 138/80 07/17/24 10:08 Pulse Ox 98 07/17/24 10:08 Oxygen Delivery Method Room Air 07/17/24 10:08 BMI result Body Mass Index 27.8 Tobacco/Smoking Status: Tobacco use Status Tobacco use date assessed 07/17/24 07/17/24 10:11 Patient Tobacco Use Status Former Tobacco user 07/17/24 10:08 e-Cigarette/Vaping Use Never Used 07/17/24 10:08 Thrive Assessment: Date of Thrive Assessment Date Thrive assessed 04/18/24 07/17/24 10:01 Currently or been in a relationship where the following occur: I choose not to answer Const General: no acute distress and well developed Nutritional Appearance: well nourished Orientation/consciousness: patient oriented x3 HENMT Head: Yes normocephalic and Yes atraumatic Eyes General: appearance normal, both eyes and all related structures Pupils: Equal, round and reactive pupils present EOM: EOMs intact bilaterally Resp Effort & Inspection: normal respiratory effort Auscultation: clear to auscultation bilaterally Cardio Rate: regular rate Rhythm: regular rhythm Heart sounds: S1 normal heart sound present, S2 normal heart sound present, no gallops, no murmurs and no rubs Skin Other: Melanotic raised lesion on L side of her face, about 1 cm in diameter which is changing. Neuro General: patient oriented x3 and gait normal Cranial nerves: Yes Equal, round and reactive pupils present Psych Affect: normal affect Coding Level of Care Code Est Pt Level 4 (21517) Diagnoses Controlled type 2 diabetes mellitus without complication, with long-term current use of insulin E11.9; Z79.4 Diabetes mellitus complication status: without complication Diabetes mellitus chcf insulin use: with buttermaker helper use Essential hypertension I10 Hypertension type: essential hypertension Neoplasm of uncertain behavior of skin D48.5 Rash R21 Assessment & Plan Assessment & Plan (1) Diabetes type 2, controlled: Comment: Pt also has CKD, stage 3 Code(s): E11.9 - Type 2 diabetes mellitus without complications Category: Medical Qualifiers: Diabetes mellitus complication status: without complication Diabetes mellitus buttermaker helper insulin use: with buttermaker helper use Qualified Code(s): E11.9 - Type 2 diabetes mellitus without complications; Z79.4 - predatory animal exterminator (current) use of insulin Plan: A1c?shows?good?control.??Goal?is?less?than?7.0% Continue?current?medication (2) Hypertension: Code(s): I10 - Essential (primary) hypertension Category: Medical Qualifiers: Hypertension type: essential hypertension Qualified Code(s): I10 - Essential (primary) hypertension Plan: Blood?pressure?is?controlled.??Goal?is?less?than?140/90 Continue?current?medications (3) Neoplasm of uncertain behavior of skin: Code(s): D48.5 - Neoplasm of uncertain behavior of skin Category: Medical Plan: Raised?zuluaga/melanotic?lesion?at?left?side?of?face?which?patient?says?is?changing? rapidly. Referred?to?Dermatology (4) Rash: Code(s): R21 - Rash and other nonspecific skin eruption Category: Medical Plan: Rash?at?left?side?of?his?face?at?hairline Improves?with?hydrocortisone?cream?which?she?can?use She?can?also?review?this?with?Dermatology. Orders: Referrals Dermatology Referral D48.5 - Neoplasm of uncertain behavior of skin, R21 - Rash and other nonspecific skin eruption
[2024-07-17 10:08] VITALS: BP 138/80; PULSE 84; TEMP 37; O2SAT 98; BMI 27.8
--- OUTSIDE RECORDS SUMMARY | 2024-07-17 10:17 | XMS_ITS | Data Portability ---
Author Organization [employer] [place] [facility] [employer] Address [address] [place] [phone] Care Team Providers Care Wind Turbine Machinist Name Role Phone HIM CCA OTHER Assessment Encounter Date Assessment Date Assessment LastModified by Organization Details LastModified Time 09/17/2023 09/17/2023 I have reviewed and agree with the assessment and plan as documented by the boilers and pressure vessels inspector. I provided real time medical direction for this encounter and was immediately available to provide additional phone based assistance as needed. History as noted by boilers and pressure vessels inspector. Pt with history of HTN, CKD (last [...] need to be referred back to her capacity manager for evaluation, who last saw the pt [...] or plasma 2023 024 [facility] - [address], [phone] 11:35:24 hemoglobin + hematocrit, blood 2023 024 [facility] [address], [phone] 4 11:35:22 [facility]inalysis, [facility] [address] [place] [address], [phone] 4 11:48:50 Referral None recorded. Procedures None recorded. Surgeries None recorded. Imaging None recorded. Medication Orders sodium chloride 0.9 % intravenous solution 2023 024 [id number], [address] [place], [address], 11:48:49 Patient TargetsNo targets recorded. Patient InstructionsNo instructions recorded. Reason for Referral None Reported. Results Created Date Observation Date Name Description Value Unit Range Abnormal Flag Note LastModifiedBy Organization Detail LastModifiedTime 09/17/1909/17/2023 urina lysis , dipst ick Leukocytes negati ve Not Available [facility] ed [address] [place] [address], [phone] 09/17/2023 11:47:07 09/17/19 24 09/17/2023 urina lysis , dipst ick Nitrite negati ve Not Available [facility] ed [address] [place] [address], [phone] 09/17/2023 11:47:07 09/17/19 24 09/17/2023 urina lysis , dipst ick Protein trace Not Available Main - Ins [address], [phone] 09/17/2023 11:47:07 09/17/19 24 09/17/2023 urina lysis , dipst ick Blood negati ve Not Available [facility] ed [address] [place] [address], [phone] 09/17/2023 11:47:07 09/17/19 24 09/17/2023 urina lysis , dipst ick Ketone trace Not Available Main - Ins [address], [phone] 09/17/2023 11:47:07 09/17/19 24 09/17/2023 urina lysis , dipst ick Glucose negati ve Not Available [facility] ed [address] [place] [address], [phone] 09/17/2023 11:47:07 09/17/19 24 09/17/2023 hemog lobin + hemat ocrit , blood Hemoglobin 11.9 Not Available Main - [facility] [address] [place] [address], [address] [place] [address] 09/17/2023 11:33:02 09/17/19 24 09/17/2023 hemog lobin + hemat ocrit , blood Hematocrit 35 Not Available Main - [address], [address] [place] [address] 09/17/2023 11:33:02 09/17/19 24 09/17/2023 BMP, serum or plasm a BUN 50 Not Available Main - Ins [address], [address] [place] [address] 09/17/2023 11:32:55 09/17/19 24 09/17/2023 BMP, serum or plasm a Ca 1.32 Not Available Main - Ins [address], [address] [place] [address] 09/17/2023 11:32:55 09/17/19 24 09/17/2023 BMP, serum or plasm a CI- 108 Not Available Main - Ins [address], [address] [place] [address] 09/17/2023 11:32:55 09/17/19 24 09/17/2023 BMP, serum or plasm a CRE 1.9 Not Available Main - Ins [address], [address] [place] [address] 09/17/2023 11:32:55 09/17/19 24 09/17/2023 BMP, serum or plasm a GLU 173 Not Available Main - Ins [address], [address] [place] [address] 09/17/2023 11:32:55 09/17/19 24 09/17/2023 BMP, serum or plasm a K+ 5.4 Not Available Main - Ins [address], [address] [place] [address] 09/17/2023 11:32:55 09/17/19 24 09/17/2023 BMP, serum or plasm a Na+ 137 Not Available Main - Ins [address], [address] [place] [address] 09/17/2023 11:32:55 09/17/19 24 09/17/2023 BMP, serum or plasm a tCO2 21 Not Available Main - Ins [address], [address] 09/17/2023 11:32:55 Result Notes None recorded. Medical [...] 140 mm[Hg] 80 mm[Hg] James Bonilla MD [address] [place] [address],[address], [place], [phone] [place] [address] [employer] [facility] 4 10:58:17 Date Recorded Oxygen [...] SNOMED-CT Code Diagnosis ICD10 Code Diagnosis Note [id number] [facility] [address] [place] [phone] 09/17/2023 10:55:08 09/18/2023 22:12:46 Excessive thirst 31296457 R63.1 Acute-on-c hronic renal failure 114103174 N17.9 Health Concerns Section Related Observation LastModified by Organization Detai ls LastModified Time None Recorded Concern Status LastModified by Organization Details LastModified Time None Recorded Advance Directives Directive None Recorded Payers Insurance Date Sequence Insurance Name Policy Number Policy Jerome Covered Member ID Jerome Member ID Guarantor Name 09/18/2023 1 [facility] - DOS ON OR AFTER 2022 - DUAL ELIGIBLE - [facility] OPTIONS AND ONE CARE (MEDICARE REPLACEMENT/ADV ANTAGE - HMO) Zulay Styles [id number] Zulay Styles Notes Date Note Type Note Provider Name and Address Organization Details Recorded Time 09/17/2023 text/html This was a supervised home visit with boilers and pressure vessels inspector Aleyda Benitez. CRC Nurse Triage Notes (Philip Roberson): Reason For Request: Patient feels weak, urinating a lot, drinking lots of fluids, and feels shaky. Chief Complaints: Weakness/Lethargy, Syncope/Dizziness/ Lightheadedness Allergies: Unknown Comments: Search Analyst verified the member's name//address and phone number. [...] emergency treatment if needed -HMeredith Roberson RN Business Editor POC Test Results from Aleyda Benitez - [...] .................. .................. .................. .................. .................. .................. ............... Business Editor Note From Aleyda Benitez: Community Business Editor RafyMeredith Benitez SC6 dispatched to a red [...] of 175 that AM. No pedal edema. [facility] consulted; #22 IV placed in her left AC, BMP acquired, she was given 100 mL NS. Urine dip in insted. She was instructed to drink plenty of water, keep sugar to a minimum, and speak w/ her Physician IVONNE. She was informed that she needed follow up bloodwork and possibly a referral back to her past Contact Assembler. Red flags discussed at length. .................. .................. .................. .................. .................. .................. .................. ............... Disposition: Fulfilled James Bonilla MD [address] [place] [address],[address], [place], [address], JULI MATTSON 09/17/2023 12:57:52 OBGyn Episode No OBEpisode recorded.
--- OUTSIDE RECORDS SUMMARY | 2024-07-17 10:18 | XMS_ITS | Clinical Summary ---
Author Organization [facility] Address [address] [facility] [address] [place] [address] Phone Care Team Providers Care Property Insurance Agent Name Role Phone Reinaldo Suarez MD Primary [...] Of [place] [address] [place] [address] [place] [address] Bk Martinez MD Stage 3b chronic kidney disease (HCC) 05/17/2024 10:15 AM EDT Office Visit [facility] [address] [place] [phone] Bk Martinez MD Stage 3b chronic kidney [...] Office Visit [facility] [address] [place] [phone] Bk Martinez MD [address] [phone] Health Maintenance Due Date Last Done Comments [...] Creatinine, Ur 120.3 Not Estab. mg/dL [facility] [place] Albumin, Urine <3.0 Not Estab. ug/mL [facility] [place] Albumin/Creatin ine Ratio <2 0 - 29 mg/g creat [facility] [place] Comment: ? Normal: ?0 - ??29 ? Moderately increased: 30 - 300 ? Severely increased: ? >300 Urine (Urine, Clean Catch) 05/17/2024 11:36 AM EDT 05/17/2024 Bk Martinez MD LAB URINE ORDERABLES Final Resul t Performing Organization Address City/[facility]/ZIP Co de Phone Number [employer] [facility] [address] [place] [address] * Vit D 25 hydroxy (05/17/2024 11:36 AM EDT) Vitamin D, 25-OH, Total 82.3 30.0 - 100.0 ng/mL [facility] Comment: Vitamin D deficiency has been defined by the [place] of Medicine and an Endocrine Society practice guideline as a level of serum 25-OH vitamin D less than 20 ng/mL (1,2). The Endocrine Society went on to further define vitamin D insufficiency as a level between 21 and 29 ng/mL (2). 1. IOM ([place] of Medicine). 2010. Dietary reference ?? intakes [...] MD LAB BLOOD ORDERABLES Final Resul t [employer] [place] [address] [place] [address] * PTH, intact (05/17/2024 11:36 AM EDT) PTH 39 15 - 65 pg/mL [facility] [place] Blood (Blood, Venous) 05/17/2024 11:36 AM EDT 05/17/2024 Bk Martinez MD LAB BLOOD ORDERABLES Final Resul t [facility] [place] [address] [place] [address] * (ABNORMAL) Renal funtion panel (05/17/2024 11:36 AM EDT) Glucose 88 70 - 99 mg/dL [facility] [place] BUN 25 8 - 27 mg/dL [facility] [place] Creatinine 1.54(H) 0.57 - 1.00 mg/dL [facility] [place] eGFR CKD-EPI CR 2020 37(L) >59 mL/min/1.7 3 [facility] [place] BUN/Creatinine Ratio 16 12 - 28 [facility] [place] Sodium 141 134 - 144 mmol/L [facility] [place] Potassium 4.9 3.5 - 5.2 mmol/L [facility] [place] Chloride 106 96 - 106 mmol/L [facility] [place] Bicarbonate (CO2) 20 20 - 29 mmol/L [facility] [place] Calcium 10.3 8.7 - 10.3 mg/dL [facility] [place] Albumin 4.1 3.9 - 4.9 g/dL [facility] [place] Phosphorus 3.7 3.0 - 4.3 mg/dL [facility] [place] Blood (Blood, Venous) 05/17/2024 11:36 AM EDT 05/17/2024 us Bk Martinez MD LAB BLOOD ORDERABLES Final Resul t [facility] [place] [address] [place] [address] from Last 3 Months Insurance [facility] ([id number]) [facility] ([id number]) Care Teams Property Insurance Agent Relationship Specialty Start Date End Date Reinaldo Suarez MD [address] [place] [id number] PCP - General Family Medicine 12/22/20
--- OUTSIDE RECORDS SUMMARY | 2024-07-17 10:18 | XMS_ITS ---
Author Organization [facility] Address [address] [place] [address] Care Team Providers Care Shower Screen Installer Name Role Phone Reinaldo Suarez Primary Care Provider Unavailab Kee Brooke Jr Unavailable REASON FOR VISIT please lock 02-08-2024 office note Encounters Encounter Location Date Provider Diagnosis [facility] [address] [place] [address] 03/28/2024 Kee Godfrey Jr Plan Of Treatment Next Appt Details Provider Name:Kee pedraza Jr, 02/06/2025 09:00:00 AM, [address], [address], [place], [address], Progress Notes * RAY REEDOB: (68 yo F)Acc No.[id number]:03/28/2024 Patient:?MICHELLE REED :1955???Age:68 Y???Sex:Female Address:[address] [place] [address] [address] [facility] , [place] [address] * true * Date:? Generated for Printi ng/Rolandog/eTransmitting on:?07/17/2024 10:17 AM EDT
--- OUTSIDE RECORDS SUMMARY | 2024-07-17 10:18 | XMS_ITS ---
Author Organization [facility] Address [address] [place] [phone] Care Team Providers Care Feeder Catcher Name Role Phone Reinaldo Suarez Primary Care [...] 02/08/2024 Encounters Encounter Location Date Provider Diagnosis [address] [place] [phone] 02/08/2024 Kee Godfrey Jr Gastroesophageal reflux disease, [...] Provider Name:Kee pedraza , 02/06/2025 09:00:00 AM, [address] [place] [address], [address], [place], [address], Progress Notes * RAY REEDOB: (69 yo F)Acc No.[id number]:02/08/2024 Progress Notes Patient:?MICHELLE REED Provider:?Kee Godfrey MD :1955???Age:68 Y???Sex:Female D ate:02/08/2024 Address:[address] [place], [place] [phone] Pcp:Reinaldo Suarez Subjective: * Chief Complaints: * [...] MD Date:?1 04/10/2023 Generated for Nemo feng/Lillie/eTransmitting on:?07/17/2024 10:17 AM EDT History and Physical Notes * [...]
--- OUTSIDE RECORDS SUMMARY | 2024-07-17 10:18 | XMS_ITS ---
Author Organization [facility] Address [address] [place] [address] Care Team Providers Care Pulp Mixer Name Role Phone Reinaldo Suarez Primary Care Provider Joe Brooke Jr, Kee Unavailable Encounters Encounter Location Date Provider Diagnosis [facility] [address] [place] [address] 02/08/2024 Kee Godfrey Jr Plan Of Treatment Next Appt Details Provider Name:Kee pedraza Jr, 02/06/2025 09:00:00 AM, [address], [address], [place], [address], Progress Notes * RAY REEDOB: (68 yo F)Acc No.[id number]:02/08/2024 Patient:?MICHELLE REED :1955???Age:68 Y???Sex:Female Address:[address] [place] [address] , [place] [address] Subjective: * Chief Complaints: * ??? * [...] true * Date:? Generated for Nemo feng/Lillie/Johnitting on:?07/17/2024 10:17 AM EDT
--- OUTSIDE RECORDS SUMMARY | 2024-07-17 10:18 | XMS_ITS | Patient Health Record ---
Author Organization [facility] Address [address] [place] [phone] Care Team Providers Care Wood Mill Supervisor Name Role Phone Reinaldo Suarez Primary Care [...] Problem Status W/U Status Risk Notes Problem 286452086 Colon cancer screening (Z12.11) Active confirmed Problem 659664161 Personal history of colonic polyps (Z86.010) Active confirmed Problem 916357728 Periumbilical abdominal pain (R10.33) Active confirmed Problem 01428927 Abdominal pain, epigastric (R10.13) Active confirmed Problem 31463864 Irritable bowel syndrome, unspecified type (K58.9) Active confirmed Problem 498513102 Gastroesophageal reflux disease, unspecified whether esophagitis present (K21.9) Active confirmed Vital Signs Temperature 97.3 degrees Fahrenheit 02/08/2024 Blood pressure diastolic 00 mm Hg 02/08/2024 Height 61.5 in 02/08/2024 Blood pressure systolic 000 mm Hg 02/08/2024 Weight 150 lb 2 oz lbs 02/08/2024 BMI 27.90 kg/m2 02/08/2024 Encounters Encounter Location Date Provider Diagnosis [facility] [address] [facility] [address] [place] [phone] 02/08/2024 Kee Godfrey Jr Gastroesophageal reflux disease, unspecified whether esophagitis present K21.9 and Irritable bowel syndrome, unspecified type K58.9 [facility] [address] [facility] [address] [place] [address] 02/08/2024 Kee Godfrey Jr [facility] [address] [place], [place] [address] [place] [address] 03/28/2024 Kee Godfrey Jr Assessments Encounter Date [...] Provider Name:Kee pedraza Jr, 02/06/2025 09:00:00 AM, [address] [place] [address], [address], [place], [address], Insurance Providers Payer Name Payer Address Payer Phone Subscriber Number Group Number Insured Name Patient Relationship to Insured Coverage Start Date Coverage End Date [facility] [address] Attn Claims DION Soler [id number] MICHELLE REED Self - patient is the [...]
== END 2024-07-17 11:18 | disposition home or self-care (01) ==
LOC: HO.HMCFM 09:37
PROVIDERS: PCP Family Medicine; Visit Provider Family Medicine
DX: E11.9 Type 2 diabetes mellitus without complications (principal); Z79.4 Long term (current) use of insulin; I10 Essential (primary) hypertension; D48.5 Neoplasm of uncertain behavior of skin; R21 Rash and other nonspecific skin eruption

== ENCOUNTER → 2024-07-17 09:36 | Outpatient (BNVA) | payer OTHER, SELFPAY | PROVIDERS: PCP Family Medicine; Visit Provider Family Medicine | DX: I10 Essential (primary) hypertension (principal); E11.9 Type 2 diabetes mellitus without complications; D48.5 Neoplasm of uncertain behavior of skin; R21 Rash and other nonspecific skin eruption; Z79.4 Long term (current) use of insulin; Z79.899 Other long term (current) drug therapy | CPT/HCPCS: 83036; 99212 ==

== ENCOUNTER 2024-10-08 10:54 | Outpatient (AMB) | payer OTHER, SELFPAY ==
[2024-10-08 10:59] VITALS: BP 126/82; PULSE 96; RESP 16; TEMP 36.8; O2SAT 98; BMI 26.1
--- NOTE | 2024-10-08 10:59 | A.OFFPC_ITS ---
Vital Signs 10/08/24 10:59 Height 5 ft 1 in Weight 138 lb 2 oz BMI 26.1 BP 126/82 Blood Pressure Location Rt brachial Position Sitting Respiration 16 Pulse 96 Pulse Source Pulse Oximeter Temp 98.2 F Temp Source Oral Pulse Oximetry (%) 98 Oxygen Delivery Method Room Air Intake Visit Reasons: Discharge from [facility] on 09/18 Accompanied by: Daughter Allergies tuberculin,PPD,multi-puncture Allergy (Intermediate, Verified 10/08/24 11:01) hives/SOB oxycodone (Percocet) Allergy (Unknown, Verified 10/08/24 11:01) unknown Doxycycline Hyclate Allergy (Intermediate, Uncoded 10/08/24 11:01) dizziness, n/v Tobacco use date assessed: 10/08/24 Fall risk assessment: 2 + Falls in past year Last assessed Fall Risk: 10/08/24 Dental Screening Dental Screen Date: 10/08/24 Did you have a dental visit in the last 12 months?: No Did you have a dental problem in the last 6 months where you did not have access to dental care?: No Was dental information given to patient?: Patient declined HPI Discharge from [facility] on 09/18 HPI Details 69 y/o female presents to f/u [facility] ED visit for abd. pain, headache, back pain. Patient went to [facility] ED on September 19 to with complaints of abdominal pain, headache and back pain. Blood pressure was mildly low and she was noted to be tachycardic. She did note that she had had diarrhea at home no had no episodes of this at [facility]. CT scan of the head, CTA of the head and neck and abdominal CT were unremarkable. Chest x-ray unremarkable. Patient was started on IV fluids. Labs did not show any leukocytosis. She began to feel better with IV hydration. Patient was re-evaluated, found to be hemodynamically stable and discharged home. Reports slight tremors. Hx of stroke and does have hx of L sided weakness. BP today 126/82, 105p. She has not been taking her lisinopril. 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 Sister No problems noted. Sister No problems noted. Daughter No problems noted. Daughter No problems noted. Daughter No problems noted. Social History Housing: House Alcohol intake: former Patient Tobacco Use Status: Former Tobacco user e-Cigarette/Vaping Use: Never Used Second Hand Smoke Exposure: No service: No Current occupational status: retired and disabled Current occupational exposures/hazards: No Cognitive needs: No Hearing needs: No Vision needs: No Questionnaire PHQ-9 Over the last 2 weeks, how often have you been bothered by any of the following problems? 1. Little interest or pleasure in doing things: several days 2. Feeling down, depressed, or hopeless: several days 3. Trouble falling or staying asleep, or sleeping too much: not at all 4. Feeling tired or having little energy: several days 5. Poor appetite or overeating: several days 6. Feeling bad about yourself - or that you are a failure or have let yourself or your family down: not at all 7. Trouble concentrating on things, such as reading the newspaper or watching television: not at all 8. Moving or speaking so slowly that other people could have noticed. Or the opposite - being so fidgety or restless that you have been moving around a lot more than usual: not at all 9. Thoughts that you would be better off or of hurting yourself in some way: not at all Total score: 4 Source: Developed by Drs. Barrie Browning, Claudia Nichols, Jason Khan and colleagues, with an educational jalyn from [employer]. Thrive Questionnaire Date Thrive assessed: 04/18/24 I am a: Patient What is your living situation today?: I have a steady place to live Within the past 12 months, did the food you bought not last and you didn't have the money to get more?: I choose not to answer this question Within the past 12 months, did you worry whether your food would run out before you got money to buy more?: I choose not to answer this question Do you have trouble paying for medicines?: No Do you have trouble getting transportation to medical appointments?: No Do you have trouble paying your heating and electricity bill?: I choose not to answer this question Do you have trouble taking care of your child, family member or friend?: No Do you have trouble with day-to-day activities such as bathing, preparing meals, shopping, managing finances, etc.?: No Are you currently unemployed and looking for a job?: No Are you interested in more education?: No Please select the resources that you would like help with: None Currently or been in a relationship where the following occur: I choose not to answer THRIVE Score: 0 AUDIT C Alcohol Use Questionnaire (AUDIT-C) 1. How often do you have a drink containing alcohol?: Never 3. How often do you have six or more drinks on one occasion?: Never Total Score: 0 RAKAN-7 AMB Questionnaire RAKAN-7 Date RAKAN - 7 assessed: 04/25/24 Feeling nervous, anxious, or on edge: 1 = Several days Not being able to stop or control worryin = Several days Worrying too much about different things: 0 = Not at all Trouble relaxin = Not at all Being so restless that it is hard to sit still: 1 = Several days Becoming easily annoyed or irritable: 0 = Not at all Feeling afraid as if something awful might happen: 1 = Several days Total RAKAN-7 score (0-4 normal; 5-9 mild; 10-14 moderate; 15-21 severe): 4 Source: Developed by Drs. Barrie Browning, Claudia Nichols, Jason Khan and colleagues, with an educational jalyn from [employer]. Review of Systems Const Denies chills, Denies fatigue, Denies fever(s), Denies headache(s) and Denies weakness ENT Denies dizziness and Denies headache(s) Card Denies dyspnea Resp Denies cough, Denies dyspnea, Denies wheezing and Denies other (shortness of breath) Musc Denies numbness and Denies tingling Neuro Denies dizziness, Denies headache(s), Denies numbness, Denies tingling and Denies weakness Psych Denies anxiety and Denies depression Endo Denies fatigue Aller/Immun Denies wheezing Physical exam (Primary Care) Vital Signs: Last Vital Signs Temp 98.2 F 10/08/24 10:59 Pulse 105 H 10/08/24 10:59 Resp 16 10/08/24 10:59 BP 126/82 10/08/24 10:59 Pulse Ox 98 10/08/24 10:59 Oxygen Delivery Method Room Air 10/08/24 10:59 BMI result Body Mass Index 26.1 Tobacco/Smoking Status: Tobacco use Status Tobacco use date assessed 10/08/24 10/08/24 11:07 Patient Tobacco Use Status Former Tobacco user 10/08/24 11:07 e-Cigarette/Vaping Use Never Used 10/08/24 11:07 PHQ-9: PHQ-9 Score PHQ-9: Total score 4 10/08/24 11:38 Thrive Assessment: Date of Thrive Assessment Date Thrive assessed 04/18/24 10/08/24 11:07 Currently or been in a relationship where the following occur: I choose not to answer Const General: well developed; No acute distress Nutritional Appearance: well nourished Orientation/consciousness: patient oriented x3 [facility] Head: Yes normocephalic and Yes atraumatic Eyes General: appearance normal, both eyes and all related structures Pupils: Equal, round and reactive pupils present EOM: EOMs intact bilaterally Resp Effort & Inspection: normal respiratory effort Neuro General: patient oriented x3 and gait normal Cranial nerves: Yes Equal, round and reactive pupils present Psych Affect: normal affect Results AMB Hemoglobin A1c AMB Hemoglobin A1c 6.2 % Last Edit by Lin Aguayo CMA on 10/08/24 11:13 Results Reviewed Results Reviewed: Laboratory Last Values Hgb A1c (Clinic) 6.2 % (4.0-6.0) H 10/08/24 11:08 Coding Level of Care Code Est Pt Level 4 (38990) Diagnoses Abdominal pain R10.9 Headache R51.9 Back pain M54.9 Tachycardia R00.0 Tremor R25.1 Dehydration E86.0 Colitis K52.9 Essential hypertension I10 Hypertension type: essential hypertension Assessment & Plan Assessment & Plan (1) Abdominal pain: Code(s): R10.9 - Unspecified abdominal pain Category: Medical (2) Headache: Code(s): R51.9 - Headache, unspecified Category: Medical (3) Back pain: Code(s): M54.9 - Dorsalgia, unspecified Category: Medical (4) Tachycardia: Code(s): R00.0 - Tachycardia, unspecified Category: Medical (5) Tremor: Code(s): R25.1 - Tremor, unspecified Category: Medical (6) Dehydration: Code(s): E86.0 - Dehydration Category: Medical (7) Colitis: Code(s): K52.9 - Noninfective gastroenteritis and colitis, unspecified Category: Medical (8) Hypertension: Code(s): I10 - Essential (primary) hypertension Category: Medical Qualifiers: Hypertension type: essential hypertension Qualified Code(s): I10 - Essential (primary) hypertension Plan Patient went to [facility] in early September and was diagnosed with colitis. Patient went back to [facility] ED on September 19 to with complaints of abdominal pain, headache and back pain. Blood pressure was mildly low and she was noted to be tachycardic. She did note that she had had diarrhea at home no had no episodes of this at [facility]. CT scan of the head, CTA of the head and neck and abdominal CT were unremarkable. Chest x-ray was unremarkable CT abdomen was unremarkable except for interval resolution of diffuse colonic wall thickening. Patient was started on IV fluids and had resumed IV antibiotics.. Labs did not show any leukocytosis. She began to feel better with IV hydration. Patient was re-evaluated, found to be hemodynamically stable and discharged home. Blood pressure 126/82 today. She has not been taking her lisinopril as this was stopped during hospital visit due to low blood pressures with dehydration. She can resume lisinopril at 1/2 tab daily. Maintain good hydration Call or return to office if any worsening abdominal pain Orders: Orders AMB Hemoglobin A1c Today Z13.9 - Encounter for screening, unspecified
--- OUTSIDE RECORDS SUMMARY | 2024-10-08 11:51 | XMS_ITS | Continuity of Care Document ---
Author Name Rahul Vasquez Address [address] [place] [id number] Organization Unknown Address [address] [place] [id number] Medications No known medications Problems No known problems
--- OUTSIDE RECORDS SUMMARY | 2024-10-08 11:51 | XMS_ITS | Patient Health Record ---
Author Organization [facility] Address [address] [place] [phone] Care Team Providers Care Freelance Photographer Name Role Phone Reinaldo Suarez Primary Care [...] Problem Status W/U Status Risk Notes Problem 344581413 Colon cancer screening (Z12.11) Active confirmed Problem 252239785 Personal history of colonic polyps (Z86.010) Active confirmed Problem 333679570 Periumbilical abdominal pain (R10.33) Active confirmed Problem 05389137 Abdominal pain, epigastric (R10.13) Active confirmed Problem 52904473 Irritable bowel syndrome, unspecified type (K58.9) Active confirmed Problem 082825014 Gastroesophageal reflux disease, unspecified whether esophagitis present (K21.9) Active confirmed Vital Signs Temperature 97.3 degrees Fahrenheit 02/08/2024 Blood pressure diastolic 00 mm Hg 02/08/2024 Height 61.5 in 02/08/2024 Blood pressure systolic 000 mm Hg 02/08/2024 Weight 150 lb 2 oz lbs 02/08/2024 BMI 27.90 kg/m2 02/08/2024 Encounters Encounter Location Date Provider Diagnosis [facility] 10 [facility] [address] [place] [phone] 02/08/2024 Kee Godfrey Jr Gastroesophageal reflux disease, unspecified whether esophagitis present K21.9 and Irritable bowel syndrome, unspecified type K58.9 [facility] [address] [facility] [address] [place] [address] 02/08/2024 Kee Godfrey Jr [facility] [address] [place], [place] [address] [place] [address] 03/28/2024 Kee Godfrey Jr Assessments Encounter Date [...] Provider Name:Kee pedraza Jr, 02/06/2025 09:00:00 AM, [address] [place] [address], [address], [place], [address], Insurance Providers Payer Name Payer Address Payer Phone Subscriber Number Group Number Insured Name Patient Relationship to Insured Coverage Start Date Coverage End Date [facility] [address] Attn Claims DION Soler [id number] MICHELLE REED Self - patient is the [...]
--- OUTSIDE RECORDS SUMMARY | 2024-10-08 11:51 | XMS_ITS | Clinical Summary ---
Author Organization [facility] Address [address] [facility] [address] [place] [address] Phone Care Team Providers Care Truer Pinion And Wheel Name Role Phone Reinaldo Suarez MD Primary [...] 04/30/2020 Urge incontinence of urine 04/30/2020 Immunizations Immunization Administration Dates Next Due Influenza, [...] Office Visit [facility] [address] [address] Bk Martinez MD [facility] [phone] Health Maintenance Due Date Last Done Comments [...] Visual Foot Exam 04/06/2020 Influenza Vaccine (#1) 2024 12/20/2019 Hepatitis B Vaccine Aged Out No longe r eligible based on patient's age to complete this topic Insurance [facility] ([id number]) [facility] ([id number]) Care Teams Truer Pinion And Wheel Relationship Specialty Start Date End Date Reinaldo Suarez MD [address] [place] [id number] PCP - General Family Medicine 12/22/20
== END 2024-10-08 12:06 | disposition home or self-care (01) ==
LOC: HO.HMCFM 10:54
PROVIDERS: PCP Family Medicine; Visit Provider Family Medicine
DX: R10.9 Unspecified abdominal pain (principal); R51.9 Headache, unspecified; M54.9 Dorsalgia, unspecified; R00.0 Tachycardia, unspecified; R25.1 Tremor, unspecified; E86.0 Dehydration; K52.9 Noninfective gastroenteritis and colitis, unspecified; I10 Essential (primary) hypertension; Z13.9 Encounter for screening, unspecified

== ENCOUNTER → 2024-10-08 10:54 | Outpatient (BNVA) | payer OTHER, SELFPAY | PROVIDERS: PCP Family Medicine; Visit Provider Family Medicine | DX: Z09 Encounter for follow-up examination after completed treatment for conditions other than malignant neoplasm (principal); R10.9 Unspecified abdominal pain; R51.9 Headache, unspecified; M54.9 Dorsalgia, unspecified; R00.0 Tachycardia, unspecified; R25.1 Tremor, unspecified; E86.0 Dehydration; K52.9 Noninfective gastroenteritis and colitis, unspecified; I10 Essential (primary) hypertension; E11.9 Type 2 diabetes mellitus without complications; Z13.30 Encounter for screening examination for mental health and behavioral disorders, unspecified | CPT/HCPCS: 83036; 96127; 99212 ==

== ENCOUNTER → 2024-11-01 23:59 | Outpatient (BNV) | payer OTHER, SELFPAY | PROVIDERS: PCP Family Medicine; Visit Provider Family Medicine | DX: I12.9 Hypertensive chronic kidney disease with stage 1 through stage 4 chronic kidney disease, or unspecified chronic kidney disease (principal); N18.30 Chronic kidney disease, stage 3 unspecified; N39.0 Urinary tract infection, site not specified; N39.41 Urge incontinence | CPT/HCPCS: G0180 ==

== ENCOUNTER → 2024-12-11 23:59 | Outpatient (BNV) | payer OTHER, SELFPAY | PROVIDERS: PCP Family Medicine; Visit Provider Family Medicine | DX: N39.0 Urinary tract infection, site not specified (principal) | CPT/HCPCS: G0179 ==

== ENCOUNTER → 2024-12-27 23:59 | Outpatient (BNV) | payer OTHER, SELFPAY | PROVIDERS: PCP Family Medicine; Visit Provider Family Medicine | DX: N39.41 Urge incontinence (principal); E11.9 Type 2 diabetes mellitus without complications | CPT/HCPCS: G0179 ==

== ENCOUNTER 2025-01-03 13:27 | Outpatient (AMB) | payer OTHER, SELFPAY ==
[2025-01-03 13:43] VITALS: BP 130/80; PULSE 91; O2SAT 100; BMI 26.9
--- NOTE | 2025-01-03 13:43 | A.OFFVIS_ITS ---
Vital Signs 01/03/25 13:43 Height 5 ft 1 in Weight 142 lb 2 oz BMI 26.9 BP 130/80 Blood Pressure Location Rt brachial Position Sitting Pulse 91 Pulse Source Pulse Oximeter Pulse Oximetry (%) 100 Oxygen Delivery Method Room Air Intake Visit Reasons: 6mnth Intake Note: Patient presents follow up headache. Patient states headaches have been on and off. 4 per month(comes at night). Takes RX and goes to bed. Accompanied by: Self / Same As Patient Allergies tuberculin,PPD,multi-puncture Allergy (Intermediate, Verified 01/03/25 13:50) hives/SOB oxycodone (Percocet) Allergy (Unknown, Verified 01/03/25 13:50) unknown Doxycycline Hyclate Allergy (Intermediate, Uncoded 10/08/24 11:01) dizziness, n/v HPI Comments Details: 69 year old female presents for a f/u of Cervicalgia, Vertigo and Chronic headaches. HST reviewed with pt. FAY is less than 1, however O2 desaturation to 82% for 500min and snoring for 13% of sleep. Will evaluate with psg in-lab. 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 She has 4 headaches a month now. She did not go want to return to PT because she says it is ineffective with symptoms of Vertigo, dizziness and Headaches. She has tinnitus in L. ear, with ongoing vertigo, nausea and dizziness, 1-2x and and worse with stress and in the AM. Headaches are persistent but less in frequency and intensity 1-2 x a week and last 2-3 hours dull pain 5/10 with photophobia, phonophobia, scotomas and auras. Sometimes she has n/v, and amitriptyline 50mg daily helps to alleviate pain. She has cortisone shot in the L. shoulder, the L. Trapezius and L. knee, as this helps to ease her joint pains. Her A1c is now better controlled and she is sleeping intermittently. She has RLS symptoms, worse at night and is able to take her medication and get back to sleep. She has bilateral foot cramps with muscle spasms that wake her up at night. She is slow to get out of a chair, or stand, she counts to ten then gets up, denies falls. Her memory is poor at baseline, forgets many tasks, has word recall difficulties, denies getting lost while driving. Her mood has improved, since having cataract surgery and her vision has improved. She feels hopeful with her family dynamics. She takes care of her grand-daughters. Her diet has improved she is edentulous, has dysphagia with solid foods, no regurgitation, she chews slowly, and eats smaller meals, soups, soft and pureed foods. 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 Sister No problems noted. Sister No problems noted. Daughter No problems noted. Daughter No problems noted. Daughter No problems noted. Social History Housing: House Alcohol intake: former Patient Tobacco Use Status: Former Tobacco user e-Cigarette/Vaping Use: Never Used Second Hand Smoke Exposure: No service: No Current occupational status: retired and disabled Current occupational exposures/hazards: No Cognitive needs: No Hearing needs: No Vision needs: No Physical Exam Vital Signs: Last Vital Signs Pulse 91 01/03/25 13:43 BP 130/80 01/03/25 13:43 Pulse Ox 100 01/03/25 13:43 Oxygen Delivery Method Room Air 01/03/25 13:43 BMI result Body Mass Index 26.9 Const General: cooperative, comfortable and no acute distress Nutritional Appearance: average body habitus and overweight Orientation/consciousness: patient oriented x3 Limitations: ambulation with cane HEENT Face and sinus: Yes normal facial exam Eyes Pupils: Equal, round and reactive pupils present, Pupils normal by confrontation and Pupil accommodation reflex normal Neck Neck: Yes supple and Yes other (Limited ROM to the L/R tight trapezius, levator-scapulae.) Resp Effort & Inspection: normal respiratory effort and able to speak in complete sentences Neuro Other: Pain on Extension of the head, limited rotation of head to the R/L. Vertigo and onset of dizziness with Extension of the head. General: patient oriented x3 Cranial nerves: Yes CN's II-XII intact bilaterally, Yes Facial sensation intact/muscles of mastication intact, Yes Equal, round and reactive pupils present, Yes Nystagmus not present, Yes Normal facial strength present, Yes Midline tongue present, Yes Ability to bilaterally elevate shoulders present and Yes Other cranial nerve findings present (Unable to rotate head bilaterally with pain on extension of the head. ) Gait exam (Neuro): Assisted gait required and Assistive device used Motor exam (neuro): 5/5 motor strength present throughout Deep tendon reflexes (DTR's): Right triceps reflex intensity grade: 2+, Left triceps reflex intensity grade: 2+, Rt Biceps (C5, C6): 2+, Left biceps reflex intensity grade: 2+, Right brachioradialis reflex intensity grade: 2+, Left brachioradialis reflex intensity grade: 2+, Right patellar reflex intensity grade: 2+ and Left patellar reflex intensity grade: 2+ Coordination: [id number] test normal Assessment & Plan Assessment & Plan (1) Excessive daytime sleepiness: Code(s): G47.19 - Other hypersomnia Category: Medical (2) Nocturnal hypoxemia: Code(s): G47.34 - Idiopathic sleep related nonobstructive alveolar hypoventilation Category: Medical (3) Chronic headaches: Comment: cervicogenic Code(s): R51.9 - Headache, unspecified; G89.29 - Other chronic pain Category: Medical Qualifiers: Headache type: tension-type Intractability: not intractable Qualified Code(s): G44.229 - Chronic tension-type headache, not intractable (4) Spasmodic torticollis: Code(s): G24.3 - Spasmodic torticollis Category: Medical (5) Cervicalgia: Code(s): M54.2 - Cervicalgia Category: Medical (6) Imbalance: Code(s): R26.89 - Other abnormalities of gait and mobility Category: Medical (7) Vertigo: Comment: helena related to chronic neck tightness Code(s): R42 - Dizziness and giddiness Category: Medical (8) Memory changes: Code(s): R41.3 - Other amnesia Category: Medical (9) Dystonia: Code(s): G24.9 - Dystonia, unspecified Category: Medical (10) Bilateral tinnitus: Code(s): H93.13 - Tinnitus, bilateral Category: Medical (11) Acute headache: Code(s): R51.9 - Headache, unspecified Category: Medical Qualifiers: Headache type: unspecified Intractability: intractable Qualified Code(s): R51.9 - Headache, unspecified Plan PSG in lab evaluate SRINIVAS Reviewed HST with pt and AHI is <1 however oxygen nadirs to 82% for over 500min and snoring lasts for over 13% of her sleep. Continue PT at [facility] Balance and Gait Difficulties with Vertigo, she declines today says it is ineffective. Spasmodic Torticollis with Cervicalgia and Dystonia has improved with pt. Stop using Flexiril due to CKD stage III. Chronic Headaches continue Amitriptyline 50mg po at bedtime, can last for hours with pulsatile tinnitus. Acute headaches will add Sumatriptan 25mg po prn headache not to exceed 100mg in 24 hours, avoid triggers, eat meals on time, stay hydrated. Monitor frequency and severity of headaches, number of time occurring and how severe is the pain at onset. Use a Migraine cap use as needed. CT scan r/o GCA Trigeminal Neuralgia or other etiologies? Complete labs. F/U 3 months Orders: Orders Hemoglobin A1c 01/03/25 G47.19 - Other hypersomnia, R42 - Dizziness and giddiness IRON PROFILE 01/03/25 R53.83 - Other fatigue, G47.9 - Sleep disorder, unspecified, G47.19 - Other hypersomnia, R42 - Dizziness and giddiness Homocysteine 01/03/25 R53.83 - Other fatigue, G47.9 - Sleep disorder, uns pecified, G47.19 - Other hypersomnia, R42 - Dizziness and giddiness Magnesium 01/03/25 G47.19 - Other hypersomnia, R42 - Dizziness and giddiness Vitamin B12 and Folate 01/03/25 G47.19 - Other hypersomnia, R42 - Dizziness and giddiness RT PSG in-lab sleep study 01/03/25 G47.34 - Idiopathic sleep related nonobstructive alveolar hypoventilation Complete Blood Count no Diff 01/03/25 G47.19 - Other hypersomnia, R42 - Dizziness and giddiness Comprehensive Met. Panel 01/03/25 G47.19 - Other hypersomnia, R42 - Dizziness and giddiness Ferritin 01/03/25 G47.19 - Other hypersomnia, R42 - Dizziness and giddiness Methylmalonic Acid 01/03/25 R53.83 - Other fatigue, G47.9 - Sleep disorder, unspecified, G47.19 - Other hypersomnia, R42 - Dizziness and giddiness Vitamin D 25-OH Total 01/03/25 G47.19 - Other hypersomnia, R42 - Dizziness and giddiness Vitamin B6 01/03/25 G47.19 - Other hypersomnia, R42 - Dizziness and giddiness TSH reflex Free T4 01/03/25 G47.19 - Other hypersomnia, R42 - Dizziness and giddiness CT head/brain wo IV con 01/06/25 G44.229 - Chronic tension-type headache, not intractable, H93.13 - Tinnitus, bilateral Medications: New sumatriptan succinate take 1 tab at onset of headache; if no relief may repeat 1 tab after at least 2 hrs; max = 4 tabs/24 hr PO 14 tabs 0RF headaches MDD 4 tablets R51.9 - Headache, unspecified Patient Instructions: Sleep Hygiene provided: set a scheduled bedtime and wake time to help regulate the circadian rhythm and balance the release of pituitary hormones. Sleep in a dark room, temperatures below 68 degrees, and no devices n bed. Limit caffeinated products 6 hours prior to bed, and limit fluids 2-4 hours prior to bed. Gentle night yoga, diffusing essential oils, and playing soft music can be relaxing. Coding Level of Care Code Complex visit Add On G2211 Diagnoses Excessive daytime sleepiness G47.19 Nocturnal hypoxemia G47.34 Chronic tension-type headache, not intractable G44.229 Headache type: tension-type Intractability: not intractable Spasmodic torticollis G24.3 Cervicalgia M54.2 Imbalance R26.89 Vertigo R42 Memory changes R41.3 Dystonia G24.9 Bilateral tinnitus H93.13 Acute intractable headache, unspecified headache type R51.9 Headache type: unspecified Intractability: intractable
--- OUTSIDE RECORDS SUMMARY | 2025-01-03 16:31 | XMS_ITS | Data Portability ---
Author Organization [employer], [place] [employer] [facility] Address [address] [place] [address] Care Team Providers Care Web Services Manager Name Role Phone HIM CCA OTHER Assessment Encounter Date Assessment Date Assessment LastModified by Organization Details LastModified Time 09/17/2023 09/17/2023 I have reviewed and agree with the assessment and plan as documented by the general house worker. I provided real time medical direction for this encounter and was immediately available to provide additional phone based assistance as needed. History as noted by general house worker. Pt with history of HTN, CKD (last [...] need to be referred back to her frame carver spindle for evaluation, who last saw the pt for routine follow up in May,. Pt will also need to be restarted on her Trulicity, when available. Pt instructed to seek medical attention right away with any worsening or new symptoms, which are reviewed with her. [email or web address] Not available 09/17/2023 12:57:37 09/06/2024 09/06/2024 As noted, we wer e called to see this patient regarding concerns of Abdominal pain, vomiting, diarrhea. Evaluation in the field was performed by my general house worker colleague, as noted above, I provided real-time direction and supervision for this visit. Abdominal pain, vomiting, and diarrhea. Patient started having symptoms earlier today. She is having pain diffusely throughout her abdomen and does appear dehydrated. She does not have any urinary symptoms. Presentation may be due to gastroenteritis. Will give patient fluids, Zofran, and obtain a BMP. Patient's creatinine is 2.5. Reviewing her chart her last creatinine was 1.5. Medic states that the patient's systolic blood pressure after receiving 500 mL is still in the 90s. Patient states that the pain is still there. I recommended she go to the emergency department for a CT scan. Patient is agreeable to go to [place] emergency department. I have called in an expect to the ED. Impression: Abdominal pain, acute on chronic ANTONIO Plan: ED Disposition: We discussed the diagnostic uncertainty of home visits and the risk associated with this. In this case, the patient and I felt this to be an acceptable and reasonable amount of risk given the benefit of avoiding an ED visit. We discussed the need to seek care urgently/emergentl y in the setting of any new or worsening serious symptoms, particularly Abdominal pain and worsening creatinine. [email or web address] Not available 09/06/2024 10:38:14 09/19/2024 09/19/2024 I have reviewed and agree with the assessment and plan as documented by the general house worker. I provided real-time medical direction for this encounter and was immediately available to provide additional phone-based assistance as needed. History as noted in EMR and by general house worker. I would add / emphasize: Patient seen for lower abdominal pain radiating to the back, orthostatic dizziness and ongoing nausea vomiting and loose stools. ECG with sinus tachycardia in the 130s. Hypotensive with systolic blood pressure in the 90s. Given ill appearance, significant abdominal tenderness, marked tachycardia and hypotension in the setting of recent hospitalization for similar symptoms without clear etiology recommended presentation to the emergency department via 911 and patient agrees. To [facility] ED via EMS. [email or web address] Not available 09/20/2024 08:28:21 Plan of Treatment Reminders Order Date Submit Date Provider Last Modified By Organization Details Last Modified Time Details Appointments None recorded. Lab BMP, serum or plasma 2024 025 [facility], [address] [place] [address], [phone] 14:57:30 BMP, serum or plasma [address], [phone] 4 11:35:24 hemoglobi n + hematocri t, blood 2023 024 [facility], [address] [place] [address], [id number] 4 11:35:22 urinalysi s, dipstick 2023 024 [facility], [address] [place] [address], [id number] 4 11:48:50 Referral None recorded. Procedures None recorded. Surgeries None recorded. Imaging electroca rdiogram 2024 025 pallfather [facility], [address] [place] [address], [id number] 5 21:03:03 Medication Orders sodium chloride 0.9 % intraveno us solution [address]/Pharmacy #[id number], [address] [place] [address], [address], 5 10:15:54 ondansetr on HCl (PF) 4 mg/2 mL injection solution [address]/Pharmacy #[id number], [address] [place] [address], [address], 5 10:15:54 sodium chloride 0.9 % intraveno us solution 2023 024 [facility]acy #[id number], [address] [place] [address], [address], 4 11:48:49 Patient TargetsNo targets recorded. Patient InstructionsNo instructions recorded. Reason for Referral None Reported. Results Created Date Observation Date Name Description Value Unit Range Abnormal Flag Note LastModifiedBy Organization Detail LastModifiedTime 09/17/1909/17/2023 urina lysis , dipst ick Leukocytes negati ve Not Available Main - [address], [phone] 09/17/2023 11:47:07 09/17/19 24 09/17/2023 urina lysis , dipst ick Nitrite negati ve Not Available Main - Inst ed [address] [place] [address], [id number] 09/17/2023 11:47:07 09/17/19 24 09/17/2023 urina lysis , dipst ick Protein trace Not Available Main - Ins [address], [phone] 09/17/2023 11:47:07 09/17/19 24 09/17/2023 urina lysis , dipst ick Blood negati ve Not Available Main - Inst ed [address] [place] [address], [phone] 09/17/2023 11:47:07 09/17/19 24 09/17/2023 urina lysis , dipst ick Ketone trace Not Available Main - Ins [address], [address] 09/17/2023 11:47:07 09/17/19 24 09/17/2023 urina lysis , dipst ick Glucose negati ve Not Available Main - Inst ed [address] [place] [address], [id number] 09/17/2023 11:47:07 09/17/19 24 09/17/2023 hemog lobin + hemat ocrit , blood Hemoglobin 11.9 Not Available Main - [facility] [address] [place] [address], [id number] 09/17/2023 11:33:02 09/17/19 24 09/17/2023 hemog lobin + hemat ocrit , blood Hematocrit 35 Not Available Main - [facility] [address] [place] [address], [id number] 09/17/2023 11:33:02 09/17/19 24 09/17/2023 BMP, serum or plasm a BUN 50 Not Available Main - Ins [address], [address] 09/17/2023 11:32:55 09/17/19 24 09/17/2023 BMP, serum or plasm a Ca 1.32 Not Available Main - Ins [address], [address] 09/17/2023 11:32:55 09/17/19 24 09/17/2023 BMP, serum or plasm a CI- 108 Not Available Main - Ins [address], [address] 09/17/2023 11:32:55 09/17/19 24 09/17/2023 BMP, serum or plasm a CRE 1.9 Not Available Main - Ins [address], [address] [place] [address] 09/17/2023 11:32:55 09/17/19 24 09/17/2023 BMP, serum or plasm a GLU 173 Not Available Main - Ins [address], [address] [place] [address] 09/17/2023 11:32:55 09/17/19 24 09/17/2023 BMP, serum or plasm a K+ 5.4 Not Available Main - Ins [address], [address] [place] [address] 09/17/2023 11:32:55 09/17/19 24 09/17/2023 BMP, serum or plasm a Na+ 137 Not Available Main - Ins [address], [address] [place] [address] 09/17/2023 11:32:55 09/17/19 24 09/17/2023 BMP, serum or plasm a tCO2 21 Not Available Main - Ins [address], [address] 09/17/2023 11:32:55 09/20/19 25 09/19/2024 elect gloria riosgr am No observ ation record ed. [email or web address] [facility] [address], [address] 09/19/2024 21:26:53 Result Notes None recorded. Medical Equipment None [...] Available No t Available Vitals Date Recorded Respiratory rate Body temperature Oxygen saturation Oxygen saturation in Arterial blood by Pulse oximetry Heart rate Systolic And Diastolic Provider Name and Address Organization Details Last Updated DateTime 5 18 /min 98.7 [degF] 98 % 98 % 108 /min 98/62 mm[Hg] Not Available [facility] - production 5 10:07:50 Date Recorded Heart rate Respiratory rate Oxygen saturation Oxygen saturation in Arterial blood by Pulse oximetry Body temperature Systolic And Diastolic Provider Name and Address Organization Details Last Updated DateTime 4 90 /min 16 /min 99 % 99 % 98 [degF] 140/80 mm[Hg] James Bonilla MD [address] [place] [address],[address], [place], [address] [place] [address] [employer] [facility] 4 10:58:17 Date Recorded Oxygen saturation Oxygen saturation in Arterial blood by Pulse oximetry Body temperature Heart rate Respiratory rate Systolic And Diastolic Provider Name and Address Organization Details Last Updated DateTime 4 98 % 98 % 98 [degF] 90 /min 16 /min 140/80 mm[Hg] Not Available Last [facility] - [employer] 4 12:38:32 Date Recorded Body height Respiratory rate Heart rate Body temperature Body weight Oxygen saturation Oxygen saturation in Arterial blood by Pulse oximetry Heart rate Systolic And Diastolic Systolic And Diastolic Provider Name and Address Organization Details Last Updated DateTime 5 152.4 cm 14 /min 135 /min 98 [degF] 01226.6 g 98 % 98 % 135 /min 104/74 mm[Hg] 93/61 mm[Hg] Not Available [employer] 5 09:45:08 Social History None recorded. Functional Status None recorded. Mental Status None recorded. Family History Nothing Reported. Medical History No medical history recorded. Gynecological HistoryNo gynecological history recorded. Obstetrics History GPAL:G 0 P 0 0 0 0 Past Encounters Encounter ID Performer Location Encounter Start Date Encounter Closed Date Diagnosis/Indication Diagnosis SNOMED-CT Code Diagnosis ICD10 Code Diagnosis IMO Codes Diagnosis Note [id number] James Bonilla MD Main - [address] [address] 09/17/2023 10:55:08 09/18/2023 22:12:46 Excessive thirst 02077885 R63.1 Acute-on-c hronic renal failure 759018762 N17.9 [id number] Davon Anand MD [facility] [address] [address] 09/06/2024 10:07:42 09/07/2024 16:15:42 Generalized abdominal pain 596687063 R10.84 [id number] Oleg Madden MD [facility] ED Medical [facility] [address] [place] [address] 09/19/2024 09:26:00 09/20/2024 11:13:00 Abdominal pain 39135843 R10.9 [id number] Health Concerns Section Related Observation LastModified by Organization Detai ls LastModified Time None Recorded Concern Status LastModified by Organization Details LastModified Time None Recorded Advance Directives Directive None Recorded Payers Insurance Date Sequence Insurance Name Policy Number Policy Jerome Covered Member ID Jerome Member ID Guarantor Name 09/19/2024 1 [facility] - DOS ON OR AFTER 2022 - DUAL ELIGIBLE - HALFWAY OPTIONS AND ONE CARE (MEDICARE REPLACEMENT/ADV ANTAGE - HMO) Zulay Verdeillo [id number] Zulay Eliel Jensen Notes Date Note Type Note Provider Name and Address Organization Details Recorded Time 09/17/2023 text/html ROS as noted in the HPI This was a supervised home visit with general house worker Aleyda Benitez. CRC Nurse Triage Notes (Philip Roberson): Reason For Request: Patient feels weak, urinating a lot, drinking lots of fluids, and feels shaky. Chief Complaints: Weakness/Lethargy, Syncope/Dizziness/Li ghtheadedness Allergies: Unknown Comments: Optoelectronics Engineer verified the member's name//address and phone number. [...] emergency treatment if needed -Allen Roberson RN Explosive Operator [employer] POC Test Results from Aleyda Benitez - [...] bilirubin: - XENA Urine glucose: - GLU .................... .................... .................... .................... .................... .................... .................... . Explosive Operator Bomb Note From Aleyda Benitez: Community Explosive Operator Bomb Silas Benitez SC[facility] a 68 yof C/O thirst, shaking, [...] of 175 that AM. No pedal edema. [facility] consulted; #22 IV placed in her left AC, BMP acquired, she was given 100 mL NS. Urine dip in insted. She was instructed to drink plenty of water, keep sugar to a minimum, and speak w/ her Physician IVONNE. She was informed that she needed follow up bloodwork and possibly a referral back to her past General Claims Agent. Red flags discussed at length. .................... .................... .................... .................... .................... .................... .................... . Disposition: Fulfilled James Bonilla MD [address] [place] [address],[address], [place], [address], [employer] 09/17/2023 12:57:52 09/06/2024 text/html ROS as noted in the [facility] CRC Nurse Triage Notes (Yoanna Gaxiola): Reason For Request: Pt's daughter Licha severe abdominal pain>vomiting & diarrhea>symptoms began at 3pm today Patient Reports: Diarrhea no blood in stool; Nausea with or without vomiting; Inability to tolerate foods, fluids or daily medications Denies: Sharp focal or diffuse abdominal pain Vomiting blood/coffee ground material Bloating, jaundice new onset with pain Nausea and vomiting greater than 2 hours with abdominal pain Tearing pain that radiates to back Food Impaction Vague abdominal pain greater than 24 hours Constipation Chief Complaints: Abdominal Pain PMH: Diabetes Mellitus Type 2, Coronary Artery Disease, Hypertension, Dementia (e.g., Alzheimer's Disease) PMH Reviewed at 09/05/2024 - 18:50 Allergies Reviewed at 09/05/2024 - 18:50 Pain Assessment: Level null out of 10 Comments: 69 y.o female Daughter calling for abd pain, entire front side. She has been having nausea / vomiting. She has been throwing up yellow bile. She has eaten earlier today. She had a BM today, loose stool. She had regular BM yesterday. She has not changes in her . She is diabetic , her Blood sugar was 95 , She has not check herbs since, recommended rechecking. She does not have liver disease I provided information on the mobile health provider response time and advised the patient and/or caregiver to monitor reported signs and symptoms. I discussed the warning signs of when to seek emergency care. Explosive Operator [employer] Organization Information for Camilo Beckford Business Legal Name: [employer] Address: [address] [place] [address], Basket Bottom Machine Operator: Elvin Watson MD CLIA No.: [id number] Explosive Operator [employer] POC Test Results from Camilo Beckford Rapid COVID antigen (10:00:00) COVID: - Attachments uploaded as part of this test result can be found under Documents section. Rapid influenza antigen (10:00:01) Flu: - Attachments uploaded as part of this test result can be found under Documents section. iSTAT Chem8+ (10:24:20) Na: 139 mEq/L K: 4.9 mEq/L Cl: 108 mEq/L iCa: 1.24 mmol/L TCO2: 19 mmol/L Glu: 104 mg/dL BUN: 40 mg/dL Crea: 2.5 mg/dL Hct: 35 % Hb: 11.9 g/dL A mmol/L Cartridge Number: [id number] Attachments uploaded as part of this test result can be found under Documents section. .................... .................... .................... .................... .................... .................... .................... . Explosive Operator Bomb Note From Camilo Beckford: Dispatched to above address for abdominal pain nausea vomiting and diarrhea. On arrival patient 69 y/o F< met SC8 at the door, walking unassisted with normal gait, AOX4, airway patent, speaking in full sentences, good color, in no apparent distress. Patient states around 3:45pm yesterday she had a sudden onset 10/10 abdominal pain started LLQ progressed to all quadrants and into back, nausea vomiting a diarrhea, has been able to hold down crackers and water, last episode of vomiting last night, last episode of diarrhea this morning. Patients vital signs checked. Secondary assessment, pupils PERRL, airway patent, no JVD, trachea midline, equal chest rise and fall, lungs clear all barriga, abdomen soft tenderness and pain in all quadrants withdrawing from pain and guarding, no signs of trauma, good radial pulse, skin warm and dry. Covid-19 and Flu test preformed, both negative results uploaded. Patient states pain is sharp pulling and tearing, constant last night today is intermittent and less than yesterday but getting worse. [facility] contacted spoke with Dr. Anand, advised of patient complaints exam findings and test results. [facility] orders BMP checked, and fluid started. IV access established, 18g L AC. Lab draw preformed, Chem8 checked, results uploaded. Patient started on normal saline infusion. Patient reports pain is getting worse. [facility] contacted, due to pain and elevated creatinine compared to recent test, [facility] recommends transport to ER for further evaluation. Patient agrees with this plan. 911 contacted, [place] ambulance responded. Verbal report given to [place] Explosive Operator Bomb, took over patient care, will transport to [facility]. SC8 clear. EOR. [facility] Lab Orders: BMP, serum or plasma: Performed [facility] Medication Orders: sodium chloride 0.9 % intravenous solution: Administered ondansetron HCl (PF) 4 mg/2 mL injection solution: Not Administered Comment: transported by EMS .................... .................... .................... .................... .................... .................... .................... . [facility] Consulted: Davon Anand .................... .................... .................... .................... .................... .................... .................... . Disposition: Fulfilled Davon Anand MD [address] [facility],[address], [place], [address], [employer] 09/06/2024 15:40:44 09/19/2024 text/html CRC Nurse Triage Notes (Lucas France): Reason For Request: abdominal pain/headache/diahrr ea Patient Reports: Sharp focal or diffuse abdominal pain ; Nausea and vomiting greater than 2 hours with abdominal pain; Tearing pain that radiates to back; Vague abdominal pain greater than 24 hours; Nausea with or without vomiting; Inability to tolerate foods, fluids or daily medications Denies: Vomiting blood/coffee ground material Bloating, jaundice new onset with pain Food Impaction Constipation Diarrhea no blood in stool Chief Complaints: Abdominal Pain PMH: Diabetes Mellitus Type 2, Coronary Artery Disease, Hypertension, Dementia (e.g., Alzheimer's Disease) PMH Reviewed at 09/19/2024 08:45 Allergies Reviewed at 09/19/2024 08:45 Comments: Allergy to Tuberculosis (TB) vaccines Not located in list of choices 69 y.o female complains of Abdominal Pain Pt reports feeling unwell since yesterday Nausea, vomiting, diarrhea, headache with abdominal pain, lower back pain, subjective fever Abdominal pain is lower left side - 10/10 Decreased PO Intake Denies chest pain and shortness of breath Reports taking Tylenol with no relief Concerns expressed and emergency treatment declined I provided information on the mobile health provider response time and advised the patient and/or caregiver to monitor reported signs and symptoms. I discussed the warning signs of when to seek emergency care. Explosive Operator Bomb Organization Information for Danny Fraire [employer]ra Legal Name: [facility] Address: [address] [place] [address], [place] [address], Basket Bottom Machine Operator: Ricky Saavedra MD [facility] No.: [id number] Explosive Operator Bomb POC Test Results from Danny Fraire [facility] EKG (10:13:43) EKG test performed. Attachments uploaded as part of this test result can be found under Documents section. .................... .................... .................... .................... .................... .................... .................... . Explosive Operator Bomb Note From Danny Fraire: Patient alert and oriented, supine in bed. Patient complains of left lower quadrant abdominal pain, nausea, vomiting, diarrhea times 12 hours. Patient reports she was hospitalized two weeks ago for similar, reports pain is worse and more widespread now. Patient reports sharp pain from umbilicus to her back and on her ambdomen s left lower side. Patient also reports dizziness on standing. Patient denies chest pain, difficulty, breathing, cough, black or bloody stool or vomit or any other pain or complaint. Patient, pink warm, dry, moderate skin TURGOR. Positive full sentences, negative increased work of breathing, lung sounds clear throughout, abdomen, soft, tender on left lower quadrant. No rebound tenderness noted or reported. Extremities unremarkable. [facility] advises patient to go to ED. Patient agrees, 911 system activated, report to EMS on scene. [place] [facility]. .................... .................... .................... .................... .................... .................... .................... . [facility] Consulted: Oleg Madden .................... .................... .................... .................... .................... .................... .................... . Disposition: Fulfilled Oleg Madden MD [address] [facility], [place], [address], [employer] 09/20/2024 08:28:30 OBGyn Episode No OBEpisode recorded.
== END 2025-01-03 14:33 | disposition home or self-care (01) ==
LOC: HO.HSMS 13:27
PROVIDERS: PCP Family Medicine; Visit Provider Physician Assistant Medical
DX: G47.19 Other hypersomnia (principal); G47.34 Idiopathic sleep related nonobstructive alveolar hypoventilation; G44.229 Chronic tension-type headache, not intractable; G24.3 Spasmodic torticollis; M54.2 Cervicalgia; R26.89 Other abnormalities of gait and mobility; R42 Dizziness and giddiness; R41.3 Other amnesia; G24.9 Dystonia, unspecified; H93.13 Tinnitus, bilateral; R51.9 Headache, unspecified
CPT/HCPCS: 99214; G2211

== ENCOUNTER → 2025-01-03 13:27 | Outpatient (BNVA) | payer OTHER, SELFPAY | PROVIDERS: PCP Family Medicine; Visit Provider Physician Assistant Medical | DX: G47.19 Other hypersomnia (principal); G47.34 Idiopathic sleep related nonobstructive alveolar hypoventilation; G44.229 Chronic tension-type headache, not intractable; G24.3 Spasmodic torticollis; M54.2 Cervicalgia; R26.89 Other abnormalities of gait and mobility; R42 Dizziness and giddiness; R41.3 Other amnesia; G24.9 Dystonia, unspecified; H93.13 Tinnitus, bilateral | CPT/HCPCS: 99212 ==

== ENCOUNTER → 2025-01-07 23:59 | Outpatient (BNV) | payer OTHER, SELFPAY | PROVIDERS: PCP Family Medicine; Visit Provider Family Medicine | DX: N39.0 Urinary tract infection, site not specified (principal); N39.41 Urge incontinence | CPT/HCPCS: G0179 ==

== ENCOUNTER → 2025-02-12 21:53 | Outpatient (REF) | payer OTHER, SELFPAY ==
--- OUTSIDE RECORDS SUMMARY | 2024-02-08 04:40 | XMS_ITS ---
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 Assembler Name Role Phone Reinaldo Suarez Primary Care Provider Kee Mattson Jr Unavailable Allergies Allergen (clinical drug ingredient) Drug/Non Drug Allergy documented on EMR Reaction Allergy Type Onset Date Status TB Syringe 1 ML Unknown Drug Allergy A ctive REASON FOR VISIT Patient presents today for abdominal pain Medications Medication SIG (Take, Route, Frequency, Duration) Notes Start Date End Date Status traZODone HCl 150 MG Tablet TAKE 1 TABLE T BY MOUTH EVERY NIGHT AT BEDTIME Oral; Duration: 90 Active oxyBUTYnin Chloride ER 15 MG Tablet Extended Release 24 Hour TAKE 1 TABLET BY MOUTH DAILY Oral; Duration: 90 Active Solifenacin Succinate 10 MG Tablet Oral; Duration: 90 Active MiraLax (colon prep) 8.3 ounce ((238) grams mixed with Gatorade or Crystal Light orally begin at 5:00 p.m. the day before the procedure; Duration: 1 day 05/23/2020 Active Dicyclomine HCl 20 MG Tablet TAKE 1 TABLET BY MOUTH TWO TO 4 TIMES A DAY; Duration: 90 Active Vitamin D3 125 MCG (5000 UT) Capsule TAKE 1 CAPSULE BY MOUTH DAILY FOR 30 DAYS Oral; Duration: 30 Active Diclofenac Sodium 50 MG Tablet Delayed Release TAKE 1 TABLET BY MOUTH THREE TIMES DAILY Oral; Duration: 90 Active Dicyclomine HCl 10 MG Capsule Take 1 capsule by mouth 2 times daily to 4 times daily.; Duration: 60 Active Omeprazole 40 MG Capsule Delayed Release TAKE 1 CAPSULE BY MOUTH DAILY Oral; Duration: 30 Active Toujeo Max SoloStar 300 UNIT/ML Solution Pen-injector INJECT 46 UNITS SUBCUTANEOUS DAILY Subcutaneous; Duration: 30 Active Metoprolol Succinate ER 50 MG Tablet Extended Release 24 Hour TK ONE AND ONE-HALF TS PO D Oral; Duration: 30 Active Latanoprost Active Citalopram Hydrobromide 40 MG Tablet TK 1 T PO QD Oral; Duration: 30 Active VESIcare 10 MG Tablet TK 2 TS PO D Oral; Duration: 30 Active Famotidine 40 MG Tablet TK 1 T PO HS Oral Active Atorvastatin Calcium 40 MG Tablet TK 1 T PO HS Oral; Duration: 30 Active Lisinopril 40 MG Tablet TK 1 T PO QD Ora l; Duration: 30 Active Aspirin EC Low Dose 81 MG Tablet Delayed Release TK 1 T PO QD Oral; Duration: 30 Active Amitriptyline HCl 25 MG Tablet TK 1 T PO HS Oral; Duration: 30 Active Meclizine HCl 25 MG Tablet TK 1 T PO TID Oral; Duration: 10 Active Trulicity 3 MG/0.5ML Solution Auto-injector Subcutaneous; Duration: 28 Active Timolol Maleate 0.5 % Solution INSTILL 1 DROP INTO BOTH EYES EVERY MORNING Ophthalmic; Duration: 50 Active Insulin Glargine Max SoloStar 300 UNIT/ML Solution Pen-injector Subcutaneous; Duration: 40 Active Social History Tobacco Use: Social History Observation Description Date Details (start date - stop date) Former Smoker NA - NA Social History Drugs/Alcohol: Social Info Question Answer Notes Alcohol Screen Did you have a drink containing alcohol in the past year? No Points 0 Interpretation Negative Tobacco Use: Social Info Question Answer Notes Tobacco Use/Smoking Patient is a former smoker When did you stop smoking? 1 year and 3 months How long has it been since you last smoked? 1-5 years Additional Details Category Social Info Options Details Miscellaneous: Marital status: Occupation: retired Vital Signs Temperature 97.3 degrees Fahrenheit 02/08/20 24 Blood pressure systolic 000 mm Hg 02/08/20 24 Blood pressure diastolic 00 mm Hg 024 Height 61.5 in 02/08/2024 Weight 150 lb 2 oz lbs 02/08/2024 BMI 27.90 kg/m2 02/08/2024 Encounters Encounter Location Date Provider Diagnosis [facility] [address] [place] [address] 02/08/2024 Kee Godfrey Jr Gastroesophageal reflux disease, unspecified whether esophagitis present K21.9 and Irritable bowel syndrome, unspecified type K58.9 Assessments Encounter Date Diagnosis (ICD Code) Assessment Notes Treatment Notes Treatment Clinical Notes Section Notes 02/08/2024 Gastroesophageal reflux disease, unspecified whether esophagitis present (ICD-10 - K21.9) Gastroesophageal reflux disease material was printed Gastroesophageal reflux disease is stable. She will continue omeprazole. IBS symptoms are doing well. We discussed the high-fiber diet. We recommended she continue to use dicyclomine for her symptoms of discomfort. Followup will be in one year. 02/08/2024 Irritable bowel syndrome, unspecified type (ICD-10 - K58.9) Gastroesophagea l reflux disease is stable. She will continue omeprazole. IBS symptoms are doing well. We discussed the high-fiber diet. We recommended she continue to use dicyclomine for her symptoms of discomfort. Followup will be in one year. Plan Of Treatment Treatment Notes Assessment Notes Gastroesophageal reflux dise ase, unspecified whether esophagitis present Gastroesophageal reflux disease material was printed Next Appt Details Follow Up: 1 Year, Reason: Provider Name:Kee pedraza Jr, 06/12/2025 10:20:00 AM, [address] [place] [address], [address], [place], [id number], History and Physical Notes * HPI (History of Present Illness) Category Sub-Category Detail Notes Category Not es New symptom(s) The patient is a pleasant 68-year-old woman seen today in followup. She reports reflux symptoms are doing well. She continues on omeprazole 40 mg daily. She gets occasional dysphagia, but this has not been progressive and this occurs very infrequently. She was evaluated with a barium swallow and speech pathology and there reports will be obtained and reviewed. This was in January of 2023. With respect to her irritable bowel syndrome, she has intermittent constipation and then diarrhea. She is taking dicyclomine which helps her symptoms. She has no complaints of rectal bleeding or change in her bowel habits. She is up-to-date on colorectal cancer screening. We reviewed this today. Examination Category Sub-Category Detail Notes Category Not es General Examination On exami nation today, she appears well. Skin is anicteric. Lungs are clear. Heart shows a regular rate and rhythm. Abdomen is soft without focal mass or tenderness. Extremities are without edema. Progress Notes * CARYN REED: 7 (69 yo F)Acc No.[id number]:02/08/2024 Progress Notes Patient: MICHELLE DIAZ Provider: Brian Godfrey MD :[id number] A ge:68 Y S ex:Female Date:02/08/2024 Address:[address] [place] [address] , [facility] Pcp:Reinaldo Suarez Subjective: * Chief Complaints: * Anastacio rosario presents today for abdominal pain * HPI: N ew symptom(s): The patient is a pleasant 68-year-old woman seen today in followup. She reports reflux symptoms are doing well. She continues on omeprazole 40 mg daily. She gets occasional dysphagia, but this has not been progressive and this occurs very infrequently. She was evaluated with a barium swallow and speech pathology and there reports will be obtained and reviewed. This was in January of 2023. With respect to her irritable bowel syndrome, she has intermittent constipation and then diarrhea. She is taking dicyclomine which helps her symptoms. She has no complaints of rectal bleeding or change in her bowel habits. She is up-to-date on colorectal cancer screening. We reviewed this today. * Medical History: Migraine headaches Vertigo Hypertension Colonoscopy 05/25, hyperplastic polyp, five-year followup chronic kidney disease stage III Hyperlipidemia type I diabetes Urinary incontinence Insomnia gastroesophageal reflux disease, EGD 05/25, no H. pylori or Ambrocio's esophagus. Medical History Verified * Surgical History: section x2 inguinal hernia repair x2 knee surgery for removal of a benign tumor as a child bladder surgery bladder suspension cholecystectomy Surgical History verified. * Hospitalization/Major Diagno stic Procedure: No Hospitalization Documented. Hospitalization Verified. * Family History: F ather: , diagnosed with Heart disease, Diabetes. M other: , diagnosed with Heart disease, Diabetes. F amily History Verified.. Denies family hx of colon cancer, colon polyps or liver ds. * Social History: T obacco Use: T obacco Use/Smoking Anastacio rosario is a f ormer smoker, W hen did you stop smoking??1 year and 3 months , H ow long has it been since you last smoked? 1 -5 years. D rugs/Alcohol: A lcohol Screen D id you have a drink containing alcohol in the past year? N o, P oints 0 , I nterpretation N egative. M iscellaneous: M arital status: . Occupation: retired. Social History Verified. * Medications: T akingAmitriptyline HCl 25 MG Tablet TK 1 T PO HS Oral Meclizine HCl 25 MG Tablet TK 1 T PO TID Oral Atorvastatin Calcium 40 MG Tablet TK 1 T PO HS Oral Lisinopril 40 MG Tablet TK 1 T PO QD Oral Aspirin EC Low Dose 81 MG Tablet Delayed Release TK 1 T PO QD Oral Metoprolol Succinate ER 50 MG Tablet Extended Release 24 Hour TK ONE AND ONE-HALF TS PO D Oral Citalopram Hydrobromide 40 MG Tablet TK 1 T PO QD Oral VESIcare 10 MG Tablet TK 2 TS PO D Oral Famotidine 40 MG Tablet TK 1 T PO HS Oral Latanoprost Dicyclomine HCl 10 MG Capsule Take 1 capsule by mouth 2 times daily to 4 times daily. Omeprazole 40 MG Capsule Delayed Release TAKE 1 CAPSULE BY MOUTH DAILY Oral Toujeo Max SoloStar 300 UNIT/ML Solution Pen-injector INJECT 46 UNITS SUBCUTANEOUS DAILY Subcutaneous Vitamin D3 125 MCG (5000 UT) Capsule TAKE 1 CAPSULE BY MOUTH DAILY FOR 30 DAYS Oral Diclofenac Sodium 50 MG Tablet Delayed Release TAKE 1 TABLET BY MOUTH THREE TIMES DAILY Oral traZODone HCl 150 MG Tablet TAKE 1 TABLET BY MOUTH EVERY NIGHT AT BEDTIME Oral oxyBUTYnin Chloride ER 15 MG Tablet Extended Release 24 Hour TAKE 1 TABLET BY MOUTH DAILY Oral MiraLax (colon prep) 8.3 ounce ((238) grams mixed with Gatorade or Crystal Light orally begin at 5:00 p.m. the day before the procedure Dicyclomine HCl 20 MG Tablet TAKE 1 TABLET BY MOUTH TWO TO 4 TIMES A DAY Solifenacin Succinate 10 MG Tablet Oral Trulicity 3 MG/0.5ML Solution Auto-injector Subcutaneous Timolol Maleate 0.5 % Solution INSTILL 1 DROP INTO BOTH EYES EVERY MORNING Ophthalmic Insulin Glargine Max SoloStar 300 UNIT/ML Solution Pen-injector Subcutaneous Taking Amitriptyline HCl 25 MG Tablet TK 1 T PO HS Oral Taking Meclizine HCl 25 MG Tablet TK 1 T PO TID Oral Taking Atorvastatin Calcium 40 MG Tablet TK 1 T PO HS Oral Taking Lisinopril 40 MG Tablet TK 1 T PO QD Oral Taking Aspirin EC Low Dose 81 MG Tablet Delayed Release TK 1 T PO QD Oral Taking Metoprolol Succinate ER 50 MG Tablet Extended Release 24 Hour TK ONE AND ONE-HALF TS PO D Oral Taking Citalopram Hydrobromide 40 MG Tablet TK 1 T PO QD Oral Taking VESIcare 10 MG Tablet TK 2 TS PO D Oral Taking Famotidine 40 MG Tablet TK 1 T PO HS Oral Taking Latanoprost Taking Dicyclomine HCl 10 MG Capsule Take 1 capsule by mouth 2 times daily to 4 times daily. Taking Omeprazole 40 MG Capsule Delayed Release TAKE 1 CAPSULE BY MOUTH DAILY Oral Taking Toujeo Max SoloStar 300 UNIT/ML Solution Pen-injector INJECT 46 UNITS SUBCUTANEOUS DAILY Subcutaneous Taking Vitamin D3 125 MCG (5000 UT) Capsule TAKE 1 CAPSULE BY MOUTH DAILY FOR 30 DAYS Oral Taking Diclofenac Sodium 50 MG Tablet Delayed Release TAKE 1 TABLET BY MOUTH THREE TIMES DAILY Oral Taking traZODone HCl 150 MG Tablet TAKE 1 TABLET BY MOUTH EVERY NIGHT AT BEDTIME Oral Taking oxyBUTYnin Chloride ER 15 MG Tablet Extended Release 24 Hour TAKE 1 TABLET BY MOUTH DAILY Oral Taking MiraLax (colon prep) 8.3 ounce ((238) grams mixed with Gatorade or Crystal Light orally begin at 5:00 p.m. the day before the procedure Taking Dicyclomine HCl 20 MG Tablet TAKE 1 TABLET BY MOUTH TWO TO 4 TIMES A DAY Taking Solifenacin Succinate 10 MG Tablet Oral Taking Trulicity 3 MG/0.5ML Solution Auto-injector Subcutaneous Taking Timolol Maleate 0.5 % Solution INSTILL 1 DROP INTO BOTH EYES EVERY MORNING Ophthalmic Taking Insulin Glargine Max SoloStar 300 UNIT/ML Solution Pen-injector Subcutaneous DiscontinuedJanuvia Medication List reviewed and reconciled with the patientDiscontinued Januvia Medication List reviewed and reconciled with the patient * Allergies: T B Syringe 1 MLyesAllergies Verified. Objective: * Vitals: W t: 150 lb 2 oz, Ht: 61.5 in, BMI:27.90Index, BP: 000/00 mm Hg, Temp: 97.3 F. * Examination: G eneral Examination: O n examination today, she appears well. Skin is anicteric. Lungs are clear. Heart shows a regular rate and rhythm. Abdomen is soft without focal mass or tenderness. Extremities are without edema. Assessment: * Assessment: 1. G astroesophageal reflux disease, unspecified whether esophagitis present - K21.9 (Primary)? 2. I rritable bowel syndrome, unspecified type - K58.9 Gastroesophageal reflux dise ase is stable. She will continue omeprazole. IBS symptoms are doing well. We discussed the high-fiber diet. We recommended she continue to use dicyclomine for her symptoms of discomfort. Followup will be in one year. Plan: * Treatment: * Procedure Codes: 3 017F COLORECTAL CA SCREEN DOC [id number] Pt scrn tbco id as non [id number] PATIENT NOT ELIG D/T ACTIVE DX HTN * Preventive Medicine: Counseling: C are goal follow-up plan: A lauren Normal BMI Follow-up G iving encouragement to exercise, B MO management provided Y es. Urinary Incontinence: U rinary Incontinence A ssessment: P resent, P yomi of care documented: Y es, T ype of plan of care: M odification of medications contributing to UI. Screenings: F all Risk Screening F all Risk Assessment: F all with injury in the past year, S creening: O ne fall without injury in the past year, A ssessment:?Not performed, no reason specified, P yomi of Care: D ocumented, T ype of fall plan of care: B alance, strength and gait training or instruction provided. * Follow Up: 1 Year Billing Information: * Procedure Codes: 3017F COLORECTAL CA SCREEN DOC REV. G9903 Pt scrn tbco id as non user. G9744 PATIENT NOT ELIG D/T ACTIVE DX HTN. * The named appointment provid er may or may not be the originator of this progress note, and it is not deemed complete until electronically signed by the appointment provider. Sign off status: Pending * Provider: Brian Godfrey MD Date: 04/10/2023 Generated for Nemo feng/Lillie/Johnitting on: 04/15/2024 11:30 PM EST
--- OUTSIDE RECORDS SUMMARY | 2025-02-06 04:00 | XMS_ITS ---
Author Organization [facility] Address [address] [place] [address] Care Team Providers Care Ruching Machine Operator Name Role Phone Reinaldo Suarez Primary Care Provider Unavailab Kee Brooke Jr Unavailable REASON FOR VISIT Patient presents today for gerd Encounters Encounter Location Date Provider Diagnosis [facility] [address] [place] [address] 02/06/2025 Kee Godfrey Jr Plan Of Treatment Next Appt Details Provider Name:Kee pedraza Jr, 06/12/2025 10:20:00 AM, [address], [address], [place], [address], Progress Notes * RAY REEDOB: (69 yo F)Acc No.[id number]:02/06/2025 Progress Notes Patient: MICHELLE DIAZ Provider: Brian Godfrey MD :1955 A ge:69 Y S ex:Female Date:02/06/2025 Address:[address] [place] [address] [address] , [id number] Pcp:Reinaldo Suarez Subjective: * Chief Complaints: * P atient presents today for gerd * The named appointment provid er may or may not be the originator of this progress note, and it is not deemed complete until electronically signed by the appointment provider. Sign off status: Pending * Provider: Brian Godfrey MD Date: 04/09/2024 Generated for Rajani ping/Lillie/eTransmitting on: 04/15/2024 11:28 PM EST
--- OUTSIDE RECORDS SUMMARY | 2025-02-12 23:28 | XMS_ITS | Patient Health Record ---
Author Organization [facility] Address [address] [place] [address] Care Team Providers Care Area Attendant Name Role Phone Reinaldo Suarez Primary Care Provider Unavailab Kee Brooke Jr Unavailable Allergies Allergen (clinical drug ingredient) Drug/Non Drug Allergy documented on EMR Reaction Allergy Type Onset Date Status TB Syringe 1 ML Unknown Drug Allergy A ctive Reason For Referral No Information Medications Medication SIG (Take, Route, Frequency, Duration) Notes Start Date End Date Status Citalopram Hydrobromide 40 MG Tablet TK 1 T PO QD Oral; Duration: 30 Active MiraLax (colon prep) 8.3 ounce ((238) grams mixed with Gatorade or Crystal Light orally begin at 5:00 p.m. the day before the procedure; Duration: 1 day 05/23/2020 Active VESIcare 10 MG Tablet TK 2 TS PO D Oral; Duration: 30 Active Famotidine 40 MG Tablet TK 1 T PO HS Oral Active Atorvastatin Calcium 40 MG Tablet TK 1 T PO HS Oral; Duration: 30 Active Vitamin D3 125 MCG (5000 UT) Capsule TAKE 1 CAPSULE BY MOUTH DAILY FOR 30 DAYS Oral; Duration: 30 Active Lisinopril 40 MG Tablet TK 1 T PO QD Ora l; Duration: 30 Active Diclofenac Sodium 50 MG Tablet Delayed Release TAKE 1 TABLET BY MOUTH THREE TIMES DAILY Oral; Duration: 90 Active Aspirin EC Low Dose 81 MG Tablet Delayed Release TK 1 T PO QD Oral; Duration: 30 Active traZODone HCl 150 MG Tablet TAKE 1 TABLE T BY MOUTH EVERY NIGHT AT BEDTIME Oral; Duration: 90 Active Metoprolol Succinate ER 50 MG Tablet Extended Release 24 Hour TK ONE AND ONE-HALF TS PO D Oral; Duration: 30 Active oxyBUTYnin Chloride ER 15 MG Tablet Extended Release 24 Hour TAKE 1 TABLET BY MOUTH DAILY Oral; Duration: 90 Active Latanoprost Active Trulicity 3 MG/0.5ML Solution Auto-injector Subcutaneous; Duration: 28 Active Dicyclomine HCl 20 MG Tablet TAKE 1 TABLET BY MOUTH TWO TO 4 TIMES A DAY; Duration: 90 Active Amitriptyline HCl 25 MG Tablet TK 1 T PO HS Oral; Duration: 30 Active Omeprazole 40 MG Capsule Delayed Release TAKE 1 CAPSULE BY MOUTH DAILY Oral; Duration: 30 Active Timolol Maleate 0.5 % Solution INSTILL 1 DROP INTO BOTH EYES EVERY MORNING Ophthalmic; Duration: 50 Active Meclizine HCl 25 MG Tablet TK 1 T PO TID Oral; Duration: 10 Active Toujeo Max SoloStar 300 UNIT/ML Solution Pen-injector INJECT 46 UNITS SUBCUTANEOUS DAILY Subcutaneous; Duration: 30 Active Insulin Glargine Max SoloStar 300 UNIT/ML Solution Pen-injector Subcutaneous; Duration: 40 Active Solifenacin Succinate 10 MG Tablet Oral; Duration: 90 Active Immunizations Vaccine Route Administration Date [...] Options Details Miscellaneous: Marital status: Occupation: retired Problems Problem Type SNOMED Code ICD Code Onset Dates Problem Status W/U Status Risk Notes Problem Colon cancer screening (942794513) Colon cancer screening (Z12.11) Active confirmed Problem History of polyp of colon (situation) (914244607) Personal history of colonic polyps (Z86.010) Active confirmed Problem Periumbilical abdominal pain (836657143) Periumbilical abdominal pain (R10.33) Active confirmed Problem Epigastric pain (03668148) Abdominal pain, epigastric (R10.13) Active confirmed Problem Irritable bowel syndrome (48868583) Irritable bowel syndrome, unspecified type (K58.9) Active confirmed Problem Gastroesophageal reflux disease (092209167) Gastroesophageal reflux disease, unspecified whether esophagitis present (K21.9) Active confirmed Encounters Encounter Location Date Provider Diagnosis [facility] [address] [place] [address] 03/28/2024 Kee Godfrey Jr Plan Of Treatment Pending Test Test Name Order Date STOOL WBC 03/09/2019 OVA & PARASITES (O&P) 03/09/2019 CULTURE, STOOL 03/09/2019 XR GI SERIES 08/31/2013 C DIFFICILE RFLX PCR 03/09/2019 Future Test Test Name Order Date COLONOSCOPY 04/30/2015 UPPER GI ENDOSCOPY 05/23/2020 COLONOSCOPY 05/23/2020 Next Appt Details Provider Name:Kee pedraza Jr, 06/12/2025 10:20:00 AM, [address], [address], [place], [address], Insurance Providers Payer Name Payer Address Payer Phone Subscriber Number Group Number Insured Name Patient Relationship to Insured Coverage Start Date Coverage End Date [facility] [address] [place] [address] [id number] MICHELLE REED Self - patient is the [...]
--- OUTSIDE RECORDS SUMMARY | 2025-02-12 23:30 | XMS_ITS | Clinical Summary ---
Author Organization [facility] Address [address] [place] [address] Phone Care Team Providers Care Textile Supervisor Name Role Phone Reinaldo Suarez MD Primary [...] Office Visit [facility] [address] [address] Bk Martinez MD [facility] [phone] Health Maintenance Due Date Last Done Comments [...] patient's age to complete this topic Insurance [facility] ([id number]) [facility] ([id number]) Care Teams Textile Supervisor Relationship Specialty Start Date End Date Reinaldo Suarez MD [address] [place] [address] PCP - General Family Medicine 12/22/20
--- OUTSIDE RECORDS SUMMARY | 2025-02-12 23:30 | XMS_ITS | Data Portability ---
Author Organization [employer] Address [address] [place] [address] Care Team Providers Care Seo Coordinator Name Role Phone HIM CCA OTHER Assessment Encounter Date Assessment Date Assessment LastModified by Organization Details LastModified Time 09/17/2023 09/17/2023 I have reviewed and agree with the assessment and plan as documented by the mainframe systems administrator. I provided real time medical direction for this encounter and was immediately available to provide additional phone based assistance as needed. History as noted by mainframe systems administrator. Pt with history of HTN, CKD (last [...] BMP checked next week to ensure her ANTONOI and mild hyperkalemia have improved. Also, please arrange for abdominal u/s as she has noted recent post prandial epigastric pain. If pt's renal function does not improve, she will need to be referred back to her sales market leader for evaluation, who last saw the pt [...] in the field was performed by my mainframe systems administrator colleague, as noted above, I provided real-time [...] scan. Patient is agreeable to go to [place] emergency department. I have called in an [...] assessment and plan as documented by the mainframe systems administrator. I provided real-time medical direction for this encounter and was immediately available to provide additional phone-based assistance as needed. History as noted in EMR and by mainframe systems administrator. I would add / emphasize: Patient seen [...] department via 911 and patient agrees. To [facility] ED via EMS. pallfather Not available 09/20/2024 08:28:21 Plan of Treatment Reminders Order Date Submit Date Provider Last Modified By Organization Details Last Modified Time Details Appointments None recorded. Lab BMP, serum or plasma 2024 025 [facility], [address] [place] [address], [phone] 14:57:30 BMP, serum or plasma [address], [phone] 4 11:35:24 hemoglobi n + hematocri t, blood 2023 024 [facility], [address] [place] [address], [address] 4 11:35:22 urinalysi s, dipstick 2023 024 [facility], [address] [place] [address], [address] 4 11:48:50 Referral None recorded. Procedures None recorded. Surgeries None recorded. Imaging electroca rdiogram 2024 025 pallfather [facility], [address] [place] [address], [address] 5 21:03:03 Medication Orders sodium chloride 0.9 % intraveno us solution [address]/Pharmacy #[id number], [address] [place] [address], [address], 5 10:15:54 ondansetr on HCl (PF) 4 mg/2 mL injection solution [address]/Pharmacy [facility][id number], [address] [place] [address], [address], 5 10:15:54 sodium chloride 0.9 % intraveno us solution 2023 024 [facility]acy #[id number], [address] [place] [address], [address], 4 11:48:49 Patient TargetsNo targets recorded. Patient InstructionsNo instructions recorded. Reason for Referral None Reported. Results Created Date Observation Date Name Description Value Unit Range Abnormal Flag Note LastModifiedBy Organization Detail LastModifiedTime 09/17/1909/17/2023 urina lysis , dipst ick Leukocytes negati ve Not Available Main - [address], [phone] 09/17/2023 11:47:07 09/17/19 24 09/17/2023 urina lysis , dipst ick Nitrite negati ve Not Available Main - Inst ed [address] [place] [address], [address] 09/17/2023 11:47:07 09/17/19 24 09/17/2023 urina lysis , dipst ick Protein trace Not Available Main - Ins [address], [phone] 09/17/2023 11:47:07 09/17/19 24 09/17/2023 urina lysis , dipst ick Blood negati ve Not Available Main - Inst ed [address] [place] [address], [address] 09/17/2023 11:47:07 09/17/19 24 09/17/2023 urina lysis , dipst ick Ketone trace Not Available Main - Ins [address], [phone] 09/17/2023 11:47:07 09/17/19 24 09/17/2023 urina lysis , dipst ick Glucose negati ve Not Available Main - Inst ed [address] [place] [address], [address] 09/17/2023 11:47:07 09/17/19 24 09/17/2023 hemog lobin + hemat ocrit , blood Hemoglobin 11.9 Not Available Main - [facility] [address] [place] [address], [phone] 09/17/2023 11:33:02 09/17/19 24 09/17/2023 hemog lobin + hemat ocrit , blood Hematocrit 35 Not Available Main - [facility] [address] [place] [address], [address] 09/17/2023 11:33:02 09/17/19 24 09/17/2023 BMP, serum or plasm a BUN 50 Not Available Main - Ins [address], [address] 09/17/2023 11:32:55 09/17/19 24 09/17/2023 BMP, serum or plasm a Ca 1.32 Not Available Main - Ins [address], [address] 09/17/2023 11:32:55 09/17/19 24 09/17/2023 BMP, serum or plasm a CI- 108 Not Available Main - Ins [address], [address] 09/17/2023 11:32:55 09/17/19 24 09/17/2023 BMP, serum or plasm a CRE 1.9 Not Available Main - Ins [address], [address] [place] [address] 09/17/2023 11:32:55 09/17/19 24 09/17/2023 BMP, serum or plasm a GLU 173 Not Available Main - Ins [address], [address] [place] [address] 09/17/2023 11:32:55 09/17/19 24 09/17/2023 BMP, serum or plasm a K+ 5.4 Not Available Main - Ins [address], [address] [place] [address] 09/17/2023 11:32:55 09/17/19 24 09/17/2023 BMP, serum or plasm a Na+ 137 Not Available Main - Ins [address], [address] [place] [address] 09/17/2023 11:32:55 09/17/19 24 09/17/2023 BMP, serum or plasm a tCO2 21 Not Available Main - Ins [address], [address] 09/17/2023 11:32:55 09/20/19 25 09/19/2024 elect gloria riosgr am No observ ation record ed. [email or web address] [facility] [address], [address] 09/19/2024 21:26:53 Result Notes None recorded. Medical [...] Recorded Respiratory rate Body temperature Oxygen saturation Heart rate Systolic And Diastolic Provider Name and Address Organization Details Last Updated DateTime 5 18 /min 98.7 [degF] 98 % 108 /min 98/62 mm[Hg] Not Available [facility] 5 10:07:50 Date Recorded Heart rate Respiratory rate Oxygen saturation Body temperature Systolic And Diastolic Provider Name and Address Organization Details Last Updated DateTime 4 90 /min 16 /min 99 % 98 [degF] 140/80 mm[Hg] James Bonilla MD [address] [place] [address],[address], [place], [phone] [place] [address] [employer] [facility] 4 10:58:17 Date Recorded Oxygen saturation Body temperature Heart rate Respiratory rate Systolic And Diastolic Provider Name and Address Organization Details Last Updated DateTime 4 98 % 98 [degF] 90 /min 16 /min 140/80 mm[Hg] Not Available [facility] [place] 4 12:38:32 Date Recorded Body height Respiratory rate Heart rate Body temperature Body weight Oxygen saturation Heart rate Systolic And Diastolic Systolic And Diastolic Provider Name and Address Organization Details Last Updated DateTime 5 152.4 cm 14 /min 135 /min 98 [degF] 44288.6 g 98 % 135 /min 104/74 mm[Hg] 93/61 mm[Hg] Not Available [facility] 5 09:45:08 Social History None recorded. Functional Status None recorded. Mental Status None recorded. Family History Nothing Reported. Medical History No medical history recorded. Gynecological HistoryNo gynecological history recorded. Obstetrics History GPAL:G 0 P 0 0 0 0 Past Encounters Encounter ID Performer Location Encounter Start Date Encounter Closed Date Diagnosis/Indication Diagnosis SNOMED-CT Code Diagnosis ICD10 Code Diagnosis IMO Codes Diagnosis Note [id number] James Bonilla MD [address] [address] 09/17/2023 10:55:08 09/18/2023 22:12:46 Excessive thirst 33566200 R63.1 Acute-on-c hronic renal failure 767933028 N17.9 [id number] Davon Anand MD [address] [address] 09/06/2024 10:07:42 09/07/2024 16:15:42 Generalized abdominal pain 563341074 R10.84 [id number] Oleg Madden MD [address] [address] 09/19/2024 09:26:00 09/20/2024 11:13:00 Abdominal pain 76803630 R10.9 47347763 Health Concerns Section Related Observation LastModified by Organization Detai ls LastModified Time None Recorded Concern Status LastModified by Organization Details LastModified Time None Recorded Advance Directives Directive None Recorded Payers Insurance Date Sequence Insurance Name Policy Number Policy Jerome Covered Member ID Jerome Member ID Guarantor Name 09/19/2024 1 [facility] - DOS ON OR AFTER 2022 - DUAL ELIGIBLE - PENITENTIARY OPTIONS AND ONE CARE (MEDICARE REPLACEMENT/ADV ANTAGE - HMO) Zulay Styles [id number] Zulay Styles Notes Date Note Type Note Provider Name and Address Organization Details Recorded Time 09/17/2023 text/html ROS as noted in the HPI This was a supervised home visit with mainframe systems administrator Aleyda Benitez. CRC Nurse Triage Notes (Philip Roberson): Reason For Request: Patient feels weak, urinating a lot, drinking lots of fluids, and feels shaky. Chief Complaints: Weakness/Lethargy, Syncope/Dizziness/Li ghtheadedness Allergies: Unknown Comments: [employer] Operator verified the member's name//address and phone number. [...] emergency treatment if needed -Allen Roberson RN Road Mechanic POC Test Results from Emmanuel Aleyda - [place] iSTAT Chem8+ (12:38:42) Na: 137 [...] .................... .................... .................... .................... .................... .................... . Road Mechanic Note From Aleyda Benitez: [facility] Road Mechanic Silas Benitez SC6 [facility] a 68 y[facility] C/O thirst, [...] of 175 that AM. No pedal edema. [facility] consulted; #22 IV placed in her left AC, BMP acquired, she was given 100 mL NS. Urine dip in insted. She was instructed to drink plenty of water, keep sugar to a minimum, and speak w/ her Physician IVONNE. She was informed that she needed follow up bloodwork and possibly a referral back to her past Diamond Assorter. Red flags discussed at length. .................... .................... .................... .................... .................... .................... .................... . Disposition: Balbina James Bonilla MD [address] [facility],[address], [place], [address], [facility] 09/17/2023 12:57:52 09/06/2024 text/html ROS as noted in the [facility] CRC Nurse Triage Notes (Yoanna Gaxiola): Reason [...] signs of when to seek emergency care. Road Mechanic Organization Information for Camilo Beckford Business Legal Name: [facility]. Address: [address] [place] [address], Analytic Programmer: Elvin BERG No.: [id number] Road Mechanic POC Test Results from Camilo Beckford Rapid [...] Hb: 11.9 g/dL A mmol/L Cartridge Number: [id number] Attachments uploaded as part of this test result can be found under Documents section. .................... .................... .................... .................... .................... .................... .................... . Road Mechanic Note From Camilo Beckford: Dispatched to above [...] and less than yesterday but getting worse. [facility] contacted spoke with Dr. Anand, advised of patient complaints exam findings and test results. [facility] orders BMP checked, and fluid started. IV access established, 18g L AC. Lab draw preformed, Chem8 checked, results uploaded. Patient started on normal saline infusion. Patient reports pain is getting worse. [facility] contacted, due to pain and elevated creatinine compared to recent test, [facility] recommends transport to ER for further evaluation. Patient agrees with this plan. 911 contacted, [facility] responded. Verbal report given to [facility] Road Mechanic, took over patient care, will transport to [facility]. SC8 clear. EOR. [facility] Lab Orders: BMP, serum or plasma: Performed [facility] Medication Orders: sodium chloride 0.9 % intravenous solution: Administered ondansetron HCl (PF) 4 mg/2 mL injection solution: Not Administered Comment: transported by EMS .................... .................... .................... .................... .................... .................... .................... . [facility] Consulted: Davon Anand .................... .................... .................... .................... .................... .................... .................... . Disposition: Fulfilled Davon Anand MD [address] [place] [address],[address], [place], [address], [employer] 09/06/2024 15:40:44 09/19/2024 text/html CRC Nurse Triage [...] Dementia (e.g., Alzheimer's Disease) PMH Reviewed at 09/19/2024:45 Allergies Reviewed at 09/19/2024 08:45 Comments: Allergy [...] signs of when to seek emergency care. Road Mechanic Organization Information for Danny Fraire [employer] Legal Name: [facility] Address: [address] [place] [address], Analytic Programmer: Ricky Saavedra MD CLIA No.: [id number] Road Mechanic POC Test Results from Danny Fraire EKG (10:13:43) EKG test performed. Attachments uploaded as part of this test result can be found under Documents section. .................... .................... .................... .................... .................... .................... .................... . Road Mechanic Note From Danny Fraire: Patient alert and [...] rebound tenderness noted or reported. Extremities unremarkable. [facility] advises patient to go to ED. Patient agrees, 911 system activated, report to EMS on scene. [place] [facility]. .................... .................... .................... .................... .................... .................... .................... . [facility] Consulted: Oleg Madden .................... .................... .................... .................... .................... .................... .................... . Disposition: Fulfilled Oleg Madden MD [address] [facility],[address] [facility], [place], [address], JULI MATTSON 09/20/2024 08:28:30 OBGyn Episode No OBEpisode recorded.
== END ==
LOC: HO.SL 21:53
PROVIDERS: PCP Family Medicine; Visit Provider Physician Assistant Medical
DX: G47.34 Idiopathic sleep related nonobstructive alveolar hypoventilation (principal)
CPT/HCPCS: 95810

== ENCOUNTER → 2025-02-12 21:59 | Outpatient (BNV) | payer OTHER, SELFPAY | PROVIDERS: PCP Family Medicine; Visit Provider Psychiatry & Neurology Neurology | DX: G47.19 Other hypersomnia (principal) | CPT/HCPCS: 95810 ==